=== PATIENT | female | born 1950 | race Caucasian/White ===

== ENCOUNTER 2021-03-01 11:49 | Emergency (ER) | payer MEDICARE, MEDICAID, SELFPAY ==
--- NOTE | ~2021-03-01 | XR_ITS ---
EXAMINATION: XR CHEST CLINICAL INFORMATION: CVA COMPARISON: April 17, 2019 TECHNIQUE: AP portable view of the chest was obtained. FINDINGS: The cardiopericardial silhouette is enlarged. Pacemaker/defibrillator in place. No evidence of pulmonary edema. No confluent parenchymal disease is seen. Status post median sternotomy. No pneumothorax or pleural effusion seen. XR/XR chest 1V IMPRESSION: No significant acute parenchymal disease identified. Cardiomegaly.
--- NOTE | ~2021-03-01 | CT_ITS ---
EXAMINATION: CT HEAD WITHOUT CONTRAST (STROKE PROTOCOL) CLINICAL INFORMATION: Stroke protocol. The stage. COMPARISON: Helical images are available for comparison. Comparison is made with previous head CT report 2005 TECHNIQUE: Contiguous axial imaging was performed from the skull base to vertex without intravenous administration of contrast. This CT examination was performed using dose optimization techniques as appropriate, variously including the following: *Automated exposure control *Adjustment of mA and/or kV according to patient size (this includes techniques or standardized protocols for targeted exams where dose is matched to indication/reason for exam; i.e. extremities or head) *Use of iterative reconstruction technique DLP: 589 mGy-cm FINDINGS: There is no evidence of an extra-axial collection. There is no evidence of intra-axial or extra-axial hemorrhage. The ventricles and extra-axial CSF spaces are appropriate. There is mild nonspecific periventricular white matter disease. There is a large old left MCA territory infarct.There is an old-appearing right posterior medial occipital lobe infarct. There may be old small cerebellar infarcts. No mass, mass effect or acute infarct is seen. Review at bone windows is unremarkable. No skull fracture or bone lesion is seen. The paranasal sinuses, mastoid air cells and middle ears are clear. CT/CT head for stroke IMPRESSION: No acute findings. Old large left MCA territory infarct. Old right occipital infarct and question old small cerebellar infarcts. This critical result was discussed with Juan F Grey at 1218 hours on 03/01/2021. It was ascertained that the content and urgency of the report was understood at the time of direct communication.
[2021-03-01 11:58] LABS: Glucose, Whole Blood 88 mg/dL (60-115)
--- NOTE | 2021-03-01 12:00 | ECG_ITS ---
Test Reason : STROKE Blood Pressure : / mmHG Vent. Rate : 057 BPM Atrial Rate : 000 BPM P-R Int : 000 ms QRS Dur : 100 ms QT Int : 418 ms P-R-T Axes : 000 056 221 degrees QTc Int : 406 ms Atrial fibrillation with slow ventricular response with occasional ventricular-paced complexes Left ventricular hypertrophy with repolarization abnormality ( [place] product ) T-wave inversion in Inferior leads Lateral leads Abnormal ECG When compared with ECG of 17-APR-2019 16:37, T wave inversion more evident in Inferior leads Referred By: Juan F Grey Electronically Signed By:HELGA CISNEROS MD
[2021-03-01 12:06] VITALS: BP 137/62; PULSE 58; O2SAT 98
--- NOTE | 2021-03-01 12:10 | ED_ITS ---
HPI - General Adult General Chief complaint: Stroke Stated complaint: ?stroke Time Seen by Provider: 03/01/21 12:00 Source: EMS Limitations: altered mental status (Expressive aphasia) History of Present Illness HPI narrative: This is a 70-year-old female with a history of prior CVA who was noted by family last night around 21:00 to have protrusion of her tongue that seemed abnormal. This morning EMS was called and the patient was noted to have some right facial droop which the family stated seemed like it was new compared to her usual appearance. The patient can give limited history as she has an expressive aphasia. She does seem to indicate she has new neurologic symptoms. Patient is on Coumadin. The patient's daughter later gives history that the patient was at [facility] last month for similar symptoms, had a UTI. Daughter is concerned the patient urine has been foul smelling recently and she seems to have some swelling of her right foot. She noted the tongue protrusion last night and this morning but otherwise denies that there is any acute change in her mother's appearance or behavior Related Data Home Medications Medication Instructions Recorded Confirmed aspirin 81 mg tablet,delayed 1 tab PO DAILY 03/01/21 03/01/21 release atorvastatin 80 mg tablet 1 tab PO BEDTIME 03/01/21 03/01/21 digoxin 125 mcg (0.125 mg) tablet 1 tab PO DAILY 03/01/21 03/01/21 estradiol 1 appl VAGINAL DAILY 03/01/21 03/01/21 fluoxetine 40 mg capsule 1 cap PO DAILY 03/01/21 03/01/21 furosemide 40 mg tablet 1 tab PO DAILY 03/01/21 03/01/21 isosorbide mononitrate 30 mg 1 tab PO DAILY 03/01/21 03/01/21 tablet,extended release 24 hr lamotrigine 25 mg tablet 2 tab PO BID 03/01/21 03/01/21 levothyroxine 175 mcg tablet 1 tab PO DAILY 03/01/21 03/01/21 losartan 25 mg tablet 1 tab PO DAILY 03/01/21 03/01/21 memantine 10 mg tablet 1 tab PO DAILY 03/01/21 03/01/21 metoprolol tartrate 100 mg tablet 1 tab PO BID 03/01/21 03/01/21 mirtazapine 15 mg tablet 1 tab PO BEDTIME 03/01/21 03/01/21 multivitamin 1 tab PO DAILY 03/01/21 03/01/21 nystatin 100,000 unit/gram topical 1 applic TOPICAL DAILY 03/01/21 03/01/21 powder (Nystop) potassium chloride 10 mEq 1 tab PO BID 03/01/21 03/01/21 tablet,extended release quetiapine 25 mg tablet 25 mg PO DAILY 03/01/21 03/01/21 quetiapine 25 mg tablet 50 mg PO DAILY 03/01/21 03/01/21 topiramate 200 mg tablet 1 tab PO BID 03/01/21 03/01/21 warfarin 3 mg tablet 2 tab PO DAILY 03/01/21 03/01/21 Previous Rx's Medication Instructions Recorded cefdinir 300 mg capsule 300 mg PO BID #12 cap 03/01/21 Allergies Allergy/AdvReac Type Severity Reaction Status Date / Time codeine [Codeine] Allergy Unknown GENERIC Unverified 01/05/20 15:03 Allergy: CODEINE SULFATE levofloxacin [LEVOFLOXACIN] Allergy Unknown ANGIOEDEMA Unverified 01/05/20 15:03 Shellfish Allergy Unknown UNKNOWN Unverified 01/05/20 15:03 Codeine Sulfate Allergy Unknown Uncoded 03/25/11 00:00 Erythromycin Allergy Unknown Uncoded 03/25/11 00:00 From Erythrocin Allergy Unknown UNKNOWN Uncoded 01/05/20 15:03 Review of Systems Review of Systems: Yes Unobtainable due to mental condition Constitutional: Constitutional: Denies headache(s) ENT: Denies headache(s) Neurologic: Denies headache(s) and Denies Sensory deficit (Neuro) PMFSH Social History Social History Patient Tobacco Use Status: Former Tobacco user Use of substances other than those prescribed or required for medical reasons: No Advance Directives: No Advance Directives Information Provided: No Physical Exam Vital Signs: Vital Signs: Last Vital Signs Pulse 75 03/01/21 14:11 Resp 21 H 03/01/21 14:11 BP 138/42 L 03/01/21 14:11 Pulse Ox 98 03/01/21 14:11 Body Mass Index 29.2 Const: Other: Patient does attempt to answer questions, has expressive aphasia. Patient does smile and laugh, when she smiles she has slight asymmetry with decrease of the right nasal labial fold no gross right facial droop. No eyelid involvement General: cooperative Orientation/consciousness: patient oriented x3 HENMT: Head: Yes normal to inspection Eyes: General: appearance normal, both eyes and all related structures Eyelids: Yes eyelids normal Conjunctivae: conjunctivae normal Pupils: Equal, round and reactive pupils present Neck: Neck: Yes normal visual inspection and Yes supple Chest: Chest palpation & inspection: normal inspection of the chest Resp: Effort & Inspection: normal respiratory effort Auscultation: clear to auscultation bilaterally Cardio: Rate: regular rate Rhythm: regular rhythm Heart sounds: S1 normal heart sound present, S2 normal heart sound present, no gallops, no murmurs and no rubs GI: Palpation (GI): Soft to palpation, nontender and Other GI palpation findings present (Non-distended) Auscultation: normal bowel sounds Skin: General skin exam: no rashes or lesions noted Neuro: General: patient oriented x3, no focal motor deficits and CN's II-XI intact bilaterally Cranial nerves: Yes Equal, round and reactive pupils present Cognition (Neuro): normal cognition Motor exam (neuro): 5/5 motor strength present throughout Sensory Exam: No Sensory deficit (Neuro) Extrem: General: Yes normal to inspection and Yes no pedal edema Psych: Appearance: grossly normal Affect: normal affect Procedures Procedure Narrative Procedure Narrative: Right femoral stick for blood draw. Due to the fact that both nursing and phlebotomy was unable to draw blood, a right femoral vein puncture was done. There was prepped with Betadine and blood was obtained on the 1st stick mite, venous, approximately 20 mL removed. Direct pressure was applied with gauze for a few minutes afterward. Medical Decision Making MDM Narrative Medical decision making narrative: Patient with a history of CVA, years ago, as well as atrial fibrillation, on Coumadin, was sent in for concern about a stroke. Patient had tongue protrusion that the family thought was unusual. The patient does have history of a large left MCA territory stroke and does have slight residual right facial paralysis but overall the patient is smiling, laughing, talking as best she can, seeming and concerned about any acute neurologic issue. The daughter also expressed concern about UTI and swelling in the patient's right foot. No concerning swelling was found on exam. Patient does have evidence of UTI. CT scan of the brain showed no acute pathology. There were the old left MCA territory infarctas well as the right occipital lobe infarct. CT of the head neck was initially ordered however the patient had no IV access and the consensus among the building services coordinator her family physician was that given the timing of the onset of symptoms and the lack of any definite neurologic deficit, CT would not be contributory. Patient labs were checked and were unremarkable. Urinalysis as noted above did show evidence of UTI. Lab Data Result diagrams: 03/01/21 15:40 03/01/21 15:40 Labs: Lab Results 03/01/21 03/01/21 03/01/21 Range/Units 11:55 12:18 14:07 WBC (4.8-10.8) X10*3/uL RBC (4.20-5.50) X10*6/uL Hgb (12.0-16.0) g/dl Hct (37.0-47.0) % MCV (80.0-98.0) fL MCH (27.0-33.0) pg MCHC (31.0-35.0) g/dl RDW (11.0-16.0) % Plt Count (160-400) X10*3/uL MPV (9.4-12.3) fL Immature Gran % (Auto) (0.0-0.4) % Neut % (Auto) (45-73) % Lymph % (Auto) (20-40) % [place] % (Auto) (2-11) % Eos % (Auto) (0-4) % Baso % (Auto) (0-2) % Lymph # (Auto) (1.2-4.9) X10*3/uL [place] # (Auto) (0.1-1.2) X10*3/uL Eos # (Auto) (0.0-0.4) X10*3/uL Baso # (Auto) (0.0-0.2) X10*3/uL Abs Immat Gran (auto) (0.00-0.03) X10*3/uL Absolute Neuts (auto) (2.0-8.3) x10*3/uL Absolute Nucleated RBC (0.0-0.012) X10*3/uL Nucleated RBC % (auto) (0.0-0.2) /100WBC PT (9.9-13.0) SEC Whole Blood PT 84.2 H (11.1-13.5) sec INR (0.9-1.1) Whole Blood INR 7.0 H* (0.9-1.1) APTT (24.1-38.0) SEC Sodium (135-145) mmol/L Potassium (3.3-5.1) mmol/L Chloride (96-108) mmol/L Carbon Dioxide (22-29) mmol/L Anion Gap (12-20) BUN (9-16) mg/dL Creatinine (0.5-1.4) mg/dL Estim Creat Clear Calc Estimated GFR POC Glucose 88 (60-115) mg/dL Random Glucose (60-115) mg/dL Calcium (8.4-10.2) mg/dL Magnesium (1.6-2.6) mg/dL Total Creatine Kinase (26-140) U/L Troponin I High Sens (<3.5-17.0) ng/L Urine Color Urine Appearance Urine pH (5.0-8.0) Ur Specific [place] (1.005-1.025) Urine Protein (NEG-TRACE) MG/DL Urine Glucose (UA) (NEG) MG/DL Urine Ketones (NEG) MG/DL Urine Blood (NEG) Urine Nitrite (NEG) Ur Leukocyte Esterase (NEG) Urine RBC (0) /HPF Urine WBC (0-4) /HPF Ur Squamous Epith Cells /LPF Urine Bacteria /LPF COVID-19 (GIGI) Negative (Negative) COVID-19 Clin Com See Note 03/01/21 03/01/21 03/01/21 Range/Units 14:10 15:40 15:40 WBC 5.4 (4.8-10.8) X10*3/uL RBC 3.40 L (4.20-5.50) X10*6/uL Hgb 8.9 L (12.0-16.0) g/dl Hct 30.3 L (37.0-47.0) % MCV 89.1 (80.0-98.0) fL MCH 26.2 L (27.0-33.0) pg MCHC 29.4 L (31.0-35.0) g/dl RDW 17.7 H (11.0-16.0) % Plt Count 113 L (160-400) X10*3/uL MPV 10.6 (9.4-12.3) fL Immature Gran % (Auto) 0.2 (0.0-0.4) % Neut % (Auto) 59.7 (45-73) % Lymph % (Auto) 27.2 (20-40) % [place] % (Auto) 9.4 (2-11) % Eos % (Auto) 3.1 (0-4) % Baso % (Auto) 0.4 (0-2) % Lymph # (Auto) 1.5 (1.2-4.9) X10*3/uL [place] # (Auto) 0.5 (0.1-1.2) X10*3/uL Eos # (Auto) 0.2 (0.0-0.4) X10*3/uL Baso # (Auto) 0.0 (0.0-0.2) X10*3/uL Abs Immat Gran (auto) 0.01 (0.00-0.03) X10*3/uL Absolute Neuts (auto) 3.2 (2.0-8.3) x10*3/uL Absolute Nucleated RBC 0.000 (0.0-0.012) X10*3/uL Nucleated RBC % (auto) 0.0 (0.0-0.2) /100WBC PT 43.7 H (9.9-13.0) SEC Whole Blood PT (11.1-13.5) sec INR 3.7 H (0.9-1.1) Whole Blood INR (0.9-1.1) APTT 46.2 H (24.1-38.0) SEC Sodium (135-145) mmol/L Potassium (3.3-5.1) mmol/L Chloride (96-108) mmol/L Carbon Dioxide (22-29) mmol/L Anion Gap (12-20) BUN (9-16) mg/dL Creatinine (0.5-1.4) mg/dL Estim Creat Clear Calc Estimated GFR POC Glucose (60-115) mg/dL Random Glucose (60-115) mg/dL Calcium (8.4-10.2) mg/dL Magnesium (1.6-2.6) mg/dL Total Creatine Kinase (26-140) U/L Troponin I High Sens (<3.5-17.0) ng/L Urine Color YELLOW Urine Appearance HAZY Urine pH 6.0 (5.0-8.0) Ur Specific [place] 1.015 (1.005-1.025) Urine Protein NEG (NEG-TRACE) MG/DL Urine Glucose (UA) NEG (NEG) MG/DL Urine Ketones NEG (NEG) MG/DL Urine Blood NEG (NEG) Urine Nitrite POS H (NEG) Ur Leukocyte Esterase 2+ H (NEG) Urine RBC 0 (0) /HPF Urine WBC 50-75 H (0-4) /HPF Ur Squamous Epith Cells 2+ /LPF Urine Bacteria 4+ /LPF COVID-19 (GIGI) (Negative) COVID-19 Clin Com 03/01/21 03/01/21 Range/Units 15:40 15:40 WBC (4.8-10.8) X10*3/uL RBC (4.20-5.50) X10*6/uL Hgb (12.0-16.0) g/dl Hct (37.0-47.0) % MCV (80.0-98.0) fL MCH (27.0-33.0) pg MCHC (31.0-35.0) g/dl RDW (11.0-16.0) % Plt Count (160-400) X10*3/uL MPV (9.4-12.3) fL Immature Gran % (Auto) (0.0-0.4) % Neut % (Auto) (45-73) % Lymph % (Auto) (20-40) % [place] % (Auto) (2-11) % Eos % (Auto) (0-4) % Baso % (Auto) (0-2) % Lymph # (Auto) (1.2-4.9) X10*3/uL [place] # (Auto) (0.1-1.2) X10*3/uL Eos # (Auto) (0.0-0.4) X10*3/uL Baso # (Auto) (0.0-0.2) X10*3/uL Abs Immat Gran (auto) (0.00-0.03) X10*3/uL Absolute Neuts (auto) (2.0-8.3) x10*3/uL Absolute Nucleated RBC (0.0-0.012) X10*3/uL Nucleated RBC % (auto) (0.0-0.2) /100WBC PT (9.9-13.0) SEC Whole Blood PT (11.1-13.5) sec INR (0.9-1.1) Whole Blood INR (0.9-1.1) APTT (24.1-38.0) SEC Sodium 142 (135-145) mmol/L Potassium 3.9 (3.3-5.1) mmol/L Chloride 113 H (96-108) mmol/L Carbon Dioxide 25 (22-29) mmol/L Anion Gap 8 L (12-20) BUN 19 H (9-16) mg/dL Creatinine 1.02 (0.5-1.4) mg/dL Estim Creat Clear Calc 44.1 Estimated GFR 54 POC Glucose (60-115) mg/dL Random Glucose 100 (60-115) mg/dL Calcium 8.8 (8.4-10.2) mg/dL Magnesium 2.1 (1.6-2.6) mg/dL Total Creatine Kinase 48 (26-140) U/L Troponin I High Sens 14.3 (<3.5-17.0) ng/L Urine Color Urine Appearance Urine pH (5.0-8.0) Ur Specific [place] (1.005-1.025) Urine Protein (NEG-TRACE) MG/DL Urine Glucose (UA) (NEG) MG/DL Urine Ketones (NEG) MG/DL Urine Blood (NEG) Urine Nitrite (NEG) Ur Leukocyte Esterase (NEG) Urine RBC (0) /HPF Urine WBC (0-4) /HPF Ur Squamous Epith Cells /LPF Urine Bacteria /LPF COVID-19 (GIGI) (Negative) COVID-19 Clin Com Imaging Data CT scan - head: Radiologist's impression: IMPRESSION: No acute findings. Old large left MCA territory infarct. Old right occipital infarct and question old small cerebellar infarcts. Chest x-ray: Radiologist's impression: IMPRESSION: No significant acute parenchymal disease identified. ? Cardiomegaly. ? ECG Data Attestation: I personally reviewed and interpreted this ECG as follows: Prior ECG tracings: not available for review Interpretation: Atrial fibrillation with ventricular response of 57. LVH with associated ST changes Discharge Plan Discharge Clinical Impression: Acute UTI Patient Disposition: Home, Self-Care Instructions: Urinary Tract Infection in Women (ED) Additional Instructions: Take the antibiotics as prescribed. Continue other medications. Return for any new or worsened symptoms such as increased weakness, fever, inability to take food or fluids Prescriptions: New cefdinir 300 mg capsule 300 mg PO BID Qty: 12 RF: 0 No Action multivitamin Tablet 1 tab PO DAILY RF: 0 quetiapine 25 mg tablet 25 mg PO DAILY RF: 0 quetiapine 25 mg tablet 50 mg PO DAILY RF: 0 fluoxetine 40 mg capsule 1 cap PO DAILY RF: 0 furosemide 40 mg tablet 1 tab PO DAILY RF: 0 levothyroxine 175 mcg tablet 1 tab PO DAILY RF: 0 atorvastatin 80 mg tablet 1 tab PO BEDTIME RF: 0 metoprolol tartrate 100 mg tablet 1 tab PO BID RF: 0 isosorbide mononitrate 30 mg tablet extended release 24 hr 1 tab PO DAILY RF: 0 potassium chloride 10 mEq tablet extended release 1 tab PO BID RF: 0 aspirin 81 mg tablet,delayed release (DR/EC) 1 tab PO DAILY RF: 0 lamotrigine 25 mg tablet 2 tab PO BID RF: 0 warfarin 3 mg tablet 2 tab PO DAILY RF: 0 losartan 25 mg tablet 1 tab PO DAILY RF: 0 topiramate 200 mg tablet 1 tab PO BID RF: 0 digoxin 125 mcg (0.125 mg) tablet 1 tab PO DAILY RF: 0 mirtazapine 15 mg tablet 1 tab PO BEDTIME RF: 0 estradiol 0.01 % (0.1 mg/gram) cream 1 appl vaginal DAILY RF: 0 memantine 10 mg tablet 1 tab PO DAILY RF: 0 nystatin [Nystop] 100,000 unit/gram powder 1 applic topical DAILY RF: 0
[2021-03-01 12:20] LABS: Prothrombin Time Whole Bld POC 84.2 sec (11.1-13.5)
[2021-03-01 12:25] VITALS: BMI 29.2
--- NOTE | 2021-03-01 12:34 | MHC.STROKE ---
Addendum entered by Luzma Meredith RN 03/01/21 13:16: THE DAUGHTER ROSALBA ARRIVED. THE PATIENT HAS BEEN LIVING WITH HER FOR THE PAST 12 YEARS. THE PATIENT HAS BEEN GOING TO [facility] SINCE 2019 FOR HER CARE. THE PATIENT WAS RECENTLY THERE FOR A UTI A MONTH AGO, THE SYMPTOMS OF FOUL URINE STILL PERSISTS. THE INR'S ARE CHECKED AT HOME LAST DONE ON 02/26/21 IT WAS 2.9 (GOAL 2.5-3.5). tHE PATIENTS BASELINE IS THAT SHE DOES GET UP WITH ASSISTANCE AND CAN USE A WALKER WITH HELP. SHE HAS APHASIA AND APRAXIA, SHE CHOPS ALL OF HER FOOD. LAST NIGHT THE DAUGHTER NOTICED THAT THE PATIENTS RIGHT SIDE SEEMS WEAKER AND HER TONGUE WAS DEVIATING TO THE RIGHT. I DID NOTIFY SPEECH THAT A CONSULT WAS BEING PUT IN. THE PATIENT HAS VERY DIFFICULT IV ACCESS AND THE LABS WERE DIFFICULT TO OBTAIN WELL. THE CTA MAY BE CANCELLED BECAUSE THE DAUGHTER SAID HER MOM IS BACK TO BASELINE EXCEPT FOR THE SWELLING OF THE RIGHT FOOT AND LESS MOVEMENT OF RIGHT FOOT. IF NEEDED THE RECORDS CAN BE OBTAINED FROM [facility]. 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 THE DAUGHTER ROSALBA HAS AN ENTIRE LIST OF HER MEDS AND MEDICAL SURGICAL HISTORY ON HER PHONE. THE DAUGHTER WOULD LIKE HER MOM ADMITTED OVERNIGHT IF THERE IS A MEDICAL INDICATION. THE DAUGHTER'S 16 YEAR OLD SON TESTED + FOR COVID BUT THE REST OF THE PEOPLE IN THE HOUSE HAVE NOT. Original Note: 1144 EMS PRE-NOTIFIED STROKE ALERT , ARRIVED AT [address] MITCHELL, STROKE PROTOCOL ACTIVATED. C/O RIGHT SIDED WEAKNESS THAT WAS NOTICED LAST NIGHT 02/28/[address] FAMILY[address] DIRECT TO CT, NO BLEED, CTA ALSO BEING DONE BUT PATIENT HAS DIFFICULT IV ACCESS. POC INR ALSO ATTEMPTED SEVERAL TIMES BUT UNABLE TO OBTAIN READING. LAB DRAW INR WILL ALSO BE DONE. SHE IS EXCLUDED FROM TPA BASED ON DELAY OF ARRIVAL. PATIENT HAS A SIGNIFICANT HISTORY WHICH INCLUDES MULTIPLE CVA'S FAR BACK 2001: RIGHT OCCIPITAL, DAT CEREBELLAR, 09/24/2004 VERY LARGE LEFT MCA STROKE/FOUND UNRESPONSIVE AT THAT TIME. AFIB ON WARFARIN, HF, CARDIAC ARREST 06/26/09, CAROTID OCCLUSION, MECHANICAL VALVE REPLACEMENT, ETC. HER CURRENT BASELINE WILL NEED TO BE DETERMINED, WE WILL CONTACT THE FAMILY. WE WILL ALSO DETERMINE IF SHE IS STILL ON WARFARIN. FAILED SWALLOW AT THIS TIME UNTIL BASELINE IS DETERMINED. I WILL CONTINUE TO FOLLOW.
[2021-03-01 12:52] VITALS: BP 123/43; PULSE 63; RESP 25; O2SAT 94
--- NOTE | 2021-03-01 13:53 | PHA.MEDREC ---
Pharmacy Consult ? Medication Reconciliation Pharmacy has completed the medication reconciliation. Patient's daughter confirmed all medications. Reports that warfarin dose changes often by INR. recently she has been giving Warfarin 6 mg daily. Melanie Saavedra, ToniD
[2021-03-01 14:11] VITALS: BP 138/42; PULSE 75; RESP 21; O2SAT 98
[2021-03-01 14:16] LABS: Appearance Urine HAZY; Color Urine YELLOW; Glucose Urine UA NEG (NEG); Leukocyte Esterase Urine 2+ (NEG); Nitrite Urine POS (NEG); Specific Gravity - Urine 1.015 (1.005-1.025); UACC Culture Trigger YES; Urine Blood NEG (NEG); Urine Ketones NEG (NEG); Urine Protein NEG (NEG-TRACE)
[2021-03-01 14:34] LABS: Bacteria Urine 4+ /LPF; RBC Urine 0 /HPF (0); Squamous Epithelial Cell Urine 2+ /LPF; WBC Urine 50-75 /HPF (0-4)
[2021-03-01 14:39] LABS: COVID-19 Test Negative (Negative)
--- NOTE | 2021-03-01 15:24 | MHC.SL.SWA ---
Speech Pathologist Impression: Risk of Aspiration Oral Phase Dysphagia Risk of Aspiration Due to: impulsivity Dysphasia Diet Status: Upgrade Liquid Consistency and Strategies for Safe Swallow: Liquid Intake Recommendation: Thin Liquid Intake Strategies: Small Sips No Straws Solid Food Consistency: Dietary Recommendations: Pureed (NDD1) Additional Modifications to Solid Foods: Oral Medication Intake: Crushed with Puree Compensatory Strategies and Precautions to be Taken for Safe Swallow: Supervision While Eating and Drinking for Safe Swallow: Total Supervision (1:1) Pt elicited a timely pharyngeal swallow trigger with tsp presentations of thin liquids presented by this CURVE CLEANER. Pt gestured that she wanted more water and wanted it from the cup rather than the spoon. She appeared very thirsty and took the cup from this CURVE CLEANER with her left hand. Pt required cues for use of small, single cup sips. Pt tolerated thin water without overt s/s aspiration. Pt demonstrated a timely swallow trigger and complete oral clearance with pureed solids. Pt was observed to have 2-3 very loose teeth. She was nearly edentulous on her lower jaw. Pt demonstrated significant difficulty with bolus formation of very small piece of a ground solid moistened in puree. A disorganized, anterior munching/mashing pattern of mastication was noted. Significant lingual residuals were noted post swallow. Updated with RN and pt's daughter via phone call re: evaluation results and recommendation for an NDD1 PUREED diet, THIN liquids via small, single cup sips (NO STRAWS), MEDS CRUSHED in puree, aspiration precautions, and 1:1 assist/supervision with all PO intake. Pt demonstrated impulsivity with PO intake, requiring cues for safety. CURVE CLEANER will continue to follow pt. Frequency/Duration: M-F during pt's hospitalization. Incinerator Attendant Clinican/Clinical Fellow: No Supervisory Statement: I have reviewed and agree with the student/clinical fellow's documentation: N/A Speech Language Pathologist: Keke Harmon M.A., CCC-CURVE CLEANER
[2021-03-01 15:45] LABS: MANUAL DIFF FLAG NO
[2021-03-01 15:47] LABS: Basophils Percent Auto 0.4 % (0-2); Eosinophils Absolute Auto 0.2 X10*3/uL (0.0-0.4); Eosinophils Percent Auto 3.1 % (0-4); Hematocrit 30.3 % (37.0-47.0); Hemoglobin 8.9 g/dl (12.0-16.0); Imm Gran Abs Auto 0.01 X10*3/uL (0.00-0.03); Imm Gran Pct Auto 0.2 % (0.0-0.4); Lymphocytes Absolute Auto 1.5 X10*3/uL (1.2-4.9); Lymphocytes Percent Auto 27.2 % (20-40); Mean Corpuscular HGB Conc 29.4 g/dl (31.0-35.0); Mean Corpuscular Hemoglobin 26.2 pg (27.0-33.0); Mean Corpuscular Volume 89.1 fL (80.0-98.0); Mean Platelet Volume 10.6 fL (9.4-12.3); Monocytes Absolute Auto 0.5 X10*3/uL (0.1-1.2); Monocytes Percent Auto 9.4 % (2-11); Neutrophils Absolute Auto 3.2 x10*3/uL (2.0-8.3); Neutrophils Percent Auto 59.7 % (45-73); Platelet Count 113 X10*3/uL (160-400); Red Cell Distribution Width 17.7 % (11.0-16.0); White Blood Count 5.4 X10*3/uL (4.8-10.8)
[2021-03-01 15:52] LABS: INTERNATIONAL NORM RATIO 3.7 (0.9-1.1); Prothrombin Time 43.7 SEC (9.9-13.0)
[2021-03-01] MEDS: cefTRIAXone sodium 1 GM, Lidocaine HCl 1 % MPF 2.1 ML IM (15:54)
[2021-03-01 15:55] LABS: Partial Thromboplastin Time 46.2 SEC (24.1-38.0)
[2021-03-01 15:57] LABS: Stroke Lab Use COMPLETE
[2021-03-01 16:06] LABS: Anion Gap 8 (12-20); Blood Urea Nitrogen 19 mg/dL (9-16); Calcium 8.8 mg/dL (8.4-10.2); Carbon Dioxide 25 mmol/L (22-29); Chloride 113 mmol/L (96-108); Creatinine Clr Calc Pharmacy 44.1; Estimated Glomerular Filt Rate 54; Glucose Random 100 mg/dL (60-115); Magnesium 2.1 mg/dL (1.6-2.6); Potassium 3.9 mmol/L (3.3-5.1); Sodium 142 mmol/L (135-145)
[2021-03-01 16:07] LABS: Troponin-I High Sensitivity 14.3 ng/L (<3.5-17.0)
== END 2021-03-01 17:07 | disposition home or self-care (01) ==
PROVIDERS: Emergency Provider Emergency Medicine; PCP Internal Medicine
DX: N39.0 Urinary tract infection, site not specified (principal); Z86.73 Personal history of transient ischemic attack (TIA), and cerebral infarction without residual deficits; Z79.01 Long term (current) use of anticoagulants; Z79.82 Long term (current) use of aspirin; Z79.899 Other long term (current) drug therapy; Z20.822 Contact with and (suspected) exposure to COVID-19
CPT/HCPCS: 36410; 36415; 70450; 71045; 80048; 81001; 82550; 82947; 83735; 84484; 85025; 85610; 85730; 87086; 87088; 87186; 87635; 93005; 96372; 99285; J0696

== ENCOUNTER 2021-03-27 13:32 | Inpatient (IN) | payer MEDICARE, MEDICAID, SELFPAY ==
--- NOTE | ~2021-03-27 | XR_ITS ---
EXAMINATION: XR CHEST CLINICAL INFORMATION: Shortness of breath COMPARISON: Multiple prior exams. Most recent Chest x-ray 03/27/2021., 2:59 PM TECHNIQUE: Frontal portable view of the chest was obtained. 2111 hours FINDINGS: Status post median sternotomy. Heart size is enlarged. No change position of pacemaker lead in right ventricle. Mild central pulmonary vascular prominence similar to multiple prior chest x-rays. No overt pulmonary edema. No pleural effusion. No pneumothorax. XR/XR chest 1V IMPRESSION: Cardiomegaly. Pacemaker. Chronic mild central pulmonary vascular prominence without overt pulmonary edema. No change since prior exam.
--- NOTE | ~2021-03-27 | XR_ITS ---
EXAMINATION: XR CHEST CLINICAL INFORMATION: Hypoxia. COMPARISON: 03/27/2021 chest radiograph. TECHNIQUE: Frontal view of the chest was obtained. FINDINGS: Support devices: Right-sided single-lead pacemaker with lead overlying the right ventricle without significant change or abnormality. Multilevel sternotomy wires are intact. Mild prominence of the pulmonary vasculature and cardiac silhouette is again seen without significant change. The mediastinal structures are unremarkable. XR/XR chest 1V IMPRESSION: Stable chest with mild prominence of the pulmonary vasculature and cardiac silhouette, likely baseline for the patient.
--- NOTE | ~2021-03-27 | CT_ITS ---
EXAMINATION: CT CHEST WITHOUT CONTRAST CLINICAL INFORMATION: Question aspiration pneumonia. COMPARISON: CT 04/17/2019. Radiograph 03/27/2021. TECHNIQUE: Multidetector volumetric CT imaging of the chest was done. Axial MIP volume rendering provided. Sagittal and coronal reformatted images were obtained. This CT examination was performed using dose optimization techniques as appropriate, variously including the following: *Automated exposure control *Adjustment of mA and/or kV according to patient size (this includes techniques or standardized protocols for targeted exams where dose is matched to indication/reason for exam; i.e. 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 Median sternotomy wires. LUNGS: The central airways are patent. There is a posterior opacity at the right lower lobe. This measures fat attenuation and likely represents an area of scarring/pleural thickening which is somewhat more prominent than on the study from 04/17/2019. No separate area of consolidation identified. No interstitial prominence. No pneumothorax. No pleural effusion. MEDIASTINUM: Enlarged heart. Coronary artery calcifications. No pericardial effusion. No mediastinal lymphadenopathy. Right chest wall pacer in place with right ventricular lead. AXILLA: No lymphadenopathy. UPPER ABDOMEN: Unremarkable. OSSEOUS STRUCTURES: No acute or suspicious osseous abnormality. CT/CT chest wo con IMPRESSION: No acute pulmonary finding. No evidence of aspiration. Area of increased pleural thickening/scarring at the right base. Cardiomegaly. Fleischner guidelines were followed.
--- NOTE | ~2021-03-27 | XR_ITS ---
EXAMINATION: XR CHEST CLINICAL INFORMATION: Lethargy. Cough. COMPARISON: 03/01/2021 TECHNIQUE: 2 views of the chest were obtained. FINDINGS: Right chest wall pacer is unchanged. Median sternotomy wires appear intact. The lungs are well expanded. No consolidation, edema, or effusion. No pneumothorax. The cardiomediastinal silhouette remains prominent, with a calcified aorta. XR/XR chest 2V IMPRESSION: No acute pulmonary finding.
[2021-03-27 13:44] VITALS: BP 151/76; BP 152/78; PULSE 53; PULSE 62; RESP 18; TEMP 36.8; O2SAT 100; O2SAT 98; BMI 31.9
--- NOTE | 2021-03-27 13:54 | ECG_ITS ---
Test Reason : SOB Blood Pressure : / mmHG Vent. Rate : 056 BPM Atrial Rate : 058 BPM P-R Int : 000 ms QRS Dur : 170 ms QT Int : 514 ms P-R-T Axes : 000 -87 099 degrees QTc Int : 496 ms Ventricular-paced rhythm with occasional , and consecutive Premature ventricular complexes Abnormal ECG When compared with ECG of 01-MAR-2021 12:33, Premature ventricular complexes are now Present Referred By: Latricia Rodriguez Electronically Signed By:Bryan Beal
[2021-03-27] MEDS: Albuterol Sulfate (0.083%) 2.5 MG/3 ML VIAL.NEB 10 MG INHALE (15:17)
--- NOTE | 2021-03-27 15:50 | ED_ITS ---
HPI - SOB/Dyspnea General Chief Complaint: General Medical Stated Complaint: INCREASED LETHARGY,SOB,CP,PROD COUGH Time Seen by Provider: 03/27/21 13:53 Source: patient, family and EMS Mode of arrival: EMS Limitations: other (History of stroke with right-sided residual weakness and expressive and receptive aphasia) History of Present Illness HPI Narrative: 70-year-old female with a past medical history of a CVA who is currently on warfarin taking daily with right-sided residual weakness and expressive and receptive aphasia per daughter who is at bedside, dementia, seizures, valvular heart disease, CHF on 40 mg of Lasix daily HTN, DVT, asthma and thyroid disease presenting to the ED via EMS with daughter at bedside who is the main historian with complaints of increased lethargy with cough, congested-sounding chest, wheezing, accessory muscle usage noted, shortness of breath, lower extremity edema and foul-smelling urine that all started today per the daughter. Daughter reports she is taking all her medications as prescribed as the daughter is the 1 who gives her medications and cares for her. Her rajani ghter denies any fevers, chills, dizziness, headaches, obvious neck pain/stiffness, chest pain, abdominal pain, nausea/vomiting/diarrhea constipation, rashes, recent travel or sick contacts, palpitations, calf tenderness or any other symptoms or complaints at this time. MD elicited complaint: shortness of breath and cough Pertinent past history: congestive heart failure Onset (ago): hour(s) (Few hours prior to arrival) Timing: constant and progressively worsening Severity: severe Exacerbating factors: lying flat, coughing, inspiration, talking and deep breaths Relieving factors: nothing Known history of: congestive heart failure Associated symptoms: pain with inspiration, cough, wheezing, orthopnea, chest congestion and other (Lower extremity edema) Treatment prior to arrival: none Related Data Home oxygen amount: none Home Medications Medication Instructions Recorded Confirmed aspirin 81 mg tablet,delayed 1 tab PO DAILY 03/01/21 03/01/21 release atorvastatin 80 mg tablet 1 tab PO BEDTIME 03/01/21 03/01/21 digoxin 125 mcg (0.125 mg) tablet 1 tab PO DAILY 03/01/21 03/01/21 estradiol 1 appl VAGINAL DAILY 03/01/21 03/01/21 fluoxetine 40 mg capsule 1 cap PO DAILY 03/01/21 03/01/21 furosemide 40 mg tablet 1 tab PO DAILY 03/01/21 03/01/21 isosorbide mononitrate 30 mg 1 tab PO DAILY 03/01/21 03/01/21 tablet,extended release 24 hr lamotrigine 25 mg tablet 2 tab PO BID 03/01/21 03/01/21 levothyroxine 175 mcg tablet 1 tab PO DAILY 03/01/21 03/01/21 losartan 25 mg tablet 1 tab PO DAILY 03/01/21 03/01/21 memantine 10 mg tablet 1 tab PO DAILY 03/01/21 03/01/21 metoprolol tartrate 100 mg tablet 1 tab PO BID 03/01/21 03/01/21 mirtazapine 15 mg tablet 1 tab PO BEDTIME 03/01/21 03/01/21 multivitamin 1 tab PO DAILY 03/01/21 03/01/21 nystatin 100,000 unit/gram topical 1 applic TOPICAL DAILY 03/01/21 03/01/21 powder (Nystop) potassium chloride 10 mEq 1 tab PO BID 03/01/21 03/01/21 tablet,extended release quetiapine 25 mg tablet 25 mg PO DAILY 03/01/21 03/01/21 quetiapine 25 mg tablet 50 mg PO DAILY 03/01/21 03/01/21 topiramate 200 mg tablet 1 tab PO BID 03/01/21 03/01/21 warfarin 3 mg tablet 2 tab PO DAILY 03/01/21 03/01/21 Previous Rx's Medication Instructions Recorded cefdinir 300 mg capsule 300 mg PO BID #12 cap 03/01/21 Allergies Allergy/AdvReac Type Severity Reaction Status Date / Time codeine [Codeine] Allergy Unknown GENERIC Unverified 01/05/20 15:03 Allergy: CODEINE SULFATE levofloxacin [LEVOFLOXACIN] Allergy Unknown ANGIOEDEMA Unverified 01/05/20 15:03 Shellfish Allergy Unknown UNKNOWN Unverified 01/05/20 15:03 Codeine Sulfate Allergy Unknown Uncoded 03/25/11 00:00 Erythromycin Allergy Unknown Uncoded 03/25/11 00:00 From Erythrocin Allergy Unknown UNKNOWN Uncoded 01/05/20 15:03 Review of Systems Review of Systems: Constitutional : No Weight loss, No Fever, No Chills, No Night Sweats, + Fatigue, + Malaise ENT/Mouth : No Hearing loss, No Ear Pain, No Nasal Congestion, No Sinus Pain, No Hoarseness, No sore throat, No Rhinorrhea, No Swallowing Difficulty Eyes: No Eye Pain, No Swelling, No Redness, No Foreign Body, No Discharge, No Vision Changes Cardiovascular : No Chest Pain, + SOB, + Dyspnea on Exertion, + Orthopnea, + LE Edema, No Palpitations Respiratory : + Cough, + Sputum, + Wheezing, No Smoke Exposure, + Dyspnea Gastrointestinal : No Nausea, No Vomiting, No Diarrhea, No Constipation, No abdominal Pain, No Hematochezia, No Melena Genitourinary : no irregular bleeding, No Dysuria, No Urinary Frequency, No Hematuria, No Urinary Incontinence, No Urgency, No Flank Pain, No Urinary Flow Changes, No Hesitancy Musculoskeletal : No joint pain, No Myalgias, No Joint Swelling Skin : No Skin Lesions, No rash Neuro : + general Weakness, No new focal weakness per daughter, No Numbness, No Paresthesias, No Loss of Consciousness, No Dizziness, No Headache Psych : No Anxiety/Panic, No Depression, No SI/HI/AH/VH, No Social Issues, Heme/Lymph: No Bruising, No Bleeding,No Lymphadenopathy Endocrine : No Polyuria, No Polydipsia, No Temperature Intolerance Yes all other systems are reviewed and are negative [facility] Past Medical History Attestation statement: The following information was validated with the patient. Surgical History Heart valve replaced Social History Social History Patient Tobacco Use Status: Former Tobacco user Advance Directives: No Advance Directives Information Provided: No Physical Exam Vital Signs: Vital Signs: Last Vital Signs Temp 98.3 F 03/27/21 13:44 Pulse 62 03/27/21 13:44 Resp 18 03/27/21 13:44 BP 152/78 H 03/27/21 13:44 Pulse Ox 98 03/27/21 13:44 BMI result Body Mass Index 31.9 vital signs have been reviewed as normal and appeared to be correct. Blood pressure 152/78. Heart rate normal. Respiration rate normal. Temperature normal. Oxygen saturation normal. Appearance: Alert. Demented at baseline. Mild respiratory distress. Head: Normal external exam. Normocephalic. Atraumatic. Eyes: PERRLA. EOMI. Conjunctiva and sclera normal. Eyelids normal. ENT: Pharynx normal. Uvula midline. Moist mucous membranes. No trismus noted. No drooling noted. No muffled voice noted. Neck: Normal inspection. Neck supple. FROM. No adenopathy. Thyroid Normal. No meningeal signs. No neck mass noted. CVS: Normal heart rate and rhythm. Heart sound normal. Pulses normal throughout. No murmurs/rales/gallops. Respiratory: In mild respiratory distress with decreased breath sounds and inspiratory and expiratory wheezing throughout. No rales/rhonchi noted. Chest is nontender. No accessory muscle use is noted. No abdominal retractions are noted. Not consistent with flail chest. No crepitus is noted. Abdomen: Soft and nontender. Bowel sounds normal in all 4 quadrants. No distention noted. No organomegaly noted. No visible injury noted. Back: No CVA tenderness. Full range of motion noted. No rashes/lesion/induration/fluctuance or signs of infection noted. Skin: Skin warm and dry. Normal skin color. Normal skin turgor. No rashes/lesions/lacerations noted. Extremities: Lower extremity edema is noted. No calf tenderness is noted. Extremities exhibit normal range of motion. Extremities nontender. Neuro: Demented at baseline per daughter with expressive and receptive dysphagia at baseline per daughter. She does have residual right-sided upper and lower extremity weakness. Otherwise no new weakness noted to the left upper or lower extremities. Reflexes are normal to the left side. Did not test the gait. No new focal deficits noted. Confirmed by daughter at bedside who is healthcare proxy/director of strategic programs. Vascular: + radial pulses/+ 2 distal pedal pulses/+2 dorsalis pedis b/l. Normal cap refill. No cyanosis noted to upper extremity nails and lower extremity toes nails. Course Reevaluation(s) Reevaluation #1: - the nurse has been unable to place an IV even with ultrasound-guided and multiple nurses have tried therefore Dr. Ochoa is attempting an IV at this time. - otherwise her chest x-ray is within normal limits no acute processes are noted. EKG is paced and similar compared to prior EKG no acute ischemic change are noted. - the labs we do have at this time patient has a mild baseline anemia similar compared to prior. Platelet count 134 increased when compared to prior. PT INR 26.8/2.3 patient is adequately coagulated. Her lactic acid is 1.8. Troponin 9.3. BNP 255. Otherwise all other labs are pending at this time will continue to monitor until all labs have returned and will reassess after she is given the magnesium/Solu-Medrol and IV antibiotic Time: 16:32 Reevaluation #2: - the rest of the patient's labs have returned at this time and patient's potassium is 5.4. Chloride 117. Carbon dioxide 18. BUN 20. Alkaline phosphate 123. BNP 255. Otherwise all other labs are within normal limits. - the nurse informed me that the patient blood was drawn by phlebotomy at the same time she was receiving the breathing treatment therefore most likely the hour long breathing treatment and a L of IV fluids have fix the potassium - therefore when I repeat the patient's troponin at 19:00 will also repeat a basic metabolic panel to evaluate the patient's potassium will not give Kayexalate or any other treatment at this time Time: 16:52 Reevaluation #3: Sign out to MEDINA Curry pending repeat troponin and basic metabolic panel and re-evaluation Time: 17:38 MDM - SOB/Dyspnea MDM Narrative Medical decision making narrative: 14pm - 70-year-old female with a past medical history of a CVA who is currently on warfarin taking daily with right-sided residual weakness and expressive and receptive aphasia per daughter who is at bedside, dementia, seizures, valvular heart disease, CHF on 40 mg of Lasix daily HTN, DVT, asthma and thyroid disease presenting to the ED via EMS with daughter at bedside who is the main historian with complaints of increased lethargy with cough, congested-sounding chest, wheezing, accessory muscle usage noted, shortness of breath, lower extremity edema and foul-smelling urine that all started today per the daughter. Daughter reports she is taking all her medications as prescribed as the daughter is the 1 who gives her medications and cares for her. On exam patient is at baseline for mentation no new focal deficits noted other than her residual right-sided upper and lower extremity weakness and expressive and receptive dysphagia confirmed by daughter that this is chronic and no new focal deficits. Although patient is in mild respiratory distress with inspiratory and expiratory wheezing throughout with decreased breath sounds. Although her oxygen saturation is 98% on room air in all other vitals are within normal limits. CV RRR. Abdomen is soft and nontender. No CVA tenderness is noted. No calf tenderness is noted. Although patient noted to have bilateral lower extremity edema. She has distal pedal pulses bilaterally. No cyanosis is noted Plan: Labs, CXR, EKG, blood cultures, lactic acid. Provide an hour long breathing treatment, 125 mg of Solu-Medrol, 2 g of magnesium, 40 mg of Lasix, 1 g of Rocephin then re-evaluate Differential Diagnosis Differential diagnosis: Likely congestive heart failure, pneumonia, pleural eff usion, sleep apnea and anemia Medical Records Attestation: I reviewed the patient's medical records. Lab Data Attestation: I reviewed the patient's lab results. Result diagrams: 03/27/21 15:55 03/27/21 15:55 Labs: Lab Results 03/27/21 03/27/21 03/27/21 Range/Units 15:55 15:55 15:55 WBC 7.3 (4.8-10.8) X10*3/uL RBC 3.66 L (4.20-5.50) X10*6/uL Hgb 9.3 L (12.0-16.0) g/dl Hct 34.4 L (37.0-47.0) % MCV 94.0 (80.0-98.0) fL MCH 25.4 L (27.0-33.0) pg MCHC 27.0 L (31.0-35.0) g/dl RDW 18.4 H (11.0-16.0) % Plt Count 134 L (160-400) X10*3/uL MPV 10.9 (9.4-12.3) fL Immature Gran % (Auto) 0.5 H (0.0-0.4) % Neut % (Auto) 70.5 (45-73) % Lymph % (Auto) 18.4 L (20-40) % [place] % (Auto) 8.3 (2-11) % Eos % (Auto) 1.9 (0-4) % Baso % (Auto) 0.4 (0-2) % Lymph # (Auto) 1.4 (1.2-4.9) X10*3/uL [place] # (Auto) 0.6 (0.1-1.2) X10*3/uL Eos # (Auto) 0.1 (0.0-0.4) X10*3/uL Baso # (Auto) 0.0 (0.0-0.2) X10*3/uL Abs Immat Gran (auto) 0.04 H (0.00-0.03) X10*3/uL Absolute Neuts (auto) 5.2 (2.0-8.3) x10*3/uL Absolute Nucleated RBC 0.000 (0.0-0.012) X10*3/uL Nucleated RBC % (auto) 0.0 (0.0-0.2) /100WBC PT 26.8 H (9.9-13.0) SEC INR 2.3 H (0.9-1.1) Sodium 145 (135-145) mmol/L Potassium 5.4 H D (3.3-5.1) mmol/L Chloride 117 H (96-108) mmol/L Carbon Dioxide 18 L (22-29) mmol/L Anion Gap 15 (12-20) BUN 20 H (9-16) mg/dL Creatinine 1.11 (0.5-1.4) mg/dL Estim Creat Clear Calc 45.9 Estimated GFR 49 Random Glucose 90 (60-115) mg/dL Lactic Acid (0.5-2.0) mmol/L Calcium 8.9 (8.4-10.2) mg/dL Magnesium 2.1 (1.6-2.6) mg/dL Total Bilirubin 0.3 (0.0-1.0) mg/dL AST 31 (5-31) U/L ALT 12 (0-31) U/L Alkaline Phosphatase 123 H (39-117) U/L Troponin I High Sens (<3.5-17.0) ng/L B-Natriuretic Peptide (<100) pg/mL Total Protein 7.1 (6.5-8.0) g/dL Albumin 3.7 (3.5-5.0) g/dL Lipase 16 (8-78) U/L 03/27/21 03/27/21 Range/Units 15:55 15:55 WBC (4.8-10.8) X10*3/uL RBC (4.20-5.50) X10*6/uL Hgb (12.0-16.0) g/dl Hct (37.0-47.0) % MCV (80.0-98.0) fL MCH (27.0-33.0) pg MCHC (31.0-35.0) g/dl RDW (11.0-16.0) % Plt Count (160-400) X10*3/uL MPV (9.4-12.3) fL Immature Gran % (Auto) (0.0-0.4) % Neut % (Auto) (45-73) % Lymph % (Auto) (20-40) % [place] % (Auto) (2-11) % Eos % (Auto) (0-4) % Baso % (Auto) (0-2) % Lymph # (Auto) (1.2-4.9) X10*3/uL [place] # (Auto) (0.1-1.2) X10*3/uL Eos # (Auto) (0.0-0.4) X10*3/uL Baso # (Auto) (0.0-0.2) X10*3/uL Abs Immat Gran (auto) (0.00-0.03) X10*3/uL Absolute Neuts (auto) (2.0-8.3) x10*3/uL Absolute Nucleated RBC (0.0-0.012) X10*3/uL Nucleated RBC % (auto) (0.0-0.2) /100WBC PT (9.9-13.0) SEC INR (0.9-1.1) Sodium (135-145) mmol/L Potassium (3.3-5.1) mmol/L Chloride (96-108) mmol/L Carbon Dioxide (22-29) mmol/L Anion Gap (12-20) BUN (9-16) mg/dL Creatinine (0.5-1.4) mg/dL Estim Creat Clear Calc Estimated GFR Random Glucose (60-115) mg/dL Lactic Acid 1.8 (0.5-2.0) mmol/L Calcium (8.4-10.2) mg/dL Magnesium (1.6-2.6) mg/dL Total Bilirubin (0.0-1.0) mg/dL AST (5-31) U/L ALT (0-31) U/L Alkaline Phosphatase (39-117) U/L Troponin I High Sens 9.3 (<3.5-17.0) ng/L B-Natriuretic Peptide 255 H (<100) pg/mL Total Protein (6.5-8.0) g/dL Albumin (3.5-5.0) g/dL Lipase (8-78) U/L Imaging Data Chest x-ray: Attestation: I personally reviewed and interpreted this imaging study as follows: Radiologist's impression: FINDINGS: Right chest wall pacer is unchanged. Median sternotomy wires appear intact. The lungs are well expanded. No consolidation, edema, or effusion. No pneumothorax. The cardiomediastinal silhouette remains prominent, with a calcified aorta. XR/XR chest 2V IMPRESSION: No acute pulmonary finding. ECG Data Attestation: I personally reviewed and interpreted this ECG as follows: ECG interpretation date: 03/27/21 ECG interpretation time: 02:27 Interpretation: Ventricular place rhythm with occasional consecutive premature ventricular complexes with a ventricular rate of 56 no acute ischemic change are noted. Similar compared to prior EKG 03/01/2021 Critical Care Time Critical Care Time Critical Care Time: Yes Total Critical Care Time: 60 Attestation: I personally attest to this time spent taking care of the patient Discharge Plan Discharge Clinical Impression: Acute bronchitis with bronchospasm, Acute hyperkalemia, Anemia Patient Disposition: Still a Patient Prescriptions: No Action multivitamin Tablet 1 tab PO DAILY RF: 0 quetiapine 25 mg tablet 25 mg PO DAILY RF: 0 quetiapine 25 mg tablet 50 mg PO DAILY RF: 0 fluoxetine 40 mg capsule 1 cap PO DAILY RF: 0 furosemide 40 mg tablet 1 tab PO DAILY RF: 0 levothyroxine 175 mcg tablet 1 tab PO DAILY RF: 0 atorvastatin 80 mg tablet 1 tab PO BEDTIME RF: 0 metoprolol tartrate 100 mg tablet 1 tab PO BID RF: 0 isosorbide mononitrate 30 mg tablet extended release 24 hr 1 tab PO DAILY RF: 0 potassium chloride 10 mEq tablet extended release 1 tab PO BID RF: 0 aspirin 81 mg tablet,delayed release (DR/EC) 1 tab PO DAILY RF: 0 lamotrigine 25 mg tablet 2 tab PO BID RF: 0 warfarin 3 mg tablet 2 tab PO DAILY RF: 0 losartan 25 mg tablet 1 tab PO DAILY RF: 0 topiramate 200 mg tablet 1 tab PO BID RF: 0 digoxin 125 mcg (0.125 mg) tablet 1 tab PO DAILY RF: 0 mirtazapine 15 mg tablet 1 tab PO BEDTIME RF: 0 estradiol 0.01 % (0.1 mg/gram) cream 1 appl vaginal DAILY RF: 0 memantine 10 mg tablet 1 tab PO DAILY RF: 0 nystatin [Nystop] 100,000 unit/gram powder 1 applic topical DAILY RF: 0 cefdinir 300 mg capsule 300 mg PO BID Qty: 12 RF: 0
[2021-03-27 16:03] LABS: MANUAL DIFF FLAG NO
[2021-03-27 16:09] LABS: Basophils Percent Auto 0.4 % (0-2); Eosinophils Absolute Auto 0.1 X10*3/uL (0.0-0.4); Eosinophils Percent Auto 1.9 % (0-4); Hematocrit 34.4 % (37.0-47.0); Hemoglobin 9.3 g/dl (12.0-16.0); Imm Gran Abs Auto 0.04 X10*3/uL (0.00-0.03); Imm Gran Pct Auto 0.5 % (0.0-0.4); Lymphocytes Absolute Auto 1.4 X10*3/uL (1.2-4.9); Lymphocytes Percent Auto 18.4 % (20-40); Mean Corpuscular Hemoglobin 25.4 pg (27.0-33.0); Mean Platelet Volume 10.9 fL (9.4-12.3); Monocytes Absolute Auto 0.6 X10*3/uL (0.1-1.2); Monocytes Percent Auto 8.3 % (2-11); Neutrophils Absolute Auto 5.2 x10*3/uL (2.0-8.3); Neutrophils Percent Auto 70.5 % (45-73); Platelet Count 134 X10*3/uL (160-400); Red Blood Count 3.66 X10*6/uL (4.20-5.50); Red Cell Distribution Width 18.4 % (11.0-16.0); White Blood Count 7.3 X10*3/uL (4.8-10.8)
[2021-03-27 16:15] LABS: INTERNATIONAL NORM RATIO 2.3 (0.9-1.1); Prothrombin Time 26.8 SEC (9.9-13.0)
[2021-03-27 16:20] LABS: Lactic Acid 1.8 mmol/L (0.5-2.0)
[2021-03-27 16:28] LABS: B Type Natriuretic Peptide 255 pg/mL (<100); Troponin-I High Sensitivity 9.3 ng/L (<3.5-17.0)
[2021-03-27 16:30] LABS: Alanine Aminotransferase 12 U/L (0-31); Albumin Level 3.7 g/dL (3.5-5.0); Alkaline Phosphatase 123 U/L (39-117); Anion Gap 15 (12-20); Aspartate Amino Transferase 31 U/L (5-31); Bilirubin Total 0.3 mg/dL (0.0-1.0); Blood Urea Nitrogen 20 mg/dL (9-16); Calcium 8.9 mg/dL (8.4-10.2); Carbon Dioxide 18 mmol/L (22-29); Chloride 117 mmol/L (96-108); Creatinine Clr Calc Pharmacy 45.9; Estimated Glomerular Filt Rate 49; Glucose Random 90 mg/dL (60-115); Lipase 16 U/L (8-78); Magnesium 2.1 mg/dL (1.6-2.6); Potassium 5.4 mmol/L (3.3-5.1); Sodium 145 mmol/L (135-145); Total Protein 7.1 g/dL (6.5-8.0)
[2021-03-27] MEDS: cefTRIAXone sodium 1 GM in 0.9 % Sodium Chloride 50 ML IV (17:02)
[2021-03-27] MEDS: methylPREDNISolone Sod Succ 125 MG/2 ML VIAL IVPUSH (17:02)
[2021-03-27] MEDS: 0.9 % Sodium Chloride 1,000 ML 999 ML IVCONT (17:04)
[2021-03-27] MEDS: Furosemide 40 MG/4 ML VIAL IVPUSH (17:05)
[2021-03-27 17:33] LABS: Influenza A PCR NEGATIVE (Negative); Influenza B PCR NEGATIVE (Negative); Resp Syncy Virus RNA Qual PCR NEGATIVE (Negative); SARS COV2 PCR INHOUSE NEGATIVE (Negative)
[2021-03-27 18:05] LABS: Appearance Urine CLOUDY; Color Urine YELLOW; Glucose Urine UA NEG (NEG); Leukocyte Esterase Urine 3+ (NEG); Nitrite Urine POS (NEG); Specific Gravity - Urine 1.015 (1.005-1.025); UACC Culture Trigger YES; Urine Blood TRACE (NEG); Urine Ketones NEG (NEG); Urine Protein NEG (NEG-TRACE)
[2021-03-27] MEDS: Magnesium Sulfate/H2O 2 GM/50 ML PIGGYBACK IV (18:10)
[2021-03-27 18:19] LABS: Bacteria Urine 1+ /LPF; Squamous Epithelial Cell Urine TRACE /LPF; WBC Clumps Urine NOTED
[2021-03-27 19:26] LABS: Troponin-I High Sensitivity 10.2 ng/L (<3.5-17.0)
[2021-03-27 19:27] LABS: Anion Gap 12 (12-20); Blood Urea Nitrogen 18 mg/dL (9-16); Calcium 8.9 mg/dL (8.4-10.2); Carbon Dioxide 22 mmol/L (22-29); Chloride 114 mmol/L (96-108); Creatinine Clr Calc Pharmacy 50.5; Estimated Glomerular Filt Rate 54; Glucose Random 110 mg/dL (60-115); Potassium 3.6 mmol/L (3.3-5.1); Sodium 144 mmol/L (135-145)
[2021-03-27 20:30] VITALS: BP 148/56; PULSE 76; RESP 31; TEMP 36.4; O2SAT 93
[2021-03-27 20:58] VITALS: BP 157/60; O2SAT 100
--- NOTE | 2021-03-27 21:08 | PM.IMHP ---
History of Present Illness Date of Service: 03/27/21 Chief Complaint: shortness of breath/ generalized weakness 70-year-old female with a past medical history of hypertension, hyperlipidemia, dementia, seizures, valvular heart disease status post surgery, CHF , history of pacemaker, DVT, hypothyroidism, dementia, history of seizures, depression, asthma, history of CVA with residual right-sided weakness, aphasia presented to the hospital today with a chief complaint of shortness of breath. most of the history obtained from the patient ordered bedside with the patient's caregiver. Reported that patient is doing fine until yesterday this morning she woke up and possibly had an episode of aspiration; felt congestion the chest, head wheezing; Associated with shortness of breath. Complains of cough, generalized weakness, fall smelling urine. Also reports dyspnea on exertion. patient mentioned that in general she has no difficulty swallowing. Also ambulates with the help of her walker. Denies having any pressure ulcers in the back. Denied any chest pain or palpitations. Denied any recent travel or sick contacts. review of all other systems is negative except mentioned above ER course: Per ER team patient on presentation noted to be short of breath, heard wheezing; given Solu-Medrol; urinalysis was abnormal - UTI; given ceftriaxone; chest x-ray showed no acute findings; patient has mild peripheral edema; no CVA tenderness; admitted to the hospital for further management. [facility] Pertinent family history: patient unable to provide information Surgical History Heart valve replaced Social History Patient Tobacco Use Status: Former Tobacco user Advance Directives: No Advance Directives Information Provided: No Meds Allergies Allergy/AdvReac Type Severity Reaction Status Date / Time codeine [Codeine] Allergy Unknown GENERIC Unverified 01/05/20 15:03 Allergy: CODEINE SULFATE levofloxacin [LEVOFLOXACIN] Allergy Unknown ANGIOEDEMA Unverified 01/05/20 15:03 Shellfish Allergy Unknown UNKNOWN Unverified 01/05/20 15:03 Codeine Sulfate Allergy Unknown Uncoded 03/25/11 00:00 Erythromycin Allergy Unknown Uncoded 03/25/11 00:00 From Erythrocin Allergy Unknown UNKNOWN Uncoded 01/05/20 15:03 Active Medications: Current Medications Acetaminophen (Acetaminophen 325 Mg Tablet) 650 mg PO Q6H PRN PRN Reason: Pain, Mild (Pain Scale 1-3) Ceftriaxone Sodium 1 gm/ (Sodium Chloride) 50 mls @ 100 mls/hr IV Q24H [facility] Melatonin (Melatonin 3 Mg Tablet) 6 mg PO BEDTIME PRN PRN Reason: Insomnia Pharmacy Consult (Consult Rx Perform Med Rec) 1 each MISCELLANE ONCE STA Stop: 03/27/21 21:04 Senna (Sennosides 8.6 Mg Tablet) 17.2 mg PO BEDTIME PRN PRN Reason: Constipation Sodium Chloride (0.9 % Sodium Chloride Flush 3 Ml Syringe) 3 ml IVFLUSH QSHIFT [facility] Home Medications Medication Instructions Recorded Confirmed Last Taken Type aspirin 81 mg tablet,delayed 1 tab PO DAILY 03/01/21 03/27/21 03/27/21 History release atorvastatin 80 mg tablet 1 tab PO BEDTIME 03/01/21 03/27/21 03/26/21 History digoxin 125 mcg (0.125 mg) tablet 1 tab PO DAILY 03/01/21 03/27/21 03/27/21 History fluoxetine 40 mg capsule 1 cap PO DAILY 03/01/21 03/27/21 03/27/21 History furosemide 40 mg tablet 1 tab PO DAILY 03/01/21 03/27/21 03/27/21 History isosorbide mononitrate 30 mg 1 tab PO DAILY 03/01/21 03/27/21 03/27/21 History tablet,extended release 24 hr lamotrigine 25 mg tablet 2 tab PO BID 03/01/21 03/27/21 03/27/21 History levothyroxine 175 mcg tablet 1 tab PO DAILY 03/01/21 03/27/21 03/27/21 History losartan 25 mg tablet 1 tab PO DAILY 03/01/21 03/27/21 03/27/21 History memantine 10 mg tablet 1 tab PO DAILY 03/01/21 03/27/21 03/27/21 History metoprolol tartrate 100 mg tablet 1 tab PO BID 03/01/21 03/27/21 03/27/21 History mirtazapine 15 mg tablet 1 tab PO BEDTIME 03/01/21 03/27/21 03/26/21 History multivitamin 1 tab PO DAILY 03/01/21 03/27/21 03/27/21 History potassium chloride 10 mEq 1 tab PO BID 03/01/21 03/27/21 03/27/21 History tablet,extended release quetiapine 25 mg tablet 25 mg PO DAILY 03/01/21 03/27/21 03/27/21 History quetiapine 25 mg tablet 50 mg PO BEDTIME 03/01/21 03/27/21 03/26/21 History topiramate 200 mg tablet 1 tab PO BID 03/01/21 03/27/21 03/27/21 History warfarin 3 mg tablet 2 tab PO DAILY 03/01/21 03/27/21 03/27/21 History Physical Exam Vital Signs and Narrative: Vital Signs: Last Vital Signs Temp 97.5 F 03/27/21 20:30 Pulse 76 03/27/21 20:30 Resp 31 H 03/27/21 20:30 BP 157/60 H 03/27/21 20:58 Pulse Ox 100 03/27/21 20:58 BMI result Body Mass Index 31.9 Gen: Appears be in no acute distress HEENT: NCAT, Moist mucosa. Pulmonary: Vesicular breath sounds, fair air entry CVS: Normal S1-S2 Abdomen: BS+, Soft, Nontender Extremities: Warm well perfused Neuro: Alert and awake. Results Labs CBC and Chem 7: 03/27/21 15:55 03/27/21 19:00 Labs: Laboratory Results - last 24 hr 03/27/21 03/27/21 03/27/21 15:55 15:55 15:55 MCV 94.0 MCH 25.4 L MCHC 27.0 L RDW 18.4 H Plt Count 134 L MPV 10.9 Immature Gran % (Auto) 0.5 H Neut % (Auto) 70.5 Lymph % (Auto) 18.4 L [place] % (Auto) 8.3 Eos % (Auto) 1.9 Baso % (Auto) 0.4 Lymph # (Auto) 1.4 [place] # (Auto) 0.6 Eos # (Auto) 0.1 Baso # (Auto) 0.0 Abs Immat Gran (auto) 0.04 H Absolute Neuts (auto) 5.2 Absolute Nucleated RBC 0.000 Nucleated RBC % (auto) 0.0 PT 26.8 H INR 2.3 H Anion Gap 15 Estim Creat Clear Calc 45.9 Estimated GFR 49 Random Glucose 90 Lactic Acid Calcium 8.9 Magnesium 2.1 Total Bilirubin 0.3 AST 31 ALT 12 Alkaline Phosphatase 123 H Troponin I High Sens B-Natriuretic Peptide Total Protein 7.1 Albumin 3.7 Lipase 16 Urine Color Urine Appearance Urine pH Ur Specific [place] Urine Protein Urine Glucose (UA) Urine Ketones Urine Blood Urine Nitrite Ur Leukocyte Esterase Urine RBC Urine WBC Urine WBC Clumps Ur Squamous Epith Cells Urine Bacteria Influenza Type A (PCR) Influenza Type B (PCR) RSV RNA Qual (PCR) SARS-CoV-2 RNA (RT-PCR) 03/27/21 03/27/21 03/27/21 15:55 15:55 16:47 MCV MCH MCHC RDW Plt Count MPV Immature Gran % (Auto) Neut % (Auto) Lymph % (Auto) [place] % (Auto) Eos % (Auto) Baso % (Auto) Lymph # (Auto) [place] # (Auto) Eos # (Auto) Baso # (Auto) Abs Immat Gran (auto) Absolute Neuts (auto) Absolute Nucleated RBC Nucleated RBC % (auto) PT INR Anion Gap Estim Creat Clear Calc Estimated GFR Random Glucose Lactic Acid 1.8 Calcium Magnesium Total Bilirubin AST ALT Alkaline Phosphatase Troponin I High Sens 9.3 B-Natriuretic Peptide 255 H Total Protein Albumin Lipase Urine Color Urine Appearance Urine pH Ur Specific [place] Urine Protein Urine Glucose (UA) Urine Ketones Urine Blood Urine Nitrite Ur Leukocyte Esterase Urine RBC Urine WBC Urine WBC Clumps Ur Squamous Epith Cells Urine Bacteria Influenza Type A (PCR) NEGATIVE Influenza Type B (PCR) NEGATIVE RSV RNA Qual (PCR) NEGATIVE SARS-CoV-2 RNA (RT-PCR) NEGATIVE 03/27/21 03/27/21 03/27/21 17:58 19:00 19:00 MCV MCH MCHC RDW Plt Count MPV Immature Gran % (Auto) Neut % (Auto) Lymph % (Auto) [place] % (Auto) Eos % (Auto) Baso % (Auto) Lymph # (Auto) [place] # (Auto) Eos # (Auto) Baso # (Auto) Abs Immat Gran (auto) Absolute Neuts (auto) Absolute Nucleated RBC Nucleated RBC % (auto) PT INR Anion Gap 12 Estim Creat Clear Calc 50.5 Estimated GFR 54 Random Glucose 110 Lactic Acid Calcium 8.9 Magnesium Total Bilirubin AST ALT Alkaline Phosphatase Troponin I High Sens 10.2 B-Natriuretic Peptide Total Protein Albumin Lipase Urine Color YELLOW Urine Appearance CLOUDY Urine pH 6.0 Ur Specific [place] 1.015 Urine Protein NEG Urine Glucose (UA) NEG Urine Ketones NEG Urine Blood TRACE Urine Nitrite POS H Ur Leukocyte Esterase 3+ H Urine RBC 5-9 H Urine WBC 76-150 H Urine WBC Clumps NOTED Ur Squamous Epith Cells TRACE Urine Bacteria 1+ Influenza Type A (PCR) Influenza Type B (PCR) RSV RNA Qual (PCR) SARS-CoV-2 RNA (RT-PCR) Imaging Radiologist's Impressions: Impressions Chest X-Ray 03/27/21 14:51 IMPRESSION: No acute pulmonary finding. Assessment and Plan (1) Acute UTI: Status: Acute 70-year-old female with a past medical history of hypertension, hyperlipidemia, dementia, seizures, valvular heart disease status post surgery, CHF , history of pacemaker, DVT, hypothyroidism, dementia, history of seizures, depression, asthma, history of CVA with residual right-sided weakness, aphasia presented to the hospital today with a chief complaint of shortness of breath. noted to have mild wheezing. Also had abnormal urinalysis. Admitted to the hospital for further management Shortness of breath: Likely in setting of asthma. Currently improving. DuoNebs. Patient desaturated to no 90s in the ER; repeat chest x-ray showed no acute findings. Placed on supplemental oxygen. ?Aspiration: will obtain obtain CT chest. Speech and swallow eval. UTI: Continue ceftriaxone. Follow up cultures. History of CHF: Patient has peripheral edema. Continue home Lasix, Imdur, digoxin, losartan, metoprolol. Will obtain digoxin levels. History of DVT: Continue home Coumadin. INR therapeutic. History of hypothyroidism: Continue home levothyroxine History of dementia: Continue home memantine History of seizures: Continue home Lamotrigine, Topamax. daughter reports that patient usually gets twitching in her right-sided when patient had a seizure. History of CVA: Chronic. Patient had residual right-sided weakness / Aphasia. DVT prophylaxis: Patient on Coumadin Code status: Full code Quality Stroke Does the patient have a stroke diagnosis?: No VTE Prior VTE?: No VTE Risk Level:: Medical - moderate - high VTE Device Contraindication: Treatment Not Indicated VTE Drug Contraindication: N/A - Med Ordered
[2021-03-27 21:30] VITALS: O2SAT 99
--- NOTE | 2021-03-27 22:11 | PHA.MEDREC ---
Pharmacy Consult ? Medication Reconciliation Pharmacy has completed the medication reconciliation. Spoke to daughter about medications. She is the one who monitors all medications. She gave her all morning medications
[2021-03-27 23:59] VITALS: BP 141/47; PULSE 74; RESP 22; O2SAT 98
[2021-03-28] VITALS (16 sets, daily range): BP systolic 105–168; BP diastolic 41–68; PULSE 56–89; RESP 17–30; TEMP 36.1–38.6; O2SAT 96–100
--- NOTE | 2021-03-28 00:10 | PC.NURSE ---
Pt returned from CT. wind energy technician informs this RN that pt's linens were wet. This rn to bedside, pt behaving at baseline per daughter who is pt's primary geological survey field assistant. Pt does not appear in pain, pt's daughter offers no concern for pain. Pt doe bag collecting urine. This RN provided inc care, linens changed, adelina care provided, doe balloon deflated and doe further inserted and reinflated. Pt bag to dependent drainage, draining appropriately at this time. Pt VSS on supplemental O2 at this time. Pt's daughter requesting nighttime meds be ordered for tonight, Dr Hoffmann made aware, ordered meds as requested. Stretcher in lowest locked position, rails raised x2, call george within reach.
[2021-03-28 00:27] LABS: Digoxin 0.4 ng/mL (0.8-2.0)
[2021-03-28] MEDS: Atorvastatin Calcium 80 MG TABLET PO ×2 (00:27→22:08)
[2021-03-28] MEDS: lamoTRIgine 25 MG TABLET 50 MG PO ×3 (00:27→22:08)
[2021-03-28] MEDS: Topiramate 100 MG TABLET 200 MG PO ×3 (00:27→22:09)
[2021-03-28] MEDS: Mirtazapine 15 MG TABLET PO ×2 (00:28→22:10)
[2021-03-28 06:50] LABS: MANUAL DIFF FLAG NO
[2021-03-28 06:54] LABS: Basophils Percent Auto 0.2 % (0-2); Hematocrit 32.5 % (37.0-47.0); Hemoglobin 9.2 g/dl (12.0-16.0); Imm Gran Abs Auto 0.04 X10*3/uL (0.00-0.03); Imm Gran Pct Auto 0.3 % (0.0-0.4); Lymphocytes Absolute Auto 0.7 X10*3/uL (1.2-4.9); Lymphocytes Percent Auto 5.8 % (20-40); Mean Corpuscular HGB Conc 28.3 g/dl (31.0-35.0); Mean Corpuscular Hemoglobin 25.7 pg (27.0-33.0); Mean Corpuscular Volume 90.8 fL (80.0-98.0); Mean Platelet Volume 11.7 fL (9.4-12.3); Monocytes Absolute Auto 0.8 X10*3/uL (0.1-1.2); Monocytes Percent Auto 6.5 % (2-11); Neutrophils Absolute Auto 10.8 x10*3/uL (2.0-8.3); Neutrophils Percent Auto 87.2 % (45-73); Platelet Count 128 X10*3/uL (160-400); Red Blood Count 3.58 X10*6/uL (4.20-5.50); Red Cell Distribution Width 18.3 % (11.0-16.0); White Blood Count 12.3 X10*3/uL (4.8-10.8)
[2021-03-28 07:30] LABS: Anion Gap 11 (12-20); Blood Urea Nitrogen 18 mg/dL (9-16); Calcium 9.3 mg/dL (8.4-10.2); Carbon Dioxide 22 mmol/L (22-29); Chloride 113 mmol/L (96-108); Estimated Glomerular Filt Rate 52; Glucose Random 110 mg/dL (60-115); Potassium 4.4 mmol/L (3.3-5.1); Sodium 142 mmol/L (135-145)
[2021-03-28 07:31] LABS: Magnesium 2.3 mg/dL (1.6-2.6)
[2021-03-28] MEDS: Levothyroxine Sodium 175 MCG TABLET PO (07:42)
[2021-03-28] MEDS: Acetaminophen 325 MG TABLET 650 MG PO (07:51)
--- NOTE | 2021-03-28 07:53 | PC.NURSE ---
Rounding assessment in morning: pt asleep but easily arousable able to swallow morning meds whole with thin liquid pt found to have rectal temp and prn meds given pt aox4 with expressive aphasia and R sided deficiencies noted lung congested with rales abd rounded with present bowel sounds doe catheter noted to be in place, draining with no leakage B/L LE 1-2+ edema, non-pitted
--- NOTE | 2021-03-28 08:03 | PC.NURSE ---
pt given breakfast tray- sitting and tolerating well call george left at bedside and pt awaare to press button if needed for any assistance
--- NOTE | 2021-03-28 08:26 | PC.NURSE ---
update to daughter, lida, on phone.
[2021-03-28] MEDS: Metoprolol Tartrate 100 MG TABLET PO ×2 (09:27→22:09)
[2021-03-28] MEDS: FLUoxetine HCl 20 MG CAPSULE 40 MG PO (09:27)
[2021-03-28] MEDS: Isosorbide Mononitrate 30 MG TAB.ER.24H PO (09:28)
[2021-03-28] MEDS: Aspirin Enteric Coated 81 MG TABLET.DR PO (09:28)
[2021-03-28] MEDS: QUEtiapine Fumarate 25 MG TABLET PO (09:29)
[2021-03-28] MEDS: Losartan Potassium 25 MG TABLET PO (09:30)
[2021-03-28] MEDS: Memantine HCl 10 MG TABLET PO (09:31)
[2021-03-28] MEDS: Furosemide 40 MG TABLET PO (09:32)
[2021-03-28] MEDS: Multivitamin TABLET 1 TAB PO (09:32)
[2021-03-28 09:54] LABS: INTERNATIONAL NORM RATIO 2.8 (0.9-1.1); Prothrombin Time 32.2 SEC (9.9-13.0)
[2021-03-28] MEDS: Digoxin 0.125 MG TABLET PO (10:34)
--- NOTE | 2021-03-28 14:03 | MHC.CM.PN ---
this interview was conducted through patient's daughter, Celia (ph: [phone]). she is also the patients' hcp and carbon brusher assembler . celia is the sole ambulatory nurse for patient. the patient lives in her daughter's home and the home is equipped to care for her mom. she has 50+ carbon brusher assembler hrs through [facility]. the patient uses a walker for ambulation c assistance from daughter. pt's daughter will provide transport at dc. daughter says she would like to see what PT's recommendations are prior to patient's dc. she may request vna svcs for home PT but at this time is denying the need for vna at dc. daughter does not want her mother to go to [facility]. dc plan is home c care of daughter, possibly c vna svcs to be determined just prior to DC. cm to cont. to follow.
--- NOTE | 2021-03-28 14:21 | MHC.SL.SWA ---
Speech Pathologist Impression: Pharyngeal Dysphagia Risk of Aspiration Due to: Dysphasia Diet Status: Liquid Consistency and Strategies for Safe Swallow: Liquid Intake Recommendation: Thin Liquid Intake Strategies: Small Sips No Straws Solid Food Consistency: Dietary Recommendations: Chopped/Advanced (NDD3) Additional Modifications to Solid Foods: Oral Medication Intake: Whole with Liquid Compensatory Strategies and Precautions to be Taken for Safe Swallow: Sitting Upright (90 deg) No Straw Liquids from Cup Alternate Liquids/Solids Supervision While Eating and Drinking for Safe Swallow: Total Supervision (1:1) Foods to Avoid: Hard or tough to chew foods. Swallowing Recommended Treatments: Compens. Strategy Educat. Recommendation for Speech: Inpatient Speech Therapy Pt with remote history of CVA (2004), Receptive/Expressive Aphasia, Dementia, decreased dentition. Pt has evidence of pharyngeal phase dysphagia, with a mild delay initiation swallow and decreased elevation/excursion of larynx on swallow of food solids. Pt swallow of liquid is WNL. No clinical s/s of aspiration on any consistency on this evaluation. Per Daughter, Pt has no prior history of aspiration and has not had any specific diet consistencies related to dysphagia. Daughter did report that Pt is given softer foods primarily due to issues with dentition. Recommend Pt's diet be DOWNGRADED from Regular to CHOPPED/ADVANCED (NDD3) with THIN liquids and medication delivered as Pills whole with liquid. MD, Nursing, Dieticians, Basketball Scout notified of this recommendation via secure text. Comment: FACILITY MAINTENANCE HELPER will continue to follow PT to assess toleration of diet, re-assess swallow and progress while inpatient M-F Frequency/Duration: Date Range for Service Req: Timeline to reassess: Music Teacher Clinican/Clinical Fellow: No Supervisory Statement: I have reviewed and agree with the student/clinical fellow's documentation: Speech Language Pathologist: Hanh Romero M.A., CCC-FACILITY MAINTENANCE HELPER
[2021-03-28] MEDS: cefTRIAXone sodium 1 GM in 0.9 % Sodium Chloride 50 ML IV (16:17)
--- NOTE | 2021-03-28 16:19 | HO.PM.IMPN ---
Subjective Subjective Date of Service: 03/28/21 Interval History: Patient being followed for urinary tract infection and asthma exacerbation, patient nonverbal unable to obtain detail information however patient able to communicate that she is doing better. Review of Systems Unable to obtain due to aphasia Physical Exam Vital Signs: Vital Signs: Last Vital Signs Temp 98.7 F 03/28/21 16:15 Pulse 56 03/28/21 16:15 Resp 24 H 03/28/21 16:15 BP 105/41 L 03/28/21 16:15 Pulse Ox 99 03/28/21 16:15 BMI result Body Mass Index 31.9 General awake alert, no acute distress. Neck no JVD. CVS regular rate rhythm, Respiratory lungs coarse breath sound, no respiratory distress, occasional rhonchi Gastrointestinal abdomen soft, nontender, bowel sounds audible, no guarding , no rigidity. Extremities no edema. Neuro aphasia Skin no rash Objective Data Active Medications Acetaminophen (Acetaminophen 325 Mg Tablet) 650 mg PO Q6H PRN PRN Reason: Pain, Mild (Pain Scale 1-3) Last Admin: 03/28/21 07:51 Dose: 650 mg Documented by: SHENG Albuterol/Ipratropium (Albuterol/Iprat 2.5/0.5mg 3 Ml Ampul.Neb) 3 ml INHALE Q4H PRN PRN Reason: Shortness of Breath/Wheezing Aspirin (Aspirin Enteric Coated 81 Mg Tablet.) 81 mg PO DAILY [facility] Last Admin: 03/28/21 09:28 Dose: 81 mg Documented by: DENNYS Atorvastatin Calcium (Atorvastatin Calcium 80 Mg Tablet) 80 mg PO BEDTIME [facility] Last Admin: 03/28/21 00:27 Dose: 80 mg Documented by: EFRA Digoxin (Digoxin 0.125 Mg Tablet) 0.125 mg PO DAILY@1000 [facility] Last Admin: 03/28/21 10:34 Dose: 0.125 mg Documented by: SHENG Fluoxetine HCl (Fluoxetine Hcl 20 Mg Capsule) 40 mg PO DAILY [facility] Last Admin: 03/28/21 09:27 Dose: 40 mg Documented by: DENNYS Furosemide (Furosemide 40 Mg Tablet) 40 mg PO DAILY@0800 [facility]; Protocol Last Admin: 03/28/21 09:32 Dose: 40 mg Documented by: DENNYS Ceftriaxone Sodium 1 gm/ (Sodium Chloride) 50 mls @ 100 mls/hr IV Q24H [facility] Last Admin: 03/28/21 16:17 Dose: 100 mls/hr Documented by: SHENG Isosorbide Mononitrate (Isosorbide Mononitrate 30 Mg Tab.Er.24h) 30 mg PO DAILY [facility]; Protocol Last Admin: 03/28/21 09:28 Dose: 30 mg Documented by: DENNYS Lamotrigine (Lamotrigine 25 Mg Tablet) 50 mg PO BID [facility] Last Admin: 03/28/21 09:30 Dose: 50 mg Documented by: DENNYS Levothyroxine Sodium (Levothyroxine Sodium 175 Mcg Tablet) 175 mcg PO DAILY@0630 [facility] Last Admin: 03/28/21 07:42 Dose: 175 mcg Documented by: SHENG Losartan Potassium (Losartan Potassium 25 Mg Tablet) 25 mg PO DAILY [facility]; Protocol Last Admin: 03/28/21 09:30 Dose: 25 mg Documented by: DENNYS Melatonin (Melatonin 3 Mg Tablet) 6 mg PO BEDTIME PRN PRN Reason: Insomnia Memantine (Memantine Hcl 10 Mg Tablet) 10 mg PO DAILY [facility] Last Admin: 03/28/21 09:31 Dose: 10 mg Documented by: DENNYS Metoprolol Tartrate (Metoprolol Tartrate 100 Mg Tablet) 100 mg PO BID [facility]; Protocol Last Admin: 03/28/21 09:27 Dose: 100 mg Documented by: DENNYS Mirtazapine (Mirtazapine 15 Mg Tablet) 15 mg PO BEDTIME [facility] Last Admin: 03/28/21 00:28 Dose: 15 mg Documented by: EFRA Multivitamins/Vitamin C (Multivitamin Tablet) 1 tab PO DAILY [facility] Last Admin: 03/28/21 09:32 Dose: 1 tab Documented by: DENNYS Pharmacy Consult (Consult Rx Perform Med Rec) 1 each MISCELLANE ONCE PRN PRN Reason: Consult order Potassium Chloride (Potassium Chloride Er 10 Meq Capsule.Er) 10 meq PO BID [facility] Last Admin: 03/28/21 09:28 Dose: 10 meq Documented by: DENNYS Quetiapine Fumarate (Quetiapine Fumarate 25 Mg Tablet) 25 mg PO DAILY [facility] Last Admin: 03/28/21 09:29 Dose: 25 mg Documented by: DENNYS Quetiapine Fumarate (Quetiapine Fumarate 50 Mg Tablet) 50 mg PO BEDTIME [facility] Senna (Sennosides 8.6 Mg Tablet) 17.2 mg PO BEDTIME PRN PRN Reason: Constipation Sodium Chloride (0.9 % Sodium Chloride Flush 3 Ml Syringe) 3 ml IVFLUSH QSHIFT [facility] Last Admin: 03/28/21 16:07 Dose: Not Given Documented by: SHENG Non-Admin Reason: Med Not Available Topiramate (Topiramate 100 Mg Tablet) 200 mg PO BID [facility] Last Admin: 03/28/21 09:31 Dose: 200 mg Documented by: DENNYS Warfarin Sodium (Warfarin Sodium 6 Mg Tablet) 6 mg PO DAILY@1800 [facility] Labs CBC & Chem 7: 03/28/21 06:29 03/28/21 06:29 Labs: Laboratory Results - last 24 hr 03/27/21 03/27/21 03/27/21 15:55 15:55 15:55 MCV MCH MCHC RDW Plt Count MPV Immature Gran % (Auto) Neut % (Auto) Lymph % (Auto) Arthur % (Auto) Eos % (Auto) Baso % (Auto) Lymph # (Auto) Arthur # (Auto) Eos # (Auto) Baso # (Auto) Abs Immat Gran (auto) Absolute Neuts (auto) Absolute Nucleated RBC Nucleated RBC % (auto) PT INR Anion Gap 15 Estim Creat Clear Calc 45.9 Estimated GFR 49 Random Glucose 90 Lactic Acid 1.8 Calcium 8.9 Magnesium 2.1 Total Bilirubin 0.3 AST 31 ALT 12 Alkaline Phosphatase 123 H Troponin I High Sens 9.3 B-Natriuretic Peptide 255 H Total Protein 7.1 Albumin 3.7 Lipase 16 Urine Color Urine Appearance Urine pH Ur Specific [place] Urine Protein Urine Glucose (UA) Urine Ketones Urine Blood Urine Nitrite Ur Leukocyte Esterase Urine RBC Urine WBC Urine WBC Clumps Ur Squamous Epith Cells Urine Bacteria Digoxin Influenza Type A (PCR) Influenza Type B (PCR) RSV RNA Qual (PCR) SARS-CoV-2 RNA (RT-PCR) 03/27/21 03/27/21 03/27/21 16:47 17:58 19:00 MCV MCH MCHC RDW Plt Count MPV Immature Gran % (Auto) Neut % (Auto) Lymph % (Auto) Arthur % (Auto) Eos % (Auto) Baso % (Auto) Lymph # (Auto) Arthur # (Auto) Eos # (Auto) Baso # (Auto) Abs Immat Gran (auto) Absolute Neuts (auto) Absolute Nucleated RBC Nucleated RBC % (auto) PT INR Anion Gap 12 Estim Creat Clear Calc 50.5 Estimated GFR 54 Random Glucose 110 Lactic Acid Calcium 8.9 Magnesium Total Bilirubin AST ALT Alkaline Phosphatase Troponin I High Sens B-Natriuretic Peptide Total Protein Albumin Lipase Urine Color YELLOW Urine Appearance CLOUDY Urine pH 6.0 Ur Specific [place] 1.015 Urine Protein NEG Urine Glucose (UA) NEG Urine Ketones NEG Urine Blood TRACE Urine Nitrite POS H Ur Leukocyte Esterase 3+ H Urine RBC 5-9 H Urine WBC 76-150 H Urine WBC Clumps NOTED Ur Squamous Epith Cells TRACE Urine Bacteria 1+ Digoxin Influenza Type A (PCR) NEGATIVE Influenza Type B (PCR) NEGATIVE RSV RNA Qual (PCR) NEGATIVE SARS-CoV-2 RNA (RT-PCR) NEGATIVE 03/27/21 03/27/21 03/28/21 19:00 23:55 06:29 MCV 90.8 MCH 25.7 L MCHC 28.3 L RDW 18.3 H Plt Count 128 L MPV 11.7 Immature Gran % (Auto) 0.3 Neut % (Auto) 87.2 H Lymph % (Auto) 5.8 L Arthur % (Auto) 6.5 Eos % (Auto) 0.0 Baso % (Auto) 0.2 Lymph # (Auto) 0.7 L Arthur # (Auto) 0.8 Eos # (Auto) 0.0 Baso # (Auto) 0.0 Abs Immat Gran (auto) 0.04 H Absolute Neuts (auto) 10.8 H Absolute Nucleated RBC 0.000 Nucleated RBC % (auto) 0.0 PT INR Anion Gap Estim Creat Clear Calc Estimated GFR Random Glucose Lactic Acid Calcium Magnesium Total Bilirubin AST ALT Alkaline Phosphatase Troponin I High Sens 10.2 B-Natriuretic Peptide Total Protein Albumin Lipase Urine Color Urine Appearance Urine pH Ur Specific [place] Urine Protein Urine Glucose (UA) Urine Ketones Urine Blood Urine Nitrite Ur Leukocyte Esterase Urine RBC Urine WBC Urine WBC Clumps Ur Squamous Epith Cells Urine Bacteria Digoxin 0.4 L Influenza Type A (PCR) Influenza Type B (PCR) RSV RNA Qual (PCR) SARS-CoV-2 RNA (RT-PCR) 03/28/21 03/28/21 03/28/21 06:29 06:29 09:27 MCV MCH MCHC RDW Plt Count MPV Immature Gran % (Auto) Neut % (Auto) Lymph % (Auto) Arthur % (Auto) Eos % (Auto) Baso % (Auto) Lymph # (Auto) Arthur # (Auto) Eos # (Auto) Baso # (Auto) Abs Immat Gran (auto) Absolute Neuts (auto) Absolute Nucleated RBC Nucleated RBC % (auto) PT 32.2 H INR 2.8 H Anion Gap 11 L Estim Creat Clear Calc 49.0 Estimated GFR 52 Random Glucose 110 Lactic Acid Calcium 9.3 Magnesium 2.3 Total Bilirubin AST ALT Alkaline Phosphatase Troponin I High Sens B-Natriuretic Peptide Total Protein Albumin Lipase Urine Color Urine Appearance Urine pH Ur Specific [place] Urine Protein Urine Glucose (UA) Urine Ketones Urine Blood Urine Nitrite Ur Leukocyte Esterase Urine RBC Urine WBC Urine WBC Clumps Ur Squamous Epith Cells Urine Bacteria Digoxin Influenza Type A (PCR) Influenza Type B (PCR) RSV RNA Qual (PCR) SARS-CoV-2 RNA (RT-PCR) Microbiology Microbiology Results: Microbiology 03/27/21 17:58 Urine Culture - Preliminary Urine Catheterized - Rhoades Catheter Gram negative ana Assessment and Plan (1) Acute bronchitis with bronchospasm: Status: Acute (2) Acute UTI: Status: Acute (3) Aphasia, post-stroke: Status: Acute (4) Asthma: Status: Acute Assessment and Plan: 70-year-old female with a past medical history of hypertension, hyperlipidemia, dementia, seizures, valvular heart disease status post surgery, CHF , history of pacemaker, DVT, hypothyroidism, dementia, history of seizures, depression, asthma, history of CVA with residual right-sided weakness, aphasia presented to the hospital today with a chief complaint of shortness of breath.? noted to have mild wheezing.? Also had abnormal urinalysis.? Admitted to the hospital for further management. Mild asthma exacerbation/bronchitis Shortness of breath improved, CT chest showed no acute pulmonary finding no evidence of aspiration pleural thickening and scarring at right base noted Continue updraft treatment, on ceftriaxone, add cough medication UTI:? Continue iv ceftriaxone, follow urine and blood culture, urine culture growing Gram-negative ana , follow CBC History of CHF:? No acute exacerbation, Continue home Lasix,? Imdur, digoxin, losartan, and metoprolol.? History of ? DVT: Continue home Coumadin.? INR therapeutic. Follow INR while on antibiotic History of hypothyroidism:? Continue home levothyroxine History of dementia: Continue home memantine History of seizures: Continue home Lamotrigine, Topamax,usually gets twitching in her right-sided when patient had a seizure. History of CVA:?Aphasia. Continue aspirin and statin DVT prophylaxis:? on Coumadin Code status:? Full code Quality Stroke Does the patient have a stroke diagnosis?: No VTE Prior VTE?: No VTE Risk Level:: Medical - moderate - high VTE Device Contraindication: Treatment Not Indicated VTE Drug Contraindication: N/A - Med Ordered
--- NOTE | 2021-03-28 16:43 | PC.NURSE ---
Pt's IJ dressing changed due to leakage
[2021-03-28] MEDS: Warfarin Sodium 6 MG TABLET PO (17:36)
--- NOTE | 2021-03-28 18:58 | PC.NURSE ---
Pt moved onto hospital bed at this time
[2021-03-28] MEDS: Albuterol/Iprat 2.5/0.5MG 3 ML AMPUL.NEB INHALE (19:27)
--- NOTE | 2021-03-28 21:18 | PC.NURSE ---
Patient's daughter called to provide some information. Per daughter, patient is nonverbal, patient lives with daughter who takes full care of pt. Per daughter, patient takes meds whole with water, able to ambulate with walker and assist to bathroom. Patient does have right sided weakness from old stroke.
[2021-03-28] MEDS: 0.9 % Sodium Chloride Flush 3 ML SYRINGE IVFLUSH (22:00)
[2021-03-28] MEDS: QUEtiapine Fumarate 50 MG TABLET PO (22:09)
[2021-03-28] MEDS: guaiFENesin DM 200/20/10 ML 10 ML SYRUP PO (22:10)
[2021-03-29] VITALS (14 sets, daily range): BP systolic 98–156; BP diastolic 46–67; PULSE 54–79; RESP 14–20; TEMP 35.8–36.8; O2SAT 93–98
[2021-03-29 05:49] LABS: Prothrombin Time 34.9 SEC (9.9-13.0)
[2021-03-29] MEDS: Levothyroxine Sodium 175 MCG TABLET PO (06:01)
[2021-03-29] MEDS: Albuterol/Iprat 2.5/0.5MG 3 ML AMPUL.NEB INHALE ×2 (07:49→19:35)
--- NOTE | 2021-03-29 08:17 | P.CDIC_ITS ---
CDI Concurrent Query Documentation Clarification: PHYSICIAN'S DOCUMENTATION REQUEST Date of Query: 03/29/21816 Patient Name: Lucie Hunter Admit Date: 03/27/21 Dear Doctor, A review of the medical record indicates additional documentation may be needed. Please review below and update the documentation accordingly. Clinical Indicators: Risk Factors/Clinical Indicators/Treatments PMH: Congestive heart failure. BNP 255 H No exacerbation, continue home Lasix, Losartan, Imdur, Digoxin, Metoprolol. Home meds: Furosemide 40 mg 1 Tab PO daily. Please provide further specificity regarding the most likely type and acuity of CHF you are evaluating, treating, or monitoring. Examples include: Type: * Systolic * Diastolic * Combined Systolic/Diastolic * Other ? please specify * Unable to determine Acuity: * Acute * Chronic * Acute on chronic * Unable to determine Use of terms such as suspected, likely, concern for, or probable (associated with a specific diagnosis that is being evaluated, monitored, or treated as if it exists) are acceptable and can be coded in the inpatient setting, when documented at the time of discharge. Thank you, Kay Julien [facility], CDIS Extension: [phone] Please use your independent medical judgment in providing your response. THIS QUERY IS PART OF THE PERMANENT MEDICAL RECORD Provider Response: Other Other Diagnosis: se my note
[2021-03-29] MEDS: 0.9 % Sodium Chloride Flush 3 ML SYRINGE IVFLUSH ×2 (08:49→16:54)
[2021-03-29] MEDS: guaiFENesin DM 200/20/10 ML 10 ML SYRUP PO ×2 (08:49→16:53)
[2021-03-29] MEDS: Digoxin 0.125 MG TABLET PO (08:49)
[2021-03-29] MEDS: QUEtiapine Fumarate 25 MG TABLET PO (08:50)
[2021-03-29] MEDS: Memantine HCl 10 MG TABLET PO (08:50)
[2021-03-29] MEDS: Isosorbide Mononitrate 30 MG TAB.ER.24H PO (08:50)
[2021-03-29] MEDS: Losartan Potassium 25 MG TABLET PO (08:50)
[2021-03-29] MEDS: Topiramate 100 MG TABLET 200 MG PO ×2 (08:50→21:32)
[2021-03-29] MEDS: lamoTRIgine 25 MG TABLET 50 MG PO ×2 (08:50→21:31)
[2021-03-29] MEDS: Multivitamin TABLET 1 TAB PO (08:50)
[2021-03-29] MEDS: FLUoxetine HCl 20 MG CAPSULE 40 MG PO (08:50)
[2021-03-29] MEDS: Metoprolol Tartrate 100 MG TABLET PO (08:51)
[2021-03-29] MEDS: Aspirin Enteric Coated 81 MG TABLET.DR PO (08:51)
[2021-03-29] MEDS: Acetaminophen 325 MG TABLET 650 MG PO ×2 (08:51→16:53)
[2021-03-29] MEDS: Furosemide 40 MG TABLET PO (08:51)
--- NOTE | 2021-03-29 10:11 | PC.NURSE ---
Rhoades catheter removed at 10AM today, pt is due to void at 1800 tonight. Patient tolerated removal well. Will continue to monitor urine output.
--- NOTE | 2021-03-29 11:28 | MHC.CLN ---
NUTRITION CONSULT FOR PROBABLY POOR INTAKE AND POTENTIAL FOR SKIN PROBLEM. PATIENT ATE 100% AT BREAKFAST. SEEN BY SCHEDULE MAKER WITH RECOMMENDATION FOR DIET CONSISTENCY=NDD3. DIET=CARDIAC, NDD3. KO=14 WITH STAGE I TO BILATERAL BUTTOCK. NO ADDITIONAL NUTRITION INTERVENTIONS AT THIS TIME DUE TO INTAKE APPEARS GOOD.
--- NOTE | 2021-03-29 12:06 | MHC.SL.SWA ---
Speech Pathologist Impression: Oropharyngeal Dysphagia Dysphasia Diet Status: Downgrade Liquid Consistency and Strategies for Safe Swallow: Liquid Intake Recommendation: Thin Liquid Intake Strategies: Small Sips No Straws Solid Food Consistency: Dietary Recommendations: Grnd/Mech Altered (NDD2) Oral Medication Intake: Whole with Puree Compensatory Strategies and Precautions to be Taken for Safe Swallow: Sitting Upright (90 deg) No Straw Small Bites and Sips Alternate Liquids/Solids Rate of Ingestion Change Oral Check Avoid Specific Foods Pt with remote history of CVA (2004), Receptive/Expressive Aphasia, Dementia, decreased dentition. Pt has evidence of pharyngeal phase dysphagia, with a mild delay initiation swallow and decreased elevation/excursion of larynx. No clinical s/s of aspiration with solids and liquids. D/t reduced cognition and oral phase dysphagia secondary to limited dentition, recommend GROUND/MECH ALTERED (NDD2) solids with THIN liquids and medication delivered as Pills whole with liquid or puree. MD, Nursing, Dietitians, Casting Machine Service Operator notified of this recommendation via secure text. MALT LOADER to follow while Pt is inpatient for toleration of diet/advancement if needed. Supervision While Eating and Drinking for Safe Swallow: Total Assistance Foods to Avoid: Hard or tough to chew foods. Swallowing Recommended Treatments: Compens. Strategy Educat. Recommendation for Speech: Inpatient Speech Therapy Comment: MALT LOADER will continue to follow PT to assess toleration of diet, re-assess swallow and progress while inpatient [facility]-F Health Program Specialist Clinican/Clinical Fellow: Yes: Carissa Carter Supervisory Statement: I have reviewed and agree with the student/clinical fellow's documentation: N/A Speech Language Pathologist: Adia Alfaro M.A., [facility]
--- NOTE | 2021-03-29 12:34 | P.PNIM_ITS ---
Subjective Subjective Date of Service: 03/29/21 Interval History: Being followed for UTI and asthma exacerbation, patient communicate through hand gestures and facial expression ,is aphasic , feels better, less shortness of breath and cough. Review of Systems Un able to obtain due to aphasia Physical Exam Vital Signs: Vital Signs: Last Vital Signs Temp 97.5 F 03/29/21 11:47 Pulse 78 03/29/21 11:47 Resp 20 03/29/21 11:47 BP 131/61 03/29/21 11:47 Pulse Ox 93 03/29/21 11:47 BMI result Body Mass Index 31.9 General awake alert, no acute distress.? Neck? no JVD. CVS? regular rate rhythm, Respiratory lungs coarse breath sound, no respiratory distress, occasional wheeze/rhonchi Gastrointestinal abdomen soft, nontender, bowel sounds audible, no guarding , no rigidity. Extremities no edema. Neuro aphasia Skin no rash Objective Data Active Medications Acetaminophen (Acetaminophen 325 Mg Tablet) 650 mg PO Q6H PRN PRN Reason: Pain, Mild (Pain Scale 1-3) Last Admin: 03/29/21 08:51 Dose: 650 mg Documented by: RADHA Albuterol/Ipratropium (Albuterol/Iprat 2.5/0.5mg 3 Ml Ampul.Neb) 3 ml INHALE Q4H PRN PRN Reason: Shortness of Breath/Wheezing Albuterol/Ipratropium (Albuterol/Iprat 2.5/0.5mg 3 Ml Ampul.Neb) 3 ml INHALE RQ6H WHILE AWAKE [facility] Last Admin: 03/29/21 07:49 Dose: 3 ml Documented by: CELESTE Aspirin (Aspirin Enteric Coated 81 Mg Tablet.) 81 mg PO DAILY [facility] Last Admin: 03/29/21 08:51 Dose: 81 mg Documented by: RADHA Atorvastatin Calcium (Atorvastatin Calcium 80 Mg Tablet) 80 mg PO BEDTIME [facility] Last Admin: 03/28/21 22:08 Dose: 80 mg Documented by: CASTILM Digoxin (Digoxin 0.125 Mg Tablet) 0.125 mg PO DAILY@1000 [facility] Last Admin: 03/29/21 08:49 Dose: 0.125 mg Documented by: RADHA Fluoxetine HCl (Fluoxetine Hcl 20 Mg Capsule) 40 mg PO DAILY [facility] Last Admin: 03/29/21 08:50 Dose: 40 mg Documented by: COTEMA Furosemide (Furosemide 40 Mg Tablet) 40 mg PO DAILY@0800 [facility]; Protocol Last Admin: 03/29/21 08:51 Dose: 40 mg Documented by: COTEMA Guaifenesin/Dextromethorphan (Guaifenesin Dm 200/20/10 Ml 10 Ml Syrup) 10 ml PO Q6H PRN PRN Reason: cough Last Admin: 03/29/21 08:49 Dose: 10 ml Documented by: COTEMA Ceftriaxone Sodium 1 gm/ (Sodium Chloride) 50 mls @ 100 mls/hr IV Q24H [facility] Last Infusion: 03/28/21 16:44 Dose: 0 mls/hr Documented by: N-MALIR Isosorbide Mononitrate (Isosorbide Mononitrate 30 Mg Tab.Er.24h) 30 mg PO DAILY [facility]; Protocol Last Admin: 03/29/21 08:50 Dose: 30 mg Documented by: RUSSELEMA Lamotrigine (Lamotrigine 25 Mg Tablet) 50 mg PO BID [facility] Last Admin: 03/29/21 08:50 Dose: 50 mg Documented by: RUSSELEMA Levothyroxine Sodium (Levothyroxine Sodium 175 Mcg Tablet) 175 mcg PO DAILY@0630 [facility] Last Admin: 03/29/21 06:01 Dose: 175 mcg Documented by: KATILLeslie Losartan Potassium (Losartan Potassium 25 Mg Tablet) 25 mg PO DAILY [facility]; Protocol Last Admin: 03/29/21 08:50 Dose: 25 mg Documented by: RADHA Melatonin (Melatonin 3 Mg Tablet) 6 mg PO BEDTIME PRN PRN Reason: Insomnia Memantine (Memantine Hcl 10 Mg Tablet) 10 mg PO DAILY [facility] Last Admin: 03/29/21 08:50 Dose: 10 mg Documented by: COTEMA Metoprolol Tartrate (Metoprolol Tartrate 100 Mg Tablet) 100 mg PO BID [facility]; Protocol Last Admin: 03/29/21 08:51 Dose: 100 mg Documented by: COTEMA Mirtazapine (Mirtazapine 15 Mg Tablet) 15 mg PO BEDTIME [facility] Last Admin: 03/28/21 22:10 Dose: 15 mg Documented by: KATILLeslie Multivitamins/Vitamin C (Multivitamin Tablet) 1 tab PO DAILY [facility] Last Admin: 03/29/21 08:50 Dose: 1 tab Documented by: RADHA Pharmacy Consult (Consult Rx Perform Med Rec) 1 each MISCELLANE ONCE PRN PRN Reason: Consult order Potassium Chloride (Potassium Chloride Er 10 Meq Capsule.Er) 10 meq PO BID [facility] Last Admin: 03/29/21 08:49 Dose: 10 meq Documented by: COTEMA Quetiapine Fumarate (Quetiapine Fumarate 25 Mg Tablet) 25 mg PO DAILY [facility] Last Admin: 03/29/21 08:50 Dose: 25 mg Documented by: COTEMA Quetiapine Fumarate (Quetiapine Fumarate 50 Mg Tablet) 50 mg PO BEDTIME [facility] Last Admin: 03/28/21 22:09 Dose: 50 mg Documented by: CASTILM Senna (Sennosides 8.6 Mg Tablet) 17.2 mg PO BEDTIME PRN PRN Reason: Constipation Sodium Chloride (0.9 % Sodium Chloride Flush 3 Ml Syringe) 3 ml IVFLUSH QSHIFT [facility] Last Admin: 03/29/21 08:49 Dose: 3 ml Documented by: COTMARGARITA Topiramate (Topiramate 100 Mg Tablet) 200 mg PO BID [facility] Last Admin: 03/29/21 08:50 Dose: 200 mg Documented by: COTMARGARITA Warfarin Sodium (Warfarin Sodium 6 Mg Tablet) 6 mg PO DAILY@1800 [facility] Last Admin: 03/28/21 17:36 Dose: 6 mg Documented by: LAKISHA-MALIR Labs CBC & Chem 7: 03/28/21 06:29 03/28/21 06:29 Labs: Laboratory Results - last 24 hr 03/29/21 05:28 PT 34.9 H INR 3.0 H Microbiology Microbiology Results: Microbiology 03/27/21 17:58 Urine Culture - Final Urine Catheterized - Rhoades Catheter Escherichia coli 03/27/21 16:47 Blood Culture - Preliminary Blood - Venous No growth after 24 hours. 03/27/21 16:47 Blood Culture - Preliminary Blood - Venous No growth after 24 hours. Assessment and Plan (1) Acute bronchitis with bronchospasm: Status: Acute (2) Acute hyperkalemia: Status: Acute (3) Acute UTI: Status: Acute (4) Aphasia, post-stroke: Status: Acute Assessment and Plan: 70-year-old female with a past medical history of hypertension, hyperlipidemia, dementia, seizures, valvular heart disease status post surgery, CHF , history of pacemaker, DVT, hypothyroidism, dementia, history of seizures, depression, asthma, history of CVA with residual right-sided weakness, aphasia presented to the hospital today with a chief complaint of shortness of breath.? noted to have mild wheezing.? Also had abnormal urinalysis.? Admitted to the hospital for further management. Hyperreactive airways/bronchitis spoke with daughter ,patient has no hx of asthma Shortness of breath improving, CT chest showed no acute pulmonary finding no evidence of aspiration pleural thickening and scarring at right base noted Continue updraft treatment, on ceftriaxone, cough medication,give additional lasix iv and follow clinical course wean o2 not on home oxygen. UTI:? Continue iv ceftriaxone day 2 , urine culture grew E coli , blood cultures negative,follow CBC Chronic CHF with reduced EF, No acute exacerbation, Continue home Lasix, Imdur, digoxin, losartan, and metoprolol.? Chronically elevated BNP. History of mechanical mitral valve Continue Coumadin.? INR goal 2.5-3.5, INR therapeutic. Follow INR closely while on antibiotic History of hypothyroidism:? Continue home levothyroxine History of dementia unspecified Continue home memantine History of seizures: Continue home Lamotrigine, Topamax,usually gets twitching in her right-sided when patient had a seizure. Seizure precautions History of CVA:?Aphasia.? Continue aspirin and statin DVT prophylaxis:? on Coumadin INR 3 Code status:? Full code Quality Stroke Does the patient have a stroke diagnosis?: No VTE Prior VTE?: No VTE Risk Level:: Medical - moderate - high VTE Device Contraindication: Treatment Not Indicated VTE Drug Contraindication: N/A - Med Ordered
[2021-03-29] MEDS: Furosemide 20 MG/2 ML VIAL IVPUSH (13:57)
[2021-03-29] MEDS: cefTRIAXone sodium 1 GM in 0.9 % Sodium Chloride 50 ML IV (16:54)
[2021-03-29] MEDS: Warfarin Sodium 6 MG TABLET PO (16:54)
[2021-03-29] MEDS: Atorvastatin Calcium 80 MG TABLET PO (21:31)
[2021-03-29] MEDS: Mirtazapine 15 MG TABLET PO (21:31)
[2021-03-29] MEDS: QUEtiapine Fumarate 50 MG TABLET PO (21:32)
[2021-03-30] VITALS (10 sets, daily range): BP systolic 100–143; BP diastolic 52–82; PULSE 55–87; RESP 16–22; TEMP 36.1–36.7; O2SAT 92–98
[2021-03-30] MEDS: 0.9 % Sodium Chloride Flush 3 ML SYRINGE IVFLUSH ×3 (00:51→16:54)
[2021-03-30] MEDS: Levothyroxine Sodium 175 MCG TABLET PO (05:35)
[2021-03-30 05:46] LABS: MANUAL DIFF FLAG NO
[2021-03-30 05:52] LABS: Basophils Percent Auto 0.3 % (0-2); Eosinophils Absolute Auto 0.2 X10*3/uL (0.0-0.4); Eosinophils Percent Auto 2.3 % (0-4); Hematocrit 29.8 % (37.0-47.0); Hemoglobin 8.3 g/dl (12.0-16.0); Imm Gran Abs Auto 0.01 X10*3/uL (0.00-0.03); Imm Gran Pct Auto 0.1 % (0.0-0.4); Lymphocytes Absolute Auto 1.1 X10*3/uL (1.2-4.9); Lymphocytes Percent Auto 15.5 % (20-40); Mean Corpuscular HGB Conc 27.9 g/dl (31.0-35.0); Mean Corpuscular Hemoglobin 25.3 pg (27.0-33.0); Mean Corpuscular Volume 90.9 fL (80.0-98.0); Monocytes Absolute Auto 0.7 X10*3/uL (0.1-1.2); Monocytes Percent Auto 10.4 % (2-11); Neutrophils Percent Auto 71.4 % (45-73); Platelet Count 111 X10*3/uL (160-400); Red Blood Count 3.28 X10*6/uL (4.20-5.50); Red Cell Distribution Width 18.5 % (11.0-16.0)
[2021-03-30 06:13] LABS: Anion Gap 9 (12-20); Blood Urea Nitrogen 20 mg/dL (9-16); Calcium 8.6 mg/dL (8.4-10.2); Carbon Dioxide 26 mmol/L (22-29); Chloride 111 mmol/L (96-108); Creatinine Clr Calc Pharmacy 47.2; Estimated Glomerular Filt Rate 50; Glucose Random 92 mg/dL (60-115); Potassium 3.7 mmol/L (3.3-5.1); Sodium 142 mmol/L (135-145)
[2021-03-30 06:31] LABS: INTERNATIONAL NORM RATIO 2.9 (0.9-1.1); Prothrombin Time 34.3 SEC (9.9-13.0)
[2021-03-30] MEDS: Albuterol/Iprat 2.5/0.5MG 3 ML AMPUL.NEB INHALE ×3 (08:25→20:29)
[2021-03-30] MEDS: Topiramate 100 MG TABLET 200 MG PO ×2 (09:05→20:39)
[2021-03-30] MEDS: Digoxin 0.125 MG TABLET PO (09:06)
[2021-03-30] MEDS: Memantine HCl 10 MG TABLET PO (09:06)
[2021-03-30] MEDS: FLUoxetine HCl 20 MG CAPSULE 40 MG PO (09:06)
[2021-03-30] MEDS: lamoTRIgine 25 MG TABLET 50 MG PO ×2 (09:06→20:39)
[2021-03-30] MEDS: QUEtiapine Fumarate 25 MG TABLET PO (09:06)
[2021-03-30] MEDS: Aspirin Enteric Coated 81 MG TABLET.DR PO (09:06)
[2021-03-30] MEDS: Furosemide 40 MG TABLET PO (09:06)
[2021-03-30] MEDS: Metoprolol Tartrate 100 MG TABLET PO ×2 (09:07→20:39)
[2021-03-30] MEDS: Losartan Potassium 25 MG TABLET PO (09:07)
[2021-03-30] MEDS: Isosorbide Mononitrate 30 MG TAB.ER.24H PO (09:07)
[2021-03-30] MEDS: Multivitamin TABLET 1 TAB PO (09:07)
[2021-03-30] MEDS: guaiFENesin DM 200/20/10 ML 10 ML SYRUP PO ×3 (11:52→20:43)
--- NOTE | 2021-03-30 14:42 | P.PNIM_ITS ---
Subjective Subjective Date of Service: 03/30/21 Interval History: Unable to obtain history due to aphasia, noted to be coughing congested, hypoxic, finger oximetry dropped to high 70s after ambulation and patient noted to be in respiratory distress. Review of Systems Unable to obtain due to aphasia Physical Exam Vital Signs: Vital Signs: Last Vital Signs Temp 97.2 F 03/30/21 11:53 Pulse 87 03/30/21 11:53 Resp 18 03/30/21 11:53 BP 100/52 L 03/30/21 11:53 Pulse Ox 92 03/30/21 11:53 BMI result Body Mass Index 31.9 General awake alert, mild respiratory distress.? Neck? no JVD. CVS? regular rate rhythm, Respiratory lungs coarse breath sound, bilateral expiratory rhonchi, no use of accessory muscles Gastrointestinal abdomen soft, nontender, bowel sounds audible, no guarding , no rigidity. Extremities no pitting edema Neuro aphasia Skin no rash Objective Data Active Medications Acetaminophen (Acetaminophen 325 Mg Tablet) 650 mg PO Q6H PRN PRN Reason: Pain, Mild (Pain Scale 1-3) Last Admin: 03/29/21 16:53 Dose: 650 mg Documented by: RADHA Albuterol/Ipratropium (Albuterol/Iprat 2.5/0.5mg 3 Ml Ampul.Neb) 3 ml INHALE Q4H PRN PRN Reason: Shortness of Breath/Wheezing Albuterol/Ipratropium (Albuterol/Iprat 2.5/0.5mg 3 Ml Ampul.Neb) 3 ml INHALE RQ6H WHILE AWAKE [facility] Last Admin: 03/30/21 14:32 Dose: 3 ml Documented by: CELESTE Aspirin (Aspirin Enteric Coated 81 Mg Tablet.) 81 mg PO DAILY [facility] Last Admin: 03/30/21 09:06 Dose: 81 mg Documented by: PJ Atorvastatin Calcium (Atorvastatin Calcium 80 Mg Tablet) 80 mg PO BEDTIME [facility] Last Admin: 03/29/21 21:31 Dose: 80 mg Documented by: MARIBEL Cefuroxime Axetil (Cefuroxime Axetil 250 Mg Tablet) 250 mg PO Q12H [facility] Last Admin: 03/30/21 11:52 Dose: 250 mg Documented by: PJ Digoxin (Digoxin 0.125 Mg Tablet) 0.125 mg PO DAILY@1000 [facility] Last Admin: 03/30/21 09:06 Dose: 0.125 mg Documented by: PJ Fluoxetine HCl (Fluoxetine Hcl 20 Mg Capsule) 40 mg PO DAILY [facility] Last Admin: 03/30/21 09:06 Dose: 40 mg Documented by: PJ Furosemide (Furosemide 40 Mg Tablet) 40 mg PO DAILY@0800 [facility]; Protocol Last Admin: 03/30/21 09:06 Dose: 40 mg Documented by: PJ Guaifenesin/Dextromethorphan (Guaifenesin Dm 200/20/10 Ml 10 Ml Syrup) 10 ml PO Q6H PRN PRN Reason: cough Last Admin: 03/29/21 16:53 Dose: 10 ml Documented by: RADHA Guaifenesin/Dextromethorphan (Guaifenesin Dm 200/20/10 Ml 10 Ml Syrup) 10 ml PO Q6H [facility] Last Admin: 03/30/21 11:52 Dose: 10 ml Documented by: PJ Isosorbide Mononitrate (Isosorbide Mononitrate 30 Mg Tab.Er.24h) 30 mg PO DAILY [facility]; Protocol Last Admin: 03/30/21 09:07 Dose: 30 mg Documented by: PJ Lamotrigine (Lamotrigine 25 Mg Tablet) 50 mg PO BID [facility] Last Admin: 03/30/21 09:06 Dose: 50 mg Documented by: PJ Levothyroxine Sodium (Levothyroxine Sodium 175 Mcg Tablet) 175 mcg PO DAILY@0630 [facility] Last Admin: 03/30/21 05:35 Dose: 175 mcg Documented by: MARIBEL Losartan Potassium (Losartan Potassium 25 Mg Tablet) 25 mg PO DAILY [facility]; Zora col Last Admin: 03/30/21 09:07 Dose: 25 mg Documented by: PJ Melatonin (Melatonin 3 Mg Tablet) 6 mg PO BEDTIME PRN PRN Reason: Insomnia Memantine (Memantine Hcl 10 Mg Tablet) 10 mg PO DAILY [facility] Last Admin: 03/30/21 09:06 Dose: 10 mg Documented by: PJ Metoprolol Tartrate (Metoprolol Tartrate 100 Mg Tablet) 100 mg PO BID [facility]; Protocol Last Admin: 03/30/21 09:07 Dose: 100 mg Documented by: PJ Mirtazapine (Mirtazapine 15 Mg Tablet) 15 mg PO BEDTIME [facility] Last Admin: 03/29/21 21:31 Dose: 15 mg Documented by: MARIBEL Multivitamins/Vitamin C (Multivitamin Tablet) 1 tab PO DAILY [facility] Last Admin: 03/30/21 09:07 Dose: 1 tab Documented by: PJ Pharmacy Consult (Consult Rx Perform Med Rec) 1 each MISCELLANE ONCE PRN PRN Reason: Consult order Potassium Chloride (Potassium Chloride Er 10 Meq Capsule.Er) 10 meq PO BID [facility] Last Admin: 03/30/21 09:06 Dose: 10 meq Documented by: PJ Quetiapine Fumarate (Quetiapine Fumarate 25 Mg Tablet) 25 mg PO DAILY [facility] Last Admin: 03/30/21 09:06 Dose: 25 mg Documented by: PJ Quetiapine Fumarate (Quetiapine Fumarate 50 Mg Tablet) 50 mg PO BEDTIME [facility] Last Admin: 03/29/21 21:32 Dose: 50 mg Documented by: MARIBEL Senna (Sennosides 8.6 Mg Tablet) 17.2 mg PO BEDTIME PRN PRN Reason: Constipation Sodium Chloride (0.9 % Sodium Chloride Flush 3 Ml Syringe) 3 ml IVFLUSH QSHIFT [facility] Last Admin: 03/30/21 09:06 Dose: 3 ml Documented by: PJ Topiramate (Topiramate 100 Mg Tablet) 200 mg PO BID [facility] Last Admin: 03/30/21 09:05 Dose: 200 mg Documented by: PJ Warfarin Sodium (Warfarin Sodium 6 Mg Tablet) 6 mg PO DAILY@1800 [facility] Last Admin: 03/29/21 16:54 Dose: 6 mg Documented by: RADHA Labs CBC & Chem 7: 03/30/21 05:32 03/30/21 05:31 Labs: Laboratory Results - last 24 hr 03/30/21 03/30/21 03/30/21 05:31 05:31 05:32 MCV 90.9 MCH 25.3 L MCHC 27.9 L RDW 18.5 H Plt Count 111 L MPV 11.0 Immature Gran % (Auto) 0.1 Neut % (Auto) 71.4 Lymph % (Auto) 15.5 L [place] % (Auto) 10.4 Eos % (Auto) 2.3 Baso % (Auto) 0.3 Lymph # (Auto) 1.1 L [place] # (Auto) 0.7 Eos # (Auto) 0.2 Baso # (Auto) 0.0 Abs Immat Gran (auto) 0.01 Absolute Neuts (auto) 5.0 Absolute Nucleated RBC 0.000 Nucleated RBC % (auto) 0.0 PT 34.3 H INR 2.9 H Anion Gap 9 L Estim Creat Clear Calc 47.2 Estimated GFR 50 Random Glucose 92 Calcium 8.6 D Microbiology Microbiology Results: Microbiology 03/27/21 16:47 Blood Culture - Preliminary Blood - Venous No growth after 48 hours. 03/27/21 16:47 Blood Culture - Preliminary Blood - Venous No growth after 48 hours. Assessment and Plan (1) Acute UTI: Status: Acute (2) Acute bronchitis with bronchospasm: Status: Acute Assessment and Plan: 70-year-old female with a past medical history of hypertension, hyperlipidemia, dementia, seizures, valvular heart disease status post surgery, CHF , history of pacemaker, DVT, hypothyroidism, dementia, history of seizures, depression, asthma, history of CVA with residual right-sided weakness, aphasia presented to the hospital today with a chief complaint of shortness of breath.? noted to have mild wheezing.? Also had abnormal urinalysis.? Admitted to the hospital for further management. Acute hypoxic respiratory failure Noted to have significant hypoxia with ambulation, not on home O2 No history of COPD/asthma CT chest showed no acute pulmonary finding no evidence of aspiration, pleural thickening and scarring at right base noted Continue updraft treatment, on ceftriaxone, cough medication,lasix home dose Will repeat chest x-ray, continue above treatment and O2 support Seen by Physical therapy they recommend to resume baseline level of activity. UTI:? on iv ceftriaxone day 3 , urine culture grew E coli , blood cultures negative, WBC normalized will transition to by mouth Ceftin 250 b.i.d. Chronic CHF with reduced EF, Continue home Lasix, Imdur, digoxin, losartan, and metoprolol.? Chronically elevated BNP. Will repeat chest x-ray due to hypoxia History of mechanical mitral valve Continue Coumadin.? INR goal 2.5-3.5, INR therapeutic. Follow INR closely while on antibiotic History of hypothyroidism:? Continue home levothyroxine History of dementia unspecified Continue home memantine History of seizures: Continue home Lamotrigine, Topamax,usually gets twitching in her right-sided when patient had a seizure.? Seizure precautions History of CVA:?Aphasia.? Continue aspirin and statin DVT prophylaxis:? on Coumadin INR 2.9 Code status:? Full code Quality Stroke Does the patient have a stroke diagnosis?: No VTE Prior VTE?: No VTE Risk Level:: Medical - moderate - high VTE Device Contraindication: Treatment Not Indicated VTE Drug Contraindication: N/A - Med Ordered
[2021-03-30] MEDS: Warfarin Sodium 6 MG TABLET PO (16:53)
[2021-03-30] MEDS: QUEtiapine Fumarate 50 MG TABLET PO (20:39)
[2021-03-30] MEDS: Atorvastatin Calcium 80 MG TABLET PO (20:39)
[2021-03-30] MEDS: Mirtazapine 15 MG TABLET PO (20:39)
[2021-03-31] VITALS (9 sets, daily range): BP systolic 123–143; BP diastolic 57–63; PULSE 53–110; RESP 16–20; TEMP 35.7–36.5; O2SAT 92–97
[2021-03-31] MEDS: guaiFENesin DM 200/20/10 ML 10 ML SYRUP PO ×4 (03:13→21:55)
[2021-03-31 05:21] LABS: INTERNATIONAL NORM RATIO 4.1 (0.9-1.1); Prothrombin Time 48.2 SEC (9.9-13.0)
[2021-03-31] MEDS: Levothyroxine Sodium 175 MCG TABLET PO (05:44)
[2021-03-31] MEDS: FLUoxetine HCl 20 MG CAPSULE 40 MG PO (09:21)
[2021-03-31] MEDS: Isosorbide Mononitrate 30 MG TAB.ER.24H PO (09:21)
[2021-03-31] MEDS: Metoprolol Tartrate 100 MG TABLET PO ×2 (09:21→20:49)
[2021-03-31] MEDS: lamoTRIgine 25 MG TABLET 50 MG PO ×2 (09:22→20:38)
[2021-03-31] MEDS: Aspirin Enteric Coated 81 MG TABLET.DR PO (09:22)
[2021-03-31] MEDS: Digoxin 0.125 MG TABLET PO (09:22)
[2021-03-31] MEDS: Furosemide 40 MG TABLET PO (09:23)
[2021-03-31] MEDS: Memantine HCl 10 MG TABLET PO (09:23)
[2021-03-31] MEDS: Topiramate 100 MG TABLET 200 MG PO ×2 (09:23→20:38)
[2021-03-31] MEDS: Losartan Potassium 25 MG TABLET PO (09:23)
[2021-03-31] MEDS: QUEtiapine Fumarate 25 MG TABLET PO (09:23)
[2021-03-31] MEDS: Multivitamin TABLET 1 TAB PO (09:23)
[2021-03-31] MEDS: 0.9 % Sodium Chloride Flush 3 ML SYRINGE IVFLUSH (09:24)
[2021-03-31] MEDS: Albuterol/Iprat 2.5/0.5MG 3 ML AMPUL.NEB INHALE ×2 (09:33→19:37)
--- NOTE | 2021-03-31 11:04 | HO.PM.IMPN ---
Subjective Subjective Date of Service: 03/31/21 Interval History: Baseline aphasia, unable to obtain history, less coughing, address oxygenation stable 90-93%, patient ambulated in hallway oxygenation dropped to 76 transiently returns right back up to 91 patient noted to have no respiratory distress heart rate remains stable. Review of Systems Unobtainable due to aphasia Physical Exam Vital Signs: Vital Signs: Last Vital Signs Temp 97.6 F 03/31/21 08:00 Pulse 110 H 03/31/21 09:35 Resp 20 03/31/21 09:35 BP 143/63 H 03/31/21 09:23 Pulse Ox 97 03/31/21 08:00 BMI result Body Mass Index 31.9 General awake alert,no respiratory distress.? Neck? no JVD. CVS? regular rate rhythm, Respiratory lungs coarse breath sound, few rhonchi at bases, no use of accessory muscles Gastrointestinal abdomen soft, nontender, bowel sounds audible, no guarding , no rigidity. Extremities no pitting edema Neuro aphasia Skin no rash Objective Data Active Medications Acetaminophen (Acetaminophen 325 Mg Tablet) 650 mg PO Q6H PRN PRN Reason: Pain, Mild (Pain Scale 1-3) Last Admin: 03/29/21 16:53 Dose: 650 mg Documented by: RADHA Albuterol/Ipratropium (Albuterol/Iprat 2.5/0.5mg 3 Ml Ampul.Neb) 3 ml INHALE Q4H PRN PRN Reason: Shortness of Breath/Wheezing Albuterol/Ipratropium (Albuterol/Iprat 2.5/0.5mg 3 Ml Ampul.Neb) 3 ml INHALE RQ6H WHILE AWAKE [facility] Last Admin: 03/31/21 09:33 Dose: 3 ml Documented by: ALE Aspirin (Aspirin Enteric Coated 81 Mg Tablet.) 81 mg PO DAILY [facility] Last Admin: 03/31/21 09:22 Dose: 81 mg Documented by: MARTIN Atorvastatin Calcium (Atorvastatin Calcium 80 Mg Tablet) 80 mg PO BEDTIME [facility] Last Admin: 03/30/21 20:39 Dose: 80 mg Documented by: MARIBEL Cefuroxime Axetil (Cefuroxime Axetil 250 Mg Tablet) 250 mg PO Q12H [facility] Last Admin: 03/31/21 09:22 Dose: 250 mg Documented by: MARTIN Digoxin (Digoxin 0.125 Mg Tablet) 0.125 mg PO DAILY@1000 [facility] Last Admin: 03/31/21 09:22 Dose: 0.125 mg Documented by: MARTIN Fluoxetine HCl (Fluoxetine Hcl 20 Mg Capsule) 40 mg PO DAILY [facility] Last Admin: 03/31/21 09:21 Dose: 40 mg Documented by: MARTIN Furosemide (Furosemide 40 Mg Tablet) 40 mg PO DAILY@0800 [facility]; Protocol Last Admin: 03/31/21 09:23 Dose: 40 mg Documented by: MARTIN Guaifenesin/Dextromethorphan (Guaifenesin Dm 200/20/10 Ml 10 Ml Syrup) 10 ml PO Q6H PRN PRN Reason: cough Last Admin: 03/29/21 16:53 Dose: 10 ml Documented by: RADHA Guaifenesin/Dextromethorphan (Guaifenesin Dm 200/20/10 Ml 10 Ml Syrup) 10 ml PO Q6H [facility] Last Admin: 03/31/21 09:21 Dose: 10 ml Documented by: MARTIN Isosorbide Mononitrate (Isosorbide Mononitrate 30 Mg Tab.Er.24h) 30 mg PO DAILY [facility]; Protocol Last Admin: 03/31/21 09:21 Dose: 30 mg Documented by: MARTIN Lamotrigine (Lamotrigine 25 Mg Tablet) 50 mg PO BID [facility] Last Admin: 03/31/21 09:22 Dose: 50 mg Documented by: MARTIN Levothyroxine Sodium (Levothyroxine Sodium 175 Mcg Tablet) 175 mcg PO DAILY@0630 [facility] Last Admin: 03/31/21 05:44 Dose: 175 mcg Documented by: MARIBEL Losartan Potassium (Losartan Potassium 25 Mg Tablet) 25 mg PO DAILY [facility]; Protocol Last Admin: 03/31/21 09:23 Dose: 25 mg Documented by: MARTIN Melatonin (Melatonin 3 Mg Tablet) 6 mg PO BEDTIME PRN PRN Reason: Insomnia Memantine (Memantine Hcl 10 Mg Tablet) 10 mg PO DAILY [facility] Last Admin: 03/31/21 09:23 Dose: 10 mg Documented by: MARTIN Metoprolol Tartrate (Metoprolol Tartrate 100 Mg Tablet) 100 mg PO BID [facility]; Protocol Last Admin: 03/31/21 09:21 Dose: 100 mg Documented by: MARTIN Mirtazapine (Mirtazapine 15 Mg Tablet) 15 mg PO BEDTIME [facility] Last Admin: 03/30/21 20:39 Dose: 15 mg Documented by: MARIBEL Multivitamins/Vitamin C (Multivitamin Tablet) 1 tab PO DAILY [facility] Last Admin: 03/31/21 09:23 Dose: 1 tab Documented by: MARTIN Pharmacy Consult (Consult Rx Perform Med Rec) 1 each MISCELLANE ONCE PRN PRN Reason: Consult order Potassium Chloride (Potassium Chloride Er 10 Meq Capsule.Er) 10 meq PO BID [facility] Last Admin: 03/31/21 09:22 Dose: 10 meq Documented by: MARTIN Quetiapine Fumarate (Quetiapine Fumarate 25 Mg Tablet) 25 mg PO DAILY [facility] Last Admin: 03/31/21 09:23 Dose: 25 mg Documented by: MARTIN Quetiapine Fumarate (Quetiapine Fumarate 50 Mg Tablet) 50 mg PO BEDTIME [facility] Last Admin: 03/30/21 20:39 Dose: 50 mg Documented by: MARIBEL Senna (Sennosides 8.6 Mg Tablet) 17.2 mg PO BEDTIME PRN PRN Reason: Constipation Sodium Chloride (0.9 % Sodium Chloride Flush 3 Ml Syringe) 3 ml IVFLUSH QSHIFT [facility] Last Admin: 03/31/21 09:24 Dose: 3 ml Documented by: MARTIN Topiramate (Topiramate 100 Mg Tablet) 200 mg PO BID [facility] Last Admin: 03/31/21 09:23 Dose: 200 mg Documented by: MARTIN Warfarin Sodium (Warfarin Sodium 6 Mg Tablet) 6 mg PO DAILY@1800 [facility] Last Admin: 03/30/21 16:53 Dose: 6 mg Documented by: PJ Labs CBC & Chem 7: 03/30/21 05:32 03/30/21 05:31 Labs: Laboratory Results - last 24 hr 03/31/21 04:15 PT 48.2 H INR 4.1 H Assessment and Plan (1) Acute bronchitis with bronchospasm: Status: Acute (2) Acute UTI: Status: Acute (3) Dementia: Status: Acute (4) Aphasia, post-stroke: Status: Acute Assessment and Plan: 70-year-old female with a past medical history of hypertension, hyperlipidemia, dementia, seizures, valvular heart disease status post surgery, CHF , history of pacemaker, DVT, hypothyroidism, dementia, history of seizures, depression, asthma, history of CVA with residual right-sided weakness, aphasia presented to the hospital today with a chief complaint of shortness of breath.? noted to have mild wheezing.? Also had abnormal urinalysis.? Admitted to the hospital for further management. Acute hypoxic respiratory failure Likely multifactorial with chronic congestive heart failure, anemia, deconditioning, bronchitis and UTI Noted to have significant hypoxia with ambulation finger oximetry down to mid 70, but oxygenation improves rapidly, no tachycardia noted, not on home O2, patient walks with walker at home short distances Clinically improved significantly since yesterday No history of COPD/asthma CT chest showed no acute pulmonary finding no evidence of aspiration, pleural thickening and scarring at right base noted, repeat chest x-ray showed no infiltrate Continue updraft treatment, cough medication,lasix home dose,on ceftin for uti continue above treatment for 1 more day and reassess respiratory status for need for home O2, spoke with daughter and informed her regarding patient's clinical condition and treatment plan. Home O2 eval at a.m. Seen by Physical therapy they recommend to resume baseline level of activity. UTI:? s/p iv ceftriaxone x 3days now on po ceftin day 2, urine culture grew E coli , blood cultures negative, WBC normalized Normocytic anemia, noted to have drop in hematocrit, will check iron profile is ferritin stool guaiac and repeat CBC at a.m. Chronic CHF with reduced EF, Continue home Lasix, Imdur, digoxin, losartan, and metoprolol.? Chronically elevated BNP.? History of mechanical mitral valve Continue Coumadin.? INR goal 2.5-3.5, INR 4.1 today will hold Coumadin, Follow INR daily while on antibiotic History of hypothyroidism:? Continue home levothyroxine History of dementia unspecified Continue home memantine History of seizures: Continue home Lamotrigine, Topamax,usually gets twitching in her right-sided when patient had a seizure.? Seizure precautions History of CVA:?Aphasia.? Continue aspirin and statin DVT prophylaxis:? on Coumadin INR 4.1 Code status:? Full code Quality Stroke Does the patient have a stroke diagnosis?: No VTE Prior VTE?: No VTE Risk Level:: Medical - moderate - high VTE Device Contraindication: Treatment Not Indicated VTE Drug Contraindication: N/A - Med Ordered
[2021-03-31] MEDS: Atorvastatin Calcium 80 MG TABLET PO (20:37)
[2021-03-31] MEDS: Mirtazapine 15 MG TABLET PO (20:39)
[2021-03-31] MEDS: QUEtiapine Fumarate 50 MG TABLET PO (21:55)
[2021-04-01] VITALS (10 sets, daily range): BP systolic 136–158; BP diastolic 61–70; PULSE 53–120; RESP 17–24; TEMP 36–36.3; O2SAT 92–97
[2021-04-01 04:52] LABS: PLT CLUMP 1; Red Blood Count 3.53 X10*6/uL (4.20-5.50); Red Cell Distribution Width 18.5 % (11.0-16.0)
[2021-04-01 04:54] LABS: Hematocrit 31.6 % (37.0-47.0); Hemoglobin 8.8 g/dl (12.0-16.0); Mean Corpuscular HGB Conc 27.8 g/dl (31.0-35.0); Mean Corpuscular Hemoglobin 24.9 pg (27.0-33.0); Mean Corpuscular Volume 89.5 fL (80.0-98.0); Mean Platelet Volume 11.4 fL (9.4-12.3)
[2021-04-01 05:00] LABS: Platelet Count 133 X10*3/uL (160-400); White Blood Count 7.4 X10*3/uL (4.8-10.8)
[2021-04-01 05:01] LABS: Prothrombin Time 46.9 SEC (9.9-13.0)
[2021-04-01 05:26] LABS: Iron 28 mcg/dL (30-160); Percent Iron Saturation 9 % (15-50); Total Iron Binding Capacity 322 mcg/dL (228-428); Unsaturated Iron Binding 294 ug/dL
[2021-04-01] MEDS: guaiFENesin DM 200/20/10 ML 10 ML SYRUP PO ×3 (05:27→16:38)
[2021-04-01] MEDS: Levothyroxine Sodium 175 MCG TABLET PO (05:27)
[2021-04-01 05:49] LABS: Ferritin 42 ng/mL (10-250)
[2021-04-01] MEDS: Albuterol/Iprat 2.5/0.5MG 3 ML AMPUL.NEB INHALE ×3 (07:36→19:35)
[2021-04-01] MEDS: FLUoxetine HCl 20 MG CAPSULE 40 MG PO (07:56)
[2021-04-01] MEDS: Furosemide 40 MG TABLET PO (07:57)
[2021-04-01] MEDS: Aspirin Enteric Coated 81 MG TABLET.DR PO (07:57)
[2021-04-01] MEDS: Multivitamin TABLET 1 TAB PO (07:57)
[2021-04-01] MEDS: Metoprolol Tartrate 100 MG TABLET PO ×2 (07:57→19:49)
[2021-04-01] MEDS: lamoTRIgine 25 MG TABLET 50 MG PO ×2 (07:57→19:49)
[2021-04-01] MEDS: Memantine HCl 10 MG TABLET PO (07:57)
[2021-04-01] MEDS: Losartan Potassium 25 MG TABLET PO (07:57)
[2021-04-01] MEDS: Topiramate 100 MG TABLET 200 MG PO ×2 (07:58→19:50)
[2021-04-01] MEDS: QUEtiapine Fumarate 25 MG TABLET PO (07:59)
[2021-04-01] MEDS: 0.9 % Sodium Chloride Flush 3 ML SYRINGE IVFLUSH ×2 (07:59→16:38)
[2021-04-01] MEDS: Isosorbide Mononitrate 30 MG TAB.ER.24H PO (07:59)
--- NOTE | 2021-04-01 11:02 | P.PNIM_ITS ---
Subjective Subjective Date of Service: 04/01/21 Interval History: Chronic aphasia. Unable to obtain ROS. But appears in no distress. Review of Systems Review of Systems: Yes Unobtainable due to mental status Physical Exam Vital Signs: Vital Signs: Last Vital Signs Temp 97.1 F 04/01/21 08:00 Pulse 53 04/01/21 08:00 Resp 18 04/01/21 08:00 BP 140/63 H 04/01/21 08:00 Pulse Ox 94 04/01/21 08:00 BMI result Body Mass Index 31.9 Gen: in no acute distress HEENT: sclera anicteric, moist mucus membranes Neck: supple Lungs: diffuse inspiratory rhonchi and expiratory wheezing Heart: regular rate and rhythm, no murmurs Abd: soft, non-tender, non-distended Ext: no edema Skin: warm/well-perfused Neuro: alert, expressive aphasia Objective Data Active Medications Acetaminophen (Acetaminophen 325 Mg Tablet) 650 mg PO Q6H PRN PRN Reason: Pain, Mild (Pain Scale 1-3) Last Admin: 03/29/21 16:53 Dose: 650 mg Documented by: RADHA Albuterol Sulfate (Albuterol Sulfate (0.083%) 2.5 Mg/3 Ml Vial.Neb) 2.5 mg INHALE Q2H PRN PRN Reason: Shortness of Breath/Wheezing Albuterol/Ipratropium (Albuterol/Iprat 2.5/0.5mg 3 Ml Ampul.Neb) 3 ml INHALE RQ6H WHILE AWAKE [facility] Last Admin: 04/01/21 07:36 Dose: 3 ml Documented by: NIKKI Albuterol/Ipratropium (Albuterol/Iprat 2.5/0.5mg 3 Ml Ampul.Neb) 3 ml INHALE Q4H [facility] Aspirin (Aspirin Enteric Coated 81 Mg Tablet.) 81 mg PO DAILY [facility] Last Admin: 04/01/21 07:57 Dose: 81 mg Documented by: PJ Atorvastatin Calcium (Atorvastatin Calcium 80 Mg Tablet) 80 mg PO BEDTIME [facility] Last Admin: 03/31/21 20:37 Dose: 80 mg Documented by: PATRICK Cefuroxime Axetil (Cefuroxime Axetil 250 Mg Tablet) 250 mg PO Q12H [facility] Last Admin: 03/31/21 21:55 Dose: 250 mg Documented by: PATRICK Digoxin (Digoxin 0.125 Mg Tablet) 0.125 mg PO DAILY@1000 [facility] Last Admin: 03/31/21 09:22 Dose: 0.125 mg Documented by: MARTIN Fluoxetine HCl (Fluoxetine Hcl 20 Mg Capsule) 40 mg PO DAILY [facility] Last Admin: 04/01/21 07:56 Dose: 40 mg Documented by: PJ Furosemide (Furosemide 40 Mg Tablet) 40 mg PO DAILY@0800 [facility]; Protocol Last Admin: 04/01/21 07:57 Dose: 40 mg Documented by: PJ Guaifenesin/Dextromethorphan (Guaifenesin Dm 200/20/10 Ml 10 Ml Syrup) 10 ml PO Q6H PRN PRN Reason: cough Last Admin: 03/29/21 16:53 Dose: 10 ml Documented by: RADHA Guaifenesin/Dextromethorphan (Guaifenesin Dm 200/20/10 Ml 10 Ml Syrup) 10 ml PO Q6H [facility] Last Admin: 04/01/21 05:27 Dose: 10 ml Documented by: PATRICK Comments: pt was sleeping Isosorbide Mononitrate (Isosorbide Mononitrate 30 Mg Tab.Er.24h) 30 mg PO DAILY [facility]; Protocol Last Admin: 04/01/21 07:59 Dose: 30 mg Documented by: PJ Lamotrigine (Lamotrigine 25 Mg Tablet) 50 mg PO BID [facility] Last Admin: 04/01/21 07:57 Dose: 50 mg Documented by: PJ Levothyroxine Sodium (Levothyroxine Sodium 175 Mcg Tablet) 175 mcg PO DAILY@0630 [facility] Last Admin: 04/01/21 05:27 Dose: 175 mcg Documented by: PATRICK Losartan Potassium (Losartan Potassium 25 Mg Tablet) 25 mg PO DAILY [facility]; Protocol Last Admin: 04/01/21 07:57 Dose: 25 mg Documented by: PJ Melatonin (Melatonin 3 Mg Tablet) 6 mg PO BEDTIME PRN PRN Reason: Insomnia Memantine (Memantine Hcl 10 Mg Tablet) 10 mg PO DAILY [facility] Last Admin: 04/01/21 07:57 Dose: 10 mg Documented by: PJ Metoprolol Tartrate (Metoprolol Tartrate 100 Mg Tablet) 100 mg PO BID [facility]; Protocol Last Admin: 04/01/21 07:57 Dose: 100 mg Documented by: PJ Mirtazapine (Mirtazapine 15 Mg Tablet) 15 mg PO BEDTIME [facility] Last Admin: 03/31/21 20:39 Dose: 15 mg Documented by: PATRICK Multivitamins/Vitamin C (Multivitamin Tablet) 1 tab PO DAILY [facility] Last Admin: 04/01/21 07:57 Dose: 1 tab Documented by: PJ Pharmacy Consult (Consult Rx Perform Med Rec) 1 each MISCELLANE ONCE PRN PRN Reason: Consult order Potassium Chloride (Potassium Chloride Er 10 Meq Capsule.Er) 10 meq PO BID [facility] Last Admin: 04/01/21 07:58 Dose: 10 meq Documented by: PJ Quetiapine Fumarate (Quetiapine Fumarate 25 Mg Tablet) 25 mg PO DAILY [facility] Last Admin: 04/01/21 07:59 Dose: 25 mg Documented by: PJ Quetiapine Fumarate (Quetiapine Fumarate 50 Mg Tablet) 50 mg PO BEDTIME [facility] Last Admin: 03/31/21 21:55 Dose: 50 mg Documented by: PATRICK Senna (Sennosides 8.6 Mg Tablet) 17.2 mg PO BEDTIME PRN PRN Reason: Constipation Sodium Chloride (0.9 % Sodium Chloride Flush 3 Ml Syringe) 3 ml IVFLUSH QSHIFT [facility] Last Admin: 04/01/21 07:59 Dose: 3 ml Documented by: PJ Topiramate (Topiramate 100 Mg Tablet) 200 mg PO BID [facility] Last Admin: 04/01/21 07:58 Dose: 200 mg Documented by: PJ Warfarin Sodium (Warfarin Sodium 6 Mg Tablet) 6 mg PO DAILY@1800 [facility] Last Admin: 03/30/21 16:53 Dose: 6 mg Documented by: PJ Labs CBC & Chem 7: 04/01/21 04:21 03/30/21 05:31 Labs: Laboratory Results - last 24 hr 04/01/21 04/01/21 04/01/21 04:21 04:21 04:21 MCV 89.5 MCH 24.9 L MCHC 27.8 L RDW 18.5 H Plt Count 133 L MPV 11.4 Absolute Nucleated RBC 0.000 Nucleated RBC % (auto) 0.0 PT 46.9 H INR 4.0 H Iron 28 L TIBC 322 % Saturation 9 L Unsat Iron Binding 294 Ferritin 42 Assessment and Plan (1) Acute bronchitis with bronchospasm: Status: Acute (2) Acute UTI: Status: Acute (3) Dementia: Status: Acute (4) Aphasia, post-stroke: Status: Acute Assessment and Plan: hospital d#6 70yo F with HTN, HLD, dementia, seizures, mechanical mitral valve on warfarin, HFrEF, PPM, hx DVT, hypothyroidism, depression, hx CVA with residual aphasia + R-sided weakness p/w dyspnea, found to be wheezing admitted for hypoxia + UTI # acute hypoxic respiratory failure - no PNA or aspiration. does not appear to be fluid overloaded - likely due to bronchitis. continue nebs. per family no hx of COPD/asthma. home O2 eval tomorrow # UTI - s/p 3d ceftriaxone, now cefuroxime d#3/ for aleman-sensitive E. coli. WBCs normalized # iron deficiency anemia - check FOBT, give PO Fe # chronic HFrEF - continue Imdur, digoxin, losartan, metoprolol, furosemide # mechanical mitral valve - INR supratherapeutic at 4, hold warfarin for now # hypothyroidism - continue LT4 # dementia - continue memantine # mood disorder - continue fluoxetine, mirtazapine, quetiapine # partial seizure disorder - continue lamotrigine, topiramate # hx CVA - continue ASA, statin # VTE ppx - warfarin Quality Stroke Does the patient have a stroke diagnosis?: No VTE Prior VTE?: No VTE Risk Level:: Medical - moderate - high VTE Device Contraindication: Treatment Not Indicated VTE Drug Contraindication: N/A - Med Ordered
[2021-04-01] MEDS: Ferrous Sulfate 324 MG TABLET.DR PO (11:41)
[2021-04-01] MEDS: Digoxin 0.125 MG TABLET PO (11:41)
--- NOTE | 2021-04-01 11:58 | MHC.CM.PN ---
CM RECEIVED A CALL FROM PTS DAUGHTER/PREASSEMBLER AND INSPECTOR, ROSALBA. SHE WAS INFORMED PT IS LIKELY TO DC TOMORROW AND MAY HAVE NEW HOME OXYGEN. SHE REPORTS THE PT HAD OXYGEN AT HOME ABOUT 9 YEARS AGO BUT WAS ABLE TO RECOVER AND NO LONGER NEEDED IT. SHE REPORTS SHE IS INTERESTED IN A VNA IF PT REQUIRES O2. SHE DENIES HAVING AN AGENCY PREFERENCE. PT WILL DC HOME POSSIBLY TOMORROW WITH NEW VNA IF HOME O2 IS REQUIRED DAUGHTER WILL TRANSPORT
--- NOTE | 2021-04-01 12:22 | MHC.SL.SWA ---
Speech Pathologist Impression: Oropharyngeal Dysphagia Dysphasia Diet Status: No Change Liquid Consistency and Strategies for Safe Swallow: Liquid Intake Recommendation: Thin Liquid Intake Strategies: Small Sips No Straws Solid Food Consistency: Dietary Recommendations: Grnd/Mech Altered (NDD2) Oral Medication Intake: Whole with Puree Compensatory Strategies and Precautions to be Taken for Safe Swallow: Sitting Upright (90 deg) No Straw Small Bites and Sips Alternate Liquids/Solids Rate of Ingestion Change Oral Check Avoid Specific Foods Supervision While Eating and Drinking for Safe Swallow: Total Assistance Foods to Avoid: Hard or tough to chew foods. Swallowing Recommended Treatments: Compens. Strategy Educat. Recommendation for Speech: Inpatient Speech Therapy Comment: NURSING ASSISTANTS TEACHER will continue to follow PT to assess toleration of diet, re-assess swallow and progress while inpatient M-F Bufferer Clinican/Clinical Fellow: Yes: Carissa Carter Supervisory Statement: I have reviewed and agree with the student/clinical fellow's documentation: Yes Speech Language Pathologist: Adia Alfaro M.A., CCC-NURSING ASSISTANTS TEACHER
[2021-04-01] MEDS: QUEtiapine Fumarate 50 MG TABLET PO (19:49)
[2021-04-01] MEDS: Mirtazapine 15 MG TABLET PO (19:49)
[2021-04-01] MEDS: Melatonin 3 MG TABLET 6 MG PO (19:49)
[2021-04-01] MEDS: Atorvastatin Calcium 80 MG TABLET PO (19:49)
[2021-04-02] VITALS (7 sets, daily range): BP systolic 112–121; BP diastolic 45–58; PULSE 50–76; RESP 16–22; TEMP 36–36.3; O2SAT 94–100
[2021-04-02] MEDS: guaiFENesin DM 200/20/10 ML 10 ML SYRUP PO ×2 (05:34→09:24)
[2021-04-02] MEDS: Levothyroxine Sodium 175 MCG TABLET PO (05:34)
[2021-04-02] MEDS: Albuterol/Iprat 2.5/0.5MG 3 ML AMPUL.NEB INHALE (07:46)
[2021-04-02 08:59] LABS: Hematocrit 32.9 % (37.0-47.0); Hemoglobin 9.2 g/dl (12.0-16.0); Mean Corpuscular Hemoglobin 25.2 pg (27.0-33.0); Mean Corpuscular Volume 90.1 fL (80.0-98.0); Mean Platelet Volume 10.7 fL (9.4-12.3); Platelet Count 130 X10*3/uL (160-400); Red Blood Count 3.65 X10*6/uL (4.20-5.50); Red Cell Distribution Width 18.6 % (11.0-16.0); White Blood Count 7.6 X10*3/uL (4.8-10.8)
[2021-04-02 09:04] LABS: INTERNATIONAL NORM RATIO 2.9 (0.9-1.1); Prothrombin Time 33.2 SEC (9.9-13.0)
[2021-04-02 09:05] LABS: Anion Gap 9 (12-20); Blood Urea Nitrogen 14 mg/dL (9-16); Calcium 9.1 mg/dL (8.4-10.2); Carbon Dioxide 26 mmol/L (22-29); Chloride 111 mmol/L (96-108); Creatinine Clr Calc Pharmacy 51.5; Estimated Glomerular Filt Rate 55; Glucose Random 103 mg/dL (60-115); Sodium 142 mmol/L (135-145)
[2021-04-02 09:09] LABS: B Type Natriuretic Peptide 183 pg/mL (<100)
[2021-04-02] MEDS: 0.9 % Sodium Chloride Flush 3 ML SYRINGE IVFLUSH (09:23)
[2021-04-02] MEDS: Isosorbide Mononitrate 30 MG TAB.ER.24H PO (09:24)
[2021-04-02] MEDS: Topiramate 100 MG TABLET 200 MG PO (09:24)
[2021-04-02] MEDS: FLUoxetine HCl 20 MG CAPSULE 40 MG PO (09:25)
[2021-04-02] MEDS: Aspirin Enteric Coated 81 MG TABLET.DR PO (09:25)
[2021-04-02] MEDS: QUEtiapine Fumarate 25 MG TABLET PO (09:25)
[2021-04-02] MEDS: lamoTRIgine 25 MG TABLET 50 MG PO (09:25)
[2021-04-02] MEDS: Ferrous Sulfate 324 MG TABLET.DR PO (09:25)
[2021-04-02] MEDS: Memantine HCl 10 MG TABLET PO (09:25)
[2021-04-02] MEDS: Losartan Potassium 25 MG TABLET PO (09:26)
[2021-04-02] MEDS: Furosemide 40 MG TABLET PO (09:26)
[2021-04-02] MEDS: Metoprolol Tartrate 100 MG TABLET PO (09:26)
[2021-04-02] MEDS: Digoxin 0.125 MG TABLET PO (09:26)
[2021-04-02] MEDS: Multivitamin TABLET 1 TAB PO (09:29)
[2021-04-02 10:12] LABS: Procalcitonin 0.19 ng/mL
--- NOTE | 2021-04-02 14:03 | PM.DS ---
DS: Providers Provider Date of Service: 04/02/21 Date of admission: 03/27/21 21:05 Primary care physician: Collin Castro MD DS: Diagnosis Discharge Diagnosis (1) Acute bronchitis with bronchospasm: Status: Acute (2) Acute UTI: Status: Acute (3) Dementia: Status: Acute (4) Aphasia, post-stroke: Status: Acute (5) Acute respiratory failure with hypoxia: Status: Acute (6) Acute hyperkalemia: Status: Acute (7) Anemia: Status: Acute (8) H/O mitral valve replacement with mechanical valve: Status: Acute DS: Summary Hospital Course Hospital Course: from admission H+P by hospitalist Paul Hoffmann, 03/27/21: 70-year-old female with a past medical history of hypertension, hyperlipidemia, dementia, seizures, valvular heart disease status post surgery, CHF , history of pacemaker, DVT, hypothyroidism, dementia, history of seizures, depression, asthma, history of CVA with residual right-sided weakness, aphasia presented to the hospital today with a chief complaint of shortness of breath. ?most of the history obtained from the patient ordered bedside with the patient's caregiver.? Reported that patient is doing fine until yesterday this morning she woke up and possibly had an episode of aspiration; felt congestion the chest, head wheezing;? ? Associated with shortness of breath. ?Complains of cough, generalized weakness, fall smelling urine.? Also reports dyspnea on exertion. ?patient mentioned that in general she has no difficulty swallowing.? Also ambulates with the help of her walker.? Denies having any pressure ulcers in the back. Denied any chest pain or palpitations.? Denied any recent travel or sick contacts.? ?review of all other systems is negative except mentioned above ER course: Per ER team patient on presentation noted to be short of breath, heard wheezing; given Solu-Medrol; urinalysis was abnormal - UTI; given ceftriaxone; chest x-ray showed no acute findings; patient has mild peripheral edema; no CVA tenderness; admitted to the hospital for further management. This 70 year-old woman with HTN, HLD, dementia, seizures, mechanical mitral valve on warfarin, HFrEF, PPM, hx DVT, hypothyroidism, depression, and hx CVA with residual aphasia + R-sided weakness prested with dyspnea and wheezing and was admitted for hypoxia and urinary tract infection. She was treated with 7 days of ceftriaxone, then cefuroxime for aleman-sensitive E. coli UTI. As for hypoxia, she did not have evidence of pneumonia or aspiration. She was not fluid-overloaded. Likely wheezing and hypoxia was due to bronchitis, which improved with supportive treatment with nebulizations. She was weaned off of oxygen. She was found to have iron deficiency anemia, which is chronic; iron supplementation was started. She was discharged home with albuterol and iron prescriptions. INR was 2.9 on discharge, after holding warfarin for 2 days for INR up to 4.1. She should resume warfarin today at prior dosing and recheck INR in 2 days. Repeat hemoglobin + hematocrit in 2 days was ordered. Time Spent with Patient Time attestation: Total time spent providing and/or coordinating discharge services: Discharge coordination time: Greater than 30 minutes Quality: Stroke Does the patient have a stroke diagnosis?: No Physical Exam Vital Signs: Vital Signs: Last Vital Signs Temp 96.8 F 04/02/21 12:00 Pulse 54 04/02/21 12:00 Resp 18 04/02/21 12:00 BP 112/45 L 04/02/21 12:00 Pulse Ox 94 04/02/21 12:00 BMI result Body Mass Index 31.9 Gen: in no acute distress HEENT: sclera anicteric, moist mucus membranes Neck: supple Lungs: scattered expiratory wheezing but good air entry throughout Heart: regular, mechanical S1, no murmurs Abd: soft, non-tender, non-distended Ext: no edema Skin: warm/well-perfused Neuro: alert, expressive aphasia DS: Data Data Completed and Pending Completed studies during hospitalization [Text1]: Laboratory Results WBC 7.6 X10*3/uL (4.8-10.8) 04/02/21 08:37 RBC 3.65 X10*6/uL (4.20-5.50) L 04/02/21 08:37 Hgb 9.2 g/dl (12.0-16.0) L 04/02/21 08:37 Hct 32.9 % (37.0-47.0) L 04/02/21 08:37 MCV 90.1 fL (80.0-98.0) 04/02/21 08:37 MCH 25.2 pg (27.0-33.0) L 04/02/21 08:37 MCHC 28.0 g/dl (31.0-35.0) L 04/02/21 08:37 RDW 18.6 % (11.0-16.0) H 04/02/21 08:37 Plt Count 130 X10*3/uL (160-400) L 04/02/21 08:37 MPV 10.7 fL (9.4-12.3) 04/02/21 08:37 Immature Gran % (Auto) 0.1 % (0.0-0.4) 03/30/21 05:32 Neut % (Auto) 71.4 % (45-73) 03/30/21 05:32 Lymph % (Auto) 15.5 % (20-40) L 03/30/21 05:32 [place] % (Auto) 10.4 % (2-11) 03/30/21 05:32 Eos % (Auto) 2.3 % (0-4) 03/30/21 05:32 Baso % (Auto) 0.3 % (0-2) 03/30/21 05:32 Lymph # (Auto) 1.1 X10*3/uL (1.2-4.9) L 03/30/21 05:32 [place] # (Auto) 0.7 X10*3/uL (0.1-1.2) 03/30/21 05:32 Eos # (Auto) 0.2 X10*3/uL (0.0-0.4) 03/30/21 05:32 Baso # (Auto) 0.0 X10*3/uL (0.0-0.2) 03/30/21 05:32 Abs Immat Gran (auto) 0.01 X10*3/uL (0.00-0.03) 03/30/21 05:32 Absolute Neuts (auto) 5.0 x10*3/uL (2.0-8.3) 03/30/21 05:32 Absolute Nucleated RBC 0.000 X10*3/uL (0.0-0.012) 04/02/21 08:37 Nucleated RBC % (auto) 0.0 /100WBC (0.0-0.2) 04/02/21 08:37 PT 33.2 SEC (9.9-13.0) H 04/02/21 08:37 INR 2.9 (0.9-1.1) H 04/02/21 08:37 Sodium 142 mmol/L (135-145) 04/02/21 08:37 Potassium 4.0 mmol/L (3.3-5.1) 04/02/21 08:37 Chloride 111 mmol/L (96-108) H 04/02/21 08:37 Carbon Dioxide 26 mmol/L (22-29) 04/02/21 08:37 Anion Gap 9 (12-20) L 04/02/21 08:37 BUN 14 mg/dL (9-16) 04/02/21 08:37 Creatinine 0.99 mg/dL (0.5-1.4) 04/02/21 08:37 Estim Creat Clear Calc 51.5 04/02/21 08:37 Estimated GFR 55 04/02/21 08:37 Random Glucose 103 mg/dL (60-115) 04/02/21 08:37 Lactic Acid 1.8 mmol/L (0.5-2.0) 03/27/21 15:55 Calcium 9.1 mg/dL (8.4-10.2) 04/02/21 08:37 Magnesium 2.3 mg/dL (1.6-2.6) 03/28/21 06:29 Iron 28 mcg/dL (30-160) L 04/01/21 04:21 TIBC 322 mcg/dL (228-428) 04/01/21 04:21 % Saturation 9 % (15-50) L 04/01/21 04:21 Unsat Iron Binding 294 ug/dL 04/01/21 04:21 Ferritin 42 ng/mL (10-250) 04/01/21 04:21 Total Bilirubin 0.3 mg/dL (0.0-1.0) 03/27/21 15:55 AST 31 U/L (5-31) 03/27/21 15:55 ALT 12 U/L (0-31) 03/27/21 15:55 Alkaline Phosphatase 123 U/L (39-117) H 03/27/21 15:55 Troponin I High Sens 10.2 ng/L (<3.5-17.0) 03/27/21 19:00 B-Natriuretic Peptide 183 pg/mL (<100) H 04/02/21 08:37 Total Protein 7.1 g/dL (6.5-8.0) 03/27/21 15:55 Albumin 3.7 g/dL (3.5-5.0) 03/27/21 15:55 Lipase 16 U/L (8-78) 03/27/21 15:55 Procalcitonin 0.19 ng/mL 04/02/21 08:37 Urine Color YELLOW 03/27/21 17:58 Urine Appearance CLOUDY 03/27/21 17:58 Urine pH 6.0 (5.0-8.0) 03/27/21 17:58 Ur Specific [place] 1.015 (1.005-1.025) 03/27/21 17:58 Urine Protein NEG MG/DL (NEG-TRACE) 03/27/21 17:58 Urine Glucose (UA) NEG MG/DL (NEG) 03/27/21 17:58 Urine Ketones NEG MG/DL (NEG) 03/27/21 17:58 Urine Blood TRACE (NEG) 03/27/21 17:58 Urine Nitrite POS (NEG) H 03/27/21 17:58 Ur Leukocyte Esterase 3+ (NEG) H 03/27/21 17:58 Urine RBC 5-9 /HPF (0) H 03/27/21 17:58 Urine WBC 76-150 /HPF (0-4) H 03/27/21 17:58 Urine WBC Clumps NOTED 03/27/21 17:58 Ur Squamous Epith Cells TRACE /LPF 03/27/21 17:58 Urine Bacteria 1+ /LPF 03/27/21 17:58 Digoxin 0.4 ng/mL (0.8-2.0) L 03/27/21 23:55 Influenza Type A (PCR) NEGATIVE (Negative) 03/27/21 16:47 Influenza Type B (PCR) NEGATIVE (Negative) 03/27/21 16:47 RSV RNA Qual (PCR) NEGATIVE (Negative) 03/27/21 16:47 SARS-CoV-2 RNA (RT-PCR) NEGATIVE (Negative) 03/27/21 16:[address] 03/27/21 23:40 IMPRESSION: No acute pulmonary finding. No evidence of aspiration. Area of increased pleural thickening/scarring at the right base. Cardiomegaly. Fleischner guidelines were followed. Chest X-Ray 03/30/21 15:09 IMPRESSION: Stable chest with mild prominence of the pulmonary vasculature and cardiac silhouette, likely baseline for the patient. Discharge Plan Discharge Patient Disposition: Home Health Service Discharge Diagnosis: hypoxia, bronchitis, UTI, anemia Referrals: Collin Castro MD [Primary Care Provider] - 1 Week Discharge Medications: New albuterol sulfate 2.5 mg /3 mL (0.083 %) Solution For Nebulization 2.5 mg inhalation Q4H PRN (Reason: Shortness Of Breath Or Wheezing) Qty: 50 RF: 0 ferrous sulfate 324 mg (65 mg iron) Tablet,Delayed Release (Dr/Ec) 324 mg PO DAILY Qty: 30 RF: 0 (DME) nebulizer accessories Kit See Rx Instructions .Route Qty: 1 RF: 0 Continued multivitamin Tablet 1 tab PO DAILY RF: 0 quetiapine 25 mg tablet 25 mg PO DAILY RF: 0 quetiapine 25 mg tablet 50 mg PO BEDTIME RF: 0 fluoxetine 40 mg capsule 1 cap PO DAILY RF: 0 furosemide 40 mg tablet 1 tab PO DAILY RF: 0 levothyroxine 175 mcg tablet 1 tab PO DAILY RF: 0 atorvastatin 80 mg tablet 1 tab PO BEDTIME RF: 0 metoprolol tartrate 100 mg tablet 1 tab PO BID RF: 0 isosorbide mononitrate 30 mg tablet extended release 24 hr 1 tab PO DAILY RF: 0 potassium chloride 10 mEq tablet extended release 1 tab PO BID RF: 0 aspirin 81 mg tablet,delayed release (DR/EC) 1 tab PO DAILY RF: 0 lamotrigine 25 mg tablet 2 tab PO BID RF: 0 warfarin 3 mg tablet 2 tab PO DAILY RF: 0 losartan 25 mg tablet 1 tab PO DAILY RF: 0 topiramate 200 mg tablet 1 tab PO BID RF: 0 digoxin 125 mcg (0.125 mg) tablet 1 tab PO DAILY RF: 0 mirtazapine 15 mg tablet 1 tab PO BEDTIME RF: 0 memantine 10 mg tablet 1 tab PO DAILY RF: 0 Discharge Orders: Discharge Order (Routine); Ordered 04/02/21 Ordered By: Robert Murphy Diet: advance to usual diet Activity on Discharge: As tolerated Stand Alone Forms: Patient Portal Discharge page Other Ambulatory Orders: Hemoglobin and Hematocrit (Routine) Timeframe: 1 Week Facility: [facility] - Location: Laboratory Ordered By: Robert Murphy Prothrombin Time INR (Routine) Timeframe: 2 Days Facility: [facility] - Location: Laboratory Ordered By: Robert Murphy Care Plan Goals: resolution of hypoxia Health Concerns: hypoxia, bronchitis, UTI, anemia Plan of Treatment: hypoxia: resolved bronchitis: albuterol nebulizations as needed UTI: treated, resolved anemia: take iron and/or eat iron-rich foods recheck INR in 2 days recheck H+H in 1 week Assessment: see Discharge Summary
--- NOTE | 2021-04-02 14:16 | MHC.CM.PN ---
Patient has been medically cleared for dc to home today, self care. 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 CM attempted to address IMM with Patient who initially appeared to understand. CM addressed IMM with Daughter/HCP/Emily at [phone] and the original will be mailed certified letter to her and a copy has been placed on the chart. Emily is aware of and in agreement with the dc plan.CM directed RN to speak with RT/Feliz regarding Patient's respiratory needs/supplies.
--- NOTE | 2021-04-02 14:20 | W.MHC.F2F ---
Service Date Service Date: 04/02/21 Encounter Date of encounter: 04/02/21 Reasons for Services Reason for [facility]: monitoring of PT/INR, medication management, medication treatment and teach disease management Reason for physical therapy: therapeutic exercises Overseeing Care: Collin Castro Homebound: Leaving the home is medically contraindicated at this time without the asist of a device and/or another person due th the listed conditions above and below. Reason homebound: shortness of breath with minimal effort and cognitively impaired / unsafe Certification: Based on the above findings, I certify that this patient is confined to the home and needs intermittent [facility] care, physical therapy and/or speech therapy, or continues to need occupational therapy. The patient is under my care, and I have initiated the establishment of the plan of care. The patient will be followed by a physician who will periodically review the plan of care.
--- NOTE | 2021-04-02 14:28 | MHC.CM.PN ---
CORRECTION! Patient will dc home with a new referral to [facility], who has been notified of today's dc.
== END 2021-04-02 15:40 | disposition home health service (06) | DRG 689 ==
LOC: HO.ED 21:02 → HO.EDOVER 21:15 → HO.S3 03-28 19:06
PROVIDERS: Hospitalist; Physician Assistant Medical; Admitting Provider Hospitalist; Emergency Provider Emergency Medicine; PCP Orthopaedic Surgery; Visit Provider Family Medicine
DX: N39.0 Urinary tract infection, site not specified (principal); J96.01 Acute respiratory failure with hypoxia; I69.351 Hemiplegia and hemiparesis following cerebral infarction affecting right dominant side; I50.22 Chronic systolic (congestive) heart failure; J45.901 Unspecified asthma with (acute) exacerbation; J20.9 Acute bronchitis, unspecified; E03.9 Hypothyroidism, unspecified; F03.90 Unspecified dementia, unspecified severity, without behavioral disturbance, psychotic disturbance, mood disturbance, and anxiety; Z95.2 Presence of prosthetic heart valve; Z87.891 Personal history of nicotine dependence; Z20.822 Contact with and (suspected) exposure to COVID-19; Z95.0 Presence of cardiac pacemaker; B96.20 Unspecified Escherichia coli [E. coli] as the cause of diseases classified elsewhere; G40.909 Epilepsy, unspecified, not intractable, without status epilepticus; I69.320 Aphasia following cerebral infarction; I11.0 Hypertensive heart disease with heart failure; E78.5 Hyperlipidemia, unspecified; D50.9 Iron deficiency anemia, unspecified; E87.5 Hyperkalemia; Z88.5 Allergy status to narcotic agent; Z79.82 Long term (current) use of aspirin; Z79.01 Long term (current) use of anticoagulants; Z79.890 Hormone replacement therapy; Z79.899 Other long term (current) drug therapy
CPT/HCPCS: 0241U; 36415; 71045; 71046; 71250; 80048; 80053; 80162; 81001; 82728; 83540; 83605; 83690; 83735; 83880; 84145; 84484; 85025; 85027; 85610; 87040; 87086; 87088; 87186; 92610; 93005; 94640; 96361; 96365; 96366; 96375; 97162; 99285; 99291; J0696; J1940; J2930; J3475

== ENCOUNTER 2021-05-04 09:50 | Emergency (ER) | payer MEDICARE, MEDICAID, SELFPAY ==
--- NOTE | ~2021-05-04 | XR_ITS ---
EXAMINATION: XR CHEST CLINICAL INFORMATION: Fever COMPARISON: Chest x-ray on 03/30/2021 TECHNIQUE: Frontal view of the chest was obtained. FINDINGS: The cardiomediastinal silhouette is enlarged but stable. There is a left chest single lead ICD. Mild increased bronchial wall thickening . No areas of consolidation. No pleural effusions. XR/XR chest 1V IMPRESSION: Bronchial wall thickening may be infectious and/or inflammatory in etiology.
[2021-05-04 10:07] VITALS: BP 118/82; BP 129/55; PULSE 82; PULSE 84; RESP 18; TEMP 37.1; O2SAT 95; BMI 28.3
--- NOTE | 2021-05-04 10:12 | PC.NURSE ---
Pt received from EMS. Pt Alert but unable to assess baseline due to speech aphasia r/t hx of stroke. No further neuro deficits noted besides speech. Heart sounds normal and lungs diminished. Pt occasional clearing throat due to accumulation of phlegm and saliva, but no cough. Pt comes form home, and pt's sister Rebecca is main point of contact: [phone]
--- NOTE | 2021-05-04 10:55 | ECG_ITS ---
Test Reason : weakness Blood Pressure : / mmHG Vent. Rate : 080 BPM Atrial Rate : 000 BPM P-R Int : 000 ms QRS Dur : 096 ms QT Int : 390 ms P-R-T Axes : 000 019 209 degrees QTc Int : 449 ms Atrial fibrillation with occasional ventricular-paced complexes and with premature ventricular or aberrantly conducted complexes ST & T wave abnormality, consider inferolateral ischemia Abnormal ECG When compared with ECG of 27-MAR-2021 14:27, Vent. rate has increased BY 24 BPM Referred By: Loretta Raymundo Electronically Signed By:DILCIA CACERES
--- NOTE | 2021-05-04 11:01 | ED_ITS ---
HPI - General Adult General Chief complaint: Weakness Stated complaint: RECENT UTI,PRODUCTIVE COUGH, OFF PER DTR Time Seen by Provider: 05/04/21 10:28 Source: family and EMS Mode of arrival: EMS Limitations: altered mental status History of Present Illness HPI narrative: Patient comes to emergency room via EMS from home. Patient's family called, patient has history of a CVA, aphasia, dementia. Patient is unable to give any history. The patient's family states that she was recently diagnosed with a UTI and patient is on Macrobid. However, the patient has been having foul smelling urine for the last 4 days. Overall patient seems weaker than usual. Related Data Home Medications Medication Instructions Recorded Confirmed aspirin 81 mg tablet,delayed 1 tab PO DAILY 03/01/21 03/27/21 release atorvastatin 80 mg tablet 1 tab PO BEDTIME 03/01/21 03/27/21 digoxin 125 mcg (0.125 mg) tablet 1 tab PO DAILY 03/01/21 03/27/21 fluoxetine 40 mg capsule 1 cap PO DAILY 03/01/21 03/27/21 furosemide 40 mg tablet 1 tab PO DAILY 03/01/21 03/27/21 isosorbide mononitrate 30 mg 1 tab PO DAILY 03/01/21 03/27/21 tablet,extended release 24 hr lamotrigine 25 mg tablet 2 tab PO BID 03/01/21 03/27/21 levothyroxine 175 mcg tablet 1 tab PO DAILY 03/01/21 03/27/21 losartan 25 mg tablet 1 tab PO DAILY 03/01/21 03/27/21 memantine 10 mg tablet 1 tab PO DAILY 03/01/21 03/27/21 metoprolol tartrate 100 mg tablet 1 tab PO BID 03/01/21 03/27/21 mirtazapine 15 mg tablet 1 tab PO BEDTIME 03/01/21 03/27/21 multivitamin 1 tab PO DAILY 03/01/21 03/27/21 potassium chloride 10 mEq 1 tab PO BID 03/01/21 03/27/21 tablet,extended release quetiapine 25 mg tablet 25 mg PO DAILY 03/01/21 03/27/21 quetiapine 25 mg tablet 50 mg PO BEDTIME 03/01/21 03/27/21 topiramate 200 mg tablet 1 tab PO BID 03/01/21 03/27/21 warfarin 3 mg tablet 2 tab PO DAILY 03/01/21 03/27/21 Previous Rx's Medication Instructions Recorded albuterol sulfate 2.5 mg (3 mL) INHALATION Q4H PRN 04/02/21 #50 ea ferrous sulfate 324 mg (65 mg 324 mg PO DAILY #30 tab 04/02/21 iron) tablet,delayed release nebulizer accessories #1 ea 04/02/21 hydrocortisone 2.5 % topical cream 1 appl IN BEDTIME PRN #30 g 05/04/21 with perineal applicator (Procto-Med ) nystatin 100,000 unit/gram topical 1 appl TOPICAL TID #60 g 05/04/21 powder ([facility]) Allergies Allergy/AdvReac Type Severity Reaction Status Date / Time codeine [Codeine] Allergy Unknown GENERIC Verified 03/28/21 00:26 Allergy: CODEINE SULFATE levofloxacin [LEVOFLOXACIN] Allergy Unknown ANGIOEDEMA Verified 03/28/21 00:26 Shellfish Allergy Unknown UNKNOWN Verified 03/28/21 00:26 Codeine Sulfate Allergy Unknown Unknown Uncoded 03/28/21 00:26 Erythromycin Allergy Unknown Unknown Uncoded 03/28/21 00:26 From Erythrocin Allergy Unknown UNKNOWN Uncoded 03/28/21 00:26 Review of Systems Review of Systems: Yes Unobtainable due to mental condition and Unobtainable due to mental status PMFSH Past Medical History Medical History Aphasia, post-stroke Dementia Surgical History Heart valve replaced Social History Social History Household Members: Children Housing: House Do you presently have visiting nurse or other home services: No (daughter takes care of patient fully) Patient Tobacco Use Status: Former Tobacco user Advance Directives: No Advance Directives Information Provided: Yes service: No Current occupational status: retired and disabled Physical Exam Vital Signs: Vital Signs: Last Vital Signs Temp 98.7 F 05/04/21 10:07 Pulse 73 05/04/21 13:42 Resp 16 05/04/21 13:42 BP 104/53 L 05/04/21 13:42 Pulse Ox 94 05/04/21 13:42 BMI result Body Mass Index 28.3 Const: Other: Appearance: Alert. No acute distress. Eyes: Pupils equal, round and reactive to light. ENT: Pharynx normal. Neck: Normal inspection. Neck supple. No lymph nodes noted. No crepitus CVS: Normal heart rate and rhythm. Pulses normal. Normal S1 and S2 Respiratory: No respiratory distress. Bilateral lungs rales, no wheezing Abdomen: Soft and nontender. No rigidity. No distention. Rectal exam patient has hemorrhoids, nontender, non bleeding, SALLY negative Skin: Skin warm and dry. Under the abdominal pannus patient has candidiasis Extremities: No lower extremity edema. Neuro: Chronic aphasia, unable to follow commands Course Course Course Narrative: Patient tested positive for COVID. Negative for UTI. Patient's family instructed to continue giving her the antibiotics until the course is completed. Patient is on Coumadin for atrial fibrillation, rate is controlled at heart rate of 80, INR is 2.9 Medical Decision Making Lab Data Result diagrams: 05/04/21 11:39 05/04/21 11:39 Labs: Lab Results 05/04/21 05/04/21 05/04/21 Range/Units 11:24 11:39 11:39 WBC 5.5 (4.8-10.8) X10*3/uL RBC 3.43 L (4.20-5.50) X10*6/uL Hgb 8.5 L (12.0-16.0) g/dl Hct 30.6 L (37.0-47.0) % MCV 89.2 (80.0-98.0) fL MCH 24.8 L (27.0-33.0) pg MCHC 27.8 L (31.0-35.0) g/dl RDW 18.3 H (11.0-16.0) % Plt Count 90 L D (160-400) X10*3/uL MPV 11.8 (9.4-12.3) fL Immature Gran % (Auto) 0.2 (0.0-0.4) % Neut % (Auto) 67.1 (45-73) % Lymph % (Auto) 20.0 (20-40) % Kendall % (Auto) 12.1 H (2-11) % Eos % (Auto) 0.4 (0-4) % Baso % (Auto) 0.2 (0-2) % Lymph # (Auto) 1.1 L (1.2-4.9) X10*3/uL Kendall # (Auto) 0.7 (0.1-1.2) X10*3/uL Eos # (Auto) 0.0 (0.0-0.4) X10*3/uL Baso # (Auto) 0.0 (0.0-0.2) X10*3/uL Abs Immat Gran (auto) 0.01 (0.00-0.03) X10*3/uL Absolute Neuts (auto) 3.7 (2.0-8.3) x10*3/uL Absolute Nucleated RBC 0.000 (0.0-0.012) X10*3/uL Nucleated RBC % (auto) 0.0 (0.0-0.2) /100WBC PT (9.9-13.0) SEC INR (0.9-1.1) Sodium 142 (135-145) mmol/L Potassium 4.0 (3.3-5.1) mmol/L Chloride 114 H (96-108) mmol/L Carbon Dioxide 21 L (22-29) mmol/L Anion Gap 11 L (12-20) BUN 18 H (9-16) mg/dL Creatinine 1.05 (0.5-1.4) mg/dL Estim Creat Clear Calc 51.2 Estimated GFR 52 Random Glucose 99 (60-115) mg/dL Lactic Acid (0.5-2.0) mmol/L Calcium 8.7 (8.4-10.2) mg/dL Total Bilirubin 0.3 (0.0-1.0) mg/dL Direct Bilirubin < 0.2 (0.0-0.5) mg/dL AST 23 (5-31) U/L ALT 11 (0-31) U/L Alkaline Phosphatase 104 (39-117) U/L Total Protein 6.5 (6.5-8.0) g/dL Albumin 3.3 L (3.5-5.0) g/dL Urine Color Urine Appearance Urine pH (5.0-8.0) Ur Specific [place] (1.005-1.025) Urine Protein (NEG-TRACE) MG/DL Urine Glucose (UA) (NEG) MG/DL Urine Ketones (NEG) MG/DL Urine Blood (NEG) Urine Nitrite (NEG) Ur Leukocyte Esterase (NEG) Stool Occult Blood (NEGATIVE) COVID-19 (GIGI) Positive A (Negative) COVID-19 Clin Com See Note 05/04/21 05/04/21 05/04/21 Range/Units 11:39 11:39 11:58 WBC (4.8-10.8) X10*3/uL RBC (4.20-5.50) X10*6/uL Hgb (12.0-16.0) g/dl Hct (37.0-47.0) % MCV (80.0-98.0) fL MCH (27.0-33.0) pg MCHC (31.0-35.0) g/dl RDW (11.0-16.0) % Plt Count (160-400) X10*3/uL MPV (9.4-12.3) fL Immature Gran % (Auto) (0.0-0.4) % Neut % (Auto) (45-73) % Lymph % (Auto) (20-40) % Kend[place] % (Auto) (2-11) % Eos % (Auto) (0-4) % Baso % (Auto) (0-2) % Lymph # (Auto) (1.2-4.9) X10*3/uL [place] # (Auto) (0.1-1.2) X10*3/uL Eos # (Auto) (0.0-0.4) X10*3/uL Baso # (Auto) (0.0-0.2) X10*3/uL Abs Immat Gran (auto) (0.00-0.03) X10*3/uL Absolute Neuts (auto) (2.0-8.3) x10*3/uL Absolute Nucleated RBC (0.0-0.012) X10*3/uL Nucleated RBC % (auto) (0.0-0.2) /100WBC PT 33.3 H (9.9-13.0) SEC INR 2.9 H (0.9-1.1) Sodium (135-145) mmol/L Potassium (3.3-5.1) mmol/L Chloride (96-108) mmol/L Carbon Dioxide (22-29) mmol/L Anion Gap (12-20) BUN (9-16) mg/dL Creatinine (0.5-1.4) mg/dL Estim Creat Clear Calc Estimated GFR Random Glucose (60-115) mg/dL Lactic Acid 1.0 (0.5-2.0) mmol/L Calcium (8.4-10.2) mg/dL Total Bilirubin (0.0-1.0) mg/dL Direct Bilirubin (0.0-0.5) mg/dL AST (5-31) U/L ALT (0-31) U/L Alkaline Phosphatase (39-117) U/L Total Protein (6.5-8.0) g/dL Albumin (3.5-5.0) g/dL Urine Color YELLOW Urine Appearance CLEAR Urine pH 5.5 (5.0-8.0) Ur Specific [place] 1.020 (1.005-1.025) Urine Protein TRACE (NEG-TRACE) MG/DL Urine Glucose (UA) NEG (NEG) MG/DL Urine Ketones NEG (NEG) MG/DL Urine Blood NEG (NEG) Urine Nitrite NEG (NEG) Ur Leukocyte Esterase NEG (NEG) Stool Occult Blood (NEGATIVE) COVID-19 (GIGI) (Negative) COVID-19 Clin Com 05/04/21 Range/Units 13:42 WBC (4.8-10.8) X10*3/uL RBC (4.20-5.50) X10*6/uL Hgb (12.0-16.0) g/dl Hct (37.0-47.0) % MCV (80.0-98.0) fL MCH (27.0-33.0) pg MCHC (31.0-35.0) g/dl RDW (11.0-16.0) % Plt Count (160-400) X10*3/uL MPV (9.4-12.3) fL Immature Gran % (Auto) (0.0-0.4) % Neut % (Auto) (45-73) % Lymph % (Auto) (20-40) % Kendall % (Auto) (2-11) % Eos % (Auto) (0-4) % Baso % (Auto) (0-2) % Lymph # (Auto) (1.2-4.9) X10*3/uL Kend[place] # (Auto) (0.1-1.2) X10*3/uL Eos # (Auto) (0.0-0.4) X10*3/uL Baso # (Auto) (0.0-0.2) X10*3/uL Abs Immat Gran (auto) (0.00-0.03) X10*3/uL Absolute Neuts (auto) (2.0-8.3) x10*3/uL Absolute Nucleated RBC (0.0-0.012) X10*3/uL Nucleated RBC % (auto) (0.0-0.2) /100WBC PT (9.9-13.0) SEC INR (0.9-1.1) Sodium (135-145) mmol/L Potassium (3.3-5.1) mmol/L Chloride (96-108) mmol/L Carbon Dioxide (22-29) mmol/L Anion Gap (12-20) BUN (9-16) mg/dL Creatinine (0.5-1.4) mg/dL Estim Creat Clear Calc Estimated GFR Random Glucose (60-115) mg/dL Lactic Acid (0.5-2.0) mmol/L Calcium (8.4-10.2) mg/dL Total Bilirubin (0.0-1.0) mg/dL Direct Bilirubin (0.0-0.5) mg/dL AST (5-31) U/L ALT (0-31) U/L Alkaline Phosphatase (39-117) U/L Total Protein (6.5-8.0) g/dL Albumin (3.5-5.0) g/dL Urine Color Urine Appearance Urine pH (5.0-8.0) Ur Specific [place] (1.005-1.025) Urine Protein (NEG-TRACE) MG/DL Urine Glucose (UA) (NEG) MG/DL Urine Ketones (NEG) MG/DL Urine Blood (NEG) Urine Nitrite (NEG) Ur Leukocyte Esterase (NEG) Stool Occult Blood NEGATIVE (NEGATIVE) COVID-19 (GIGI) (Negative) COVID-19 Clin Com Discharge Plan Discharge Clinical Impression: COVID-19, Candidiasis Patient Disposition: Home, Self-Care Instructions: COVID-19 (Coronavirus Disease 2019) (ED) Additional Instructions: Your immediate family needs to be tested for COVID-19. Please follow-up with your primary care physician tomorrow. If you have any worsening or new symptoms, please return to the emergency room or call 911 Prescriptions: New nystatin [Nyamyc] 100,000 unit/gram powder 1 appl topical TID Qty: 60 RF: 0 hydrocortisone [Procto-Med HC] 2.5 % cream with perineal applicator 1 appl IN BEDTIME PRN (Reason: hemorrhoids) Qty: 30 RF: 0 No Action multivitamin Tablet 1 tab PO DAILY RF: 0 quetiapine 25 mg tablet 25 mg PO DAILY RF: 0 quetiapine 25 mg tablet 50 mg PO BEDTIME RF: 0 fluoxetine 40 mg capsule 1 cap PO DAILY RF: 0 furosemide 40 mg tablet 1 tab PO DAILY RF: 0 levothyroxine 175 mcg tablet 1 tab PO DAILY RF: 0 atorvastatin 80 mg tablet 1 tab PO BEDTIME RF: 0 metoprolol tartrate 100 mg tablet 1 tab PO BID RF: 0 isosorbide mononitrate 30 mg tablet extended release 24 hr 1 tab PO DAILY RF: 0 potassium chloride 10 mEq tablet extended release 1 tab PO BID RF: 0 aspirin 81 mg tablet,delayed release (DR/EC) 1 tab PO DAILY RF: 0 lamotrigine 25 mg tablet 2 tab PO BID RF: 0 warfarin 3 mg tablet 2 tab PO DAILY RF: 0 losartan 25 mg tablet 1 tab PO DAILY RF: 0 topiramate 200 mg tablet 1 tab PO BID RF: 0 digoxin 125 mcg (0.125 mg) tablet 1 tab PO DAILY RF: 0 mirtazapine 15 mg tablet 1 tab PO BEDTIME RF: 0 memantine 10 mg tablet 1 tab PO DAILY RF: 0 albuterol sulfate 2.5 mg /3 mL (0.083 %) Solution For Nebulization 2.5 mg inhalation Q4H PRN (Reason: Shortness Of Breath Or Wheezing) Qty: 50 RF: 0 ferrous sulfate 324 mg (65 mg iron) Tablet,Delayed Release (Dr/Ec) 324 mg PO DAILY Qty: 30 RF: 0 (DME) nebulizer accessories Kit See Rx Instructions .Route Qty: 1 RF: 0
[2021-05-04 11:45] LABS: MANUAL DIFF FLAG NO
[2021-05-04 11:54] LABS: INTERNATIONAL NORM RATIO 2.9 (0.9-1.1); Prothrombin Time 33.3 SEC (9.9-13.0)
[2021-05-04 11:55] LABS: Basophils Percent Auto 0.2 % (0-2); Eosinophils Percent Auto 0.4 % (0-4); Hematocrit 30.6 % (37.0-47.0); Hemoglobin 8.5 g/dl (12.0-16.0); Imm Gran Abs Auto 0.01 X10*3/uL (0.00-0.03); Imm Gran Pct Auto 0.2 % (0.0-0.4); Lymphocytes Absolute Auto 1.1 X10*3/uL (1.2-4.9); Mean Corpuscular HGB Conc 27.8 g/dl (31.0-35.0); Mean Corpuscular Hemoglobin 24.8 pg (27.0-33.0); Mean Corpuscular Volume 89.2 fL (80.0-98.0); Mean Platelet Volume 11.8 fL (9.4-12.3); Monocytes Absolute Auto 0.7 X10*3/uL (0.1-1.2); Monocytes Percent Auto 12.1 % (2-11); Neutrophils Absolute Auto 3.7 x10*3/uL (2.0-8.3); Neutrophils Percent Auto 67.1 % (45-73); Red Blood Count 3.43 X10*6/uL (4.20-5.50); Red Cell Distribution Width 18.3 % (11.0-16.0); White Blood Count 5.5 X10*3/uL (4.8-10.8)
[2021-05-04 11:56] LABS: Platelet Count 90 X10*3/uL (160-400)
[2021-05-04 11:59] LABS: COVID-19 Test Positive (Negative)
[2021-05-04] MEDS: 0.9 % Sodium Chloride 1,000 ML 999 ML IVCONT (12:00)
[2021-05-04 12:07] LABS: Appearance Urine CLEAR; Color Urine YELLOW; Glucose Urine UA NEG (NEG); Leukocyte Esterase Urine NEG (NEG); Nitrite Urine NEG (NEG); PH 5.5 (5.0-8.0); Urine Blood NEG (NEG); Urine Ketones NEG (NEG); Urine Protein TRACE MG/DL (NEG-TRACE)
[2021-05-04 12:08] LABS: Alanine Aminotransferase 11 U/L (0-31); Albumin Level 3.3 g/dL (3.5-5.0); Alkaline Phosphatase 104 U/L (39-117); Anion Gap 11 (12-20); Aspartate Amino Transferase 23 U/L (5-31); Bilirubin Direct < 0.2 mg/dL (0.0-0.5); Bilirubin Total 0.3 mg/dL (0.0-1.0); Blood Urea Nitrogen 18 mg/dL (9-16); Calcium 8.7 mg/dL (8.4-10.2); Carbon Dioxide 21 mmol/L (22-29); Chloride 114 mmol/L (96-108); Creatinine Clr Calc Pharmacy 51.2; Estimated Glomerular Filt Rate 52; Glucose Random 99 mg/dL (60-115); Sodium 142 mmol/L (135-145); Total Protein 6.5 g/dL (6.5-8.0)
[2021-05-04 13:42] VITALS: BP 104/53; PULSE 73; RESP 16; O2SAT 94
[2021-05-04 13:55] LABS: OBS Int Ctl Valid YES; OBS1 NEGATIVE (NEGATIVE)
[2021-05-04 15:51] VITALS: BP 105/53; PULSE 89; RESP 16; TEMP 36.2; O2SAT 96
--- NOTE | 2021-05-04 15:51 | PC.NURSE ---
Pt's sister Rebecca made aware of pt D/C and dx. Pending pick out hand by family back home. Charge Nurse Tory aware of family push back for ride home due to COVID-19 dx and inability to find someone to care for pt. RN will continue to monitor.
[2021-05-04 20:05] VITALS: BP 105/53; PULSE 62; RESP 16; TEMP 36.3; O2SAT 97
--- NOTE | 2021-05-04 20:06 | PC.NURSE ---
PATIENT WAS INC OF URINE ,PATIENT WAS GIVEN CARE ,PATIENT WAS REPOSITION HAD SIPS OF JUICE ,PATIENT IS RESTING IN BED .
--- NOTE | 2021-05-04 21:02 | PC.NURSE ---
patient awaiting ride home
[2021-05-04 22:00] VITALS: BP 131/52; PULSE 78; RESP 16; TEMP 36.2; O2SAT 99
== END 2021-05-04 23:09 | disposition home or self-care (01) ==
PROVIDERS: Emergency Provider Emergency Medicine
DX: U07.1 COVID-19 (principal); B37.9 Candidiasis, unspecified; N39.0 Urinary tract infection, site not specified; I10 Essential (primary) hypertension; I48.91 Unspecified atrial fibrillation; F03.90 Unspecified dementia, unspecified severity, without behavioral disturbance, psychotic disturbance, mood disturbance, and anxiety; Z79.82 Long term (current) use of aspirin; Z79.02 Long term (current) use of antithrombotics/antiplatelets; Z79.899 Other long term (current) drug therapy; Z79.01 Long term (current) use of anticoagulants; Z95.2 Presence of prosthetic heart valve; Z86.718 Personal history of other venous thrombosis and embolism; Z86.73 Personal history of transient ischemic attack (TIA), and cerebral infarction without residual deficits
CPT/HCPCS: 36415; 71045; 80048; 80076; 80162; 81003; 82272; 83605; 85025; 85610; 87040; 87635; 93005; 96360; 99284

== ENCOUNTER 2021-12-24 10:45 | Inpatient (IN) | payer MEDICARE, MEDICAID, SELFPAY ==
[2021-12-24] VITALS (8 sets, daily range): BP systolic 114–139; BP diastolic 32–74; PULSE 53–70; RESP 16–20; TEMP 36.6–37.1; O2SAT 92–94; BMI 33.7
--- NOTE | ~2021-12-24 | XR_ITS ---
EXAMINATION: XR CHEST CLINICAL INFORMATION: Chest pain. COMPARISON: 05/04/2021 TECHNIQUE: AP and lateral views of the chest were obtained. FINDINGS: Right pectoral AICD lead terminates in the right atrium. Sternal wires are present. Cardiac silhouette remains enlarged. There is mild pulmonary venous congestion. No pulmonary edema. Trace bilateral pleural effusions. No pneumothoraces. No focal airspace disease. No acute osseous findings. XR/XR chest 2V IMPRESSION: Cardiomegaly with pulmonary venous congestion and trace pleural effusions.
--- NOTE | 2021-12-24 11:19 | ECG_ITS ---
Test Reason : sob Blood Pressure : / mmHG Vent. Rate : 072 BPM Atrial Rate : 073 BPM P-R Int : 000 ms QRS Dur : 100 ms QT Int : 412 ms P-R-T Axes : 000 054 224 degrees QTc Int : [address] & T wave abnormality, consider inferolateral ischemia Abnormal ECG When compared with ECG of 04-MAY-2021 11:38, ventricular-paced complexes are no longer Present Premature ventricular complexes are no longer Present Referred By: Sebastien Rodgers Electronically Signed By:SHANEL ZARAGOZA
--- NOTE | 2021-12-24 11:21 | ED.GENADULT ---
HPI - General Adult General Chief complaint: General Medical Stated complaint: U&L EXT SWELLING,SOB ON EXER,99% @ 2LPM PER EMS Time Seen by Provider: 12/24/21 10:56 Mode of arrival: EMS History of Present Illness HPI narrative: This is a 71 years old female patient with history of CVA with aphasia right hemiplegia brought in by ambulance because dyspnea, the daughter is caring for the patient she states that this morning she was short of breath. Patient is unable to give me any history because of the aphasia Onset (ago): hour(s) (4) Radiation: non-radiation Severity: moderate Relieving factors: none Exacerbating factors: none Related Data Home Medications Medication Instructions Recorded Confirmed aspirin 81 mg tablet,delayed 1 tab PO DAILY 03/01/21 12/24/21 release atorvastatin 80 mg tablet 1 tab PO BEDTIME 03/01/21 12/24/21 digoxin 125 mcg (0.125 mg) tablet 1 tab PO DAILY 03/01/21 12/24/21 fluoxetine 40 mg capsule 1 cap PO DAILY 03/01/21 12/24/21 furosemide 40 mg tablet 1 tab PO DAILY 03/01/21 12/24/21 isosorbide mononitrate 30 mg 1 tab PO DAILY 03/01/21 12/24/21 tablet,extended release 24 hr lamotrigine 25 mg tablet 2 tab PO BID 03/01/21 12/24/21 levothyroxine 175 mcg tablet 1 tab PO DAILY 03/01/21 12/24/21 losartan 25 mg tablet 1 tab PO DAILY 03/01/21 12/24/21 memantine 10 mg tablet 1 tab PO DAILY 03/01/21 12/24/21 metoprolol tartrate 100 mg tablet 1 tab PO BID 03/01/21 12/24/21 mirtazapine 15 mg tablet 1 tab PO BEDTIME 03/01/21 12/24/21 multivitamin 1 tab PO DAILY 03/01/21 12/24/21 potassium chloride 10 mEq 1 tab PO BID 03/01/21 12/24/21 tablet,extended release quetiapine 25 mg tablet 25 mg PO DAILY 03/01/21 12/24/21 quetiapine 25 mg tablet 50 mg PO BEDTIME 03/01/21 12/24/21 topiramate 200 mg tablet 1 tab PO BID 03/01/21 12/24/21 warfarin 3 mg tablet 2 tab PO DAILY 03/01/21 03/27/21 nitrofurantoin 1 cap PO BEDTIME 12/24/21 12/24/21 monohydrate/macrocrystals 100 mg capsule nystatin 100,000 unit/gram topical 1 appl topical TID PRN Rash 12/24/21 12/24/21 powder ([facility]) Previous Rx's Medication Instructions Recorded nebulizer accessories #1 ea 04/02/21 Allergies Allergy/AdvReac Type Severity Reaction Status Date / Time codeine [Codeine] Allergy Unknown GENERIC Verified 03/28/21 00:26 Allergy: CODEINE SULFATE levofloxacin [LEVOFLOXACIN] Allergy Unknown ANGIOEDEMA Verified 03/28/21 00:26 Shellfish Allergy Unknown UNKNOWN Verified 03/28/21 00:26 Codeine Sulfate Allergy Unknown Unknown Uncoded 03/28/21 00:26 Erythromycin Allergy Unknown Unknown Uncoded 03/28/21 00:26 From Erythrocin Allergy Unknown UNKNOWN Uncoded 03/28/21 00:26 Review of Systems Review of Systems: Yes Unobtainable due to mental condition PMFSH Past Medical History Medical History (Updated 12/24/21 @ 14:34 by LAYTON Cisneros) Acute bronchitis with bronchospasm Acute respiratory failure with hypoxia Anemia Aphasia, post-stroke Congestive heart failure COVID-19 Dementia DVT (deep venous thrombosis) Hypertension On Coumadin for atrial fibrillation Right sided weakness Seizures Surgical History Heart valve replaced Family History Family History (Updated 12/24/21 @ 14:34 by LAYTON Cisneros) Daughter No problems noted. Social History Social History Household Members: Children Housing: House Do you presently have visiting nurse or other home services: No (daughter takes care of patient fully) Patient Tobacco Use Status: Former Tobacco user Advance Directives: No Advance Directives Information Provided: Yes service: No Current occupational status: retired and disabled Physical Exam ED Vital Signs: Vital Signs - 24 hr 12/24/21 10:56 Temperature 98.4 F Pulse Rate 68 Respiratory Rate 16 Blood Pressure 114/51 L Pulse Oximetry 94 Oxygen Delivery Method Room Air BMI result Body Mass Index 33.7 Const General: cooperative, no acute distress, well developed, alert and awake Nutritional Appearance: well nourished [facility] Head: Yes normal to inspection Face and sinus: Yes normal facial exam Mouth: Normal oral and palatal mucosa present Neck Neck: Yes normal visual inspection and Yes full ROM Chest Chest palpation & inspection: normal inspection of the chest Resp Effort & Inspection: normal respiratory effort Auscultation: clear to auscultation bilaterally Cardio Palpation: normal PMI Rate: regular rate Rhythm: regular rhythm GI Inspection: Yes normal to inspection Palpation (GI): Soft to palpation, not firm, nontender and no guarding Skin General skin exam: no rashes or lesions noted, elasticity normal and turgor normal Course Reevaluation(s) Reevaluation #1: i SPOKE WITH HOSPITALIST DR KIMBALL HE ACCEPT THE PT,SPOKE WITH PT AND DAUGHTER WILL XFUSE AND AdMIT THE PT Medical Decision Making Lab Data Result diagrams: 12/24/21 11:58 12/24/21 11:58 Labs: Lab Results 12/24/21 12/24/21 12/24/21 Range/Units 11:43 11:58 11:58 WBC 7.8 (4.8-10.8) X10*3/uL RBC 3.13 L (4.20-5.50) X10*6/uL Hgb 6.9 L* (12.0-16.0) g/dl Hct 26.9 L (37.0-47.0) % MCV 85.9 (80.0-98.0) fL MCH 22.0 L (27.0-33.0) pg MCHC 25.7 L (31.0-35.0) g/dl RDW 20.4 H (11.0-16.0) % Plt Count 128 L D (160-400) X10*3/uL MPV Not Reportable Immature Gran % (Auto) 0.3 (0.0-0.4) % Neut % (Auto) 78.0 H (45-73) % Lymph % (Auto) 12.0 L (20-40) % [place] % (Auto) 7.5 (2-11) % Eos % (Auto) 1.7 (0-4) % Baso % (Auto) 0.5 (0-2) % Lymph # (Auto) 0.9 L (1.2-4.9) X10*3/uL [place] # (Auto) 0.6 (0.1-1.2) X10*3/uL Eos # (Auto) 0.1 (0.0-0.4) X10*3/uL Baso # (Auto) 0.0 (0.0-0.2) X10*3/uL Abs Immat Gran (auto) 0.02 (0.00-0.03) X10*3/uL Absolute Neuts (auto) 6.1 (2.0-8.3) x10*3/uL Absolute Nucleated RBC 0.020 H (0.0-0.012) X10*3/uL Nucleated RBC % (auto) 0.3 H (0.0-0.2) /100WBC Smear Tech's Comments VERIFIED PT (10.0-13.1) SEC INR (0.9-1.1) Sodium (135-145) mmol/L Potassium (3.3-5.1) mmol/L Chloride (96-108) mmol/L Carbon Dioxide (22-29) mmol/L Anion Gap (12-20) BUN (9-16) mg/dL Creatinine (0.5-1.4) mg/dL Estim Creat Clear Calc Estimated GFR Random Glucose (60-115) mg/dL Calcium (8.4-10.2) mg/dL Total Bilirubin (0.0-1.0) mg/dL AST (5-31) U/L ALT (0-31) U/L Alkaline Phosphatase (39-117) U/L Troponin I High Sens (<3.5-17.0) ng/L B-Natriuretic Peptide 301 H (<100) pg/mL Total Protein (6.5-8.0) g/dL Albumin (3.5-5.0) g/dL Urine Color Yellow Urine Appearance Turbid Urine pH 5.5 (5.0-9.0) Ur Specific [place] 1.020 (1.005-1.025) Urine Protein 30 (1+) H (Neg-Trace) mg/dL Urine Glucose (UA) Negative (Negative) mg/dL Urine Ketones Negative (Negative) mg/dL Urine Blood Small (1+) H (Negative) Urine Nitrite Negative (Negative) Ur Leukocyte Esterase Large (3+) H (Negative) Urine RBC 3-5 H (0-2) /HPF Urine WBC >50 H (0-5) /HPF Ur Squamous Epith Cells 3-5 (0-2) /HPF Urine Bacteria 4+ (None Seen) Hyaline Casts 3-5 (0-2) /LPF Digoxin (0.8-2.0) ng/mL COVID-19 (GIGI) (Negative) COVID-19 Clin Com 12/24/21 12/24/21 12/24/21 Range/Units 11:58 11:58 11:58 WBC (4.8-10.8) X10*3/uL RBC (4.20-5.50) X10*6/uL Hgb (12.0-16.0) g/dl Hct (37.0-47.0) % MCV (80.0-98.0) fL MCH (27.0-33.0) pg MCHC (31.0-35.0) g/dl RDW (11.0-16.0) % Plt Count (160-400) X10*3/uL MPV Immature Gran % (Auto) (0.0-0.4) % Neut % (Auto) (45-73) % Lymph % (Auto) (20-40) % [place] % (Auto) (2-11) % Eos % (Auto) (0-4) % Baso % (Auto) (0-2) % Lymph # (Auto) (1.2-4.9) X10*3/uL [place] # (Auto) (0.1-1.2) X10*3/uL Eos # (Auto) (0.0-0.4) X10*3/uL Baso # (Auto) (0.0-0.2) X10*3/uL Abs Immat Gran (auto) (0.00-0.03) X10*3/uL Absolute Neuts (auto) (2.0-8.3) x10*3/uL Absolute Nucleated RBC (0.0-0.012) X10*3/uL Nucleated RBC % (auto) (0.0-0.2) /100WBC Smear Tech's Comments PT 44.7 H (10.0-13.1) SEC INR 3.7 H (0.9-1.1) Sodium 141 (135-145) mmol/L Potassium 4.1 (3.3-5.1) mmol/L Chloride 108 (96-108) mmol/L Carbon Dioxide 26 (22-29) mmol/L Anion Gap 11 L (12-20) BUN 22 H (9-16) mg/dL Creatinine 1.26 (0.5-1.4) mg/dL Estim Creat Clear Calc 45.8 Estimated GFR 42 Random Glucose 104 (60-115) mg/dL Calcium 8.2 L (8.4-10.2) mg/dL Total Bilirubin 0.4 (0.0-1.0) mg/dL AST 15 (5-31) U/L ALT 12 (0-31) U/L Alkaline Phosphatase 113 (39-117) U/L Troponin I High Sens 17.8 H D (<3.5-17.0) ng/L B-Natriuretic Peptide (<100) pg/mL Total Protein 6.5 (6.5-8.0) g/dL Albumin 3.6 (3.5-5.0) g/dL Urine Color Urine Appearance Urine pH (5.0-9.0) Ur Specific [place] (1.005-1.025) Urine Protein (Neg-Trace) mg/dL Urine Glucose (UA) (Negative) mg/dL Urine Ketones (Negative) mg/dL Urine Blood (Negative) Urine Nitrite (Negative) Ur Leukocyte Esterase (Negative) Urine RBC (0-2) /HPF Urine WBC (0-5) /HPF Ur Squamous Epith Cells (0-2) /HPF Urine Bacteria (None Seen) Hyaline Casts (0-2) /LPF Digoxin (0.8-2.0) ng/mL COVID-19 (GIGI) (Negative) COVID-19 Clin Com 12/24/21 12/24/21 Range/Units 11:58 11:58 WBC (4.8-10.8) X10*3/uL RBC (4.20-5.50) X10*6/uL Hgb (12.0-16.0) g/dl Hct (37.0-47.0) % MCV (80.0-98.0) fL MCH (27.0-33.0) pg MCHC (31.0-35.0) g/dl RDW (11.0-16.0) % Plt Count (160-400) X10*3/uL MPV Immature Gran % (Auto) (0.0-0.4) % Neut % (Auto) (45-73) % Lymph % (Auto) (20-40) % [place] % (Auto) (2-11) % Eos % (Auto) (0-4) % Baso % (Auto) (0-2) % Lymph # (Auto) (1.2-4.9) X10*3/uL [place] # (Auto) (0.1-1.2) X10*3/uL Eos # (Auto) (0.0-0.4) X10*3/uL Baso # (Auto) (0.0-0.2) X10*3/uL Abs Immat Gran (auto) (0.00-0.03) X10*3/uL Absolute Neuts (auto) (2.0-8.3) x10*3/uL Absolute Nucleated RBC (0.0-0.012) X10*3/uL Nucleated RBC % (auto) (0.0-0.2) /100WBC Smear Tech's Comments PT (10.0-13.1) SEC INR (0.9-1.1) Sodium (135-145) mmol/L Potassium (3.3-5.1) mmol/L Chloride (96-108) mmol/L Carbon Dioxide (22-29) mmol/L Anion Gap (12-20) BUN (9-16) mg/dL Creatinine (0.5-1.4) mg/dL Estim Creat Clear Calc Estimated GFR Random Glucose (60-115) mg/dL Calcium (8.4-10.2) mg/dL Total Bilirubin (0.0-1.0) mg/dL AST (5-31) U/L ALT (0-31) U/L Alkaline Phosphatase (39-117) U/L Troponin I High Sens (<3.5-17.0) ng/L B-Natriuretic Peptide (<100) pg/mL Total Protein (6.5-8.0) g/dL Albumin (3.5-5.0) g/dL Urine Color Urine Appearance Urine pH (5.0-9.0) Ur Specific [place] (1.005-1.025) Urine Protein (Neg-Trace) mg/dL Urine Glucose (UA) (Negative) mg/dL Urine Ketones (Negative) mg/dL Urine Blood (Negative) Urine Nitrite (Negative) Ur Leukocyte Esterase (Negative) Urine RBC (0-2) /HPF Urine WBC (0-5) /HPF Ur Squamous Epith Cells (0-2) /HPF Urine Bacteria (None Seen) Hyaline Casts (0-2) /LPF Digoxin 0.9 (0.8-2.0) ng/mL COVID-19 ([facility]) Negative (Negative) COVID-19 Clin Com See Note Discharge Plan Discharge Clinical Impression: Shortness of breath, Anemia Patient Disposition: Admitted As Inpatient
[2021-12-24 11:53] LABS: Appearance Urine Turbid; Color Urine Yellow; Glucose Urine UA Negative (Negative); Leukocyte Esterase Urine Large (3+) (Negative); Nitrite Urine Negative (Negative); PH 5.5 (5.0-9.0); Urine Blood Small (1+) (Negative); Urine Ketones Negative (Negative); Urine Protein 30 (1+) mg/dL (Neg-Trace)
[2021-12-24 12:08] LABS: Basophils Percent Auto 0.5 % (0-2); Eosinophils Absolute Auto 0.1 X10*3/uL (0.0-0.4); Eosinophils Percent Auto 1.7 % (0-4); Hematocrit 26.9 % (37.0-47.0); Imm Gran Abs Auto 0.02 X10*3/uL (0.00-0.03); Imm Gran Pct Auto 0.3 % (0.0-0.4); Lymphocytes Absolute Auto 0.9 X10*3/uL (1.2-4.9); MANUAL DIFF FLAG SCAN; Mean Corpuscular HGB Conc 25.7 g/dl (31.0-35.0); Mean Corpuscular Volume 85.9 fL (80.0-98.0); Monocytes Absolute Auto 0.6 X10*3/uL (0.1-1.2); Monocytes Percent Auto 7.5 % (2-11); NRBC Pct Auto 0.3 /100WBC (0.0-0.2); Neutrophils Absolute Auto 6.1 x10*3/uL (2.0-8.3); PLT CLUMP 1; Red Blood Count 3.13 X10*6/uL (4.20-5.50); Red Cell Distribution Width 20.4 % (11.0-16.0); SCAN SMEAR FLAG 1; White Blood Count 7.8 X10*3/uL (4.8-10.8)
[2021-12-24 12:11] LABS: Hemoglobin 6.9 g/dl (12.0-16.0)
[2021-12-24 12:13] LABS: INTERNATIONAL NORM RATIO 3.7 (0.9-1.1); Prothrombin Time 44.7 SEC (10.0-13.1)
[2021-12-24 12:14] LABS: Bacteria Urine 4+ (None Seen); UACC Culture Trigger YES; WBC Urine >50 /HPF (0-5)
[2021-12-24 12:23] LABS: Platelet Count 128 X10*3/uL (160-400); SLIDE REVIEW VERIFIED
[2021-12-24 12:24] LABS: Alanine Aminotransferase 12 U/L (0-31); Albumin Level 3.6 g/dL (3.5-5.0); Alkaline Phosphatase 113 U/L (39-117); Anion Gap 11 (12-20); Aspartate Amino Transferase 15 U/L (5-31); Bilirubin Total 0.4 mg/dL (0.0-1.0); Blood Urea Nitrogen 22 mg/dL (9-16); Calcium 8.2 mg/dL (8.4-10.2); Carbon Dioxide 26 mmol/L (22-29); Chloride 108 mmol/L (96-108); Creatinine Clr Calc Pharmacy 45.8; Estimated Glomerular Filt Rate 42; Glucose Random 104 mg/dL (60-115); Potassium 4.1 mmol/L (3.3-5.1); Sodium 141 mmol/L (135-145); Total Protein 6.5 g/dL (6.5-8.0)
[2021-12-24 12:26] LABS: COVID-19 Test Negative (Negative)
[2021-12-24 12:30] LABS: B Type Natriuretic Peptide 301 pg/mL (<100); Troponin-I High Sensitivity 17.8 ng/L (<3.5-17.0)
[2021-12-24 12:58] LABS: Digoxin 0.9 ng/mL (0.8-2.0)
--- NOTE | 2021-12-24 13:16 | PM.IMHP ---
History of Present Illness Date of Service: 12/24/21 Attending physician on admission: Anjelica Brar Chief Complaint: sob, anemia 70-year-old female with a past medical history of hypertension, hyperlipidemia, dementia, seizures, mitral valve replacement (st harinder) on coumadin, CHF , history of AICD, DVT, hypothyroidism, dementia, history of seizures, depression, asthma, history of CVA with residual right-sided weakness, aphasia presented to the hospital today with a chief complaint of shortness of breath. She is here with her daughter who is her office sweeper and HCP whom she lives with. Her daughter reports she has had stafford and increased edema ble R>L x 1 day. Has also had foul smelling urine with increased urinary incontinence x several days. Has hx recurrent UTI with incontinence at baseline. Has noted increased rash in groin folds, using goldbond and nystatin power. H/H in ED was 6.9/26.9% last measured 8.5/30.6% in 05/11. Stool occult blood positive. Reports fatigue and weakness and sob. No cp or palpitations. Denies any known melena, hematochezia, hemetemasis. No abd pain. Has never undergone screening colonoscopy. Does have large hemorrhoid. INR supratherapeutic at 3.7. Renal function stable. CXr with cardiomegaly with pulmonary venous congestion and trace pleural effusions. EKG with st-t wave inversions in inferior leads, troponin 17.8, repeat pending. BNP 301. Review of Systems Review of Systems: General: No fevers, malaise, unintentional weight loss Cardiovascular: No chest pain, palpitations, or leg edema Respiratory: + shortness of breath. No wheezing, cough GI: +external hemorrhoid. No abdominal pain, nausea, vomiting, diarrhea, constipation, melena, hematochezia : +urinary incontinence, +malodorous urine. No dysuria,hematuria Neuro: +weakenss/ No headaches, paresthesias Skin: No rashes or lesions [facility] Medical History (Updated 12/24/21 @ 14:34 by LAYTON Cisneros) Acute bronchitis with bronchospasm Acute respiratory failure with hypoxia Anemia Aphasia, post-stroke Congestive heart failure COVID-19 Dementia DVT (deep venous thrombosis) Hypertension On Coumadin for atrial fibrillation Right sided weakness Seizures Family History (Updated 12/24/21 @ 14:34 by LAYTON Cisneros) Daughter No problems noted. Surgical History Heart valve replaced Social History Household Members: Children Housing: House Do you presently have visiting nurse or other home services: No (daughter takes care of patient fully) Patient Tobacco Use Status: Former Tobacco user Advance Directives: No Advance Directives Information Provided: Yes service: No Current occupational status: retired and disabled Meds Allergies Allergy/AdvReac Type Severity Reaction Status Date / Time codeine [Codeine] Allergy Unknown GENERIC Verified 03/28/21 00:26 Allergy: CODEINE SULFATE levofloxacin [LEVOFLOXACIN] Allergy Unknown ANGIOEDEMA Verified 03/28/21 00:26 Shellfish Allergy Unknown UNKNOWN Verified 03/28/21 00:26 Codeine Sulfate Allergy Unknown Unknown Uncoded 03/28/21 00:26 Erythromycin Allergy Unknown Unknown Uncoded 03/28/21 00:26 From Erythrocin Allergy Unknown UNKNOWN Uncoded 03/28/21 00:26 Active Medications: Current Medications Pharmacy Consult (Consult Rx Perform Med Rec) 1 each MISCELLANE ONCE PRN PRN Reason: Consult order Home Medications Medication Instructions Recorded Confirmed Last Taken Type aspirin 81 mg tablet,delayed 1 tab PO DAILY 03/01/21 12/24/21 03/27/21 History release atorvastatin 80 mg tablet 1 tab PO BEDTIME 03/01/21 12/24/21 03/26/21 History digoxin 125 mcg (0.125 mg) tablet 1 tab PO DAILY 03/01/21 12/24/21 03/27/21 History fluoxetine 40 mg capsule 1 cap PO DAILY 03/01/21 12/24/21 03/27/21 History furosemide 40 mg tablet 1 tab PO DAILY 03/01/21 12/24/21 03/27/21 History isosorbide mononitrate 30 mg 1 tab PO DAILY 03/01/21 12/24/21 03/27/21 History tablet,extended release 24 hr lamotrigine 25 mg tablet 2 tab PO BID 03/01/21 12/24/21 03/27/21 History levothyroxine 175 mcg tablet 1 tab PO DAILY 03/01/21 12/24/21 03/27/21 History losartan 25 mg tablet 1 tab PO DAILY 03/01/21 12/24/21 03/27/21 History memantine 10 mg tablet 1 tab PO DAILY 03/01/21 12/24/21 03/27/21 History metoprolol tartrate 100 mg tablet 1 tab PO BID 03/01/21 12/24/21 03/27/21 History mirtazapine 15 mg tablet 1 tab PO BEDTIME 03/01/21 12/24/21 03/26/21 History multivitamin 1 tab PO DAILY 03/01/21 12/24/21 03/27/21 History potassium chloride 10 mEq 1 tab PO BID 03/01/21 12/24/21 03/27/21 History tablet,extended release quetiapine 25 mg tablet 25 mg PO DAILY 03/01/21 12/24/21 03/27/21 History quetiapine 25 mg tablet 50 mg PO BEDTIME 03/01/21 12/24/21 03/26/21 History topiramate 200 mg tablet 1 tab PO BID 03/01/21 12/24/21 03/27/21 History warfarin 3 mg tablet 2 tab PO DAILY 03/01/21 12/24/21 03/27/21 History nitrofurantoin 1 cap PO BEDTIME 12/24/21 12/24/21 Unknown History monohydrate/macrocrystals 100 mg capsule nystatin 100,000 unit/gram topical 1 appl topical TID PRN Rash 12/24/21 12/24/21 Unknown History powder ([facility]) Physical Exam Vital Signs and Narrative: Vital Signs: Last Vital Signs Temp 98.4 F 12/24/21 10:56 Pulse 68 12/24/21 10:56 Resp 16 12/24/21 10:56 BP 114/51 L 12/24/21 10:56 Pulse Ox 94 12/24/21 10:56 O2 Del Method 12/24/21 10:56 BMI result Body Mass Index 33.7 Constitutional - Awake and Alert, No apparent distress Eyes - PERRLA, EOMI Cardiovascular - S1S2, RRR, 2+ pitting edema BLE Respiratory - Normal lung expansion, Normal respiratory effort, No respiratory distress, CTA bilaterally Gastrointestinal - Rectal prolapse. NT / ND; +BS; No rebound or guarding Extremities - no calf tenderness bilaterally, no swelling Skin - Warm/Dry. Erythematous papuplar lesions with coalescence in the groin/abdominal pannus bilaterally. Neurological - Alert & oriented x3, 3/5 strength RLE, 4/5 strength LLE. Neg pronator drift Psychological - Appropriate affect Results Labs CBC and Chem 7: 12/24/21 11:58 12/24/21 11:58 Labs: Laboratory Results - last 24 hr 12/24/21 12/24/21 12/24/21 11:43 11:58 11:58 MCV 85.9 MCH 22.0 L MCHC 25.7 L RDW 20.4 H Plt Count 128 L D MPV Not Reportable Immature Gran % (Auto) 0.3 Neut % (Auto) 78.0 H Lymph % (Auto) 12.0 L [place] % (Auto) 7.5 Eos % (Auto) 1.7 Baso % (Auto) 0.5 Lymph # (Auto) 0.9 L [place] # (Auto) 0.6 Eos # (Auto) 0.1 Baso # (Auto) 0.0 Abs Immat Gran (auto) 0.02 Absolute Neuts (auto) 6.1 Absolute Nucleated RBC 0.020 H Nucleated RBC % (auto) 0.3 H Smear Tech's Comments VERIFIED PT INR Anion Gap Estim Creat Clear Calc Estimated GFR Random Glucose Calcium Total Bilirubin AST ALT Alkaline Phosphatase B-Natriuretic Peptide 301 H Total Protein Albumin Urine Color Yellow Urine Appearance Turbid Urine pH 5.5 Ur Specific [place] 1.020 Urine Protein 30 (1+) H Urine Glucose (UA) Negative Urine Ketones Negative Urine Blood Small (1+) H Urine Nitrite Negative Ur Leukocyte Esterase Large (3+) H Urine RBC 3-5 H Urine WBC >50 H Ur Squamous Epith Cells 3-5 Urine Bacteria 4+ Hyaline Casts 3-5 Digoxin COVID-19 (GIGI) COVID-19 Clin Com 12/24/21 12/24/21 12/24/21 11:58 11:58 11:58 MCV MCH MCHC RDW Plt Count MPV Immature Gran % (Auto) Neut % (Auto) Lymph % (Auto) [place] % (Auto) Eos % (Auto) Baso % (Auto) Lymph # (Auto) [place] # (Auto) Eos # (Auto) Baso # (Auto) Abs Immat Gran (auto) Absolute Neuts (auto) Absolute Nucleated RBC Nucleated RBC % (auto) Smear Tech's Comments PT 44.7 H INR 3.7 H Anion Gap 11 L Estim Creat Clear Calc 45.8 Estimated GFR 42 Random Glucose 104 Calcium 8.2 L Total Bilirubin 0.4 AST 15 ALT 12 Alkaline Phosphatase 113 B-Natriuretic Peptide Total Protein 6.5 Albumin 3.6 Urine Color Urine Appearance Urine pH Ur Specific [place] Urine Protein Urine Glucose (UA) Urine Ketones Urine Blood Urine Nitrite Ur Leukocyte Esterase Urine RBC Urine WBC Ur Squamous Epith Cells Urine Bacteria Hyaline Casts Digoxin COVID-19 (GIGI) Negative COVID-19 Clin Com See Note 12/24/21 11:58 MCV MCH MCHC RDW Plt Count MPV Immature Gran % (Auto) Neut % (Auto) Lymph % (Auto) [place] % (Auto) Eos % (Auto) Baso % (Auto) Lymph # (Auto) [place] # (Auto) Eos # (Auto) Baso # (Auto) Abs Immat Gran (auto) Absolute Neuts (auto) Absolute Nucleated RBC Nucleated RBC % (auto) Smear Tech's Comments PT INR Anion Gap Estim Creat Clear Calc Estimated GFR Random Glucose Calcium Total Bilirubin AST ALT Alkaline Phosphatase B-Natriuretic Peptide Total Protein Albumin Urine Color Urine Appearance Urine pH Ur Specific [place] Urine Protein Urine Glucose (UA) Urine Ketones Urine Blood Urine Nitrite Ur Leukocyte Esterase Urine RBC Urine WBC Ur Squamous Epith Cells Urine Bacteria Hyaline Casts Digoxin 0.9 COVID-19 (GIGI) COVID-19 Clin Com Assessment and Plan (1) Anemia: Status: Acute (2) Congestive heart failure: Status: Acute Plan 70-year-old female with a past medical history of hypertension, hyperlipidemia, dementia, seizures, mitral valve replacement (st harinder) on coumadin, CHF , history of AICD, DVT, hypothyroidism, dementia, history of seizures, depression, asthma, history of CVA with residual right-sided weakness, aphasia admitted for presumed blood loss and acute on chronic CHF. 1. Iron deficiency anemia- H/H 6.9/26.9 (last H/H 8.5/30.6% 05/11)- ?acute blood loss use vs possible chronic slow bleed r/t external hemorrhoid vs other GI bleed. Pt has never undergone endoscopy or colonoscopy -Pt. denies active bleeding. INR supratherapeutic at 3.7. Stool occult blood positive. Gi consulted -Hold asa and warfarin -Transfuse 1 unit -EKG with ST-T wave changes inferior leads, elevated trop 17.8 (repeat ordered)- cardiology consulted -Contineu ferrous sulfate 2. UTI -UA in ED with 3+ leuks, 1+ blood, 4+ bacteria, neg nitrites -Urine culture pending -IV ceftriaxone -Purewick placed 3. acute on chronic HFrEF- pt reporting sob, though likely from anemia, and increased BLE edema -CXR with trace pleural effusions. BNP elevated from baseline at 301 -IV lasix BID -Pt requires 1 unit PRBC d/t anemia as above. Otherwise fluid restrictions 1L -Purewick placed. Strict I&O -Cardiac diet -BP soft. Hold losartan and metoprolol 4. Paroxysmal AFib- rate controlled -Hold warfarin for now as above -Hold metoprolol and losartan as above -Continue digoxin -AICD in place 5. mechanical mitral valve- [facility]. Follows with [facility] card outpt - INR supratherapeutic at 3.7, hold warfarin for now -Check INR am. -Cardiology consulted 6. hypothyroidism - continue LT4 7. dementia - continue memantine 8. mood disorder - continue fluoxetine, mirtazapine, quetiapine 9. partial seizure disorder - continue lamotrigine, topiramate 10. hx CVA - Hold ASA -Continue statin # VTE ppx- mechanical. INR supratherapeutic. Full code- has AICD in place Patient requries inpatient stay of at least 2 midnights due as she requires blood transfusion for presumed blood loss anemia with EKG changes and elevated troponin at risk for fluid overload d/t chf hx requiring IV lasix. Quality Stroke Does the patient have a stroke diagnosis?: No VTE Prior VTE?: Yes VTE Risk Level:: Medical - moderate - high VTE Device Contraindication: N/A - Device Ordered VTE Drug Contraindication: Treatment Not Indicated
[2021-12-24 14:28] LABS: OBS Int Ctl Valid YES; OBS1 POSITIVE (NEGATIVE)
[2021-12-24] MEDS: 0.9 % Sodium Chloride Flush 3 ML SYRINGE IVFLUSH (15:06)
[2021-12-24] MEDS: cefTRIAXone sodium 1 GM in 0.9 % Sodium Chloride 50 ML IV (15:06)
[2021-12-24] MEDS: Furosemide 20 MG/2 ML VIAL IVPUSH (15:06)
--- NOTE | 2021-12-24 17:17 | PM.EVENT ---
Event Note Date of Service: 12/24/21 Event Note: This patient is seen and examined with APC: 70-year-old female with a past medical history of hypertension, hyperlipidemia, dementia, seizures, mitral valve replacement (st ethan) on coumadin, CHF , history of AICD, DVT, hypothyroidism, dementia, history of seizures, depression, asthma, history of CVA with residual right-sided weakness, aphasia presented to the hospital today with a chief complaint of shortness of breath. patient says shortness of breath is improving, denies any chest pain or abdominal pain or any history of melena or joesph blood per rectum or hematemes. her says daughter says that she has some oozing from her external hemorrhoids on/off Lab imaging, EKG reviewed. /6.9/. Platlets -129 cxr:IMPRESSION: Cardiomegaly with pulmonary venous congestion and trace pleural effusions. bnp 301 (elevated from basleine) ekg -inferiorlateral t wave inversion(which Seems similar to 05/11 ekg) Physical exam and assessment and plan coordinated in APCs note, Agree with the plan in addition: acute blood loss anemia on chronic normocytic anemia. Added iron study and B12 and folate, FOBT initially was negative and then repeated 1 positive ? question related to hemorrhoid hematocrit is out of proportion to hemoglobin value. 1 PRBC ordered gi eval monitor H&H closely possible chf -possible systolic dysfunction:Patient started on IV Lasix elevated trops sec to anemia/chf, repeat trop bnp in am cardiology eval paf/mech mitral valve : continue digoxin(leevels 0.9) inr supratherapeutic -hold warfrain
--- NOTE | 2021-12-24 17:24 | MHC.CM.PN ---
IMM 12/24. CM met with pt daughter and HCP#2 Celia Hunter, with whom she lives. Pt had CVA in 2004: has aphasia and right sided weakness. Daughter is present at the bedside. Daughter has been caring for her since CVA. Celia provides 49 hours [employer] through [employer]. PCP: Dr. Jaramillo. HCP #1/sister Rebecca Oconnor ([phone]). Pt uses a walker. Has BR adaptations. Daughter provides total care. D/C plan: Home with continued [employer] services. Pt may need chair van transport home. CM to follow for d/c needs.
[2021-12-24] MEDS: Pantoprazole Sodium 40 MG/10 ML VIAL IVPUSH (19:08)
[2021-12-24] MEDS: Mirtazapine 15 MG TABLET PO (21:41)
[2021-12-24] MEDS: Atorvastatin Calcium 80 MG TABLET PO (21:41)
[2021-12-24] MEDS: QUEtiapine Fumarate 50 MG TABLET PO (21:42)
[2021-12-24] MEDS: Topiramate 100 MG TABLET 200 MG PO (21:42)
[2021-12-24 21:47] LABS: Hemoglobin 7.7 g/dl (12.0-16.0)
[2021-12-24] MEDS: lamoTRIgine 25 MG TABLET 50 MG PO (22:00)
[2021-12-24 22:09] LABS: Troponin-I High Sensitivity 18.6 ng/L (<3.5-17.0)
[2021-12-25] VITALS (9 sets, daily range): BP systolic 122–138; BP diastolic 43–72; PULSE 55–79; RESP 16–21; TEMP 35.7–37.2; O2SAT 95–100
[2021-12-25] MEDS: 0.9 % Sodium Chloride Flush 3 ML SYRINGE IVFLUSH ×4 (00:04→21:24)
[2021-12-25] MEDS: Furosemide 20 MG/2 ML VIAL IVPUSH ×2 (03:16→15:35)
[2021-12-25] MEDS: Pantoprazole Sodium 40 MG/10 ML VIAL IVPUSH ×2 (06:28→15:42)
[2021-12-25] MEDS: Levothyroxine Sodium 175 MCG TABLET PO (06:44)
--- NOTE | 2021-12-25 08:00 | P.CONCA_ITS ---
History of Present Illness History of Present Illness Date of Service: 12/25/21 Requesting physician: Jimi Brar Chief complaint: sob, anemia Narrative: 71-year-old female with h/o CHF, mitral valve replacement with mechanical valve, anemia and CVA. She is presenting for anemia and CHF. She has supratherapeutic INR. She has been admitted before at [facility] with supratherapeutic INRs. She has aphasia and history is limited. She is saying she is still SOB. Hb wsa 6.9 and she was transfused. Given mechanical mitral valve it is challenging to hold anticoagulation. [facility] Past Medical History Medical History (Updated 12/24/21 @ 14:34 by LAYTNO Cisneros) Acute bronchitis with bronchospasm Acute respiratory failure with hypoxia Anemia Aphasia, post-stroke Congestive heart failure COVID-19 Dementia DVT (deep venous thrombosis) Hypertension On Coumadin for atrial fibrillation Right sided weakness Seizures Family History Family History (Updated 12/24/21 @ 14:34 by LAYTON Cisneros) Daughter No problems noted. Surgical History Surgical History Heart valve replaced Social History Social History Household Members: Children Housing: House Do you presently have visiting nurse or other home services: No (daughter takes care of patient fully) Patient Tobacco Use Status: Former Tobacco user Advance Directives: No Advance Directives Information Provided: Yes service: No Current occupational status: retired and disabled Meds Allergies Allergy/AdvReac Type Severity Reaction Status Date / Time codeine [Codeine] Allergy Unknown GENERIC Verified 03/28/21 00:26 Allergy: CODEINE SULFATE levofloxacin [LEVOFLOXACIN] Allergy Unknown ANGIOEDEMA Verified 03/28/21 00:26 Shellfish Allergy Unknown UNKNOWN Verified 03/28/21 00:26 Codeine Sulfate Allergy Unknown Unknown Uncoded 03/28/21 00:26 Erythromycin Allergy Unknown Unknown Uncoded 03/28/21 00:26 From Erythrocin Allergy Unknown UNKNOWN Uncoded 03/28/21 00:26 Active Medications: Current Medications Atorvastatin Calcium (Atorvastatin Calcium 80 Mg Tablet) 80 mg PO BEDTIME [facility] Last Admin: 12/24/21 21:41 Dose: 80 mg Digoxin (Digoxin 0.125 Mg Tablet) 0.125 mg PO DAILY [facility] Fluoxetine HCl (Fluoxetine Hcl 20 Mg Capsule) 40 mg PO DAILY [facility] Furosemide (Furosemide 20 Mg/2 Ml Vial) 20 mg IVPUSH Q12H [facility]; Protocol Last Admin: 12/25/21 03:16 Dose: 20 mg Ceftriaxone Sodium 1 gm/ (Sodium Chloride) 50 mls @ 100 mls/hr IV Q24H [facility] Last Infusion: 12/24/21 15:36 Dose: Infused Isosorbide Mononitrate (Isosorbide Mononitrate 30 Mg Tab.Er.24h) 30 mg PO DAILY [facility]; Protocol Lamotrigine (Lamotrigine 25 Mg Tablet) 50 mg PO BID [facility] Last Admin: 12/24/21 22:00 Dose: 50 mg Levothyroxine Sodium (Levothyroxine Sodium 175 Mcg Tablet) 175 mcg PO DAILY@ 0630 [facility] Last Admin: 12/25/21 06:44 Dose: 175 mcg Memantine (Memantine Hcl 10 Mg Tablet) 10 mg PO DAILY [facility] Mirtazapine (Mirtazapine 15 Mg Tablet) 15 mg PO BEDTIME [facility] Last Admin: 12/24/21 21:41 Dose: 15 mg Multivitamins/Vitamin C (Multivitamin Tablet) 1 tab PO DAILY [facility] Nystatin (Nystatin Powder 15 Gm Bottle) 1 appl TOPICAL TID [facility]; Protocol Last Admin: 12/24/21 22:27 Dose: Not Given Pantoprazole Sodium (Pantoprazole Sodium 40 Mg/10 Ml Vial) 40 mg IVPUSH BID@0630,1630 [facility] Last Admin: 12/25/21 06:28 Dose: 40 mg Pharmacy Consult (Consult Rx Perform Med Rec) 1 each MISCELLANE ONCE PRN PRN Reason: Consult order Potassium Chloride (Potassium Chloride Er 10 Meq Capsule.Er) 10 meq PO BID [facility] Last Admin: 12/24/21 21:42 Dose: 10 meq Quetiapine Fumarate (Quetiapine Fumarate 25 Mg Tablet) 25 mg PO DAILY [facility] Quetiapine Fumarate (Quetiapine Fumarate 50 Mg Tablet) 50 mg PO BEDTIME [facility] Last Admin: 12/24/21 21:42 Dose: 50 mg Sodium Chloride (0.9 % Sodium Chloride Flush 3 Ml Syringe) 3 ml IVFLUSH QSHIFT [facility] Last Admin: 12/25/21 00:04 Dose: 3 ml Topiramate (Topiramate 100 Mg Tablet) 200 mg PO BID [facility] Last Admin: 12/24/21 21:42 Dose: 200 mg Home Medications Medication Instructions Recorded Confirmed Last Taken Type aspirin 81 mg tablet,delayed 1 tab PO DAILY 03/01/21 12/24/21 03/27/21 History release atorvastatin 80 mg tablet 1 tab PO BEDTIME 03/01/21 12/24/21 03/26/21 History digoxin 125 mcg (0.125 mg) tablet 1 tab PO DAILY 03/01/21 12/24/21 03/27/21 History fluoxetine 40 mg capsule 1 cap PO DAILY 03/01/21 12/24/21 03/27/21 History furosemide 40 mg tablet 1 tab PO DAILY 03/01/21 12/24/21 03/27/21 History isosorbide mononitrate 30 mg 1 tab PO DAILY 03/01/21 12/24/21 03/27/21 History tablet,extended release 24 hr lamotrigine 25 mg tablet 2 tab PO BID 03/01/21 12/24/21 03/27/21 History levothyroxine 175 mcg tablet 1 tab PO DAILY 03/01/21 12/24/21 03/27/21 History losartan 25 mg tablet 1 tab PO DAILY 03/01/21 12/24/21 03/27/21 History memantine 10 mg tablet 1 tab PO DAILY 03/01/21 12/24/21 03/27/21 History metoprolol tartrate 100 mg tablet 1 tab PO BID 03/01/21 12/24/21 03/27/21 History mirtazapine 15 mg tablet 1 tab PO BEDTIME 03/01/21 12/24/21 03/26/21 History multivitamin 1 tab PO DAILY 03/01/21 12/24/21 03/27/21 History potassium chloride 10 mEq 1 tab PO BID 03/01/21 12/24/21 03/27/21 History tablet,extended release quetiapine 25 mg tablet 25 mg PO DAILY 03/01/21 12/24/21 03/27/21 History quetiapine 25 mg tablet 50 mg PO BEDTIME 03/01/21 12/24/21 03/26/21 History topiramate 200 mg tablet 1 tab PO BID 03/01/21 12/24/21 03/27/21 History warfarin 3 mg tablet 2 tab PO DAILY 03/01/21 12/24/21 03/27/21 History nitrofurantoin 1 cap PO BEDTIME 12/24/21 12/24/21 Unknown History monohydrate/macrocrystals 100 mg capsule nystatin 100,000 unit/gram topical 1 appl topical TID PRN Rash 12/24/21 12/24/21 Unknown History powder ([facility]) Physical Exam Vital Signs: Vital Signs: Last Vital Signs Temp 98.5 F 12/24/21 20:49 Pulse 59 12/25/21 05:56 Resp 18 12/25/21 05:56 BP 138/45 L 12/25/21 05:56 Pulse Ox 100 12/25/21 05:56 O2 Del Method 12/25/21 05:56 O2 Flow Rate 2 12/25/21 05:56 BMI result Body Mass Index 33.7 GENERAL APPEARANCE: in no acute distress, pleasant. NECK: no carotid bruit, + jugular venous distention. SKIN: no suspicious lesions, warm and dry. HEART: no murmurs, regular rate and rhythm. Mechanical 1st heart sound. LUNGS: clear to auscultation bilaterally. ABDOMEN: soft, nontender. EXTREMITIES: no edema. PERIPHERAL PULSES: equal. NEUROLOGIC: Expressive aphasia. Objective Labs and Meds Result diagrams: 12/25/21 08:53 12/25/21 08:53 Lab results: Laboratory Results - last 24 hr 12/24/21 12/24/21 12/24/21 11:43 11:58 11:58 WBC 7.8 RBC 3.13 L Hgb 6.9 L* Hct 26.9 L MCV 85.9 MCH 22.0 L MCHC 25.7 L RDW 20.4 H Plt Count 128 L D MPV Not Reportable Immature Gran % (Auto) 0.3 Neut % (Auto) 78.0 H Lymph % (Auto) 12.0 L [place] % (Auto) 7.5 Eos % (Auto) 1.7 Baso % (Auto) 0.5 Lymph # (Auto) 0.9 L [place] # (Auto) 0.6 Eos # (Auto) 0.1 Baso # (Auto) 0.0 Abs Immat Gran (auto) 0.02 Absolute Neuts (auto) 6.1 Absolute Nucleated RBC 0.020 H Nucleated RBC % (auto) 0.3 H Smear Tech's Comments VERIFIED PT INR Sodium Potassium Chloride Carbon Dioxide Anion Gap BUN Creatinine Estim Creat Clear Calc Estimated GFR Random Glucose Calcium Total Bilirubin AST ALT Alkaline Phosphatase Troponin I High Sens B-Natriuretic Peptide 301 H Total Protein Albumin Urine Color Yellow Urine Appearance Turbid Urine pH 5.5 Ur Specific [place] 1.020 Urine Protein 30 (1+) H Urine Glucose (UA) Negative Urine Ketones Negative Urine Blood Small (1+) H Urine Nitrite Negative Ur Leukocyte Esterase Large (3+) H Urine RBC 3-5 H Urine WBC >50 H Ur Squamous Epith Cells 3-5 Urine Bacteria 4+ Hyaline Casts 3-5 Stool Occult Blood Digoxin COVID-19 (GIGI) COVID-19 [facility] Com Blood Type Antibody Screen Crossmatch 12/24/21 12/24/21 12/24/21 11:58 11:58 11:58 WBC RBC Hgb Hct MCV MCH MCHC RDW Plt Count MPV Immature Gran % (Auto) Neut % (Auto) Lymph % (Auto) [place] % (Auto) Eos % (Auto) Baso % (Auto) Lymph # (Auto) [place] # (Auto) Eos # (Auto) Baso # (Auto) Abs Immat Gran (auto) Absolute Neuts (auto) Absolute Nucleated RBC Nucleated RBC % (auto) Smear Tech's Comments PT 44.7 H INR 3.7 H Sodium 141 Potassium 4.1 Chloride 108 Carbon Dioxide 26 Anion Gap 11 L BUN 22 H Creatinine 1.26 Estim Creat Clear Calc 45.8 Estimated GFR 42 Random Glucose 104 Calcium 8.2 L Total Bilirubin 0.4 AST 15 ALT 12 Alkaline Phosphatase 113 Troponin I High Sens 17.8 H D B-Natriuretic Peptide Total Protein 6.5 Albumin 3.6 Urine Color Urine Appearance Urine pH Ur Specific [place] Urine Protein Urine Glucose (UA) Urine Ketones Urine Blood Urine Nitrite Ur Leukocyte Esterase Urine RBC Urine WBC Ur Squamous Epith Cells Urine Bacteria Hyaline Casts Stool Occult Blood Digoxin COVID-19 (GIGI) COVID-19 [facility] Com Blood Type Antibody Screen Crossmatch 12/24/21 12/24/21 12/24/21 11:58 11:58 14:22 WBC RBC Hgb Hct MCV MCH MCHC RDW Plt Count MPV Immature Gran % (Auto) Neut % (Auto) Lymph % (Auto) [place] % (Auto) Eos % (Auto) Baso % (Auto) Lymph # (Auto) [place] # (Auto) Eos # (Auto) Baso # (Auto) Abs Immat Gran (auto) Absolute Neuts (auto) Absolute Nucleated RBC Nucleated RBC % (auto) Smear Tech's Comments PT INR Sodium Potassium Chloride Carbon Dioxide Anion Gap BUN Creatinine Estim Creat Clear Calc Estimated GFR Random Glucose Calcium Total Bilirubin AST ALT Alkaline Phosphatase Troponin I High Sens B-Natriuretic Peptide Total Protein Albumin Urine Color Urine Appearance Urine pH Ur Specific [place] Urine Protein Urine Glucose (UA) Urine Ketones Urine Blood Urine Nitrite Ur Leukocyte Esterase Urine RBC Urine WBC Ur Squamous Epith Cells Urine Bacteria Hyaline Casts Stool Occult Blood POSITIVE Digoxin 0.9 COVID-19 (GIGI) Negative COVID-19 Clin Com See Note Blood Type Antibody Screen Crossmatch 12/24/21 12/24/21 12/24/21 15:24 21:19 21:20 WBC RBC Hgb 7.7 L Hct 29.0 L MCV MCH MCHC RDW Plt Count MPV Immature Gran % (Auto) Neut % (Auto) Lymph % (Auto) [place] % (Auto) Eos % (Auto) Baso % (Auto) Lymph # (Auto) [place] # (Auto) Eos # (Auto) Baso # (Auto) Abs Immat Gran (auto) Absolute Neuts (auto) Absolute Nucleated RBC Nucleated RBC % (auto) Smear Tech's Comments PT INR Sodium Potassium Chloride Carbon Dioxide Anion Gap BUN Creatinine Estim Creat Clear Calc Estimated GFR Random Glucose Calcium Total Bilirubin AST ALT Alkaline Phosphatase Troponin I High Sens 18.6 H B-Natriuretic Peptide Total Protein Albumin Urine Color Urine Appearance Urine pH Ur Specific [place] Urine Protein Urine Glucose (UA) Urine Ketones Urine Blood Urine Nitrite Ur Leukocyte Esterase Urine RBC Urine WBC Ur Squamous Epith Cells Urine Bacteria Hyaline Casts Stool Occult Blood Digoxin COVID-19 (GIGI) COVID-19 Clin Com Blood Type A Positive Antibody Screen NEGATIVE Crossmatch See Detail Imaging Radiologist's impression: Impressions Chest X-Ray 12/24/21 12:11 IMPRESSION: Cardiomegaly with pulmonary venous congestion and trace pleural effusions. Assessment and Plan (1) Congestive heart failure: Status: Acute (2) Anemia: Status: Acute Plan 71-year-old female with complex cardiovascular issues including previous stroke, coronary artery disease, hypertension, mitral valve replacement in mechanical mitral valve and thyroid disease was presenting with congestive heart failure. She is noted to be anemic. Clinically she is still volume overloaded. Continue IV diuretics. Given anemia and chronic anticoagulation use, she will need further workup including GI input. Currently she is volume overloaded and not radiate for any procedures. Once more stable we can discuss about her periprocedural risk. Mechanical mitral valve has high risk for thrombosis as it is a low flow valve. I think hold Coumadin and let the INR comes down as INR is 2 or lower then heparin should be started. Monitor hemoglobin closely. Thank you for allowing me to participate in the care of your patient. Please feel free to contact me if you have any questions. Procedures Date of Service Date of Service: 12/25/21
[2021-12-25 08:58] LABS: MANUAL DIFF FLAG NO
[2021-12-25 09:07] LABS: Basophils Percent Auto 0.7 % (0-2); Eosinophils Absolute Auto 0.1 X10*3/uL (0.0-0.4); Eosinophils Percent Auto 2.3 % (0-4); Hematocrit 32.2 % (37.0-47.0); Hemoglobin 8.4 g/dl (12.0-16.0); Imm Gran Abs Auto 0.01 X10*3/uL (0.00-0.03); Imm Gran Pct Auto 0.2 % (0.0-0.4); Lymphocytes Percent Auto 17.4 % (20-40); Mean Corpuscular HGB Conc 26.1 g/dl (31.0-35.0); Mean Corpuscular Hemoglobin 22.8 pg (27.0-33.0); Mean Corpuscular Volume 87.3 fL (80.0-98.0); Mean Platelet Volume 12.1 fL (9.4-12.3); Monocytes Absolute Auto 0.5 X10*3/uL (0.1-1.2); NRBC Pct Auto 0.4 /100WBC (0.0-0.2); Neutrophils Percent Auto 71.4 % (45-73); Platelet Count 105 X10*3/uL (160-400); Red Blood Count 3.69 X10*6/uL (4.20-5.50); Red Cell Distribution Width 19.2 % (11.0-16.0); White Blood Count 5.6 X10*3/uL (4.8-10.8)
[2021-12-25 09:11] LABS: INTERNATIONAL NORM RATIO 3.9 (0.9-1.1); Prothrombin Time 46.9 SEC (10.0-13.1)
[2021-12-25 09:17] LABS: Anion Gap 15 (12-20); Blood Urea Nitrogen 19 mg/dL (9-16); Calcium 8.3 mg/dL (8.4-10.2); Carbon Dioxide 21 mmol/L (22-29); Chloride 109 mmol/L (96-108); Creatinine Clr Calc Pharmacy 51.1; Estimated Glomerular Filt Rate 47; Glucose Random 83 mg/dL (60-115); Potassium 4.4 mmol/L (3.3-5.1); Sodium 141 mmol/L (135-145)
[2021-12-25 09:26] LABS: B Type Natriuretic Peptide 339 pg/mL (<100)
[2021-12-25] MEDS: Multivitamin TABLET 1 TAB PO (12:07)
[2021-12-25] MEDS: QUEtiapine Fumarate 25 MG TABLET PO (12:07)
[2021-12-25] MEDS: lamoTRIgine 25 MG TABLET 50 MG PO ×2 (12:07→21:14)
[2021-12-25] MEDS: Isosorbide Mononitrate 30 MG TAB.ER.24H PO (12:07)
[2021-12-25] MEDS: Memantine HCl 10 MG TABLET PO (12:08)
[2021-12-25] MEDS: Topiramate 100 MG TABLET 200 MG PO ×2 (12:08→21:14)
[2021-12-25] MEDS: Digoxin 0.125 MG TABLET PO (12:08)
[2021-12-25] MEDS: FLUoxetine HCl 20 MG CAPSULE 40 MG PO (12:08)
[2021-12-25] MEDS: Nystatin Powder 15 GM BOTTLE 1 APPL TOPICAL ×3 (12:12→21:24)
--- NOTE | 2021-12-25 13:50 | PM.GICN ---
History of Present Illness Data of Consult Service Date: 12/25/21 Requesting physician: Emily MANCILLA Reason for consult: Anemia 70-year-old female with a past medical history of hypertension, hyperlipidemia, dementia, seizures, rheumatic heart disease s/p mitral valve replacement 1991 ([facility]) on coumadin, CHF , history of AICD, DVT, hypothyroidism, dementia, history of seizures, depression, asthma, history of CVA with residual right-sided weakness, aphasia who is currently admitted to the hospital for worsening shortness of breath and was found to have anemia for which GI has been consulted. History was obtained from the daughter present at bedside who states that patient was in her usual state of health on the day of admission, when she rapidly developed shortness of breath as she was stepping out of the bathroom after taking a shower. Patient was not even able to move 2 ft across the room. Appeared significantly sick and winded. This prompted her to take her mom to the emergency room. The daughter does not report any abdominal discomfort, vomiting, changes in appetite. She report occasional blood on wiping, but denies any melena or maroon stools. Patient has never had any previous history of blood transfusion. She has also never had any endoscopic procedures done, to include a screening colonoscopy. Current line undergoing management for possible CHF exacerbation. She was also noted to have supratherapeutic INR of 3.9, warfarin currently on hold. Review of Systems Review of Systems: Yes Unobtainable due to mental condition PMFSH Past Medical History Medical History Acute bronchitis with bronchospasm Acute respiratory failure with hypoxia Anemia Aphasia, post-stroke Congestive heart failure COVID-19 Dementia DVT (deep venous thrombosis) Hypertension On Coumadin for atrial fibrillation Right sided weakness Seizures Family History Family History Daughter No problems noted. Surgical History Surgical History Heart valve replaced Social History Social History Household Members: Children Housing: House Do you presently have visiting nurse or other home services: No (daughter takes care of patient fully) Patient Tobacco Use Status: Former Tobacco user Advance Directives: No Advance Directives Information Provided: Yes service: No Current occupational status: retired and disabled Meds Allergies Allergy/AdvReac Type Severity Reaction Status Date / Time codeine [Codeine] Allergy Unknown GENERIC Verified 03/28/21 00:26 Allergy: CODEINE SULFATE levofloxacin [LEVOFLOXACIN] Allergy Unknown ANGIOEDEMA Verified 03/28/21 00:26 Shellfish Allergy Unknown UNKNOWN Verified 03/28/21 00:26 Codeine Sulfate Allergy Unknown Unknown Uncoded 03/28/21 00:26 Erythromycin Allergy Unknown Unknown Uncoded 03/28/21 00:26 From Erythrocin Allergy Unknown UNKNOWN Uncoded 03/28/21 00:26 Active Medications: Current Medications Atorvastatin Calcium (Atorvastatin Calcium 80 Mg Tablet) 80 mg PO BEDTIME [facility] Last Admin: 12/24/21 21:41 Dose: 80 mg Digoxin (Digoxin 0.125 Mg Tablet) 0.125 mg PO DAILY [facility] Last Admin: 12/25/21 12:08 Dose: 0.125 mg Fluoxetine HCl (Fluoxetine Hcl 20 Mg Capsule) 40 mg PO DAILY [facility] Last Admin: 12/25/21 12:08 Dose: 40 mg Furosemide (Furosemide 20 Mg/2 Ml Vial) 20 mg IVPUSH Q12H [facility]; Protocol Last Admin: 12/25/21 03:16 Dose: 20 mg Ceftriaxone Sodium 1 gm/ (Sodium Chloride) 50 mls @ 100 mls/hr IV Q24H [facility] Last Infusion: 12/24/21 15:36 Dose: Infused Isosorbide Mononitrate (Isosorbide Mononitrate 30 Mg Tab.Er.24h) 30 mg PO DAILY [facility]; Protocol Last Admin: 12/25/21 12:07 Dose: 30 mg Lamotrigine (Lamotrigine 25 Mg Tablet) 50 mg PO BID [facility] Last Admin: 12/25/21 12:07 Dose: 50 mg Levothyroxine Sodium (Levothyroxine Sodium 175 Mcg Tablet) 175 mcg PO DAILY@0630 [facility] Last Admin: 12/25/21 06:44 Dose: 175 mcg Memantine (Memantine Hcl 10 Mg Tablet) 10 mg PO DAILY [facility] Last Admin: 12/25/21 12:08 Dose: 10 mg Mirtazapine (Mirtazapine 15 Mg Tablet) 15 mg PO BEDTIME [facility] Last Admin: 12/24/21 21:41 Dose: 15 mg Multivitamins/Vitamin C (Multivitamin Tablet) 1 tab PO DAILY [facility] Last Admin: 12/25/21 12:07 Dose: 1 tab Nystatin (Nystatin Powder 15 Gm Bottle) 1 appl TOPICAL TID [facility]; Protocol Last Admin: 12/25/21 12:12 Dose: 1 appl Pantoprazole Sodium (Pantoprazole Sodium 40 Mg/10 Ml Vial) 40 mg IVPUSH BID@0630,1630 [facility] Last Admin: 12/25/21 06:28 Dose: 40 mg Pharmacy Consult (Consult Rx Perform Med Rec) 1 each MISCELLANE ONCE PRN PRN Reason: Consult order Potassium Chloride (Potassium Chloride Er 10 Meq Capsule.Er) 10 meq PO BID [facility] Last Admin: 12/25/21 12:08 Dose: 10 meq Quetiapine Fumarate (Quetiapine Fumarate 25 Mg Tablet) 25 mg PO DAILY [facility] Last Admin: 12/25/21 12:07 Dose: 25 mg Quetiapine Fumarate (Quetiapine Fumarate 50 Mg Tablet) 50 mg PO BEDTIME [facility] Last Admin: 12/24/21 21:42 Dose: 50 mg Sodium Chloride (0.9 % Sodium Chloride Flush 3 Ml Syringe) 3 ml IVFLUSH QSHIFT [facility] Last Admin: 12/25/21 12:12 Dose: 3 ml Topiramate (Topiramate 100 Mg Tablet) 200 mg PO BID [facility] Last Admin: 12/25/21 12:08 Dose: 200 mg Home Medications Medication Instructions Recorded Confirmed Last Taken Type aspirin 81 mg tablet,delayed 1 tab PO DAILY 03/01/21 12/24/21 03/27/21 History release atorvastatin 80 mg tablet 1 tab PO BEDTIME 03/01/21 12/24/21 03/26/21 History digoxin 125 mcg (0.125 mg) tablet 1 tab PO DAILY 03/01/21 12/24/21 03/27/21 History fluoxetine 40 mg capsule 1 cap PO DAILY 03/01/21 12/24/21 03/27/21 History furosemide 40 mg tablet 1 tab PO DAILY 03/01/21 12/24/21 03/27/21 History isosorbide mononitrate 30 mg 1 tab PO DAILY 03/01/21 12/24/21 03/27/21 History tablet,extended release 24 hr lamotrigine 25 mg tablet 2 tab PO BID 03/01/21 12/24/21 03/27/21 History levothyroxine 175 mcg tablet 1 tab PO DAILY 03/01/21 12/24/21 03/27/21 History losartan 25 mg tablet 1 tab PO DAILY 03/01/21 12/24/21 03/27/21 History memantine 10 mg tablet 1 tab PO DAILY 03/01/21 12/24/21 03/27/21 History metoprolol tartrate 100 mg tablet 1 tab PO BID 03/01/21 12/24/21 03/27/21 History mirtazapine 15 mg tablet 1 tab PO BEDTIME 03/01/21 12/24/21 03/26/21 History multivitamin 1 tab PO DAILY 03/01/21 12/24/21 03/27/21 History potassium chloride 10 mEq 1 tab PO BID 03/01/21 12/24/21 03/27/21 History tablet,extended release quetiapine 25 mg tablet 25 mg PO DAILY 03/01/21 12/24/21 03/27/21 History quetiapine 25 mg tablet 50 mg PO BEDTIME 03/01/21 12/24/21 03/26/21 History topiramate 200 mg tablet 1 tab PO BID 03/01/21 12/24/21 03/27/21 History warfarin 3 mg tablet 2 tab PO DAILY 03/01/21 12/24/21 03/27/21 History nitrofurantoin 1 cap PO BEDTIME 12/24/21 12/24/21 Unknown History monohydrate/macrocrystals 100 mg capsule nystatin 100,000 unit/gram topical 1 appl topical TID PRN Rash 12/24/21 12/24/21 Unknown History powder ([facility]) Physical Exam Vital Signs: Vital Signs: Last Vital Signs Temp 97.0 F 12/25/21 11:59 Pulse 68 12/25/21 12:13 Resp 18 12/25/21 11:59 BP 132/49 L 12/25/21 11:59 Pulse Ox 95 12/25/21 11:59 O2 Del Method 12/25/21 11:59 O2 Flow Rate 2 12/25/21 11:59 BMI result Body Mass Index 33.7 Gen appear: No acute distress HEENT: no icterus, no cervical lymphadenopathy, edentulous Chest: No overt resp distress CVS: mechanical click, JVD Abd: soft, nontender, nondistended Rectal: large ext and internal hemorroids, yellow stool, no blood on gloved finger Neuro: Awake, aphasic, R sided weakness Ext: peripheral edema Results Labs CBC & Chem 7: 12/25/21 08:53 12/25/21 08:53 Labs: Short CBC 12/24/21 12/25/21 Range/Units 21:20 08:53 WBC 5.6 (4.8-10.8) X10*3/uL Hgb 7.7 L 8.4 L (12.0-16.0) g/dl Hct 29.0 L 32.2 L (37.0-47.0) % Plt Count 105 L (160-400) X10*3/uL BMP 12/25/21 08:53 Sodium 141 Potassium 4.4 Chloride 109 H Carbon Dioxide 21 L BUN 19 H Creatinine 1.13 Calcium 8.3 L Microbiology Microbiology Results: Microbiology 12/24/21 Unknown Urine Catheterized - Straight Catheter Urine Culture - Final Strep agalactiae (Grp B) Imaging Chest x-ray: My impression: consistent with mild pulm edema. Assessment and Plan (1) Anemia: Status: Acute (2) Congestive heart failure: Status: Acute (3) H/O mitral valve replacement with mechanical valve: Status: Acute (4) Anticoagulant long-term use: Status: Acute Plan DDx include occult GIB, hemolysis, myelodysplasia. Given patient's fairly rapidly worsening anemia requiring blood transfusion, occult GI bleeding will need to be ruled out. Recommend bidirectional endoscopy however this will be performed once INR is between 2-2.5 at least. Patient will likely need bridging with IV heparin given her low flow valve which can then be held 2h before procedure. Anticipate she will be ready for endoscopy early next week, pending cardiology eval. Recommendations: - Trend H/H and transfuse for Hb < 7 - Ensure adequate IV access at all times - Retic count, hemolysis labs, iron panel - Continue to hold coumadin and monitor INR daily. Will likely need IV heparin once INR < 2.5, or as per Cardiology. - EGD/colonoscopy tentatively planned for early next week contingent on overall clinical course - Cont low residue/low fibre diet in the meantime - Please start miralax BID Procedures Date of Service Date of Service: 12/25/21
[2021-12-25] MEDS: cefTRIAXone sodium 1 GM in 0.9 % Sodium Chloride 50 ML IV (15:35)
--- NOTE | 2021-12-25 15:46 | P.PNIM_ITS ---
Subjective Subjective Date of Service: 12/25/21 Interval History: anemia ,mech mitral valve. chf Review of Systems shortness of breath seems to be improving, denies any cough. Denies any episode of bleeding or melena overnight INR is supratherapeutic denies any fever or chills or any abdominal pain. Physical Exam Vital Signs: Vital Signs: Last Vital Signs Temp 97.0 F 12/25/21 11:59 Pulse 68 12/25/21 12:13 Resp 18 12/25/21 11:59 BP 132/49 L 12/25/21 11:59 Pulse Ox 95 12/25/21 11:59 O2 Del Method 12/25/21 11:59 O2 Flow Rate 2 12/25/21 11:59 BMI result Body Mass Index 33.7 Appearance: Alert.? Oriented X3.? not in distress.? cvs: rrr, [id number] , no murmur res: clear to auscultation ,no rhonchii or wheezing abd: no rebound or guarding ,nt, bs present. ext pulses present , no cyanosis ,Gait well balanced well coordinated. neuro: axo3 , nonfocal. Objective Data Active Medications Atorvastatin Calcium (Atorvastatin Calcium 80 Mg Tablet) 80 mg PO BEDTIME [facility] Last Admin: 12/24/21 21:41 Dose: 80 mg Documented By: SERENITY Digoxin (Digoxin 0.125 Mg Tablet) 0.125 mg PO DAILY [facility] Last Admin: 12/25/21 12:08 Dose: 0.125 mg Documented By: LESLIE Fluoxetine HCl (Fluoxetine Hcl 20 Mg Capsule) 40 mg PO DAILY [facility] Last Admin: 12/25/21 12:08 Dose: 40 mg Documented By: LESLIE Furosemide (Furosemide 20 Mg/2 Ml Vial) 20 mg IVPUSH Q12H [facility]; Protocol Last Admin: 12/25/21 15:35 Dose: 20 mg Documented By: LESLIE Ceftriaxone Sodium 1 gm/ (Sodium Chloride) 50 mls @ 100 mls/hr IV Q24H [facility] Last Admin: 12/25/21 15:35 Dose: 100 mls/hr Documented By: LESLIE Isosorbide Mononitrate (Isosorbide Mononitrate 30 Mg Tab.Er.24h) 30 mg PO DAILY [facility]; Protocol Last Admin: 12/25/21 12:07 Dose: 30 mg Documented By: LESLIE Lamotrigine (Lamotrigine 25 Mg Tablet) 50 mg PO BID [facility] Last Admin: 12/25/21 12:07 Dose: 50 mg Documented By: LESLIE Levothyroxine Sodium (Levothyroxine Sodium 175 Mcg Tablet) 175 mcg PO DAILY@0630 [facility] Last Admin: 12/25/21 06:44 Dose: 175 mcg Documented By: SERENITY Memantine (Memantine Hcl 10 Mg Tablet) 10 mg PO DAILY [facility] Last Admin: 12/25/21 12:08 Dose: 10 mg Documented By: LESLIE Mirtazapine (Mirtazapine 15 Mg Tablet) 15 mg PO BEDTIME [facility] Last Admin: 12/24/21 21:41 Dose: 15 mg Documented By: SERENITY Multivitamins/Vitamin C (Multivitamin Tablet) 1 tab PO DAILY [facility] Last Admin: 12/25/21 12:07 Dose: 1 tab Documented By: LESLIE Nystatin (Nystatin Powder 15 Gm Bottle) 1 appl TOPICAL TID [facility]; Protocol Last Admin: 12/25/21 15:36 Dose: 1 appl Documented By: LESLIE Pantoprazole Sodium (Pantoprazole Sodium 40 Mg/10 Ml Vial) 40 mg IVPUSH BID@0630,1630 [facility] Last Admin: 12/25/21 15:42 Dose: 40 mg Documented By: LESLIE Pharmacy Consult (Consult Rx Perform Med Rec) 1 each MISCELLANE ONCE PRN PRN Reason: Consult order Potassium Chloride (Potassium Chloride Er 10 Meq Capsule.Er) 10 meq PO BID [facility] Last Admin: 12/25/21 12:08 Dose: 10 meq Documented By: LESLIE Quetiapine Fumarate (Quetiapine Fumarate 25 Mg Tablet) 25 mg PO DAILY [facility] Last Admin: 12/25/21 12:07 Dose: 25 mg Documented By: LESLIE Quetiapine Fumarate (Quetiapine Fumarate 50 Mg Tablet) 50 mg PO BEDTIME [facility] Last Admin: 12/24/21 21:42 Dose: 50 mg Documented By: SERENITY Sodium Chloride (0.9 % Sodium Chloride Flush 3 Ml Syringe) 3 ml IVFLUSH QSHIFT [facility] Last Admin: 12/25/21 15:36 Dose: 3 ml Documented By: LESLIE Topiramate (Topiramate 100 Mg Tablet) 200 mg PO BID [facility] Last Admin: 12/25/21 12:08 Dose: 200 mg Documented By: LESLIE Labs CBC & Chem 7: 12/25/21 08:53 12/25/21 08:53 Labs: Laboratory Results - last 24 hr 12/24/21 12/24/21 12/25/21 11:58 15:24 08:53 MCV 87.3 MCH 22.8 L MCHC 26.1 L RDW 19.2 H Plt Count 105 L MPV 12.1 Immature Gran % (Auto) 0.2 Neut % (Auto) 71.4 Lymph % (Auto) 17.4 L [place] % (Auto) 8.0 Eos % (Auto) 2.3 Baso % (Auto) 0.7 Lymph # (Auto) 1.0 L [place] # (Auto) 0.5 Eos # (Auto) 0.1 Baso # (Auto) 0.0 Abs Immat Gran (auto) 0.01 Absolute Neuts (auto) 4.0 Absolute Nucleated RBC 0.020 H Nucleated RBC % (auto) 0.4 H Smear Path Review SEE NOTE PT INR Anion Gap Estim Creat Clear Calc Estimated GFR Random Glucose Calcium B-Natriuretic Peptide Blood Type A Positive Antibody Screen NEGATIVE Crossmatch See Detail 12/25/21 12/25/21 12/25/21 08:53 08:53 08:53 MCV MCH MCHC RDW Plt Count MPV Immature Gran % (Auto) Neut % (Auto) Lymph % (Auto) [place] % (Auto) Eos % (Auto) Baso % (Auto) Lymph # (Auto) [place] # (Auto) Eos # (Auto) Baso # (Auto) Abs Immat Gran (auto) Absolute Neuts (auto) Absolute Nucleated RBC Nucleated RBC % (auto) Smear Path Review PT 46.9 H INR 3.9 H Anion Gap 15 Estim Creat Clear Calc 51.1 Estimated GFR 47 Random Glucose 83 Calcium 8.3 L B-Natriuretic Peptide 339 H Blood Type Antibody Screen Crossmatch Microbiology Microbiology Results: Microbiology 12/24/21 Unknown Urine Culture - Final Urine Catheterized - Straight Catheter Strep agalactiae (Grp B) Assessment and Plan (1) Congestive heart failure: Status: Acute (2) Anemia: Status: Acute Plan 70-year-old female with a past medical history of hypertension, hyperlipidemia, dementia, seizures, mitral valve replacement (st [facility]) on coumadin, CHF , history of AICD, DVT, hypothyroidism, dementia, history of seizures, depression, asthma, history of CVA with residual right-sided weakness, aphasia admitted for presumed blood loss and acute on chronic CHF. 1. acute blood loss on ch Iron deficiency anemia- H/H 6.9/26.9 (last H/H 8.5/30.6% 05/11)- ?acute blood loss use vs possible chronic slow bleed r/t external hemorrhoid vs other GI bleed. Pt has never undergone endoscopy or colonoscopy -Pt. denies active bleeding. INR supratherapeutic at 3.9. Stool occult blood positive. -Hold asa and warfarin s/p 1 unit prbc -EKG with ST-T wave changes inferior leads, elevated trop 17.8 -18.6(flat) -Continue ferrous sulfate Gi consulted 2. UTI -UA in ED with 3+ leuks, 1+ blood, 4+ bacteria, neg nitrites -Urine culture pending -IV ceftriaxone,urine culture-strep agalacticae,repeat urine cultures aded. -Purewick placed 3. acute on chronic HFrEF- pt reporting sob, though likely from anemia, and increased BLE edema -CXR with trace pleural effusions. BNP elevated from baseline at 301 -IV lasix BID -Pt requires 1 unit PRBC d/t anemia as above. Otherwise fluid restrictions 1L -Purewick placed. Strict I&O -Cardiac diet -BP soft. Hold losartan and metoprolol 4. Paroxysmal AFib- rate controlled -Hold warfarin for now as above -Hold metoprolol and losartan as above -Continue digoxin -AICD in place 5. mechanical mitral valve- [facility]. Follows with [facility] card outpt - INR supratherapeutic at 3.9, hold warfarin for now -Check INR am. -Cardiology consulted-eval noted 6. hypothyroidism - continue LT4 7. dementia - continue memantine 8. mood disorder - continue fluoxetine, mirtazapine, quetiapine 9. partial seizure disorder - continue lamotrigine, topiramate 10. hx CVA - Hold ASA -Continue statin # VTE ppx- mechanical. INR supratherapeutic. need for inpatient: anemia workup-gi eval, chf execerbation-requires iv diuretics Quality Stroke Does the patient have a stroke diagnosis?: No VTE Prior VTE?: Yes VTE Risk Level:: Medical - moderate - high VTE Device Contraindication: N/A - Device Ordered VTE Drug Contraindication: Treatment Not Indicated
--- NOTE | 2021-12-25 15:47 | PC.NURSE ---
Pt was incontinent of urine, cleaned up, changed and repositioned @[id number]
--- NOTE | 2021-12-25 17:08 | PC.NURSE ---
Report given to Antonette SPRINGER for transport to [facility].
[2021-12-25] MEDS: Atorvastatin Calcium 80 MG TABLET PO (21:14)
[2021-12-25] MEDS: QUEtiapine Fumarate 50 MG TABLET PO (21:14)
[2021-12-25] MEDS: Mirtazapine 15 MG TABLET PO (21:14)
[2021-12-26] VITALS (7 sets, daily range): BP systolic 100–136; BP diastolic 58–66; PULSE 58–88; RESP 16–20; TEMP 36.2–37.2; O2SAT 97–100
[2021-12-26] MEDS: Furosemide 20 MG/2 ML VIAL IVPUSH (03:45)
[2021-12-26] MEDS: Levothyroxine Sodium 175 MCG TABLET PO (05:45)
[2021-12-26] MEDS: Pantoprazole Sodium 40 MG/10 ML VIAL IVPUSH ×2 (05:45→16:17)
[2021-12-26 06:25] LABS: Immature Retic Fraction 22.6 % (3.0-15.9); Retic HGB Equivalent 18.1 pg (30.0-35.0); Reticulocyte Percent 1.3 % (0.5-1.8); Reticulocytes Absolute 0.041 X10*6/uL (0.026-0.095)
[2021-12-26 06:28] LABS: Hematocrit 28.2 % (37.0-47.0); Hemoglobin 7.5 g/dl (12.0-16.0); Mean Corpuscular HGB Conc 26.6 g/dl (31.0-35.0); Mean Corpuscular Hemoglobin 22.9 pg (27.0-33.0); Mean Platelet Volume 11.2 fL (9.4-12.3); NRBC Pct Auto 0.3 /100WBC (0.0-0.2); Platelet Count 124 X10*3/uL (160-400); Red Blood Count 3.28 X10*6/uL (4.20-5.50); Red Cell Distribution Width 19.2 % (11.0-16.0); White Blood Count 6.6 X10*3/uL (4.8-10.8)
[2021-12-26 06:40] LABS: B Type Natriuretic Peptide 185 pg/mL (<100)
[2021-12-26 06:54] LABS: INTERNATIONAL NORM RATIO 3.4 (0.9-1.1); Prothrombin Time 41.6 SEC (10.0-13.1)
[2021-12-26 06:57] LABS: Iron 28 mcg/dL (30-160); Percent Iron Saturation 7 % (15-50); Total Iron Binding Capacity 428 mcg/dL (228-428); Unsaturated Iron Binding 400 ug/dL
[2021-12-26 07:02] LABS: Anion Gap 13 (12-20); Blood Urea Nitrogen 17 mg/dL (9-16); Calcium 8.5 mg/dL (8.4-10.2); Carbon Dioxide 29 mmol/L (22-29); Chloride 105 mmol/L (96-108); Creatinine Clr Calc Pharmacy 46.6; Estimated Glomerular Filt Rate 43; Glucose Random 107 mg/dL (60-115); Potassium 3.9 mmol/L (3.3-5.1); Sodium 143 mmol/L (135-145)
[2021-12-26 07:05] LABS: Bilirubin Direct 0.2 mg/dL (0.0-0.5)
[2021-12-26 07:16] LABS: Bilirubin Total 0.3 mg/dL (0.0-1.0)
[2021-12-26 07:21] LABS: Ferritin 12 ng/mL (10-250)
[2021-12-26 09:45] LABS: Folate 8.9 ng/mL (> or = 4.0); Vitamin B12 390 pg/mL (200-900)
[2021-12-26 09:50] LABS: Lactate Dehydrogenase 283 U/L (122-220)
[2021-12-26] MEDS: Multivitamin TABLET 1 TAB PO (10:45)
[2021-12-26] MEDS: polyethylene glycoL 3350 17 GM POWD.PACK PO ×2 (10:45→20:31)
[2021-12-26] MEDS: QUEtiapine Fumarate 25 MG TABLET PO (10:45)
[2021-12-26] MEDS: Ferrous Sulfate 324 MG TABLET.DR PO ×2 (10:46→16:17)
[2021-12-26] MEDS: Isosorbide Mononitrate 30 MG TAB.ER.24H PO (10:46)
[2021-12-26] MEDS: Nystatin Powder 15 GM BOTTLE 1 APPL TOPICAL ×3 (10:46→20:32)
[2021-12-26] MEDS: lamoTRIgine 25 MG TABLET 50 MG PO ×2 (10:46→20:31)
[2021-12-26] MEDS: Memantine HCl 10 MG TABLET PO (10:46)
[2021-12-26] MEDS: 0.9 % Sodium Chloride Flush 3 ML SYRINGE IVFLUSH ×3 (10:47→20:32)
[2021-12-26] MEDS: FLUoxetine HCl 20 MG CAPSULE 40 MG PO (10:47)
[2021-12-26] MEDS: Digoxin 0.125 MG TABLET PO (10:47)
[2021-12-26] MEDS: Topiramate 100 MG TABLET 200 MG PO ×2 (10:47→20:31)
--- NOTE | 2021-12-26 13:47 | PM.PNCARD ---
Subjective Subjective Date of Service: 12/26/21 Interval history: Seen examined at bedside. In 9 symptoms. Hemoglobin 7.5. Physical Exam Vital Signs: Last Vital Signs Temp 98.8 F 12/26/21 11:28 Pulse 88 12/26/21 11:28 Resp 20 12/26/21 11:28 BP 115/66 12/26/21 11:28 Pulse Ox 100 12/26/21 11:28 O2 Del Method 12/26/21 11:28 O2 Flow Rate 2 12/26/21 11:28 BMI result Body Mass Index 33.7 GENERAL APPEARANCE: in no acute distress, pleasant. NECK: no carotid bruit, + jugular venous distention. SKIN: no suspicious lesions, warm and dry. HEART: no murmurs, regular rate and rhythm. Mechanical 1st heart sound. LUNGS: clear to auscultation bilaterally. ABDOMEN: soft, nontender. EXTREMITIES: no edema. PERIPHERAL PULSES: equal. NEUROLOGIC: Expressive aphasia. Objective Labs and Meds Result diagrams: 12/26/21 05:57 12/26/21 05:57 Lab results: Laboratory Results - last 24 hr 12/26/21 12/26/21 12/26/21 05:57 05:57 05:57 WBC 6.6 RBC 3.28 L Hgb 7.5 L Hct 28.2 L MCV 86.0 MCH 22.9 L MCHC 26.6 L RDW 19.2 H Plt Count 124 L MPV 11.2 Absolute Nucleated RBC 0.020 H Nucleated RBC % (auto) 0.3 H Absolute Retic Percent Retic Immature Retic Fraction Retic Hgb Equivalent PT 41.6 H INR 3.4 H Sodium 143 Potassium 3.9 Chloride 105 Carbon Dioxide 29 Anion Gap 13 BUN 17 H Creatinine 1.24 Estim Creat Clear Calc 46.6 Estimated GFR 43 Random Glucose 107 Calcium 8.5 Iron TIBC % Saturation Unsat Iron Binding Ferritin Total Bilirubin Direct Bilirubin Lactate Dehydrogenase B-Natriuretic Peptide Vitamin B12 Folate 12/26/21 12/26/21 12/26/21 05:57 05:57 05:57 WBC RBC Hgb Hct MCV MCH MCHC RDW Plt Count MPV Absolute Nucleated RBC Nucleated RBC % (auto) Absolute Retic Percent Retic Immature Retic Fraction Retic Hgb Equivalent PT INR Sodium Potassium Chloride Carbon Dioxide Anion Gap BUN Creatinine Estim Creat Clear Calc Estimated GFR Random Glucose Calcium Iron 28 L TIBC 428 % Saturation 7 L Unsat Iron Binding 400 Ferritin 12 Total Bilirubin 0.3 Direct Bilirubin Lactate Dehydrogenase 283 H B-Natriuretic Peptide 185 H Vitamin B12 Folate 12/26/21 12/26/21 12/26/21 05:57 05:57 05:57 WBC RBC Hgb Hct MCV MCH MCHC RDW Plt Count MPV Absolute Nucleated RBC Nucleated RBC % (auto) Absolute Retic 0.041 Percent Retic 1.3 Immature Retic Fraction 22.6 H Retic Hgb Equivalent 18.1 L PT INR Sodium Potassium Chloride Carbon Dioxide Anion Gap BUN Creatinine Estim Creat Clear Calc Estimated GFR Random Glucose Calcium Iron TIBC % Saturation Unsat Iron Binding Ferritin Total Bilirubin Direct Bilirubin 0.2 Lactate Dehydrogenase B-Natriuretic Peptide Vitamin B12 390 Folate 8.9 Progress Note: A&P Assessment and plan (1) Anticoagulant long-term use: Status: Acute (2) Congestive heart failure: Status: Acute (3) H/O mitral valve replacement with mechanical valve: Status: Acute (4) Anemia: Status: Acute Plan 71-year-old female with mechanical mitral valve on Coumadin who is presenting with anemia and heart failure. She was transfused. Hemoglobin is still 7.5. GI is seeing her and she may need EGD. Her INR is still therapeutic. She cannot have vitamin K or FFP he has because of high risk of mitral valve thrombosis. Monitor INR daily and once INR is below 2 please start on Lovenox. Clinically overloaded. Increasing Lasix to 40 mg IV b.i.d.. Monitor electrolytes closely. Changing the digoxin to every other day. Thank you for allowing me to participate in the care of your patient. Please feel free to contact me if you have any questions. Time Spent With Patient Time: Total time spent is greater than 50% in coordination of care (as documented) at patient's floor/unit and/or counseling patient: Progress Note: Quality Stroke Does the patient have a stroke diagnosis?: No Procedures Date of Service Date of Service: 12/26/21
[2021-12-26] MEDS: cefTRIAXone sodium 1 GM in 0.9 % Sodium Chloride 50 ML IV (14:02)
--- NOTE | 2021-12-26 14:29 | P.CDIC_ITS ---
CDI Concurrent Query Documentation Clarification: PHYSICIAN'S DOCUMENTATION REQUEST Date of Query: 12/26/21 1430 Patient Name: Lucie Hunter Admit Date: 12/24/21 Dear Doctor, A review of the medical record indicates additional documentation may be needed. Please review below and update the documentation accordingly. Clinical Indicators: Is there a diagnosis that correlates with the findings below: Risk Factors/Clinical Indicators/Treatments Per provider H&P: -PMH of dementia (unspecified) Per RN shift assessment: - Patient aphasic. Unable to assess diso rientation. Based on the above, could you clarify in the Progress Notes which, if any of the following, is the most likely etiology of the confusion/altered mental status? * Dementia with/without behavioral disturbance- indicate type of dementia, such as Alzheimer's, senile, vascular, behavioral, Lewy body, etc. * Other etiology (please specify) * Unable to determine Use of terms such as suspected, likely, concern for, or probable (associated with a specific diagnosis that is being evaluated, monitored, or treated as if it exists) are acceptable and can be coded in the inpatient setting, when docu mented at the time of discharge. Thank you, Katy Yang MS, RN, CCRN Extension: [phone] Please use your independent medical judgment in providing your response. THIS QUERY IS PART OF THE PERMANENT MEDICAL RECORD Provider Response: Other Other Diagnosis: aphasia due to old cva
--- NOTE | 2021-12-26 14:47 | HO.PM.IMPN ---
Subjective Subjective Date of Service: 12/26/21 Interval History: anemia ,mech mitral valve,chf Review of Systems sob seems improving inr therapeutic no overnight event- denies any melena or blood in stool Physical Exam Vital Signs: Vital Signs: Last Vital Signs Temp 98.8 F 12/26/21 11:28 Pulse 88 12/26/21 11:28 Resp 20 12/26/21 11:28 BP 115/66 12/26/21 11:28 Pulse Ox 100 12/26/21 11:28 O2 Del Method 12/26/21 11:28 O2 Flow Rate 2 12/26/21 11:28 BMI result Body Mass Index 33.7 Appearance: awake at her baseline,? not in distress.? cvs: rrr, [id number] , no murmur res: clear to auscultation ,no rhonchii or wheezing abd: no rebound or guarding ,nt, bs present. ext pulses present , no cyanosis. neuro: axo3 , nonfocal. Objective Data Active Medications Atorvastatin Calcium (Atorvastatin Calcium 80 Mg Tablet) 80 mg PO BEDTIME [facility] Last Admin: 12/25/21 21:14 Dose: 80 mg Documented By: ALEX Digoxin (Digoxin 0.125 Mg Tablet) 0.125 mg PO Q2D [facility] Ferrous Sulfate (Ferrous Sulfate 324 Mg Tablet.) 324 mg PO BIDWM [facility] Last Admin: 12/26/21 10:46 Dose: 324 mg Documented By: THA Fluoxetine HCl (Fluoxetine Hcl 20 Mg Capsule) 40 mg PO DAILY [facility] Last Admin: 12/26/21 10:47 Dose: 40 mg Documented By: THA Furosemide (Furosemide 20 Mg/2 Ml Vial) 40 mg IVPUSH BID@0900,1800 [facility]; Protocol Ceftriaxone Sodium 1 gm/ (Sodium Chloride) 50 mls @ 100 mls/hr IV Q24H [facility] Last Admin: 12/26/21 14:02 Dose: 100 mls/hr Documented By: DIAMOND Isosorbide Mononitrate (Isosorbide Mononitrate 30 Mg Tab.Er.24h) 30 mg PO DAILY [facility]; Protocol Last Admin: 12/26/21 10:46 Dose: 30 mg Documented By: THA Lamotrigine (Lamotrigine 25 Mg Tablet) 50 mg PO BID [facility] Last Admin: 12/26/21 10:46 Dose: 50 mg Documented By: THA Levothyroxine Sodium (Levothyroxine Sodium 175 Mcg Tablet) 175 mcg PO DAILY@0630 [facility] Last Admin: 12/26/21 05:45 Dose: 175 mcg Documented By: MIKE Memantine (Memantine Hcl 10 Mg Tablet) 10 mg PO DAILY [facility] Last Admin: 12/26/21 10:46 Dose: 10 mg Documented By: THA Mirtazapine (Mirtazapine 15 Mg Tablet) 15 mg PO BEDTIME [facility] Last Admin: 12/25/21 21:14 Dose: 15 mg Documented By: ALEX Multivitamins/Vitamin C (Multivitamin Tablet) 1 tab PO DAILY [facility] Last Admin: 12/26/21 10:45 Dose: 1 tab Documented By: THA Nystatin (Nystatin Powder 15 Gm Bottle) 1 appl TOPICAL TID [facility]; Protocol Last Admin: 12/26/21 10:46 Dose: 1 appl Documented By: THA Pantoprazole Sodium (Pantoprazole Sodium 40 Mg/10 Ml Vial) 40 mg IVPUSH BID@0630,1630 [facility] Last Admin: 12/26/21 05:45 Dose: 40 mg Documented By: MIKE Pharmacy Consult (Consult Rx Perform Med Rec) 1 each MISCELLANE ONCE PRN PRN Reason: Consult order Polyethylene Glycol (Polyethylene Glycol 3350 17 Gm Powd.Pack) 17 gm PO BID [facility] Last Admin: 12/26/21 10:45 Dose: 17 gm Documented By: THA Potassium Chloride (Potassium Chloride Er 10 Meq Capsule.Er) 10 meq PO BID [facility] Last Admin: 12/26/21 10:46 Dose: 10 meq Documented By: THA Quetiapine Fumarate (Quetiapine Fumarate 25 Mg Tablet) 25 mg PO DAILY [facility] Last Admin: 12/26/21 10:45 Dose: 25 mg Documented By: THA Quetiapine Fumarate (Quetiapine Fumarate 50 Mg Tablet) 50 mg PO BEDTIME [facility] Last Admin: 12/25/21 21:14 Dose: 50 mg Documented By: ALEX Sodium Chloride (0.9 % Sodium Chloride Flush 3 Ml Syringe) 3 ml IVFLUSH QSHIFT [facility] Last Admin: 12/26/21 10:47 Dose: 3 ml Documented By: THA Topiramate (Topiramate 100 Mg Tablet) 200 mg PO BID [facility] Last Admin: 12/26/21 10:47 Dose: 200 mg Documented By: THA Labs CBC & Chem 7: 12/26/21 05:57 12/26/21 05:57 Labs: Laboratory Results - last 24 hr 12/26/21 12/26/21 12/26/21 05:57 05:57 05:57 MCV 86.0 MCH 22.9 L MCHC 26.6 L RDW 19.2 H Plt Count 124 L MPV 11.2 Absolute Nucleated RBC 0.020 H Nucleated RBC % (auto) 0.3 H Absolute Retic Percent Retic Immature Retic Fraction Retic Hgb Equivalent PT 41.6 H INR 3.4 H Anion Gap 13 Estim Creat Clear Calc 46.6 Estimated GFR 43 Random Glucose 107 Calcium 8.5 Iron TIBC % Saturation Unsat Iron Binding Ferritin Total Bilirubin Direct Bilirubin Lactate Dehydrogenase B-Natriuretic Peptide Vitamin B12 Folate 12/26/21 12/26/21 12/26/21 05:57 05:57 05:57 MCV MCH MCHC RDW Plt Count MPV Absolute Nucleated RBC Nucleated RBC % (auto) Absolute Retic Percent Retic Immature Retic Fraction Retic Hgb Equivalent PT INR Anion Gap Estim Creat Clear Calc Estimated GFR Random Glucose Calcium Iron 28 L TIBC 428 % Saturation 7 L Unsat Iron Binding 400 Ferritin 12 Total Bilirubin 0.3 Direct Bilirubin Lactate Dehydrogenase 283 H B-Natriuretic Peptide 185 H Vitamin B12 Folate 12/26/21 12/26/21 12/26/21 05:57 05:57 05:57 MCV MCH MCHC RDW Plt Count MPV Absolute Nucleated RBC Nucleated RBC % (auto) Absolute Retic 0.041 Percent Retic 1.3 Immature Retic Fraction 22.6 H Retic Hgb Equivalent 18.1 L PT INR Anion Gap Estim Creat Clear Calc Estimated GFR Random Glucose Calcium Iron TIBC % Saturation Unsat Iron Binding Ferritin Total Bilirubin Direct Bilirubin 0.2 Lactate Dehydrogenase B-Natriuretic Peptide Vitamin B12 390 Folate 8.9 Microbiology Microbiology Results: Microbiology 12/24/21 Unknown Urine Culture - Final Urine Catheterized - Straight Catheter Strep agalactiae (Grp B) Assessment and Plan (1) Anticoagulant long-term use: Status: Acute (2) Congestive heart failure: Status: Acute (3) Anemia: Status: Acute (4) H/O mitral valve replacement with mechanical valve: Status: Acute Plan 70-year-old female with a past medical history of hypertension, hyperlipidemia, dementia, seizures, mitral valve replacement (st ethan) on coumadin, CHF , history of AICD, DVT, hypothyroidism, dementia, history of seizures, depression, asthma, history of CVA with residual right-sided weakness, aphasia admitted for presumed blood loss and acute on chronic CHF. 1. acute blood loss on Iron deficiency anemia- H/H 6.9/26.9 (last H/H 8.5/30.6% 05/11)- ?acute blood loss use vs possible chronic slow bleed r/t external hemorrhoid vs other GI bleed. Pt has never undergone endoscopy or colonoscopy -Pt. denies active bleeding. INR supratherapeutic at 3.4. Stool occult blood positive. -Hold asa and warfarin s/p? 1 unit prbc -EKG with ST-T wave changes inferior leads, elevated trop 17.8 -18.6(flat) -Continue ferrous sulfate Gi consulted- anemia workup-seeems iron def retic count seems normal slightly elevated 2. UTI -UA in ED with 3+ leuks, 1+ blood, 4+ bacteria, neg nitrites -Urine culture pending -IV ceftriaxone,urine culture-strep agalacticae,repeat urine? cultures aded. -Purewick placed 3. acute on chronic HFrEF- pt reporting sob, though likely from anemia, and increased BLE edema -CXR with trace pleural effusions. BNP elevated from baseline at 301 -IV lasix BID -Pt requires 1 unit PRBC d/t anemia as above. Otherwise fluid restrictions 1L -Purewick placed. Strict I&O- so far 1.5 liter. -Cardiac diet -BP soft. Hold losartan and metoprolol 4. Paroxysmal AFib- rate controlled -Hold warfarin for now as above -Hold metoprolol and losartan as above -Continue digoxin -AICD in place 5. mechanical mitral valve- [facility]. Follows with [facility] card outpt - INR supratherapeutic at 3.4, hold warfarin for now -Check INR am. -Cardiology and Gi eval noted -moniter inr off warfrain when inr 2 - then start iv heparin , moniter h/h tranfuse if h/h <7. possible Gi -EGD/colonoscopy tentatively planned for early next week contingent on overall clinical course. 6. hypothyroidism - continue LT4 7. dementia - continue memantine 8. mood disorder - continue fluoxetine, mirtazapine, quetiapine 9. partial seizure disorder - continue lamotrigine, topiramate 10. hx CVA - Hold ASA -Continue statin # VTE ppx- mechanical. INR supratherapeutic. need for inpatient: anemia workup-gi workup, chf execerbation-requires iv diuretics, inr monitering has mech mitral valve. Quality Stroke Does the patient have a stroke diagnosis?: No VTE Prior VTE?: Yes VTE Risk Level:: Medical - moderate - high VTE Device Contraindication: N/A - Device Ordered VTE Drug Contraindication: Treatment Not Indicated
[2021-12-26] MEDS: Furosemide 20 MG/2 ML VIAL 40 MG IVPUSH (17:58)
[2021-12-26] MEDS: QUEtiapine Fumarate 50 MG TABLET PO (20:31)
[2021-12-26] MEDS: Atorvastatin Calcium 80 MG TABLET PO (20:31)
[2021-12-26] MEDS: Mirtazapine 15 MG TABLET PO (20:31)
[2021-12-27] VITALS (19 sets, daily range): BP systolic 96–141; BP diastolic 43–88; PULSE 69–118; RESP 15–24; TEMP 36.1–37.3; O2SAT 89–100; BMI 30.4
[2021-12-27] MEDS: Pantoprazole Sodium 40 MG/10 ML VIAL IVPUSH ×2 (04:44→17:57)
[2021-12-27] MEDS: Levothyroxine Sodium 175 MCG TABLET PO (04:44)
[2021-12-27 06:39] LABS: Hematocrit 25.4 % (37.0-47.0); Mean Corpuscular HGB Conc 26.8 g/dl (31.0-35.0); Mean Corpuscular Hemoglobin 23.1 pg (27.0-33.0); Mean Corpuscular Volume 86.4 fL (80.0-98.0); Red Blood Count 2.94 X10*6/uL (4.20-5.50); Red Cell Distribution Width 19.3 % (11.0-16.0); White Blood Count 6.7 X10*3/uL (4.8-10.8)
[2021-12-27 06:55] LABS: INTERNATIONAL NORM RATIO 1.8 (0.9-1.1)
[2021-12-27 07:02] LABS: Anion Gap 13 (12-20); Blood Urea Nitrogen 14 mg/dL (9-16); Calcium 8.2 mg/dL (8.4-10.2); Carbon Dioxide 27 mmol/L (22-29); Chloride 105 mmol/L (96-108); Creatinine Clr Calc Pharmacy 56.6; Estimated Glomerular Filt Rate 53; Glucose Random 103 mg/dL (60-115); Sodium 141 mmol/L (135-145)
[2021-12-27 08:15] LABS: Hemoglobin 6.8 g/dl (12.0-16.0); Platelet Count 97 X10*3/uL (160-400)
[2021-12-27] MEDS: Heparin Sodium,Porcine 5,000 UNIT/ML VIAL 6600 UNIT IVPUSH ×2 (09:15→21:14)
[2021-12-27] MEDS: Topiramate 100 MG TABLET 200 MG PO ×2 (09:16→21:26)
[2021-12-27] MEDS: polyethylene glycoL 3350 17 GM POWD.PACK PO ×2 (09:17→21:27)
[2021-12-27] MEDS: Acetaminophen 325 MG TABLET 650 MG PO (09:17)
[2021-12-27] MEDS: FLUoxetine HCl 20 MG CAPSULE 40 MG PO (09:17)
[2021-12-27] MEDS: lamoTRIgine 25 MG TABLET 50 MG PO ×2 (09:17→21:26)
[2021-12-27] MEDS: QUEtiapine Fumarate 25 MG TABLET PO (09:18)
[2021-12-27] MEDS: Multivitamin TABLET 1 TAB PO (09:18)
[2021-12-27] MEDS: Isosorbide Mononitrate 30 MG TAB.ER.24H PO (09:18)
[2021-12-27] MEDS: Ferrous Sulfate 324 MG TABLET.DR PO ×2 (09:18→17:59)
[2021-12-27] MEDS: Memantine HCl 10 MG TABLET PO (09:18)
[2021-12-27] MEDS: Furosemide 20 MG/2 ML VIAL 40 MG IVPUSH ×2 (09:19→17:57)
[2021-12-27] MEDS: 0.9 % Sodium Chloride Flush 3 ML SYRINGE IVFLUSH ×2 (09:20→21:23)
[2021-12-27] MEDS: Nystatin Powder 15 GM BOTTLE 1 APPL TOPICAL ×2 (09:21→21:31)
[2021-12-27 09:24] LABS: Hematocrit 26.8 % (37.0-47.0); Hemoglobin 7.2 g/dl (12.0-16.0); Mean Corpuscular HGB Conc 26.9 g/dl (31.0-35.0); Mean Corpuscular Volume 85.6 fL (80.0-98.0); Mean Platelet Volume 10.7 fL (9.4-12.3); Platelet Count 107 X10*3/uL (160-400); Red Blood Count 3.13 X10*6/uL (4.20-5.50); Red Cell Distribution Width 19.4 % (11.0-16.0); White Blood Count 8.8 X10*3/uL (4.8-10.8)
[2021-12-27] MEDS: Metoprolol Tartrate 5 MG/5 ML VIAL IVPUSH ×2 (09:26→21:21)
[2021-12-27 09:31] LABS: INTERNATIONAL NORM RATIO 1.6 (0.9-1.1)
[2021-12-27 09:34] LABS: PTT Heparin Drip 29.4 SEC (53-77.9)
[2021-12-27] MEDS: Heparin Sodium,Porcine/1/2NS 25,000 UNIT/250 ML IV.SOLN 11.62 UNIT IVCONT (10:21)
--- NOTE | 2021-12-27 11:19 | PM.GIPN ---
Subjective Subjective Date of Service: 12/27/21 Interval History: primary team and cardiology worried, stopped anticoag, HGB going down--high risk for MV thrmbosis no overt bleeding per nursing team no melena or rectal bleeding no hematuria no nose bleeds Critical Care Time (minutes): 0 Physical Exam Vital Signs: Vital Signs: Last Vital Signs Temp 98.4 F 12/27/21 09:51 Pulse 107 H 12/27/21 09:51 Resp 19 12/27/21 09:51 BP 124/76 12/27/21 09:51 Pulse Ox 98 12/27/21 07:35 O2 Del Method 12/27/21 07:35 O2 Flow Rate 2 12/27/21 07:35 BMI result Body Mass Index 30.4 EXAM: GENERAL: The patient is stable VITAL SIGNS:see workflow HEENT: Nonicteric sclerae, PERRLA, EOMI. Oropharynx clear. Moist mucous membranes. Conjunctivae appear well perfused. No thyroid mass. CHEST: Chest wall is nontender. HEART: Regular rate and rhythm without murmurs. LUNGS: Clear to auscultation bilaterally. ABDOMEN: Soft, positive bowel sounds,tender epigastrium, no organomegaly.no flank tenderness RECTAL: pasty yellow, green stool, no melena, no masses, no recxtal bleeding SKIN: No rash, bruising on hands and arms NEUROLOGIC: dysphasia Objective Data Labs CBC & Chem 7: 12/27/21 09:16 12/27/21 05:53 Labs: Laboratory Results - last 24 hr 12/24/21 12/27/21 12/27/21 15:24 05:53 05:53 WBC 6.7 RBC 2.94 L Hgb 6.8 L* Hct 25.4 L MCV 86.4 MCH 23.1 L MCHC 26.8 L RDW 19.3 H Plt Count 97 L MPV 12.0 Absolute Nucleated RBC 0.000 Nucleated RBC % (auto) 0.0 PT 21.0 H INR 1.8 H aPTT Heparin Protocol Sodium Potassium Chloride Carbon Dioxide Anion Gap BUN Creatinine Estim Creat Clear Calc Estimated GFR Random Glucose Calcium Blood Type A Positive Antibody Screen NEGATIVE Crossmatch See Detail 12/27/21 12/27/21 12/27/21 05:53 09:16 09:16 WBC 8.8 RBC 3.13 L Hgb 7.2 L Hct 26.8 L MCV 85.6 MCH 23.0 L MCHC 26.9 L RDW 19.4 H Plt Count 107 L MPV 10.7 Absolute Nucleated RBC 0.000 Nucleated RBC % (auto) 0.0 PT 19.0 H INR 1.6 H aPTT Heparin Protocol 29.4 L Sodium 141 Potassium 4.0 Chloride 105 Carbon Dioxide 27 Anion Gap 13 BUN 14 Creatinine 1.02 Estim Creat Clear Calc 56.6 Estimated GFR 53 Random Glucose 103 Calcium 8.2 L Blood Type Antibody Screen Crossmatch Microbiology Microbiology Results: Microbiology 12/24/21 Unknown Urine Catheterized - Straight Catheter Urine Culture - Final Strep agalactiae (Grp B) Procedures Date of Service Date of Service: 12/27/21 Progress Note: A&P Assessment and plan (1) Anemia: Status: Acute (2) H/O mitral valve replacement with mechanical valve: Status: Acute Plan 1/ Anemia, with low iron, tender epigastrium concern would be slow bleed, ?PUD, dieulafoy, AVM, given discussions with hospitalist and cardiology this is an emergent concern given her need for heparin due to her mitral valve and v high risk of thrombosis PLAN: 1/ emergent EGD and sigmoidoscopy today so she can get heparin safely and avoid mitral valve thrombosis, getting blood right now 2/ check javi test as well Time Spent With Patient Time: Total time spent is greater than 50% in coordination of care (as documented) at patient's floor/unit and/or counseling patient: Quality Stroke Does the patient have a stroke diagnosis?: No VTE Prior VTE?: Yes VTE Risk Level:: Medical - moderate - high VTE Device Contraindication: N/A - Device Ordered VTE Drug Contraindication: Treatment Not Indicated
[2021-12-27] MEDS: Sodium Phosphate,Mono-Dibasic 133 ML ENEMA PR ×2 (11:52→12:18)
[2021-12-27] MEDS: Furosemide 20 MG/2 ML VIAL IVPUSH (12:45)
--- NOTE | 2021-12-27 13:06 | PM.HEMONCCN ---
Subjective - Subjective Chief complaint: Consult for: Significant anemia. Patient: new to practice Consult date: 12/27/21 Requesting Physician: Maykel. Primary Care Provider: Collin Castro MD Medical Summary: DIAGNOSIS: SIGNIFICANT ANEMIA. HPI - Consult Narrative Reason for consult: Consult for: Significant anemia. Narrative: Lucie Hunter is a 71 year old lady who was admitted on 12/24. She presented to the hospital, on 12/24 with a chief complaint of shortness of breath. She was with her daughter who is her development planner and HCP whom she lives with. Daughter reported she has had stafford and increased edema ble R>L x 1 day. Also had foul smelling urine with increased urinary incontinence x several days. Has hx recurrent UTI with incontinence at baseline. She noted increased rash in groin folds, using goldbond and nystatin power. Reports fatigue and weakness and sob. No cp or palpitations. Denies any known melena, hematochezia, hemetemasis. No abd pain. Has never undergone screening colonoscopy. Does have large hemorrhoid DATABASE: H/H in ED was 6.9/26.9% Previously: 8.5/30.6% in 05/11. Stool occult blood positive. . INR supratherapeutic at 3.7. Renal function stable. CXr with cardiomegaly with pulmonary venous congestion and trace pleural effusions. EKG with st-t wave inversions in inferior leads, troponin 17.8, repeat pending. BNP 301. Review of Systems Review of Systems: General: No fevers, malaise, unintentional weight loss Cardiovascular: No chest pain, palpitations, or leg edema Respiratory: + shortness of breath. No wheezing, cough GI: +external hemorrhoid. No abdominal pain, nausea, vomiting, diarrhea, constipation, melena, hematochezia : +urinary incontinence, +malodorous urine. No dysuria,hematuria Neuro: +weakenss/ No headaches, paresthesias Skin: No rashes or lesions PMFSH Medical History Past medical history of hypertension, hyperlipidemia, dementia, seizures, mitral valve replacement (st ethan) on coumadin, CHF , history of AICD, DVT, hypothyroidism, dementia, history of seizures, depression, asthma, history of CVA with residual right-sided weakness, aphasia Acute bronchitis with bronchospasm Acute respiratory failure with hypoxia Anemia Aphasia, post-stroke Congestive heart failure COVID-19 Dementia DVT (deep venous thrombosis) Hypertension On Coumadin for atrial fibrillation Right sided weakness Seizures Family History (Updated 12/24/21 @ 14:34 by LAYTON Cisneros) Daughter No problems noted. Surgical History Heart valve replaced Review of Systems - Constitutional Reports system reviewed and no additional complaints, except as documented, Reports fatigue, Reports lack of energy, Reports malaise, Reports weakness, Reports weight loss, Denies fever(s), Denies headache(s), Denies increased appetite - Eyes Reports system reviewed and no additional complaints, except as documented - ENT Reports system reviewed and no additional complaints, except as documented - Cardiovascular Reports system reviewed and no additional complaints, except as documented - Respiratory Reports no additional respiratory complaints - Gastrointestinal Reports system reviewed and no additional complaints, except as documented - Genitourinary Reports no additional female genitourinary complaints - Musculoskeletal Reports system reviewed and no additional complaints, except as documented - Integumentary/Breasts Skin/Breast: Reports no additional skin complaints - Neurologic Reports system reviewed and no additional complaints, except as documented - Psychiatric Reports system reviewed and no additional complaints, except as documented - Endocrine Reports no additional endocrine complaints - Hematologic/Lymphatic Reports system reviewed and no additional complaints, except as documented - Allergic/Immunologic Reports system reviewed and no additional complaints, except as documented Oncology Screenings - ECOG Performance Status ECOG Performance Status: 2 [facility] Medical History: Medical History (Last Reviewed 01/02/22 @ 09:29 by Therese Cruz, PT) Acute bronchitis with bronchospasm Acute respiratory failure with hypoxia Anemia Aphasia, post-stroke Congestive heart failure COVID-19 Dementia DVT (deep venous thrombosis) Hypertension On Coumadin for atrial fibrillation Prolapsed hemorrhoids Right sided weakness Seizures Functional capacity: wheelchair bound Patient : No Family History: Family History (Last Reviewed 12/25/21 @ 17:35 by Jojo Robles MD) Daughter No problems noted. Surgical History: Surgical History (Last Reviewed 01/02/22 @ 09:29 by Therese Cruz, PT) Heart valve replaced Social History: Social History (Last Reviewed 12/25/21 @ 17:35 by Jojo Robles MD) Living Situation History: Household Members: Family Household Members: Caregiver Housing: House Do you presently have visiting nurse or other home services: No Tobacco History: Patient Tobacco Use Status: Former Tobacco user Occupation Assessmet: service: No Current occupational status: retired Current occupational status: disabled Home Medications and Allergies Current Medications: Current Medications Atorvastatin Calcium (Atorvastatin Calcium 80 Mg Tablet) 80 mg PO BEDTIME [facility] Last Admin: 12/26/21 20:31 Dose: 80 mg Digoxin (Digoxin 0.125 Mg Tablet) 0.125 mg PO Q2D [facility] Ferrous Sulfate (Ferrous Sulfate 324 Mg Tablet.Dr) 324 mg PO BIDWM [facility] Last Admin: 12/27/21 09:18 Dose: 324 mg Fluoxetine HCl (Fluoxetine Hcl 20 Mg Capsule) 40 mg PO DAILY [facility] Last Admin: 12/27/21 09:17 Dose: 40 mg Furosemide (Furosemide 20 Mg/2 Ml Vial) 40 mg IVPUSH BID@0900,1800 [facility]; Protocol Last Admin: 12/27/21 09:19 Dose: 40 mg Heparin Sodium (Porcine) (Heparin Sodium,Porcine 5,000 Unit/Ml Vial) 3,300 unit 40 unit/kg (3300 unit) IVPUSH PROTOCOL BOLUS PRN; Protocol PRN Reason: 40 unit/kg - Heparin Protocol Heparin Sodium (Porcine) (Heparin Sodium,Porcine 5,000 Unit/Ml Vial) 6,600 unit 80 unit/kg (6600 unit) IVPUSH PROTOCOL BOLUS PRN; Protocol PRN Reason: 80 unit/kg - Heparin Protocol Ceftriaxone Sodium 1 gm/ (Sodium Chloride) 50 mls @ 100 mls/hr IV Q24H [facility] Last Infusion: 12/26/21 15:07 Dose: Infused Heparin Sodium/Sodium Chloride (Heparin Sodium,Porcine/1/2ns) 25,000 unit in 250 mls @ 0 mls/hr IVCONT .Q0M [facility]; Protocol Last Titration: 12/27/21 10:31 Dose: 14 units/kg/hr, 11.62 mls/hr Isosorbide Mononitrate (Isosorbide Mononitrate 30 Mg Tab.Er.24h) 30 mg PO DAILY [facility]; Protocol Last Admin: 12/27/21 09:18 Dose: 30 mg Lamotrigine (Lamotrigine 25 Mg Tablet) 50 mg PO BID [facility] Last Admin: 12/27/21 09:17 Dose: 50 mg Levothyroxine Sodium (Levothyroxine Sodium 175 Mcg Tablet) 175 mcg PO DAILY@0630 [facility] Last Admin: 12/27/21 04:44 Dose: 175 mcg Memantine (Memantine Hcl 10 Mg Tablet) 10 mg PO DAILY [facility] Last Admin: 12/27/21 09:18 Dose: 10 mg Mirtazapine (Mirtazapine 15 Mg Tablet) 15 mg PO BEDTIME [facility] Last Admin: 12/26/21 20:31 Dose: 15 mg Multivitamins/Vitamin C (Multivitamin Tablet) 1 tab PO DAILY [facility] Last Admin: 12/27/21 09:18 Dose: 1 tab Nystatin (Nystatin Powder 15 Gm Bottle) 1 appl TOPICAL TID [facility]; Protocol Last Admin: 12/27/21 09:21 Dose: 1 appl Pantoprazole Sodium (Pantoprazole Sodium 40 Mg/10 Ml Vial) 40 mg IVPUSH BID@0630,1630 [facility] Last Admin: 12/27/21 04:44 Dose: 40 mg Pharmacy Consult (Consult Rx Perform Med Rec) 1 each MISCELLANE ONCE PRN PRN Reason: Consult order Polyethylene Glycol (Polyethylene Glycol 3350 17 Gm Powd.Pack) 17 gm PO BID [facility] Last Admin: 12/27/21 09:17 Dose: 17 gm Potassium Chloride (Potassium Chloride Er 10 Meq Capsule.Er) 10 meq PO BID [facility] Last Admin: 12/27/21 09:17 Dose: 10 meq Quetiapine Fumarate (Quetiapine Fumarate 25 Mg Tablet) 25 mg PO DAILY [facility] Last Admin: 12/27/21 09:18 Dose: 25 mg Quetiapine Fumarate (Quetiapine Fumarate 50 Mg Tablet) 50 mg PO BEDTIME [facility] Last Admin: 12/26/21 20:31 Dose: 50 mg Sodium Chloride (0.9 % Sodium Chloride Flush 3 Ml Syringe) 3 ml IVFLUSH QSHIFT [facility] Last Admin: 12/27/21 09:20 Dose: 3 ml Topiramate (Topiramate 100 Mg Tablet) 200 mg PO BID [facility] Last Admin: 12/27/21 09:16 Dose: 200 mg Home Medications Medication Instructions Recorded Confirmed Type aspirin 81 mg tablet,delayed 1 tab PO DAILY 03/01/21 12/24/21 History release atorvastatin 80 mg tablet 1 tab PO BEDTIME 03/01/21 12/24/21 History digoxin 125 mcg (0.125 mg) tablet 1 tab PO DAILY 03/01/21 12/24/21 History fluoxetine 40 mg capsule 1 cap PO DAILY 03/01/21 12/24/21 History furosemide 40 mg tablet 1 tab PO DAILY 03/01/21 12/24/21 History isosorbide mononitrate 30 mg 1 tab PO DAILY 03/01/21 12/24/21 History tablet,extended release 24 hr lamotrigine 25 mg tablet 2 tab PO BID 03/01/21 12/24/21 History levothyroxine 175 mcg tablet 1 tab PO DAILY 03/01/21 12/24/21 History losartan 25 mg tablet 1 tab PO DAILY 03/01/21 12/24/21 History memantine 10 mg tablet 1 tab PO DAILY 03/01/21 12/24/21 History metoprolol tartrate 100 mg tablet 1 tab PO BID 03/01/21 12/24/21 History mirtazapine 15 mg tablet 1 tab PO BEDTIME 03/01/21 12/24/21 History multivitamin 1 tab PO DAILY 03/01/21 12/24/21 History potassium chloride 10 mEq 1 tab PO BID 03/01/21 12/24/21 History tablet,extended release quetiapine 25 mg tablet 25 mg PO DAILY 03/01/21 12/24/21 History quetiapine 25 mg tablet 50 mg PO BEDTIME 03/01/21 12/24/21 History topiramate 200 mg tablet 1 tab PO BID 03/01/21 12/24/21 History warfarin 3 mg tablet 2 tab PO DAILY 03/01/21 12/24/21 History nitrofurantoin 1 cap PO BEDTIME 12/24/21 12/24/21 History monohydrate/macrocrystals 100 mg capsule nystatin 100,000 unit/gram topical 1 appl topical TID PRN Rash 12/24/21 12/24/21 History powder ([facility]) Allergies Allergy/AdvReac Type Severity Reaction Status Date / Time codeine [Codeine] Allergy Unknown GENERIC Verified 03/28/21 00:26 Allergy: CODEINE SULFATE levofloxacin [LEVOFLOXACIN] Allergy Unknown ANGIOEDEMA Verified 03/28/21 00:26 Shellfish Allergy Unknown UNKNOWN Verified 03/28/21 00:26 erythromycin base Allergy Unknown Verified 01/03/22 10:34 Physical Exam Vital signs: Vital Signs Temp 97.9 F 12/27/21 12:43 Pulse 79 12/27/21 12:43 Resp 19 12/27/21 12:43 BP 141/84 H 12/27/21 12:43 Pulse Ox 92 12/27/21 11:30 O2 Del Method 12/27/21 11:30 O2 Flow Rate 2 12/27/21 11:30 Intake & Output 12/26/21 12/27/21 12/27/21 18:59 06:59 18:59 Intake Total 530 / 770 240 / 770 351.937 / 351.937 Output Total 850 / 2250 1400 / 2250 Balance -320 / -1480 -1160 / -1480 351.937 / 351.937 Urine Output (Average ml/kg/hr) 0.77 1.27 1.41 Intake: Intake, Oral Amount 480 / 720 240 / 720 Intake (Blood Product) Amount 0 / 0 Red Blood Cells (E0382) Unit 0 / 0 [id number] Intake, Other Amount 350 / 350 Red Blood Cells (E0382) Unit 350 / 350 [id number] Intake, IV Amount 50 / 50 1.937 / 1.937 cefTRIAXone sodium 1 gm In 0.9 50 / 50 % Sodium Chloride 50 ml @ 100 mls/hr IV Q24H [facility] Rx#: [id number] Heparin Sodium,Porcine/1/2NS 25 1.937 / 1.937 ,000 unit In 250 ml @ Per Protocol IVCONT .Q0M [facility] Rx#: [id number] Output: Output, Urine Amount 850 / 2250 1400 / 2250 Other: Meal Refused Yes Breakfast % Eaten 100% Lunch % Eaten 0% Number of Incontinent Voids 1 Urine purewick pure wic Urine Color Yellow Yellow Weight 83 kg [place] Weight in Grams 81716 Weight 83 kg - Constitutional Present: moderate distress - Routine HEENT Exam Head: Present: normal inspection ENT: Present: mucous membranes moist - Routine Neck Exam Present: supple - Routine Respiratory Exam Present: CTAB - Routine Abdominal Exam Present: normal bowel sounds, tenderness. Absent: organomegaly, nontender - Routine Extremities Exam Present: nontender - Routine Skin Exam Present: intact - Routine Neurological Exam Present: alert, oriented X3, normal speech - Detailed Neurological Exam: Coma Scale Eye Opening: Spontaneous (4) Verbal Response: Oriented (5) - Routine Psychiatric Exam Present: depressed. Absent: normal affect Hem/Onc Consult Result - Labs CBC & Chem 7: 01/05/22 13:33 01/01/22 09:11 Labs: Short CBC 12/27/21 12/27/21 Range/Units 05:53 09:16 WBC 6.7 8.8 (4.8-10.8) X10*3/uL Hgb 6.8 L* 7.2 L (12.0-16.0) g/dl Hct 25.4 L 26.8 L (37.0-47.0) % Plt Count 97 L 107 L (160-400) X10*3/uL BMP 12/27/21 05:53 Sodium 141 Potassium 4.0 Chloride 105 Carbon Dioxide 27 BUN 14 Creatinine 1.02 Calcium 8.2 L Assessment and Plan Patient Active problem list reviewed?: Yes (1) Anemia Status: Acute Assessment and plan: 71-year-old lady presented with fatigue and shortness of breath. She has abdominal pain and tenderness. She was noted to be significantly anemic with hemoglobin of 6.9 on presentation. Currently 7.2 after transfusion. Patient has artificial heart valve. She has been on anticoagulation. DIFFERENTIAL DIAGNOSIS: 1. OCCULT GI BLEEDING: She is on anti-coagulation. Noted to have large hemorrhoids. 2.HEMOLYTIC ANEMIA: Valve related hemolysis, vs Auto-immune hemolytic anemia. 3. ACD: Related to chronic kidney disease. Power Technician clearance 48.5. PLAN: Will proceed with further evaluation. Check Iron profile:/10/29. Check hemolytic screen:retic 1.3, LDH 283. Coomb's test: Negative. Follow up on H & H. Transfuse if Hgb <8 gms. Anti-coagulations is on hold, for now. Thanks, CC: - Time Spent With Patient Time Spent with Patient (in minutes): 25
--- NOTE | 2021-12-27 13:32 | HO.ANESPROP2 ---
[facility] Active Problems Active Problems: All Active Problems (Updated 12/27/21 @ 13:15 by Shereen Johnson MD) Anticoagulant long-term use (Acute) Hypertension (Acute) Congestive heart failure (Acute) Right sided weakness (Acute) Seizures (Acute) Shortness of breath (Acute) Anemia (Acute) H/O mitral valve replacement with mechanical valve (Acute) Acute UTI (Acute) Thyroid disease (Acute) Valvular heart disease (Acute) Dysarthria (Acute) CVA (cerebral vascular accident) (Acute) Past Medical History Medical History Acute bronchitis with bronchospasm Acute respiratory failure with hypoxia Anemia Aphasia, post-stroke Congestive heart failure COVID-19 Dementia DVT (deep venous thrombosis) Hypertension On Coumadin for atrial fibrillation Right sided weakness Seizures Functional capacity: wheelchair bound Family History Family History Daughter No problems noted. Family history of problems with anesthesia: No Surgical History Surgical History Heart valve replaced History of Problems with Anesthesia: No Social History Social History Household Members: Family and Caregiver Housing: House Do you presently have visiting nurse or other home services: No Patient Tobacco Use Status: Former Tobacco user service: No Current occupational status: retired and disabled Meds Allergies Allergy/AdvReac Type Severity Reaction Status Date / Time codeine [Codeine] Allergy Unknown GENERIC Verified 03/28/21 00:26 Allergy: CODEINE SULFATE levofloxacin [LEVOFLOXACIN] Allergy Unknown ANGIOEDEMA Verified 03/28/21 00:26 Shellfish Allergy Unknown UNKNOWN Verified 03/28/21 00:26 Erythromycin Allergy Unknown Unknown Uncoded 03/28/21 00:26 Active Medications: Current Medications Atorvastatin Calcium (Atorvastatin Calcium 80 Mg Tablet) 80 mg PO BEDTIME [facility] Last Admin: 12/26/21 20:31 Dose: 80 mg Digoxin (Digoxin 0.125 Mg Tablet) 0.125 mg PO Q2D [facility] Ferrous Sulfate (Ferrous Sulfate 324 Mg Tablet.) 324 mg PO BIDWM [facility] Last Admin: 12/27/21 09:18 Dose: 324 mg Fluoxetine HCl (Fluoxetine Hcl 20 Mg Capsule) 40 mg PO DAILY [facility] Last Admin: 12/27/21 09:17 Dose: 40 mg Furosemide (Furosemide 20 Mg/2 Ml Vial) 40 mg IVPUSH BID@0900,1800 [facility]; Protocol Last Admin: 12/27/21 09:19 Dose: 40 mg Heparin Sodium (Porcine) (Heparin Sodium,Porcine 5,000 Unit/Ml Vial) 3,300 unit 40 unit/kg (3300 unit) IVPUSH PROTOCOL BOLUS PRN; Protocol PRN Reason: 40 unit/kg - Heparin Protocol Heparin Sodium (Porcine) (Heparin Sodium,Porcine 5,000 Unit/Ml Vial) 6,600 unit 80 unit/kg (6600 unit) IVPUSH PROTOCOL BOLUS PRN; Protocol PRN Reason: 80 unit/kg - Heparin Protocol Ceftriaxone Sodium 1 gm/ (Sodium Chloride) 50 mls @ 100 mls/hr IV Q24H [facility]ALINDA Last Infusion: 12/26/21 15:07 Dose: Infused Heparin Sodium/Sodium Chloride (Heparin Sodium,Porcine/1/2ns) 25,000 unit in 250 mls @ 0 mls/hr IVCONT .Q0M [facility]; Protocol Last Titration: 12/27/21 10:31 Dose: 14 units/kg/hr, 11.62 mls/hr Isosorbide Mononitrate (Isosorbide Mononitrate 30 Mg Tab.Er.24h) 30 mg PO DAILY [facility]; Protocol Last Admin: 12/27/21 09:18 Dose: 30 mg Lamotrigine (Lamotrigine 25 Mg Tablet) 50 mg PO BID ROSALINDA Last Admin: 12/27/21 09:17 Dose: 50 mg Levothyroxine Sodium (Levothyroxine Sodium 175 Mcg Tablet) 175 mcg PO DAILY@0630 [facility] Last Admin: 12/27/21 04:44 Dose: 175 mcg Memantine (Memantine Hcl 10 Mg Tablet) 10 mg PO DAILY [facility] Last Admin: 12/27/21 09:18 Dose: 10 mg Mirtazapine (Mirtazapine 15 Mg Tablet) 15 mg PO BEDTIME [facility] Last Admin: 12/26/21 20:31 Dose: 15 mg Multivitamins/Vitamin C (Multivitamin Tablet) 1 tab PO DAILY [facility] Last Admin: 12/27/21 09:18 Dose: 1 tab Nystatin (Nystatin Powder 15 Gm Bottle) 1 appl TOPICAL TID ROSALINDA; Protocol Last Admin: 12/27/21 09:21 Dose: 1 appl Pantoprazole Sodium (Pantoprazole Sodium 40 Mg/10 Ml Vial) 40 mg IVPUSH BID@9085,7470 [facility] Last Admin: 12/27/21 04:44 Dose: 40 mg Pharmacy Consult (Consult Rx Perform Med Rec) 1 each MISCELLANE ONCE PRN PRN Reason: Consult order Polyethylene Glycol (Polyethylene Glycol 3350 17 Gm Powd.Pack) 17 gm PO BID [facility] Last Admin: 12/27/21 09:17 Dose: 17 gm Potassium Chloride (Potassium Chloride Er 10 Meq Capsule.Er) 10 meq PO BID [facility] Last Admin: 12/27/21 09:17 Dose: 10 meq Quetiapine Fumarate (Quetiapine Fumarate 25 Mg Tablet) 25 mg PO DAILY [facility] Last Admin: 12/27/21 09:18 Dose: 25 mg Quetiapine Fumarate (Quetiapine Fumarate 50 Mg Tablet) 50 mg PO BEDTIME [facility] Last Admin: 12/26/21 20:31 Dose: 50 mg Sodium Chloride (0.9 % Sodium Chloride Flush 3 Ml Syringe) 3 ml IVFLUSH QSHIFT [facility] Last Admin: 12/27/21 09:20 Dose: 3 ml Topiramate (Topiramate 100 Mg Tablet) 200 mg PO BID [facility] Last Admin: 12/27/21 09:16 Dose: 200 mg Home Medications Medication Instructions Recorded Confirmed Last Taken Type aspirin 81 mg tablet,delayed 1 tab PO DAILY 03/01/21 12/24/21 03/27/21 History release atorvastatin 80 mg tablet 1 tab PO BEDTIME 03/01/21 12/24/21 03/26/21 History digoxin 125 mcg (0.125 mg) tablet 1 tab PO DAILY 03/01/21 12/24/21 03/27/21 History fluoxetine 40 mg capsule 1 cap PO DAILY 03/01/21 12/24/21 03/27/21 History furosemide 40 mg tablet 1 tab PO DAILY 03/01/21 12/24/21 03/27/21 History isosorbide mononitrate 30 mg 1 tab PO DAILY 03/01/21 12/24/21 03/27/21 History tablet,extended release 24 hr lamotrigine 25 mg tablet 2 tab PO BID 03/01/21 12/24/21 03/27/21 History levothyroxine 175 mcg tablet 1 tab PO DAILY 03/01/21 12/24/21 03/27/21 History losartan 25 mg tablet 1 tab PO DAILY 03/01/21 12/24/21 03/27/21 History memantine 10 mg tablet 1 tab PO DAILY 03/01/21 12/24/21 03/27/21 History metoprolol tartrate 100 mg tablet 1 tab PO BID 03/01/21 12/24/21 03/27/21 History mirtazapine 15 mg tablet 1 tab PO BEDTIME 03/01/21 12/24/21 03/26/21 History multivitamin 1 tab PO DAILY 03/01/21 12/24/21 03/27/21 History potassium chloride 10 mEq 1 tab PO BID 03/01/21 12/24/21 03/27/21 History tablet,extended release quetiapine 25 mg tablet 25 mg PO DAILY 03/01/21 12/24/21 03/27/21 History quetiapine 25 mg tablet 50 mg PO BEDTIME 03/01/21 12/24/21 03/26/21 History topiramate 200 mg tablet 1 tab PO BID 03/01/21 12/24/21 03/27/21 History warfarin 3 mg tablet 2 tab PO DAILY 03/01/21 12/24/21 03/27/21 History nitrofurantoin 1 cap PO BEDTIME 12/24/21 12/24/21 Unknown History monohydrate/macrocrystals 100 mg capsule nystatin 100,000 unit/gram topical 1 appl topical TID PRN Rash 12/24/21 12/24/21 Unknown History powder ([facility]) Exam Exam Date and Time: December 27, 2021 1332 Height,Weight and Vital Signs: Height 5 ft 5 in Weight 83 kg Last Vital Signs Temp 98.0 F 12/27/21 13:13 Pulse 103 H 12/27/21 13:13 Resp 20 12/27/21 13:13 BP 96/43 L 12/27/21 13:29 Pulse Ox 96 12/27/21 13:18 O2 Del Method 12/27/21 13:18 O2 Flow Rate 3 12/27/21 13:18 Pertinent Lab Results Pertinent Lab Results: Laboratory Tests 12/24/21 12/24/21 12/24/21 11:43 11:58 11:58 WBC 7.8 RBC 3.13 L Hgb 6.9 L* Hct 26.9 L MCV 85.9 MCH 22.0 L MCHC 25.7 L RDW 20.4 H Plt Count 128 L D MPV Not Reportable Immature Gran % (Auto) 0.3 Neut % (Auto) 78.0 H Lymph % (Auto) 12.0 L [place] % (Auto) 7.5 Eos % (Auto) 1.7 Baso % (Auto) 0.5 Lymph # (Auto) 0.9 L [place] # (Auto) 0.6 Eos # (Auto) 0.1 Baso # (Auto) 0.0 Abs Immat Gran (auto) 0.02 Absolute Neuts (auto) 6.1 Absolute Nucleated RBC 0.020 H Nucleated RBC % (auto) 0.3 H Smear Tech's Comments VERIFIED Smear Path Review SEE NOTE Absolute Retic Percent Retic Immature Retic Fraction Retic Hgb Equivalent PT INR aPTT Heparin Protocol Sodium Potassium Chloride Carbon Dioxide Anion Gap BUN Creatinine Estim Creat Clear Calc Estimated GFR Random Glucose Calcium Iron TIBC % Saturation Unsat Iron Binding Ferritin Total Bilirubin Direct Bilirubin AST ALT Alkaline Phosphatase Lactate Dehydrogenase Troponin I High Sens B-Natriuretic Peptide 301 H Total Protein Albumin Vitamin B12 Folate Urine Color Yellow Urine Appearance Turbid Urine pH 5.5 Ur Specific [place] 1.020 Urine Protein 30 (1+) H Urine Glucose (UA) Negative Urine Ketones Negative Urine Blood Small (1+) H Urine Nitrite Negative Ur Leukocyte Esterase Large (3+) H Urine RBC 3-5 H Urine WBC >50 H Ur Squamous Epith Cells 3-5 Urine Bacteria 4+ Hyaline Casts 3-5 Stool Occult Blood Digoxin COVID-19 (GIGI) COVID-19 Clin Com Blood Type Antibody Screen BARRERA, Polyspecific Positive BARRERA Work-up Crossmatch 12/24/21 12/24/21 12/24/21 11:58 11:58 11:58 WBC RBC Hgb Hct MCV MCH MCHC RDW Plt Count MPV Immature Gran % (Auto) Neut % (Auto) Lymph % (Auto) [place] % (Auto) Eos % (Auto) Baso % (Auto) Lymph # (Auto) [place] # (Auto) Eos # (Auto) Baso # (Auto) Abs Immat Gran (auto) Absolute Neuts (auto) Absolute Nucleated RBC Nucleated RBC % (auto) Smear Tech's Comments Smear Path Review Absolute Retic Percent Retic Immature Retic Fraction Retic Hgb Equivalent PT 44.7 H INR 3.7 H aPTT Heparin Protocol Sodium 141 Potassium 4.1 Chloride 108 Carbon Dioxide 26 Anion Gap 11 L BUN 22 H Creatinine 1.26 Estim Creat Clear Calc 45.8 Estimated GFR 42 Random Glucose 104 Calcium 8.2 L Iron TIBC % Saturation Unsat Iron Binding Ferritin Total Bilirubin 0.4 Direct Bilirubin AST 15 ALT 12 Alkaline Phosphatase 113 Lactate Dehydrogenase Troponin I High Sens 17.8 H D B-Natriuretic Peptide Total Protein 6.5 Albumin 3.6 Vitamin B12 Folate Urine Color Urine Appearance Urine pH Ur Specific [place] Urine Protein Urine Glucose (UA) Urine Ketones Urine Blood Urine Nitrite Ur Leukocyte Esterase Urine RBC Urine WBC Ur Squamous Epith Cells Urine Bacteria Hyaline Casts Stool Occult Blood Digoxin COVID-19 (GIGI) COVID-19 Clin Com Blood Type Antibody Screen BARRERA, Polyspecific Positive BARRERA Work-up Crossmatch 12/24/21 12/24/21 12/24/21 11:58 11:58 14:22 WBC RBC Hgb Hct MCV MCH MCHC RDW Plt Count MPV Immature Gran % (Auto) Neut % (Auto) Lymph % (Auto) [place] % (Auto) Eos % (Auto) Baso % (Auto) Lymph # (Auto) [place] # (Auto) Eos # (Auto) Baso # (Auto) Abs Immat Gran (auto) Absolute Neuts (auto) Absolute Nucleated RBC Nucleated RBC % (auto) Smear Tech's Comments Smear Path Review Absolute Retic Percent Retic Immature Retic Fraction Retic Hgb Equivalent PT INR aPTT Heparin Protocol Sodium Potassium Chloride Carbon Dioxide Anion Gap BUN Creatinine Estim Creat Clear Calc Estimated GFR Random Glucose Calcium Iron TIBC % Saturation Unsat Iron Binding Ferritin Total Bilirubin Direct Bilirubin AST ALT Alkaline Phosphatase Lactate Dehydrogenase Troponin I High Sens B-Natriuretic Peptide Total Protein Albumin Vitamin B12 Folate Urine Color Urine Appearance Urine pH Ur Specific [place] Urine Protein Urine Glucose (UA) Urine Ketones Urine Blood Urine Nitrite Ur Leukocyte Esterase Urine RBC Urine WBC Ur Squamous Epith Cells Urine Bacteria Hyaline Casts Stool Occult Blood POSITIVE Digoxin 0.9 COVID-19 (GIGI) Negative COVID-19 Clin Com See Note Blood Type Antibody Screen BARRERA, Polyspecific Positive BARRERA Work-up Crossmatch 12/24/21 12/24/21 12/24/21 15:24 21:19 21:20 WBC RBC Hgb 7.7 L Hct 29.0 L MCV MCH MCHC RDW Plt Count MPV Immature Gran % (Auto) Neut % (Auto) Lymph % (Auto) [place] % (Auto) Eos % (Auto) Baso % (Auto) Lymph # (Auto) [place] # (Auto) Eos # (Auto) Baso # (Auto) Abs Immat Gran (auto) Absolute Neuts (auto) Absolute Nucleated RBC Nucleated RBC % (auto) Smear Tech's Comments Smear Path Review Absolute Retic Percent Retic Immature Retic Fraction Retic Hgb Equivalent PT INR aPTT Heparin Protocol Sodium Potassium Chloride Carbon Dioxide Anion Gap BUN Creatinine Estim Creat Clear Calc Estimated GFR Random Glucose Calcium Iron TIBC % Saturation Unsat Iron Binding Ferritin Total Bilirubin Direct Bilirubin AST ALT Alkaline Phosphatase Lactate Dehydrogenase Troponin I High Sens 18.6 H B-Natriuretic Peptide Total Protein Albumin Vitamin B12 Folate Urine Color Urine Appearance Urine pH Ur Specific [place] Urine Protein Urine Glucose (UA) Urine Ketones Urine Blood Urine Nitrite Ur Leukocyte Esterase Urine RBC Urine WBC Ur Squamous Epith Cells Urine Bacteria Hyaline Casts Stool Occult Blood Digoxin COVID-19 (GIGI) COVID-19 Clin Com Blood Type A Positive Antibody Screen NEGATIVE BARRERA, Polyspecific Positive BARRERA Work-up Crossmatch See Detail 12/25/21 12/25/21 12/25/21 08:53 08:53 08:53 WBC 5.6 RBC 3.69 L Hgb 8.4 L Hct 32.2 L MCV 87.3 MCH 22.8 L MCHC 26.1 L RDW 19.2 H Plt Count 105 L MPV 12.1 Immature Gran % (Auto) 0.2 Neut % (Auto) 71.4 Lymph % (Auto) 17.4 L [place] % (Auto) 8.0 Eos % (Auto) 2.3 Baso % (Auto) 0.7 Lymph # (Auto) 1.0 L [place] # (Auto) 0.5 Eos # (Auto) 0.1 Baso # (Auto) 0.0 Abs Immat Gran (auto) 0.01 Absolute Neuts (auto) 4.0 Absolute Nucleated RBC 0.020 H Nucleated RBC % (auto) 0.4 H Smear Tech's Comments Smear Path Review Absolute Retic Percent Retic Immature Retic Fraction Retic Hgb Equivalent PT 46.9 H INR 3.9 H aPTT Heparin Protocol Sodium 141 Potassium 4.4 Chloride 109 H Carbon Dioxide 21 L Anion Gap 15 BUN 19 H Creatinine 1.13 Estim Creat Clear Calc 51.1 Estimated GFR 47 Random Glucose 83 Calcium 8.3 L Iron TIBC % Saturation Unsat Iron Binding Ferritin Total Bilirubin Direct Bilirubin AST ALT Alkaline Phosphatase Lactate Dehydrogenase Troponin I High Sens B-Natriuretic Peptide Total Protein Albumin Vitamin B12 Folate Urine Color Urine Appearance Urine pH Ur Specific [place] Urine Protein Urine Glucose (UA) Urine Ketones Urine Blood Urine Nitrite Ur Leukocyte Esterase Urine RBC Urine WBC Ur Squamous Epith Cells Urine Bacteria Hyaline Casts Stool Occult Blood Digoxin COVID-19 (GIGI) COVID-19 [facility] Com Blood Type Antibody Screen BARRERA, Polyspecific Positive BARRERA Work-up Crossmatch 12/25/21 12/26/21 12/26/21 08:53 05:57 05:57 WBC 6.6 RBC 3.28 L Hgb 7.5 L Hct 28.2 L MCV 86.0 MCH 22.9 L MCHC 26.6 L RDW 19.2 H Plt Count 124 L MPV 11.2 Immature Gran % (Auto) Neut % (Auto) Lymph % (Auto) [place] % (Auto) Eos % (Auto) Baso % (Auto) Lymph # (Auto) [place] # (Auto) Eos # (Auto) Baso # (Auto) Abs Immat Gran (auto) Absolute Neuts (auto) Absolute Nucleated RBC 0.020 H Nucleated RBC % (auto) 0.3 H Smear Tech's Comments Smear Path Review Absolute Retic Percent Retic Immature Retic Fraction Retic Hgb Equivalent PT 41.6 H INR 3.4 H aPTT Heparin Protocol Sodium Potassium Chloride Carbon Dioxide Anion Gap BUN Creatinine Estim Creat Clear Calc Estimated GFR Random Glucose Calcium Iron TIBC % Saturation Unsat Iron Binding Ferritin Total Bilirubin Direct Bilirubin AST ALT Alkaline Phosphatase Lactate Dehydrogenase Troponin I High Sens B-Natriuretic Peptide 339 H Total Protein Albumin Vitamin B12 Folate Urine Color Urine Appearance Urine pH Ur Specific [place] Urine Protein Urine Glucose (UA) Urine Ketones Urine Blood Urine Nitrite Ur Leukocyte Esterase Urine RBC Urine WBC Ur Squamous Epith Cells Urine Bacteria Hyaline Casts Stool Occult Blood Digoxin COVID-19 (GIGI) COVID-19 [facility] Com Blood Type Antibody Screen BARRERA, Polyspecific Positive BARRERA Work-up Crossmatch 12/26/21 12/26/21 12/26/21 05:57 05:57 05:57 WBC RBC Hgb Hct MCV MCH MCHC RDW Plt Count MPV Immature Gran % (Auto) Neut % (Auto) Lymph % (Auto) [place] % (Auto) Eos % (Auto) Baso % (Auto) Lymph # (Auto) [place] # (Auto) Eos # (Auto) Baso # (Auto) Abs Immat Gran (auto) Absolute Neuts (auto) Absolute Nucleated RBC Nucleated RBC % (auto) Smear Tech's Comments Smear Path Review Absolute Retic Percent Retic Immature Retic Fraction Retic Hgb Equivalent PT INR aPTT Heparin Protocol Sodium 143 Potassium 3.9 Chloride 105 Carbon Dioxide 29 Anion Gap 13 BUN 17 H Creatinine 1.24 Estim Creat Clear Calc 46.6 Estimated GFR 43 Random Glucose 107 Calcium 8.5 Iron TIBC % Saturation Unsat Iron Binding Ferritin 12 Total Bilirubin 0.3 Direct Bilirubin AST ALT Alkaline Phosphatase Lactate Dehydrogenase 283 H Troponin I High Sens B-Natriuretic Peptide 185 H Total Protein Albumin Vitamin B12 Folate Urine Color Urine Appearance Urine pH Ur Specific [place] Urine Protein Urine Glucose (UA) Urine Ketones Urine Blood Urine Nitrite Ur Leukocyte Esterase Urine RBC Urine WBC Ur Squamous Epith Cells Urine Bacteria Hyaline Casts Stool Occult Blood Digoxin COVID-19 (GIGI) COVID-19 [facility] Com Blood Type Antibody Screen BARRERA, Polyspecific Positive BARRERA Work-up Crossmatch 12/26/21 12/26/21 12/26/21 05:57 05:57 05:57 WBC RBC Hgb Hct MCV MCH MCHC RDW Plt Count MPV Immature Gran % (Auto) Neut % (Auto) Lymph % (Auto) [place] % (Auto) Eos % (Auto) Baso % (Auto) Lymph # (Auto) [place] # (Auto) Eos # (Auto) Baso # (Auto) Abs Immat Gran (auto) Absolute Neuts (auto) Absolute Nucleated RBC Nucleated RBC % (auto) Smear Tech's Comments Smear Path Review Absolute Retic 0.041 Percent Retic 1.3 Immature Retic Fraction 22.6 H Retic Hgb Equivalent 18.1 L PT INR aPTT Heparin Protocol Sodium Potassium Chloride Carbon Dioxide Anion Gap BUN Creatinine Estim Creat Clear Calc Estimated GFR Random Glucose Calcium Iron 28 L TIBC 428 % Saturation 7 L Unsat Iron Binding 400 Ferritin Total Bilirubin Direct Bilirubin 0.2 AST ALT Alkaline Phosphatase Lactate Dehydrogenase Troponin I High Sens B-Natriuretic Peptide Total Protein Albumin Vitamin B12 Folate Urine Color Urine Appearance Urine pH Ur Specific [place] Urine Protein Urine Glucose (UA) Urine Ketones Urine Blood Urine Nitrite Ur Leukocyte Esterase Urine RBC Urine WBC Ur Squamous Epith Cells Urine Bacteria Hyaline Casts Stool Occult Blood Digoxin COVID-19 (GIGI) COVID-19 Clin Com Blood Type Antibody Screen BARRERA, Polyspecific Positive BARRERA Work-up Crossmatch 12/26/21 12/27/21 12/27/21 05:57 05:53 05:53 WBC 6.7 RBC 2.94 L Hgb 6.8 L* Hct 25.4 L MCV 86.4 MCH 23.1 L MCHC 26.8 L RDW 19.3 H Plt Count 97 L MPV 12.0 Immature Gran % (Auto) Neut % (Auto) Lymph % (Auto) [place] % (Auto) Eos % (Auto) Baso % (Auto) Lymph # (Auto) [place] # (Auto) Eos # (Auto) Baso # (Auto) Abs Immat Gran (auto) Absolute Neuts (auto) Absolute Nucleated RBC 0.000 Nucleated RBC % (auto) 0.0 Smear Tech's Comments Smear Path Review Absolute Retic Percent Retic Immature Retic Fraction Retic Hgb Equivalent PT 21.0 H INR 1.8 H aPTT Heparin Protocol Sodium Potassium Chloride Carbon Dioxide Anion Gap BUN Creatinine Estim Creat Clear Calc Estimated GFR Random Glucose Calcium Iron TIBC % Saturation Unsat Iron Binding Ferritin Total Bilirubin Direct Bilirubin AST ALT Alkaline Phosphatase Lactate Dehydrogenase Troponin I High Sens B-Natriuretic Peptide Total Protein Albumin Vitamin B12 390 Folate 8.9 Urine Color Urine Appearance Urine pH Ur Specific [place] Urine Protein Urine Glucose (UA) Urine Ketones Urine Blood Urine Nitrite Ur Leukocyte Esterase Urine RBC Urine WBC Ur Squamous Epith Cells Urine Bacteria Hyaline Casts Stool Occult Blood Digoxin COVID-19 (GIGI) COVID-19 Clin Com Blood Type Antibody Screen BARRERA, Polyspecific Positive BARRERA Work-up Crossmatch 12/27/21 12/27/21 12/27/21 05:53 09:16 09:16 WBC 8.8 RBC 3.13 L Hgb 7.2 L Hct 26.8 L MCV 85.6 MCH 23.0 L MCHC 26.9 L RDW 19.4 H Plt Count 107 L MPV 10.7 Immature Gran % (Auto) Neut % (Auto) Lymph % (Auto) [place] % (Auto) Eos % (Auto) Baso % (Auto) Lymph # (Auto) [place] # (Auto) Eos # (Auto) Baso # (Auto) Abs Immat Gran (auto) Absolute Neuts (auto) Absolute Nucleated RBC 0.000 Nucleated RBC % (auto) 0.0 Smear Tech's Comments Smear Path Review Absolute Retic Percent Retic Immature Retic Fraction Retic Hgb Equivalent PT 19.0 H INR 1.6 H aPTT Heparin Protocol 29.4 L Sodium 141 Potassium 4.0 Chloride 105 Carbon Dioxide 27 Anion Gap 13 BUN 14 Creatinine 1.02 Estim Creat Clear Calc 56.6 Estimated GFR 53 Random Glucose 103 Calcium 8.2 L Iron TIBC % Saturation Unsat Iron Binding Ferritin Total Bilirubin Direct Bilirubin AST ALT Alkaline Phosphatase Lactate Dehydrogenase Troponin I High Sens B-Natriuretic Peptide Total Protein Albumin Vitamin B12 Folate Urine Color Urine Appearance Urine pH Ur Specific [place] Urine Protein Urine Glucose (UA) Urine Ketones Urine Blood Urine Nitrite Ur Leukocyte Esterase Urine RBC Urine WBC Ur Squamous Epith Cells Urine Bacteria Hyaline Casts Stool Occult Blood Digoxin COVID-19 (GIGI) COVID-19 Clin Com Blood Type Antibody Screen BARRERA, Polyspecific Positive BARRERA Work-up Crossmatch 12/27/21 11:45 WBC RBC Hgb Hct MCV MCH MCHC RDW Plt Count MPV Immature Gran % (Auto) Neut % (Auto) Lymph % (Auto) [place] % (Auto) Eos % (Auto) Baso % (Auto) Lymph # (Auto) [place] # (Auto) Eos # (Auto) Baso # (Auto) Abs Immat Gran (auto) Absolute Neuts (auto) Absolute Nucleated RBC Nucleated RBC % (auto) Smear Tech's Comments Smear Path Review Absolute Retic Percent Retic Immature Retic Fraction Retic Hgb Equivalent PT INR aPTT Heparin Protocol Sodium Potassium Chloride Carbon Dioxide Anion Gap BUN Creatinine Estim Creat Clear Calc Estimated GFR Random Glucose Calcium Iron TIBC % Saturation Unsat Iron Binding Ferritin Total Bilirubin Direct Bilirubin AST ALT Alkaline Phosphatase Lactate Dehydrogenase Troponin I High Sens B-Natriuretic Peptide Total Protein Albumin Vitamin B12 Folate Urine Color Urine Appearance Urine pH Ur Specific [place] Urine Protein Urine Glucose (UA) Urine Ketones Urine Blood Urine Nitrite Ur Leukocyte Esterase Urine RBC Urine WBC Ur Squamous Epith Cells Urine Bacteria Hyaline Casts Stool Occult Blood Digoxin COVID-19 (GIGI) COVID-19 Clin Com Blood Type Antibody Screen BARRERA, Polyspecific NEGATIVE Positive BARRERA Work-up TNP Crossmatch Airway Mallampati Class: II (Poor dentition, multiple loose) TM Dist: >3cm Neck ROM: Full Heart: irreg Lungs: cta, diminshed at base Assessment and Plan Assessment Anesthesia Assessment: Anesthesia Plan Discussed and Chart Reviewed Final Anesthetic Review Family History of Problems with Anesthesia: No History of Problems with Anesthesia: No NPO: Yes ASA Class: III, IV and Emergency Final Preanesthetic Review: No Changes in Pt Med Stat, Meds/Allgs Chart Reviewed and Consent Obtained/Reviewed Patient Risk: Intermediate Procedure Risk: Intermediate Anesthetic Plan Anesthetic Plan: GA Disposition: Standard PACU
--- NOTE | 2021-12-27 13:44 | MHC.SHP ---
Pre-Procedural Eval Section A Date of Service: 12/27/21 The patient is an INPATIENT: Yes The History & Physical has been completed within 30 days and I have reviewed it.: Yes Section B Chief Complaint: sob, anemia Allergies: Allergies Allergy/AdvReac Type Severity Reaction Status Date / Time codeine [Codeine] Allergy Unknown GENERIC Verified 03/28/21 00:26 Allergy: CODEINE SULFATE levofloxacin [LEVOFLOXACIN] Allergy Unknown ANGIOEDEMA Verified 03/28/21 00:26 Shellfish Allergy Unknown UNKNOWN Verified 03/28/21 00:26 Erythromycin Allergy Unknown Unknown Uncoded 03/28/21 00:26 Plan I have reviewed the history and physical and performed a pertinent physical examination on my patient. No changes have occurred unless specified.
--- NOTE | 2021-12-27 13:44 | W.PM.OPN ---
Operative Note Operative Note Date of Service: 12/27/21 Narrative: Operative Information Procedure Description: EGD, Colonoscopy Indication: anemia Anesthesia: GA FLEXIBLE TRANSORAL UPPER GASTROINTESTINAL ENDOSCOPY AND COLONOSCOPY PROCEDURE NOTE UPPER ENDOSCOPY Consent: Indications for the procedure and potential complications of bleeding, perforation, reaction to medications and missed diagnosis were discussed with the patient and informed consent was obtained. Instrument: Olympus GIF H 190 J mid size upper endoscope Monitoring: Vital signs and clinical assessment, continuous EKG monitoring, Pulse oximetry, Carbon Dioxide monitoring and blood pressure monitoring were done throughout the procedure. Procedure: The patient was placed in the left lateral decubitis position and pre-procedure medications were administered and a bite block was placed. The endoscope was inserted into the mouth and advanced under direct vision to the third part of duodenum. A careful inspection was made as the upper endoscope was withdrawn including a retroflexed examination of the proximal stomach; Findings and interventions are described below. Findings: Larynx:normal Esophagus: GE junction at 40 cm, diaphragm hiatus at 40 cm, normal mucosa Stomach: Granular mucosa. Biopsies were obtained to r/o h pylori. Grade 2 flap valve on retroflexed examination of the cardia. Duodenum: Normal bulb and descending duodenum, bx taken to r/o celiac sprue Intervention: Biopsies as noted above sigmoidoscopy Instrument: Olympus variable stiffness pediatric scope 190L Procedure: The patient was placed in the left lateral decubitis position and pre-procedure medications were administered. After a digital rectal examination of the ano-rectum, the video colonoscope was inserted into the rectum and advanced through the colon to the ascending colon The colonoscope was slowly withdrawn in a retrograde panoramic fashion and the colon mucosa was carefully examined including a retroflexed view of the rectum. Findings and interventions are described below. Procedure Difficulty: easy Findings: Prolapsing hemorrhoid noted on exam Ascending Colon: normal, poor visibility, but no blood seen Transverse Colon -normal, normal stool, no blood seen Descending Colon:moderate severe diverticulosis, no blood seen Sigmoid Colon: moderate severe diverticulosis, no blood seen Rectum: Retroflexion with large prolapsing internal hemorrhoids, grade III with maceration and red mayorga with some ozzing Anorectum - prolapsed hemorrhoid Impression and Post Procedure Diagnosis: Endoscopy Findings: gastritis Colonoscopy Findings: internal hemorrhoids, large, probable source of anemia diverticular disease Plan: Await Pathology results High fiber diet leaflet avoid straining at stool, epsom salts and sitz bath, anusol supps or cream surgical consult can restart heparin, check javi test for completeness Above findings were reviewed with the patient and relevant handouts were provided if indicated.
--- NOTE | 2021-12-27 13:52 | PC.NURSE ---
repositioned two assist. incontinent of urine. stage one coccyx area with blanching. adelina care provided. jonathan connected patients primary nurse.
--- NOTE | 2021-12-27 13:54 | W.PM.CCCN ---
History of Present Illness Data of Consult Service Date: 12/27/21 Requesting physician: Anjelica Brar Primary Care Provider: Collin Castro MD HPI Reason for consult: Level of care 71-year-old lady with underlying history of obesity, dementia, mechanical mitral valve replacement on anticoagulation, congestive heart failure, seizure disorder, DVT, CVA admitted on 12/24/2021 with worsening dyspnea. Noted to have a episodes of AFib with RVR, anemia, and exacerbation of underlying congestive heart failure. Patient with treated with rate control, diuretics, switched to heparin drip, and required several blood transfusion secondary to worsening anemia. She has been evaluated by Gastroenterology service and is planned for an endoscopy. Her dyspnea has improved with diuresis. Patient also is being treated for streptococcal UTI. Review of Systems Constitutional: Constitutional: Denies daytime sleepiness, Denies excessive sweating, Reports fatigue, Denies fever(s), Denies lethargy, Reports malaise, Denies night sweats, Denies snoring and Denies weight loss Eyes: Eyes: Denies blurry vision and Denies itchy eyes ENT: Denies nasal congestion, Denies post nasal drip, Denies sinus pain, Denies sinus pressure and Denies other ( Thrush) Cardiovascular: Cardiovascular: Denies chest pain, Reports pedal edema, Denies dyspnea, Reports dyspnea on exertion, Denies orthopnea and Denies paroxysmal nocturnal dyspnea Respiratory: Respiratory: Denies cough, Denies hemoptysis, Denies excessive phlegm production, Denies dyspnea, Reports dyspnea on exertion, Denies snoring and Denies wheezing Gastrointestinal: Gastrointestinal: Denies abdominal pain and Denies heartburn Musculoskeletal: Musculoskeletal: Denies myalgias, Denies arthralgias and Denies joint swelling Integumentary/Breasts: Skin/Breast: Denies rash Neurologic: Denies seizure-like activity Psychiatric: Psychiatric: Denies abnormal sleep pattern and Denies anxiety Endocrine: Endocrine: Denies excessive sweating, Reports fatigue and Denies heat intolerance Hematologic/Lymphatic: Hematologic/Lymphatic: Denies easy bruising Allergic/Immunologic: Allergic/Immunologic: Denies itchy eyes, Denies seasonal rhinorrhea and Denies wheezing PMFSH Past Medical History Medical History (Updated 12/27/21 @ 14:00 by Albino Rm MD) Acute bronchitis with bronchospasm Acute respiratory failure with hypoxia Anemia Aphasia, post-stroke Congestive heart failure COVID-19 Dementia DVT (deep venous thrombosis) Hypertension On Coumadin for atrial fibrillation Right sided weakness Seizures Functional capacity: wheelchair bound Family History Family History Daughter No problems noted. Surgical History Surgical History (Updated 12/27/21 @ 13:15 by Shereen Johnson MD) Heart valve replaced Social History Social History Household Members: Family and Caregiver Housing: House Do you presently have visiting nurse or other home services: No Patient Tobacco Use Status: Former Tobacco user service: No Current occupational status: retired and disabled Meds Allergies Allergy/AdvReac Type Severity Reaction Status Date / Time codeine [Codeine] Allergy Unknown GENERIC Verified 03/28/21 00:26 Allergy: CODEINE SULFATE levofloxacin [LEVOFLOXACIN] Allergy Unknown ANGIOEDEMA Verified 03/28/21 00:26 Shellfish Allergy Unknown UNKNOWN Verified 03/28/21 00:26 Erythromycin Allergy Unknown Unknown Uncoded 03/28/21 00:26 Active Medications: Current Medications Atorvastatin Calcium (Atorvastatin Calcium 80 Mg Tablet) 80 mg PO BEDTIME [facility] Last Admin: 12/26/21 20:31 Dose: 80 mg Digoxin (Digoxin 0.125 Mg Tablet) 0.125 mg PO Q2D [facility] Ferrous Sulfate (Ferrous Sulfate 324 Mg Tablet.Dr) 324 mg PO BIDWM [facility] Last Admin: 12/27/21 09:18 Dose: 324 mg Fluoxetine HCl (Fluoxetine Hcl 20 Mg Capsule) 40 mg PO DAILY [facility] Last Admin: 12/27/21 09:17 Dose: 40 mg Furosemide (Furosemide 20 Mg/2 Ml Vial) 40 mg IVPUSH BID@0900,1800 [facility]; Protocol Last Admin: 12/27/21 09:19 Dose: 40 mg Heparin Sodium (Porcine) (Heparin Sodium,Porcine 5,000 Unit/Ml Vial) 3,300 unit 40 unit/kg (3300 unit) IVPUSH PROTOCOL BOLUS PRN; Protocol PRN Reason: 40 unit/kg - Heparin Protocol Heparin Sodium (Porcine) (Heparin Sodium,Porcine 5,000 Unit/Ml Vial) 6,600 unit 80 unit/kg (6600 unit) IVPUSH PROTOCOL BOLUS PRN; Protocol PRN Reason: 80 unit/kg - Heparin Protocol Ceftriaxone Sodium 1 gm/ (Sodium Chloride) 50 mls @ 100 mls/hr IV Q24H [facility] Last Infusion: 12/26/21 15:07 Dose: Infused Heparin Sodium/Sodium Chloride (Heparin Sodium,Porcine/1/2ns) 25,000 unit in 250 mls @ 0 mls/hr IVCONT .Q0M [facility]; Protocol Last Titration: 12/27/21 10:31 Dose: 14 units/kg/hr, 11.62 mls/hr Isosorbide Mononitrate (Isosorbide Mononitrate 30 Mg Tab.Er.24h) 30 mg PO DAILY [facility]; Protocol Last Admin: 12/27/21 09:18 Dose: 30 mg Lamotrigine (Lamotrigine 25 Mg Tablet) 50 mg PO BID [facility] Last Admin: 12/27/21 09:17 Dose: 50 mg Levothyroxine Sodium (Levothyroxine Sodium 175 Mcg Tablet) 175 mcg PO DAILY@0630 [facility] Last Admin: 12/27/21 04:44 Dose: 175 mcg Memantine (Memantine Hcl 10 Mg Tablet) 10 mg PO DAILY [facility] Last Admin: 12/27/21 09:18 Dose: 10 mg Mirtazapine (Mirtazapine 15 Mg Tablet) 15 mg PO BEDTIME [facility] Last Admin: 12/26/21 20:31 Dose: 15 mg Multivitamins/Vitamin C (Multivitamin Tablet) 1 tab PO DAILY [facility] Last Admin: 12/27/21 09:18 Dose: 1 tab Nystatin (Nystatin Powder 15 Gm Bottle) 1 appl TOPICAL TID [facility]; Protocol Last Admin: 12/27/21 09:21 Dose: 1 appl Pantoprazole Sodium (Pantoprazole Sodium 40 Mg/10 Ml Vial) 40 mg IVPUSH BID@0630,1630 [facility] Last Admin: 12/27/21 04:44 Dose: 40 mg Pharmacy Consult (Consult Rx Perform Med Rec) 1 each MISCELLANE ONCE PRN PRN Reason: Consult order Polyethylene Glycol (Polyethylene Glycol 3350 17 Gm Powd.Pack) 17 gm PO BID [facility] Last Admin: 12/27/21 09:17 Dose: 17 gm Potassium Chloride (Potassium Chloride Er 10 Meq Capsule.Er) 10 meq PO BID [facility] Last Admin: 12/27/21 09:17 Dose: 10 meq Quetiapine Fumarate (Quetiapine Fumarate 25 Mg Tablet) 25 mg PO DAILY [facility] Last Admin: 09/09/22 09:18 Dose: 25 mg Quetiapine Fumarate (Quetiapine Fumarate 50 Mg Tablet) 50 mg PO BEDTIME [facility] Last Admin: 12/26/21 20:31 Dose: 50 mg Sodium Chloride (0.9 % Sodium Chloride Flush 3 Ml Syringe) 3 ml IVFLUSH QSHIFT [facility] Last Admin: 12/27/21 09:20 Dose: 3 ml Topiramate (Topiramate 100 Mg Tablet) 200 mg PO BID [facility] Last Admin: 12/27/21 09:16 Dose: 200 mg Home Medications Medication Instructions Recorded Confirmed Last Taken Type aspirin 81 mg tablet,delayed 1 tab PO DAILY 03/01/21 12/24/21 03/27/21 History release atorvastatin 80 mg tablet 1 tab PO BEDTIME 03/01/21 12/24/21 03/26/21 History digoxin 125 mcg (0.125 mg) tablet 1 tab PO DAILY 03/01/21 12/24/21 03/27/21 History fluoxetine 40 mg capsule 1 cap PO DAILY 03/01/21 12/24/21 03/27/21 History furosemide 40 mg tablet 1 tab PO DAILY 03/01/21 12/24/21 03/27/21 History isosorbide mononitrate 30 mg 1 tab PO DAILY 03/01/21 12/24/21 03/27/21 History tablet,extended release 24 hr lamotrigine 25 mg tablet 2 tab PO BID 03/01/21 12/24/21 03/27/21 History levothyroxine 175 mcg tablet 1 tab PO DAILY 03/01/21 12/24/21 03/27/21 History losartan 25 mg tablet 1 tab PO DAILY 03/01/21 12/24/21 03/27/21 History memantine 10 mg tablet 1 tab PO DAILY 03/01/21 12/24/21 03/27/21 History metoprolol tartrate 100 mg tablet 1 tab PO BID 03/01/21 12/24/21 03/27/21 History mirtazapine 15 mg tablet 1 tab PO BEDTIME 03/01/21 12/24/21 03/26/21 History multivitamin 1 tab PO DAILY 03/01/21 12/24/21 03/27/21 History potassium chloride 10 mEq 1 tab PO BID 03/01/21 12/24/21 03/27/21 History tablet,extended release quetiapine 25 mg tablet 25 mg PO DAILY 03/01/21 12/24/21 03/27/21 History quetiapine 25 mg tablet 50 mg PO BEDTIME 03/01/21 12/24/21 03/26/21 History topiramate 200 mg tablet 1 tab PO BID 03/01/21 12/24/21 03/27/21 History warfarin 3 mg tablet 2 tab PO DAILY 03/01/21 12/24/21 03/27/21 History nitrofurantoin 1 cap PO BEDTIME 12/24/21 12/24/21 Unknown History monohydrate/macrocrystals 100 mg capsule nystatin 100,000 unit/gram topical 1 appl topical TID PRN Rash 12/24/21 12/24/21 Unknown History powder ([facility]) Physical Exam Vital Signs: Vital Signs: Last Vital Signs Temp 98.0 F 12/27/21 13:13 Pulse 103 H 12/27/21 13:13 Resp 20 12/27/21 13:13 BP 96/43 L 12/27/21 13:29 Pulse Ox 96 12/27/21 13:18 O2 Del Method 12/27/21 13:18 O2 Flow Rate 3 12/27/21 13:18 BMI result Body Mass Index 30.4 Const: General: no acute distress and alert Nutritional Appearance: obese Orientation/consciousness: Other orientation findings ( oriented) HEENT: Head: Yes atraumatic Mouth: no other ( thrush) Throat: No postnasal drainage Eyes: General: appearance normal, both eyes and all related structures Sclerae: sclerae normal EOM: EOMs intact bilaterally Neck: Neck: Yes supple Lymphatic: no lymphadenopathy noted Resp: Effort & Inspection: normal respiratory effort and no use of accessory muscles Auscultation: clear to auscultation bilaterally Cardio: Rate: tachycardic Rhythm: regular rhythm Heart sounds: no gallops, no murmurs and no rubs GI: Palpation (GI): Soft to palpation and Other GI palpation findings present ( nontender) Skin: General skin exam: other ( warm) Rashes: no rashes Extrem: General: No clubbing, No cyanosis and Yes edema (1+ bilateral) Results Labs CBC & Chem 7: 12/27/21 09:16 12/27/21 05:53 Labs: Short CBC 12/27/21 12/27/21 Range/Units 05:53 09:16 WBC 6.7 8.8 (4.8-10.8) X10*3/uL Hgb 6.8 L* 7.2 L (12.0-16.0) g/dl Hct 25.4 L 26.8 L (37.0-47.0) % Plt Count 97 L 107 L (160-400) X10*3/uL BMP 12/27/21 05:53 Sodium 141 Potassium 4.0 Chloride 105 Carbon Dioxide 27 BUN 14 Creatinine 1.02 Calcium 8.2 L Microbiology Microbiology Results: Microbiology 12/24/21 Unknown Urine Catheterized - Straight Catheter Urine Culture - Final Strep agalactiae (Grp B) Assessment and Plan (1) Congestive heart failure: Status: Acute (2) Afib: Status: Acute (3) Acute respiratory failure with hypoxia: Status: Acute (4) Anemia: Status: Acute (5) H/O mitral valve replacement with mechanical valve: Status: Acute (6) Acute UTI: Status: Acute Plan Impression: 71-year-old lady admitted with worsening dyspnea secondary to exacerbation of underlying congestive heart failure further complicated by acute anemia and possible GI blood losses. Treated with diuresis, blood transfusions, and is being planned for endoscopy. At this time of this evaluation patient has normal hemodynamics and her respiratory status stable on supplemental oxygen at 2 L. Recommendations: Agree with her current treatment plan including 1 now GI blood losses, PRBC support, diuresis, rate control. Consider addition of albumin for oncotic support. At this time patient does not require intensive care unit level of monitoring, please notify for evaluations if patient's condition changes.
--- NOTE | 2021-12-27 14:38 | PC.NURSE ---
Pt alert and oriented x3 but has expressive aphasia. She understands simple Yes and No questions. This am pt's herat HR was up in the 120s-160s sustaining. notified. Metoprolo IV ordered and given with HR improvement in the 90s-100s. Critical H&H level of 6.8 and 25.4. 1unit PRBC given. Pt was also started on Heparin dripp but run for only 10-15mins before being paused per natural gas inspector. Pt aslo seen and evaluated by GI and kept NPO in the am for Endoscopy.
--- NOTE | 2021-12-27 15:18 | P.PNIM_ITS ---
Subjective Subjective Date of Service: 12/27/21 Interval History: anemia , afib with breif rvr ,mech mitral valve, external hameorriods Review of Systems Patient had brief episode of AFib with RVR this morning, otherwise denies any chest pain or shortness of breath or abdominal pain or fever chills or cough or phlegm. Discussed with the staff overnight no joesph bleeding. Physical Exam Vital Signs: Vital Signs: Last Vital Signs Temp 98.0 F 12/27/21 13:13 Pulse 103 H 12/27/21 13:13 Resp 20 12/27/21 13:13 BP 96/43 L 12/27/21 13:29 Pulse Ox 96 12/27/21 13:18 O2 Del Method 12/27/21 13:18 O2 Flow Rate 3 12/27/21 13:18 BMI result Body Mass Index 30.4 Appearance: Alert.?awake -at baseline cvs:irregular rythem, [id number]. res: air entry fair ,diminshed at bases. abd: no rebound or guarding ,nt, bs present. ext pulses present , no cyanosis . neuro: nonfocal. Objective Data Active Medications Atorvastatin Calcium (Atorvastatin Calcium 80 Mg Tablet) 80 mg PO BEDTIME [facility] Last Admin: 12/26/21 20:31 Dose: 80 mg Documented By: DINAH Digoxin (Digoxin 0.125 Mg Tablet) 0.125 mg PO Q2D [facility] Ferrous Sulfate (Ferrous Sulfate 324 Mg Tablet.) 324 mg PO BIDWM [facility] Last Admin: 12/27/21 09:18 Dose: 324 mg Documented By: PJ Fluoxetine HCl (Fluoxetine Hcl 20 Mg Capsule) 40 mg PO DAILY [facility] Last Admin: 12/27/21 09:17 Dose: 40 mg Documented By: PJ Furosemide (Furosemide 20 Mg/2 Ml Vial) 40 mg IVPUSH BID@0900,1800 [facility]; Protocol Last Admin: 12/27/21 09:19 Dose: 40 mg Documented By: PJ Heparin Sodium (Porcine) (Heparin Sodium,Porcine 5,000 Unit/Ml Vial) 3,300 unit 40 unit/kg (3300 unit) IVPUSH PROTOCOL BOLUS PRN; Protocol PRN Reason: 40 unit/kg - Heparin Protocol Heparin Sodium (Porcine) (Heparin Sodium,Porcine 5,000 Unit/Ml Vial) 6,600 unit 80 unit/kg (6600 unit) IVPUSH PROTOCOL BOLUS PRN; Protocol PRN Reason: 80 unit/kg - Heparin Protocol Ceftriaxone Sodium 1 gm/ (Sodium Chloride) 50 mls @ 100 mls/hr IV Q24H [facility] Last Infusion: 12/26/21 15:07 Dose: 0 mls/hr Documented By: DIAMOND Heparin Sodium/Sodium Chloride (Heparin Sodium,Porcine/1/2ns) 25,000 unit in 250 mls @ 0 mls/hr IVCONT .Q0M [facility]; Protocol Last Titration: 12/27/21 10:31 Dose: 14 units/kg/hr, 11.62 mls/hr Documented By: PJ Co-signed By: EVETTE Albumin Human (Kedbumin 25 %) 100 mls @ 100 mls/hr IV Q6H [facility] Stop: 12/28/21 09:29 Isosorbide Mononitrate (Isosorbide Mononitrate 30 Mg Tab.Er.24h) 30 mg PO DAILY [facility]; Protocol Last Admin: 12/27/21 09:18 Dose: 30 mg Documented By: PJ Lamotrigine (Lamotrigine 25 Mg Tablet) 50 mg PO BID [facility] Last Admin: 12/27/21 09:17 Dose: 50 mg Documented By: PJ Levothyroxine Sodium (Levothyroxine Sodium 175 Mcg Tablet) 175 mcg PO DAILY@0630 [facility] Last Admin: 12/27/21 04:44 Dose: 175 mcg Documented By: DINAH Memantine (Memantine Hcl 10 Mg Tablet) 10 mg PO DAILY [facility] Last Admin: 12/27/21 09:18 Dose: 10 mg Documented By: PJ Mirtazapine (Mirtazapine 15 Mg Tablet) 15 mg PO BEDTIME [facility] Last Admin: 12/26/21 20:31 Dose: 15 mg Documented By: DINAH Multivitamins/Vitamin C (Multivitamin Tablet) 1 tab PO DAILY [facility] Last Admin: 12/27/21 09:18 Dose: 1 tab Documented By: PJ Nystatin (Nystatin Powder 15 Gm Bottle) 1 appl TOPICAL TID [facility]; Protocol Last Admin: 12/27/21 09:21 Dose: 1 appl Documented By: JP Pantoprazole Sodium (Pantoprazole Sodium 40 Mg/10 Ml Vial) 40 mg IVPUSH BID@3831,9170 [facility] Last Admin: 12/27/21 04:44 Dose: 40 mg Documented By: DINAH Pharmacy Consult (Consult Rx Perform Med Rec) 1 each MISCELLANE ONCE PRN PRN Reason: Consult order Polyethylene Glycol (Polyethylene Glycol 3350 17 Gm Powd.Pack) 17 gm PO BID [facility] Last Admin: 12/27/21 09:17 Dose: 17 gm Documented By: PJ Potassium Chloride (Potassium Chloride Er 10 Meq Capsule.Er) 10 meq PO BID [facility] Last Admin: 12/27/21 09:17 Dose: 10 meq Documented By: PJ Quetiapine Fumarate (Quetiapine Fumarate 25 Mg Tablet) 25 mg PO DAILY [facility] Last Admin: 12/27/21 09:18 Dose: 25 mg Documented By: PJ Quetiapine Fumarate (Quetiapine Fumarate 50 Mg Tablet) 50 mg PO BEDTIME [facility] Last Admin: 12/26/21 20:31 Dose: 50 mg Documented By: DINAH Sodium Chloride (0.9 % Sodium Chloride Flush 3 Ml Syringe) 3 ml IVFLUSH QSHIFT [facility] Last Admin: 12/27/21 09:20 Dose: 3 ml Documented By: PJ Topiramate (Topiramate 100 Mg Tablet) 200 mg PO BID [facility] Last Admin: 12/27/21 09:16 Dose: 200 mg Documented By: PJ Labs CBC & Chem 7: 12/27/21 09:16 12/27/21 05:53 Labs: Laboratory Results - last 24 hr 12/24/21 12/27/21 12/27/21 15:24 05:53 05:53 MCV 86.4 MCH 23.1 L MCHC 26.8 L RDW 19.3 H Plt Count 97 L MPV 12.0 Absolute Nucleated RBC 0.000 Nucleated RBC % (auto) 0.0 PT 21.0 H INR 1.8 H aPTT Heparin Protocol Anion Gap Estim Creat Clear Calc Estimated GFR Random Glucose Calcium Blood Type A Positive Antibody Screen NEGATIVE BARRERA, Polyspecific Positive BARRERA Work-up Crossmatch See Detail 12/27/21 12/27/21 12/27/21 05:53 09:16 09:16 MCV 85.6 MCH 23.0 L MCHC 26.9 L RDW 19.4 H Plt Count 107 L MPV 10.7 Absolute Nucleated RBC 0.000 Nucleated RBC % (auto) 0.0 PT 19.0 H INR 1.6 H aPTT Heparin Protocol 29.4 L Anion Gap 13 Estim Creat Clear Calc 56.6 Estimated GFR 53 Random Glucose 103 Calcium 8.2 L Blood Type Antibody Screen BARRERA, Polyspecific Positive BARRERA Work-up Crossmatch 12/27/21 11:45 MCV MCH MCHC RDW Plt Count MPV Absolute Nucleated RBC Nucleated RBC % (auto) PT INR aPTT Heparin Protocol Anion Gap Estim Creat Clear Calc Estimated GFR Random Glucose Calcium Blood Type Antibody Screen BARRERA, Polyspecific NEGATIVE Positive BARRREA Work-up TNP Crossmatch Assessment and Plan (1) Acute respiratory failure with hypoxia: Status: Acute (2) Afib: Status: Acute (3) Anticoagulant long-term use: Status: Acute (4) Congestive heart failure: Status: Acute (5) Anemia: Status: Acute Plan 70-year-old female with a past medical history of hypertension, hyperlipidemia, dementia, seizures, mitral valve replacement (st eth[facility]) on coumadin, CHF , history of AICD, DVT, hypothyroidism, dementia, history of seizures, depression, asthma, history of CVA with residual right-sided weakness, aphasia admitted for presumed blood loss and acute on chronic CHF. 1. acute blood loss on Iron deficiency anemia- H/H 6.9/26.9 (last H/H 8.5/30.6% 05/11)- ?acute blood loss use vs possible chronic slow bleed r/t external hemorrhoid vs other GI bleed. -Pt. denies active bleeding. Stool occult blood positive. Initial INR was supratherapeutic but today INR is 1.8 elevated trop 17.8 -18.6(flat) anemia workup-seeems iron def retic count seems normal ldh slightly elevated Haptoglobin pending, Sherin test also added Patient had EGD and sigmoidoscopy this afternoon-EGD seems fine, biopsies taken from gastric area as well as duodenal area. Sigmoidoscopy/colonoscopy:internal hemorrhoids, large, probable source of anemia diverticular disease Today also got 1 PRBC, so far 2 PRBC transfusion since admission-last H&H was 7.2/26.8. hematology evaluation. Monitor hb/hct closley. Patient also required brief BiPAP use after the EGD/colonoscopy procedure-did well and off BiPAP, sats are better on 100% on 3 liter,slowly taper down 2. UTI -UA in ED with 3+ leuks, 1+ blood, 4+ bacteria, neg nitrites -Urine culture pending -IV ceftriaxone,urine culture-strep agalacticae,repeat urine? cultures aded. 3. acute on chronic HFrEF- pt reporting sob, though likely from anemia, and increased BLE edema -CXR with trace pleural effusions. BNP elevated from baseline at 301 -IV lasix BID -Pt requires 1 unit PRBC d/t anemia as above. Otherwise fluid restrictions 1L -Purewick placed. Strict I&O- so far 2.5 liter. -Cardiac diet -BP soft. Hold losartan 4. Paroxysmal AFib- briefly elevated -responded well iv metoprolol [id number] added po metoprolol -Hold warfarin for now as above hold losartan . -Continue digoxin -AICD in place 5. mechanical mitral valve- [facility]. Follows with [facility] card outpt - INR 1.8, hold warfarin for now -Cardiology and Gi eval noted -INR is 1.8 today: restart iv heparin , moniter h/h?, tranfuse if h/h <7. possible Gi -EGD/colonoscopy as above-mostly seems fine with possible hemorrhoid might have been the source for losing blood. Hemorrhoid gutierrez: Added on ointment, Sitz baths, avoid straining stool gutierrez, will add stool softener. 6. hypothyroidism - continue LT4 7. dementia - continue memantine 8. mood disorder - continue fluoxetine, mirtazapine, quetiapine 9. partial seizure disorder - continue lamotrigine, topiramate 10. hx CVA - Hold ASA -Continue statin # VTE ppx- mechanical. on IV heparin. need for inpatient: anemia workup-needs H&H monitoring and may need transfusion, mechanical mitral valve on IV heparin-need INR monitoring, CHF on IV Lasix. Quality Stroke Does the patient have a stroke diagnosis?: No VTE Prior VTE?: Yes VTE Risk Level:: Medical - moderate - high VTE Device Contraindication: N/A - Device Ordered VTE Drug Contraindication: Treatment Not Indicated
[2021-12-27] MEDS: cefTRIAXone sodium 1 GM in 0.9 % Sodium Chloride 50 ML IV (17:56)
[2021-12-27] MEDS: Albumin Human 25 % 100 ML IV ×2 (18:41→21:28)
[2021-12-27] MEDS: Pramoxine HCl 1 % Rectal Foam 15 GM 1 APPL PR ×2 (18:46→21:31)
[2021-12-27 19:07] LABS: PTT Heparin Drip 36.6 SEC (53-77.9)
[2021-12-27 19:26] LABS: Hematocrit 28.6 % (37.0-47.0)
--- NOTE | 2021-12-27 20:27 | PM.PNCARD ---
Subjective Subjective Date of Service: 12/27/21 Interval history: Seen and examined. Anemic and Afib with RVR. After d/w GI and anesthesia she underwent EGD/colonoscopy with no cause for anemia found. clinically overloaded. Physical Exam Vital Signs: Last Vital Signs Temp 98.9 F 12/27/21 19:49 Pulse 96 12/27/21 19:49 Resp 17 12/27/21 19:49 BP 125/78 12/27/21 19:49 Pulse Ox 100 12/27/21 19:49 O2 Del Method 12/27/21 19:49 O2 Flow Rate 3 12/27/21 19:49 FiO2 28 12/27/21 15:45 BMI result Body Mass Index 30.4 GENERAL APPEARANCE: in no acute distress, pleasant. NECK: no carotid bruit, + jugular venous distention. SKIN: no suspicious lesions, warm and dry. HEART: no murmurs, irregular rate and rhythm. Mechanical 1st heart sound. LUNGS: clear to auscultation bilaterally. ABDOMEN: soft, nontender. EXTREMITIES: no edema. PERIPHERAL PULSES: equal. NEUROLOGIC: Expressive aphasia. Objective Labs and Meds Result diagrams: 12/27/21 18:50 12/27/21 05:53 Lab results: Laboratory Results - last 24 hr 12/24/21 12/27/21 12/27/21 15:24 05:53 05:53 WBC 6.7 RBC 2.94 L Hgb 6.8 L* Hct 25.4 L MCV 86.4 MCH 23.1 L MCHC 26.8 L RDW 19.3 H Plt Count 97 L MPV 12.0 Absolute Nucleated RBC 0.000 Nucleated RBC % (auto) 0.0 PT 21.0 H INR 1.8 H aPTT Heparin Protocol Sodium Potassium Chloride Carbon Dioxide Anion Gap BUN Creatinine Estim Creat Clear Calc Estimated GFR Random Glucose Calcium Blood Type A Positive Antibody Screen NEGATIVE BARRERA, Polyspecific Positive BARRERA Work-up Crossmatch See Detail 12/27/21 12/27/21 12/27/21 05:53 09:16 09:16 WBC 8.8 RBC 3.13 L Hgb 7.2 L Hct 26.8 L MCV 85.6 MCH 23.0 L MCHC 26.9 L RDW 19.4 H Plt Count 107 L MPV 10.7 Absolute Nucleated RBC 0.000 Nucleated RBC % (auto) 0.0 PT 19.0 H INR 1.6 H aPTT Heparin Protocol 29.4 L Sodium 141 Potassium 4.0 Chloride 105 Carbon Dioxide 27 Anion Gap 13 BUN 14 Creatinine 1.02 Estim Creat Clear Calc 56.6 Estimated GFR 53 Random Glucose 103 Calcium 8.2 L Blood Type Antibody Screen BARRERA, Polyspecific Positive BARRERA Work-up Crossmatch 12/27/21 12/27/21 12/27/21 11:45 18:50 18:50 WBC RBC Hgb 8.0 L Hct 28.6 L MCV MCH MCHC RDW Plt Count MPV Absolute Nucleated RBC Nucleated RBC % (auto) PT INR aPTT Heparin Protocol Sodium Potassium Chloride Carbon Dioxide Anion Gap BUN Creatinine Estim Creat Clear Calc Estimated GFR Random Glucose Calcium Blood Type Antibody Screen BARRERA, Polyspecific NEGATIVE NEGATIVE Positive BARRERA Work-up TNP TNP Crossmatch 12/27/21 18:50 WBC RBC Hgb Hct MCV MCH MCHC RDW Plt Count MPV Absolute Nucleated RBC Nucleated RBC % (auto) PT INR aPTT Heparin Protocol 36.6 L D Sodium Potassium Chloride Carbon Dioxide Anion Gap BUN Creatinine Estim Creat Clear Calc Estimated GFR Random Glucose Calcium Blood Type Antibody Screen BARRERA, Polyspecific Positive BARRERA Work-up Crossmatch Progress Note: A&P Assessment and plan (1) Afib: Status: Acute (2) Congestive heart failure: Status: Acute (3) H/O mitral valve replacement with mechanical valve: Status: Acute Plan 71-year-old female with mechanical mitral valve, on Coumadin, anemia and congestive heart failure. Continues to be anemic despite transfusion. She underwent endoscopy today with no significant cause found. I think heparin should be resumed as INR is 1.8 now. If hemoglobin stays stable than her Coumadin should be resumed. Clinically she is volume overloaded. Advise increasing the furosemide to 80 mg twice a day. Continue digoxin q.48h. Metoprolol 25 mg TID. Thank you for allowing me to participate in the care of your patient. Please feel free to contact me if you have any questions. Is Time Spent With Patient Time: Total time spent is greater than 50% in coordination of care (as documented) at patient's floor/unit and/or counseling patient: Progress Note: Quality Stroke Does the patient have a stroke diagnosis?: No Procedures Date of Service Date of Service: 12/27/21
[2021-12-27] MEDS: Furosemide 20 MG/2 ML VIAL 80 MG IVPUSH (21:19)
[2021-12-27] MEDS: QUEtiapine Fumarate 50 MG TABLET PO (21:26)
[2021-12-27] MEDS: Metoprolol Tartrate 25 MG TABLET PO (21:27)
[2021-12-27] MEDS: Atorvastatin Calcium 80 MG TABLET PO (21:27)
[2021-12-27] MEDS: Mirtazapine 15 MG TABLET PO (21:27)
--- NOTE | 2021-12-27 23:56 | PC.NURSE ---
Heparin drip was noted to be stopped due to scheduled colonoscopy and endoscopy scheduled for the day. When charted in MAR it says it was still running. Heparin wasn't restarted and increased until around 9:20pm. Due to low PTT HD 36.6, dose was increased to 18u/kg/hr along with a bolus of 6,600u.
[2021-12-28 01:22] LABS: Hematocrit 26.5 % (37.0-47.0); Hemoglobin 7.3 g/dl (12.0-16.0)
[2021-12-28] MEDS: Albumin Human 25 % 100 ML IV (03:35)
[2021-12-28 04:00] VITALS: BP 107/43; PULSE 80; RESP 16; TEMP 36.7; O2SAT 99
[2021-12-28] MEDS: Levothyroxine Sodium 175 MCG TABLET PO (05:42)
[2021-12-28] MEDS: Pantoprazole Sodium 40 MG/10 ML VIAL IVPUSH ×2 (05:42→14:56)
[2021-12-28] MEDS: Heparin Sodium,Porcine/1/2NS 25,000 UNIT/250 ML IV.SOLN 14.94 UNIT IVCONT (05:47)
--- NOTE | 2021-12-28 06:41 | PC.NURSE ---
PTT HD draw was for 03:30 patient a hard stick and was tried multiple times but not enough blood was obtained. Heparin still ran until until around 6am when blood secretions were noticed from patients mouth. Overnight hospitalist notified about both the inability to obtain enough blood to titrate heparin drip and bleeding from mouth. Heparin currently being held.
[2021-12-28 07:18] LABS: INTERNATIONAL NORM RATIO 1.6 (0.9-1.1); Prothrombin Time 18.7 SEC (10.0-13.1)
[2021-12-28 07:22] LABS: Hemoglobin 7.7 g/dl (12.0-16.0); Mean Corpuscular HGB Conc 27.5 g/dl (31.0-35.0); Mean Corpuscular Hemoglobin 23.8 pg (27.0-33.0); Mean Corpuscular Volume 86.7 fL (80.0-98.0); PLT CLUMP 1; Red Blood Count 3.23 X10*6/uL (4.20-5.50); Red Cell Distribution Width 19.5 % (11.0-16.0)
[2021-12-28] MEDS: Isosorbide Mononitrate 30 MG TAB.ER.24H PO (07:41)
[2021-12-28 07:43] LABS: White Blood Count 5.9 X10*3/uL (4.8-10.8)
[2021-12-28] MEDS: lamoTRIgine 25 MG TABLET 50 MG PO ×2 (07:43→20:04)
[2021-12-28] MEDS: Multivitamin TABLET 1 TAB PO (07:43)
[2021-12-28] MEDS: Ferrous Sulfate 324 MG TABLET.DR PO ×2 (07:43→18:42)
[2021-12-28] MEDS: Metoprolol Tartrate 25 MG TABLET PO ×3 (07:43→20:05)
[2021-12-28] MEDS: Topiramate 100 MG TABLET 200 MG PO ×2 (07:43→20:04)
[2021-12-28 07:44] LABS: Platelet Count 76 X10*3/uL (160-400)
[2021-12-28] MEDS: polyethylene glycoL 3350 17 GM POWD.PACK PO ×2 (07:44→20:05)
[2021-12-28] MEDS: QUEtiapine Fumarate 25 MG TABLET PO (07:44)
[2021-12-28] MEDS: Memantine HCl 10 MG TABLET PO (07:44)
[2021-12-28] MEDS: Furosemide 20 MG/2 ML VIAL 80 MG IVPUSH ×2 (07:44→20:01)
[2021-12-28] MEDS: FLUoxetine HCl 20 MG CAPSULE 40 MG PO (07:49)
[2021-12-28] MEDS: Digoxin 0.125 MG TABLET PO (07:49)
[2021-12-28 07:57] LABS: Anion Gap 16 (12-20); Blood Urea Nitrogen 12 mg/dL (9-16); Calcium 8.1 mg/dL (8.4-10.2); Carbon Dioxide 29 mmol/L (22-29); Chloride 102 mmol/L (96-108); Creatinine Clr Calc Pharmacy 51.3; Estimated Glomerular Filt Rate 51; Glucose Random 89 mg/dL (60-115); Potassium 3.8 mmol/L (3.3-5.1); Sodium 143 mmol/L (135-145)
[2021-12-28 07:58] LABS: PTT Heparin Drip > 200.0 SEC (53-77.9)
[2021-12-28] MEDS: 0.9 % Sodium Chloride Flush 3 ML SYRINGE IVFLUSH ×3 (07:58→20:10)
[2021-12-28 08:00] VITALS: BP 129/64; PULSE 80; RESP 22; TEMP 36.7; O2SAT 98
[2021-12-28 10:34] LABS: Partial Thromboplastin Time 54.3 SEC (26.0-36.4)
[2021-12-28] MEDS: Heparin Sodium,Porcine/1/2NS 25,000 UNIT/250 ML IV.SOLN 11.62 UNIT IVCONT (10:44)
[2021-12-28] MEDS: Pramoxine HCl 1 % Rectal Foam 15 GM 1 APPL PR ×4 (10:50→20:06)
[2021-12-28] MEDS: Nystatin Powder 15 GM BOTTLE 1 APPL TOPICAL ×3 (10:51→20:06)
--- NOTE | 2021-12-28 11:20 | HO.POSTANES ---
Post Anesthesia Evaluation Post Anesthesia Evaluation Vital Signs: Vital Signs Temp Pulse Resp BP Pulse Ox O2 Del Method O2 Flow Rate 12/28/21 08:00 98.0 F 80 22 H 129/64 98 Nasal Cannula 3 12/28/21 04:00 98.1 F 80 16 107/43 L 99 Nasal Cannula 3 Anesthesia: Monitored Mental Status: Awake Pain Control: Satisfactory Nausea/Vomiting: None Hydration: Adequate Anesthesia-Related Issues: No Anes. Related Issues
[2021-12-28 12:00] VITALS: BP 123/58; PULSE 77; RESP 22; TEMP 36.8; O2SAT 100
--- NOTE | 2021-12-28 13:51 | PM.PNCARD ---
Subjective Subjective Date of Service: 12/28/21 Interval history: Seen examined at bedside. Feeling better. Physical Exam Vital Signs: Last Vital Signs Temp 98.2 F 12/28/21 12:00 Pulse 77 12/28/21 12:00 Resp 22 H 12/28/21 12:00 BP 123/58 L 12/28/21 12:00 Pulse Ox 100 12/28/21 12:00 O2 Del Method 12/28/21 12:00 O2 Flow Rate 3 12/28/21 12:00 FiO2 28 12/27/21 15:45 BMI result Body Mass Index 30.4 GENERAL APPEARANCE: in no acute distress, pleasant. NECK: no carotid bruit, + jugular venous distention prominent V-waves. SKIN: no suspicious lesions, warm and dry. HEART: no murmurs, irregular rate and rhythm. Mechanical 1st heart sound. Holosystolic murmur left lower sternal border. LUNGS: clear to auscultation bilaterally. ABDOMEN: soft, nontender. EXTREMITIES: no edema. PERIPHERAL PULSES: equal. NEUROLOGIC: Expressive aphasia. Objective Labs and Meds Result diagrams: 12/28/21 05:57 12/28/21 05:57 Lab results: Laboratory Results - last 24 hr 12/27/21 12/27/21 12/27/21 18:50 18:50 18:50 WBC RBC Hgb 8.0 L Hct 28.6 L MCV MCH MCHC RDW Plt Count MPV Absolute Nucleated RBC Nucleated RBC % (auto) PT INR APTT aPTT Heparin Protocol 36.6 L D Sodium Potassium Chloride Carbon Dioxide Anion Gap BUN Creatinine Estim Creat Clear Calc Estimated GFR Random Glucose Calcium BARRERA, Polyspecific NEGATIVE Positive BARRERA Work-up TNP 12/28/21 12/28/21 12/28/21 01:08 05:57 05:57 WBC 5.9 RBC 3.23 L Hgb 7.3 L 7.7 L Hct 26.5 L 28.0 L MCV 86.7 MCH 23.8 L MCHC 27.5 L RDW 19.5 H Plt Count 76 L D MPV Not Reportable Absolute Nucleated RBC 0.000 Nucleated RBC % (auto) 0.0 PT Cancelled INR Cancelled APTT aPTT Heparin Protocol Sodium Potassium Chloride Carbon Dioxide Anion Gap BUN Creatinine Estim Creat Clear Calc Estimated GFR Random Glucose Calcium BARRERA, Polyspecific Positive BARRERA Work-up 12/28/21 12/28/21 12/28/21 05:57 05:57 05:57 WBC Cancelled RBC Cancelled Hgb Cancelled Hct Cancelled MCV Cancelled MCH Cancelled MCHC Cancelled RDW Cancelled Plt Count Cancelled MPV Cancelled Absolute Nucleated RBC Cancelled Nucleated RBC % (auto) Cancelled PT 18.7 H INR 1.6 H APTT aPTT Heparin Protocol > 200.0 H* D Sodium 143 Potassium 3.8 Chloride 102 Carbon Dioxide 29 Anion Gap 16 BUN 12 Creatinine 1.07 Estim Creat Clear Calc 51.3 Estimated GFR 51 Random Glucose 89 Calcium 8.1 L BARRERA, Polyspecific Positive BARRERA Work-up 12/28/21 10:06 WBC RBC Hgb Hct MCV MCH MCHC RDW Plt Count MPV Absolute Nucleated RBC Nucleated RBC % (auto) PT INR APTT 54.3 H aPTT Heparin Protocol Sodium Potassium Chloride Carbon Dioxide Anion Gap BUN Creatinine Estim Creat Clear Calc Estimated GFR Random Glucose Calcium BARRERA, Polyspecific Positive BARRERA Work-up Progress Note: A&P Assessment and plan (1) Afib: Status: Acute (2) Congestive heart failure: Status: Acute (3) H/O mitral valve replacement with mechanical valve: Status: Acute Plan 71-year-old female with mechanical mitral valve, on Coumadin, anemia and congestive heart failure. She underwent endoscopy which did not show any obvious cause for bleeding. She has been started on heparin drip. If hemoglobin stays stable then resume Coumadin. Transfuse 1 unit of blood if hemoglobin is 7 or below. Continue digoxin every other day. Continue the IV diuretics. Still volume overloaded. Monitor electrolytes closely. Thank you for allowing me to participate in the care of your patient. Please feel free to contact me if you have any questions. Time Spent With Patient Time: Total time spent is greater than 50% in coordination of care (as documented) at patient's floor/unit and/or counseling patient: Progress Note: Quality Stroke Does the patient have a stroke diagnosis?: No Procedures Date of Service Date of Service: 12/28/21
--- NOTE | 2021-12-28 14:15 | HO.PM.IMPN ---
Subjective Subjective Date of Service: 12/28/21 Interval History: anemia , afib with breif rvr ,mech mitral valve, external hameorriods Review of Systems brief episode of gum oozing this morning but pttwas>200 that time No bleeding afterwards, denies any new complaints breathing gutierrez seems to be improving No chest pain. Physical Exam Vital Signs: Vital Signs: Last Vital Signs Temp 98.2 F 12/28/21 12:00 Pulse 77 12/28/21 12:00 Resp 22 H 12/28/21 12:00 BP 123/58 L 12/28/21 12:00 Pulse Ox 100 12/28/21 12:00 O2 Del Method 12/28/21 12:00 O2 Flow Rate 3 12/28/21 12:00 FiO2 28 12/27/21 15:45 BMI result Body Mass Index 30.4 Appearance: Alert.?awake -at baseline heent: no bleedin/oozing noted when examined in am. cvs:irregular rythem, [id number]. res: air entry fair ,diminshed at bases. abd: no rebound or guarding ,nt, bs present. ext pulses present , no cyanosis . neuro:? nonfocal. Objective Data Active Medications Atorvastatin Calcium (Atorvastatin Calcium 80 Mg Tablet) 80 mg PO BEDTIME [facility] Last Admin: 12/27/21 21:27 Dose: 80 mg Documented By: KAZ Digoxin (Digoxin 0.125 Mg Tablet) 0.125 mg PO Q2D [facility] Last Admin: 12/28/21 07:49 Dose: 0.125 mg Documented By: HERB Enoxaparin Sodium (Enoxaparin Sodium 80 Mg/0.8 Ml Syringe) 85 mg SUBCUT Q12H [facility] Ferrous Sulfate (Ferrous Sulfate 324 Mg Tablet.) 324 mg PO BIDWM [facility] Last Admin: 12/28/21 07:43 Dose: 324 mg Documented By: HERB Fluoxetine HCl (Fluoxetine Hcl 20 Mg Capsule) 40 mg PO DAILY [facility] Last Admin: 12/28/21 07:49 Dose: 40 mg Documented By: HERB Furosemide (Furosemide 20 Mg/2 Ml Vial) 80 mg IVPUSH BID@0900,1800 [facility]; Protocol Last Admin: 12/28/21 07:44 Dose: 80 mg Documented By: HERB Ceftriaxone Sodium 1 gm/ (Sodium Chloride) 50 mls @ 100 mls/hr IV Q24H [facility] Last Infusion: 12/27/21 19:35 Dose: 0 mls/hr Documented By: KAZ Isosorbide Mononitrate (Isosorbide Mononitrate 30 Mg Tab.Er.24h) 30 mg PO DAILY [facility]; Protocol Last Admin: 12/28/21 07:41 Dose: 30 mg Documented By: HERB Lamotrigine (Lamotrigine 25 Mg Tablet) 50 mg PO BID [facility] Last Admin: 12/28/21 07:43 Dose: 50 mg Documented By: HERB Levothyroxine Sodium (Levothyroxine Sodium 175 Mcg Tablet) 175 mcg PO DAILY@0630 [facility] Last Admin: 12/28/21 05:42 Dose: 175 mcg Documented By: KAZ Memantine (Memantine Hcl 10 Mg Tablet) 10 mg PO DAILY [facility] Last Admin: 12/28/21 07:44 Dose: 10 mg Documented By: HERB Metoprolol Tartrate (Metoprolol Tartrate 25 Mg Tablet) 25 mg PO TID [facility]; Protocol Last Admin: 12/28/21 07:43 Dose: 25 mg Documented By: HERB Mirtazapine (Mirtazapine 15 Mg Tablet) 15 mg PO BEDTIME [facility] Last Admin: 12/27/21 21:27 Dose: 15 mg Documented By: KAZ Multivitamins/Vitamin C (Multivitamin Tablet) 1 tab PO DAILY [facility] Last Admin: 12/28/21 07:43 Dose: 1 tab Documented By: HERB Nystatin (Nystatin Powder 15 Gm Bottle) 1 appl TOPICAL TID [facility]; Protocol Last Admin: 12/28/21 10:51 Dose: 1 appl Documented By: HERB Pantoprazole Sodium (Pantoprazole Sodium 40 Mg/10 Ml Vial) 40 mg IVPUSH BID@0630,1630 [facility] Last Admin: 12/28/21 05:42 Dose: 40 mg Documented By: KAZ Pharmacy Consult (Consult Rx Perform Med Rec) 1 each MISCELLANE ONCE PRN PRN Reason: Consult order Polyethylene Glycol (Polyethylene Glycol 3350 17 Gm Powd.Pack) 17 gm PO BID [facility] Last Admin: 12/28/21 07:44 Dose: 17 gm Documented By: HERB Potassium Chloride (Potassium Chloride Er 10 Meq Capsule.Er) 10 meq PO BID [facility] Last Admin: 12/28/21 07:43 Dose: 10 meq Documented By: HERB Pramoxine HCl (Pramoxine Hcl 1 % Rectal Foam 15 Gm) 1 appl ID QID [facility] Last Admin: 12/28/21 10:50 Dose: 1 appl Documented By: HERB Quetiapine Fumarate (Quetiapine Fumarate 25 Mg Tablet) 25 mg PO DAILY [facility] Last Admin: 12/28/21 07:44 Dose: 25 mg Documented By: HERB Quetiapine Fumarate (Quetiapine Fumarate 50 Mg Tablet) 50 mg PO BEDTIME [facility] Last Admin: 12/27/21 21:26 Dose: 50 mg Documented By: KAZ Sodium Chloride (0.9 % Sodium Chloride Flush 3 Ml Syringe) 3 ml IVFLUSH QSHIFT [facility] Last Admin: 12/28/21 07:58 Dose: 3 ml Documented By: HERB Topiramate (Topiramate 100 Mg Tablet) 200 mg PO BID [facility] Last Admin: 12/28/21 07:43 Dose: 200 mg Documented By: HERB Labs CBC & Chem 7: 12/28/21 05:57 12/28/21 05:57 Labs: Laboratory Results - last 24 hr 12/27/21 12/27/21 12/28/21 18:50 18:50 05:57 MCV 86.7 MCH 23.8 L MCHC 27.5 L RDW 19.5 H Plt Count 76 L D MPV Not Reportable Absolute Nucleated RBC 0.000 Nucleated RBC % (auto) 0.0 PT INR APTT aPTT Heparin Protocol 36.6 L D Anion Gap Estim Creat Clear Calc Estimated GFR Random Glucose Calcium BARRERA, Polyspecific NEGATIVE Positive BARRERA Work-up TNP 12/28/21 12/28/21 12/28/21 05:57 05:57 05:57 MCV Cancelled MCH Cancelled MCHC Cancelled RDW Cancelled Plt Count Cancelled MPV Cancelled Absolute Nucleated RBC Cancelled Nucleated RBC % (auto) Cancelled PT Cancelled INR Cancelled APTT aPTT Heparin Protocol Anion Gap 16 Estim Creat Clear Calc 51.3 Estimated GFR 51 Random Glucose 89 Calcium 8.1 L BARRERA, Polyspecific Positive BARRERA Work-up 12/28/21 12/28/21 05:57 10:06 MCV MCH MCHC RDW Plt Count MPV Absolute Nucleated RBC Nucleated RBC % (auto) PT 18.7 H INR 1.6 H APTT 54.3 H aPTT Heparin Protocol > 200.0 H* D Anion Gap Estim Creat Clear Calc Estimated GFR Random Glucose Calcium BARRERA, Polyspecific Positive BARRERA Work-up Assessment and Plan (1) Anticoagulant long-term use: Status: Acute (2) Congestive heart failure: Status: Acute (3) H/O mitral valve replacement with mechanical valve: Status: Acute Plan 70-year-old female with a past medical history of hypertension, hyperlipidemia, dementia, seizures, mitral valve replacement ([facility]) on coumadin, CHF , history of AICD, DVT, hypothyroidism, dementia, history of seizures, depression, asthma, history of CVA with residual right-sided weakness, aphasia admitted for presumed blood loss and acute on chronic CHF. 1. acute blood loss on Iron deficiency anemia- H/H 6.9/26.9 (last H/H 8.5/30.6% 05/11)- ?acute blood loss use vs possible chronic slow bleed r/t external hemorrhoid vs other GI bleed. -Pt. denies active bleeding. Stool occult blood positive. Initial INR was supratherapeutic but today INR is 1.8 elevated trop 17.8 -18.6(flat) anemia workup-seeems iron def retic count seems normal ldh slightly elevated Haptoglobin pending, Sherin test neg Patient had EGD and sigmoidoscopy this afternoon-EGD seems fine, biopsies taken from gastric area as well as duodenal area. Sigmoidoscopy/colonoscopy:internal hemorrhoids, large, probable source of anemia diverticular disease Today also got 1 PRBC, so far 2 PRBC transfusion since admission-last H&H was 7.7/,platlets 76. ?hematology evaluationnoted-discussed with the Hematology -heparin stopped, and switch to Lovenox ( considering h/h improving, egd/colonoscopy neg, has thrombocytopenia) Monitor hb/hct closely 2. UTI -UA in ED with 3+ leuks, 1+ blood, 4+ bacteria, neg nitrites -Urine culture pending -IV ceftriaxone,urine culture-strep agalacticae,repeat urine? cultures aded. 3. acute on chronic HFrEF- pt reporting sob, though likely from anemia, and increased BLE edema -CXR with trace pleural effusions. BNP elevated from baseline at 301 -IV lasix BID -Pt requires 1 unit PRBC d/t anemia as above. Otherwise fluid restrictions 1L -Purewick placed. Strict I&O- so far 2.7 liter. -Cardiac diet -BP soft. Hold losartan 4. Paroxysmal AFib- briefly elevated -responded well iv metoprolol? [id number] continue po metoprolol and digoxin. -Hold warfarin for now as above hold? losartan . -AICD in place 5. mechanical mitral valve- [facility]. Follows with [facility] card outpt - INR 1.8, hold warfarin for now -Cardiology and Gi eval and hemtology-switched to s/c lovenox.may need to add warfarin in day or so if h/hstays stable and no further bleeding possible Gi -EGD/colonoscopy as above-mostly seems fine with possible hemorrhoid might have been the source for losing blood. Hemorrhoid gutierrez:? Added on ointment, Sitz baths, avoid straining stool gutierrez, will add stool softener. 6. hypothyroidism - continue LT4 7. dementia - continue memantine 8. mood disorder - continue fluoxetine, mirtazapine, quetiapine 9. partial seizure disorder - continue lamotrigine, topiramate 10. hx CVA - Hold ASA -Continue statin # VTE ppx- mechanical. on IV heparin. need for inpatient: anemia workup-cbc monitering ,prn transfusion, mechanical mitral valve on IV heparin-need INR monitoring, CHF on IV Lasix. Quality Stroke Does the patient have a stroke diagnosis?: No VTE Prior VTE?: Yes VTE Risk Level:: Medical - moderate - high VTE Device Contraindication: N/A - Device Ordered VTE Drug Contraindication: Treatment Not Indicated
[2021-12-28 14:37] LABS: Haptoglobin 22 mg/dL (43-212)
[2021-12-28] MEDS: cefTRIAXone sodium 1 GM in 0.9 % Sodium Chloride 50 ML IV (14:55)
[2021-12-28] MEDS: Enoxaparin Sodium 80 MG/0.8 ML SYRINGE 85 MG SUBCUT (14:56)
--- NOTE | 2021-12-28 15:21 | PM.CNGS ---
History of Present Illness Consult details Consult date: 12/28/21 Narrative: 70-year-old female with a past medical history of hypertension, hyperlipidemia, dementia, seizures, rheumatic heart disease s/p mitral valve replacement [address] ([facility]) on coumadin, CHF , history of AICD, DVT, hypothyroidism, dementia, history of seizures, depression, asthma, history of CVA with residual right-sided weakness, aphasia who is currently admitted to the hospital for worsening shortness of breath and was found to have anemia for which GI has been consulted. Per re EGD & colonoscopy reports reviewed & a prolapsing hemorrhoid is believed to be the anemia source. Review of Systems Review of Systems: Yes all other systems are reviewed and are negative Constitutional: Constitutional: Reports as per [facility] Past Medical History Medical History Acute bronchitis with bronchospasm Acute respiratory failure with hypoxia Anemia Aphasia, post-stroke Congestive heart failure COVID-19 Dementia DVT (deep venous thrombosis) Hypertension On Coumadin for atrial fibrillation Right sided weakness Seizures Functional capacity: wheelchair bound Family History Family History Daughter No problems noted. Surgical History Surgical History (Updated 12/27/21 @ 13:15 by Shereen Johnson MD) Heart valve replaced Social History Social History Household Members: Family and Caregiver Housing: House Do you presently have visiting nurse or other home services: No Patient Tobacco Use Status: Former Tobacco user service: No Current occupational status: retired and disabled Meds Allergies Allergy/AdvReac Type Severity Reaction Status Date / Time codeine [Codeine] Allergy Unknown GENERIC Verified 03/28/21 00:26 Allergy: CODEINE SULFATE levofloxacin [LEVOFLOXACIN] Allergy Unknown ANGIOEDEMA Verified 03/28/21 00:26 Shellfish Allergy Unknown UNKNOWN Verified 03/28/21 00:26 Erythromycin Allergy Unknown Unknown Uncoded 03/28/21 00:26 Active Medications: Current Medications Atorvastatin Calcium (Atorvastatin Calcium 80 Mg Tablet) 80 mg PO BEDTIME [facility] Last Admin: 12/27/21 21:27 Dose: 80 mg Digoxin (Digoxin 0.125 Mg Tablet) 0.125 mg PO Q2D [facility] Last Admin: 12/28/21 07:49 Dose: 0.125 mg Enoxaparin Sodium (Enoxaparin Sodium 80 Mg/0.8 Ml Syringe) 85 mg SUBCUT Q12H [facility] Last Admin: 12/28/21 14:56 Dose: 85 mg Ferrous Sulfate (Ferrous Sulfate 324 Mg Tablet.Dr) 324 mg PO BIDWM [facility] Last Admin: 12/28/21 07:43 Dose: 324 mg Fluoxetine HCl (Fluoxetine Hcl 20 Mg Capsule) 40 mg PO DAILY [facility] Last Admin: 12/28/21 07:49 Dose: 40 mg Furosemide (Furosemide 20 Mg/2 Ml Vial) 80 mg IVPUSH BID@0900,1800 [facility]; Protocol Last Admin: 12/28/21 07:44 Dose: 80 mg Ceftriaxone Sodium 1 gm/ (Sodium Chloride) 50 mls @ 100 mls/hr IV Q24H [facility] Last Admin: 12/28/21 14:55 Dose: 100 mls/hr Isosorbide Mononitrate (Isosorbide Mononitrate 30 Mg Tab.Er.24h) 30 mg PO DAILY [facility]; Protocol Last Admin: 12/28/21 07:41 Dose: 30 mg Lamotrigine (Lamotrigine 25 Mg Tablet) 50 mg PO BID [facility] Last Admin: 12/28/21 07:43 Dose: 50 mg Levothyroxine Sodium (Levothyroxine Sodium 175 Mcg Tablet) 175 mcg PO DAILY@0630 [facility] Last Admin: 12/28/21 05:42 Dose: 175 mcg Memantine (Memantine Hcl 10 Mg Tablet) 10 mg PO DAILY [facility] Last Admin: 12/28/21 07:44 Dose: 10 mg Metoprolol Tartrate (Metoprolol Tartrate 25 Mg Tablet) 25 mg PO TID [facility]; Protocol Last Admin: 12/28/21 14:55 Dose: 25 mg Mirtazapine (Mirtazapine 15 Mg Tablet) 15 mg PO BEDTIME [facility] Last Admin: 12/27/21 21:27 Dose: 15 mg Multivitamins/Vitamin C (Multivitamin Tablet) 1 tab PO DAILY [facility] Last Admin: 12/28/21 07:43 Dose: 1 tab Nystatin (Nystatin Powder 15 Gm Bottle) 1 appl TOPICAL TID [facility]; Protocol Last Admin: 12/28/21 10:51 Dose: 1 appl Pantoprazole Sodium (Pantoprazole Sodium 40 Mg/10 Ml Vial) 40 mg IVPUSH BID@0630,1630 [facility] Last Admin: 12/28/21 14:56 Dose: 40 mg Pharmacy Consult (Consult Rx Perform Med Rec) 1 each MISCELLANE ONCE PRN PRN Reason: Consult order Polyethylene Glycol (Polyethylene Glycol 3350 17 Gm Powd.Pack) 17 gm PO BID [facility] Last Admin: 12/28/21 07:44 Dose: 17 gm Potassium Chloride (Potassium Chloride Er 10 Meq Capsule.Er) 10 meq PO BID [facility] Last Admin: 12/28/21 07:43 Dose: 10 meq Pramoxine HCl (Pramoxine Hcl 1 % Rectal Foam 15 Gm) 1 appl SD QID [facility] Last Admin: 12/28/21 14:26 Dose: 1 appl Quetiapine Fumarate (Quetiapine Fumarate 25 Mg Tablet) 25 mg PO DAILY [facility] Last Admin: 12/28/21 07:44 Dose: 25 mg Quetiapine Fumarate (Quetiapine Fumarate 50 Mg Tablet) 50 mg PO BEDTIME [facility] Last Admin: 12/27/21 21:26 Dose: 50 mg Sodium Chloride (0.9 % Sodium Chloride Flush 3 Ml Syringe) 3 ml IVFLUSH QSHIFT [facility] Last Admin: 12/28/21 15:12 Dose: 3 ml Topiramate (Topiramate 100 Mg Tablet) 200 mg PO BID [facility] Last Admin: 12/28/21 07:43 Dose: 200 mg Home Medications Medication Instructions Recorded Confirmed Last Taken Type aspirin 81 mg tablet,delayed 1 tab PO DAILY 03/01/21 12/24/21 03/27/21 History release atorvastatin 80 mg tablet 1 tab PO BEDTIME 03/01/21 12/24/21 03/26/21 History digoxin 125 mcg (0.125 mg) tablet 1 tab PO DAILY 03/01/21 12/24/21 03/27/21 History fluoxetine 40 mg capsule 1 cap PO DAILY 03/01/21 12/24/21 03/27/21 History furosemide 40 mg tablet 1 tab PO DAILY 03/01/21 12/24/21 03/27/21 History isosorbide mononitrate 30 mg 1 tab PO DAILY 03/01/21 12/24/21 03/27/21 History tablet,extended release 24 hr lamotrigine 25 mg tablet 2 tab PO BID 03/01/21 12/24/21 03/27/21 History levothyroxine 175 mcg tablet 1 tab PO DAILY 03/01/21 12/24/21 03/27/21 History losartan 25 mg tablet 1 tab PO DAILY 03/01/21 12/24/21 03/27/21 History memantine 10 mg tablet 1 tab PO DAILY 03/01/21 12/24/21 03/27/21 History metoprolol tartrate 100 mg tablet 1 tab PO BID 03/01/21 12/24/21 03/27/21 History mirtazapine 15 mg tablet 1 tab PO BEDTIME 03/01/21 12/24/21 03/26/21 History multivitamin 1 tab PO DAILY 03/01/21 12/24/21 03/27/21 History potassium chloride 10 mEq 1 tab PO BID 03/01/21 12/24/21 03/27/21 History tablet,extended release quetiapine 25 mg tablet 25 mg PO DAILY 03/01/21 12/24/21 03/27/21 History quetiapine 25 mg tablet 50 mg PO BEDTIME 03/01/21 12/24/21 03/26/21 History topiramate 200 mg tablet 1 tab PO BID 03/01/21 12/24/21 03/27/21 History warfarin 3 mg tablet 2 tab PO DAILY 03/01/21 12/24/21 03/27/21 History nitrofurantoin 1 cap PO BEDTIME 12/24/21 12/24/21 Unknown History monohydrate/macrocrystals 100 mg capsule nystatin 100,000 unit/gram topical 1 appl topical TID PRN Rash 12/24/21 12/24/21 Unknown History powder ([facility]) Physical Exam Vital Signs: Vital Signs: Last Vital Signs Temp 98.2 F 12/28/21 12:00 Pulse 77 12/28/21 12:00 Resp 22 H 12/28/21 12:00 BP 123/58 L 12/28/21 12:00 Pulse Ox 100 12/28/21 12:00 O2 Del Method 12/28/21 12:00 O2 Flow Rate 3 12/28/21 12:00 FiO2 28 12/27/21 15:45 BMI result Body Mass Index 30.4 The patient is pleasant and was tolerating breakfast Abdomen is obese and soft with no tenderness. Per staff, there has been no active rectal bleeding/hemorrhoidal bleeding Results Labs Result diagrams: 12/29/21 06:05 12/29/21 06:05 Labs: Abnormal lab results 12/26/21 12/27/21 12/27/21 Range/Units 05:57 18:50 18:50 RBC (4.20-5.50) X10*6/uL Hgb 8.0 L (12.0-16.0) g/dl Hct 28.6 L (37.0-47.0) % MCH (27.0-33.0) pg MCHC (31.0-35.0) g/dl RDW (11.0-16.0) % Plt Count (160-400) X10*3/uL Haptoglobin 22 L (43-212) mg/dL PT (10.0-13.1) SEC INR (0.9-1.1) APTT (26.0-36.4) SEC aPTT Heparin Protocol 36.6 L D (53-77.9) SEC Calcium (8.4-10.2) mg/dL 12/28/21 12/28/21 12/28/21 Range/Units 01:08 05:57 05:57 RBC 3.23 L (4.20-5.50) X10*6/uL Hgb 7.3 L 7.7 L (12.0-16.0) g/dl Hct 26.5 L 28.0 L (37.0-47.0) % MCH 23.8 L (27.0-33.0) pg MCHC 27.5 L (31.0-35.0) g/dl RDW 19.5 H (11.0-16.0) % Plt Count 76 L D (160-400) X10*3/uL Haptoglobin (43-212) mg/dL PT (10.0-13.1) SEC INR (0.9-1.1) APTT (26.0-36.4) SEC aPTT Heparin Protocol (53-77.9) SEC Calcium 8.1 L (8.4-10.2) mg/dL 12/28/21 12/28/21 Range/Units 05:57 10:06 RBC (4.20-5.50) X10*6/uL Hgb (12.0-16.0) g/dl Hct (37.0-47.0) % MCH (27.0-33.0) pg MCHC (31.0-35.0) g/dl RDW (11.0-16.0) % Plt Count (160-400) X10*3/uL Haptoglobin (43-212) mg/dL PT 18.7 H (10.0-13.1) SEC INR 1.6 H (0.9-1.1) APTT 54.3 H (26.0-36.4) SEC aPTT Heparin Protocol > 200.0 H* D (53-77.9) SEC Calcium (8.4-10.2) mg/dL Short CBC 12/27/21 12/28/21 12/28/21 Range/Units 18:50 01:08 05:57 WBC 5.9 (4.8-10.8) X10*3/uL Hgb 8.0 L 7.3 L 7.7 L (12.0-16.0) g/dl Hct 28.6 L 26.5 L 28.0 L (37.0-47.0) % Plt Count 76 L D (160-400) X10*3/uL 12/28/21 Range/Units 05:57 WBC Cancelled (4.8-10.8) X10*3/uL Hgb Cancelled (12.0-16.0) g/dl Hct Cancelled (37.0-47.0) % Plt Count Cancelled (160-400) X10*3/uL BMP 12/28/21 05:57 Sodium 143 Potassium 3.8 Chloride 102 Carbon Dioxide 29 BUN 12 Creatinine 1.07 Calcium 8.1 L Urine 12/24/21 Range/Units 11:43 Urine Color Yellow Urine Appearance Turbid Urine pH 5.5 (5.0-9.0) Ur Specific Rousseau 1.020 (1.005-1.025) Urine Protein 30 (1+) H (Neg-Trace) mg/dL Urine Glucose (UA) Negative (Negative) mg/dL All other labs normal. Imaging Additional studies: EGD & Colonoscopy reports reviewed. Prolapsing hemorrhoid believed to be sourse of bleeding while anticoagulated Assessment and Plan (1) Internal hemorrhoids with complication: Status: Acute (2) H/O mitral valve replacement with mechanical valve: Status: Acute (3) Valvular heart disease: Status: Acute (4) Anemia: Status: Acute (5) Anticoagulant long-term use: Status: Acute (6) Afib: Status: Acute (7) Acute UTI: Status: Acute Plan Continue present management. We will discuss with Dr. Mcdaniel, colorectal surgery. Please call me if the patient has acute rectal bleeding while anticoagulated. Procedures Date of Service Date of Service: 12/29/21
[2021-12-28 15:27] LABS: Partial Thromboplastin Time 49.7 SEC (26.0-36.4)
[2021-12-28 16:00] VITALS: BP 116/55; PULSE 86; RESP 17; TEMP 37.2; O2SAT 100
[2021-12-28 19:29] LABS: Hemoglobin 7.6 g/dl (12.0-16.0); Mean Corpuscular Hemoglobin 24.1 pg (27.0-33.0); PLT CLUMP 1; Red Blood Count 3.16 X10*6/uL (4.20-5.50)
[2021-12-28 19:31] LABS: Hematocrit 27.9 % (37.0-47.0); Mean Corpuscular HGB Conc 27.2 g/dl (31.0-35.0); Mean Corpuscular Volume 88.3 fL (80.0-98.0); Mean Platelet Volume 11.5 fL (9.4-12.3); NRBC Pct Auto 0.4 /100WBC (0.0-0.2); Red Cell Distribution Width 19.5 % (11.0-16.0)
[2021-12-28 19:32] LABS: Platelet Count 96 X10*3/uL (160-400); White Blood Count 6.9 X10*3/uL (4.8-10.8)
[2021-12-28 19:58] VITALS: BP 106/62; PULSE 80; RESP 20; TEMP 37.3; O2SAT 99
[2021-12-28] MEDS: Atorvastatin Calcium 80 MG TABLET PO (20:04)
[2021-12-28] MEDS: QUEtiapine Fumarate 50 MG TABLET PO (20:04)
[2021-12-28] MEDS: Mirtazapine 15 MG TABLET PO (20:05)
[2021-12-28 23:27] VITALS: BP 130/60; PULSE 59; RESP 18; TEMP 36.8; O2SAT 94
[2021-12-29 03:38] VITALS: BP 149/70; PULSE 84; RESP 20; TEMP 36.9; O2SAT 99
[2021-12-29] MEDS: Enoxaparin Sodium 80 MG/0.8 ML SYRINGE 85 MG SUBCUT (03:52)
[2021-12-29] MEDS: Levothyroxine Sodium 175 MCG TABLET PO (05:59)
[2021-12-29] MEDS: Pantoprazole Sodium 40 MG/10 ML VIAL IVPUSH ×2 (05:59→17:23)
[2021-12-29 06:54] LABS: Hematocrit 27.3 % (37.0-47.0); Hemoglobin 7.5 g/dl (12.0-16.0); Mean Corpuscular HGB Conc 27.5 g/dl (31.0-35.0); Mean Corpuscular Hemoglobin 24.3 pg (27.0-33.0); Mean Corpuscular Volume 88.3 fL (80.0-98.0); Mean Platelet Volume 12.5 fL (9.4-12.3); Red Blood Count 3.09 X10*6/uL (4.20-5.50); Red Cell Distribution Width 19.9 % (11.0-16.0); White Blood Count 7.5 X10*3/uL (4.8-10.8)
[2021-12-29 06:56] LABS: Platelet Count 96 X10*3/uL (160-400)
[2021-12-29 07:19] LABS: Anion Gap 13 (12-20); Blood Urea Nitrogen 14 mg/dL (9-16); Calcium 8.8 mg/dL (8.4-10.2); Carbon Dioxide 35 mmol/L (22-29); Chloride 99 mmol/L (96-108); Creatinine Clr Calc Pharmacy 46.5; Estimated Glomerular Filt Rate 45; Glucose Random 88 mg/dL (60-115); Potassium 3.5 mmol/L (3.3-5.1); Sodium 143 mmol/L (135-145)
[2021-12-29 07:50] VITALS: BP 126/76; PULSE 89; RESP 22; TEMP 36.3; O2SAT 99
[2021-12-29] MEDS: Memantine HCl 10 MG TABLET PO (09:48)
[2021-12-29] MEDS: 0.9 % Sodium Chloride Flush 3 ML SYRINGE IVFLUSH ×3 (09:48→21:07)
[2021-12-29] MEDS: FLUoxetine HCl 20 MG CAPSULE 40 MG PO (09:48)
[2021-12-29] MEDS: lamoTRIgine 25 MG TABLET 50 MG PO ×3 (09:48→20:59)
[2021-12-29] MEDS: Isosorbide Mononitrate 30 MG TAB.ER.24H PO (09:48)
[2021-12-29] MEDS: Ferrous Sulfate 324 MG TABLET.DR PO ×2 (09:48→17:23)
[2021-12-29] MEDS: Multivitamin TABLET 1 TAB PO (09:48)
[2021-12-29] MEDS: Topiramate 100 MG TABLET 200 MG PO ×2 (09:48→20:59)
[2021-12-29] MEDS: Metoprolol Tartrate 25 MG TABLET PO ×3 (09:48→20:59)
[2021-12-29] MEDS: Furosemide 20 MG/2 ML VIAL 80 MG IVPUSH (09:49)
[2021-12-29] MEDS: QUEtiapine Fumarate 25 MG TABLET PO (09:49)
[2021-12-29] MEDS: polyethylene glycoL 3350 17 GM POWD.PACK PO ×2 (09:49→21:00)
[2021-12-29] MEDS: Pramoxine HCl 1 % Rectal Foam 15 GM 1 APPL PR ×3 (10:00→21:00)
[2021-12-29] MEDS: Nystatin Powder 15 GM BOTTLE 1 APPL TOPICAL ×3 (10:00→21:00)
--- NOTE | 2021-12-29 10:27 | PM.PNCARD ---
Subjective Subjective Date of Service: 12/29/21 Interval history: Seen and examined at bedside. Telemetry reviewed. Physical Exam Vital Signs: Last Vital Signs Temp 97.3 F 12/29/21 07:50 Pulse 89 12/29/21 07:50 Resp 22 H 12/29/21 07:50 BP 126/76 12/29/21 07:50 Pulse Ox 99 12/29/21 07:50 O2 Del Method 12/29/21 07:50 O2 Flow Rate 3 12/29/21 07:50 FiO2 28 12/27/21 15:45 BMI result Body Mass Index 30.4 GENERAL APPEARANCE: in no acute distress, pleasant. NECK: no carotid bruit, + jugular venous distention prominent V-waves. SKIN: no suspicious lesions, warm and dry. HEART: no murmurs, irregular rate and rhythm. Mechanical 1st heart sound. Holosystolic murmur left lower sternal border. LUNGS: clear to auscultation bilaterally. ABDOMEN: soft, nontender. EXTREMITIES: no edema. PERIPHERAL PULSES: equal. NEUROLOGIC: Expressive aphasia. Objective Labs and Meds Result diagrams: 12/29/21 06:05 12/29/21 06:05 Lab results: Laboratory Results - last 24 hr 12/26/21 12/28/21 12/28/21 05:57 10:06 14:45 WBC RBC Hgb Hct MCV MCH MCHC RDW Plt Count MPV Absolute Nucleated RBC Nucleated RBC % (auto) Haptoglobin 22 L APTT 54.3 H 49.7 H Sodium Potassium Chloride Carbon Dioxide Anion Gap BUN Creatinine Estim Creat Clear Calc Estimated GFR Random Glucose Calcium 12/28/21 12/29/21 12/29/21 19:11 06:05 06:05 WBC 6.9 Cancelled 7.5 RBC 3.16 L Cancelled 3.09 L Hgb 7.6 L Cancelled 7.5 L Hct 27.9 L Cancelled 27.3 L MCV 88.3 Cancelled 88.3 MCH 24.1 L Cancelled 24.3 L MCHC 27.2 L Cancelled 27.5 L RDW 19.5 H Cancelled 19.9 H Plt Count 96 L D Cancelled 96 L MPV 11.5 Cancelled 12.5 H Absolute Nucleated RBC 0.030 H Cancelled 0.000 Nucleated RBC % (auto) 0.4 H Cancelled 0.0 Haptoglobin APTT Sodium Potassium Chloride Carbon Dioxide Anion Gap BUN Creatinine Estim Creat Clear Calc Estimated GFR Random Glucose Calcium 12/29/21 06:05 WBC RBC Hgb Hct MCV MCH MCHC RDW Plt Count MPV Absolute Nucleated RBC Nucleated RBC % (auto) Haptoglobin APTT Sodium 143 Potassium 3.5 Chloride 99 Carbon Dioxide 35 H Anion Gap 13 BUN 14 Creatinine 1.18 Estim Creat Clear Calc 46.5 Estimated GFR 45 Random Glucose 88 Calcium 8.8 D Progress Note: A&P Assessment and plan (1) Afib: Status: Acute (2) Congestive heart failure: Status: Acute (3) H/O mitral valve replacement with mechanical valve: Status: Acute Plan 71-year-old female with mechanical mitral valve, on Coumadin, anemia and congestive heart failure. She underwent endoscopy which did not show any obvious cause for bleeding. Prolasing hemorrhoids were noted and surgery consulted. She has been started on heparin drip. If hemoglobin stays stable then resume Coumadin. Transfuse 1 unit of blood if hemoglobin is 7 or below. Continue digoxin every other day. Continue the IV diuretics. Still volume overloaded. Monitor electrolytes closely. Check echo tomorrow. Thank you for allowing me to participate in the care of your patient. Please feel free to contact me if you have any questions. Time Spent With Patient Time: Total time spent is greater than 50% in coordination of care (as documented) at patient's floor/unit and/or counseling patient: Progress Note: Quality Stroke Does the patient have a stroke diagnosis?: No Procedures Date of Service Date of Service: 12/29/21
--- NOTE | 2021-12-29 11:23 | HO.PM.IMPN ---
Subjective Subjective Date of Service: 12/29/21 Interval History: anemia , afib with breif rvr ,mech mitral valve, external hameorriods Review of Systems no overnight gum oozing or any bleed sob seems slightly better than yesterday no abd pain or chest pain hr in mostly 100 Physical Exam Vital Signs: Vital Signs: Last Vital Signs Temp 97.3 F 12/29/21 07:50 Pulse 89 12/29/21 07:50 Resp 22 H 12/29/21 07:50 BP 126/76 12/29/21 07:50 Pulse Ox 99 12/29/21 07:50 O2 Del Method 12/29/21 07:50 O2 Flow Rate 3 12/29/21 07:50 FiO2 28 12/27/21 15:45 BMI result Body Mass Index 30.4 ?Appearance: Alert.?awake -at baseline heent: no new gumoozin cvs:irregular rythem, [id number]. res: air entry fair ,diminshed at bases. abd: no rebound or guarding ,nt, bs present. ext pulses present , no cyanosis . neuro:? nonfocal. Objective Data Active Medications Atorvastatin Calcium (Atorvastatin Calcium 80 Mg Tablet) 80 mg PO BEDTIME [facility] Last Admin: 12/28/21 20:04 Dose: 80 mg Documented By: KAZ Digoxin (Digoxin 0.125 Mg Tablet) 0.125 mg PO Q2D [facility] Last Admin: 12/28/21 07:49 Dose: 0.125 mg Documented By: HERB Enoxaparin Sodium (Enoxaparin Sodium 80 Mg/0.8 Ml Syringe) 85 mg SUBCUT Q12H [facility] Last Admin: 12/29/21 03:52 Dose: 85 mg Documented By: KAZ Ferrous Sulfate (Ferrous Sulfate 324 Mg Tablet.) 324 mg PO BIDWM [facility] Last Admin: 12/29/21 09:48 Dose: 324 mg Documented By: JÚNIOR Fluoxetine HCl (Fluoxetine Hcl 20 Mg Capsule) 40 mg PO DAILY [facility] Last Admin: 12/29/21 09:48 Dose: 40 mg Documented By: JÚNIOR Furosemide (Furosemide 20 Mg/2 Ml Vial) 40 mg IVPUSH BID@0900,1800 [facility]; Protocol Ceftriaxone Sodium 1 gm/ (Sodium Chloride) 50 mls @ 100 mls/hr IV Q24H [facility] Last Infusion: 12/28/21 16:44 Dose: 0 mls/hr Documented By: HERB Isosorbide Mononitrate (Isosorbide Mononitrate 30 Mg Tab.Er.24h) 30 mg PO DAILY [facility]; Protocol Last Admin: 12/29/21 09:48 Dose: 30 mg Documented By: JÚNIOR Lamotrigine (Lamotrigine 25 Mg Tablet) 50 mg PO BID [facility] Last Admin: 12/29/21 09:48 Dose: 50 mg Documented By: JÚNIOR Levothyroxine Sodium (Levothyroxine Sodium 175 Mcg Tablet) 175 mcg PO DAILY@0630 [facility] Last Admin: 12/29/21 05:59 Dose: 175 mcg Documented By: KAZ Memantine (Memantine Hcl 10 Mg Tablet) 10 mg PO DAILY [facility] Last Admin: 12/29/21 09:48 Dose: 10 mg Documented By: JÚNIOR Metoprolol Tartrate (Metoprolol Tartrate 25 Mg Tablet) 25 mg PO TID [facility]; Protocol Last Admin: 12/29/21 09:48 Dose: 25 mg Documented By: JÚNIOR Mirtazapine (Mirtazapine 15 Mg Tablet) 15 mg PO BEDTIME [facility] Last Admin: 12/28/21 20:05 Dose: 15 mg Documented By: KAZ Multivitamins/Vitamin C (Multivitamin Tablet) 1 tab PO DAILY [facility] Last Admin: 12/29/21 09:48 Dose: 1 tab Documented By: JÚNIOR Nystatin (Nystatin Powder 15 Gm Bottle) 1 appl TOPICAL TID [facility]; Protocol Last Admin: 12/29/21 10:00 Dose: 1 appl Documented By: JÚNIOR Pantoprazole Sodium (Pantoprazole Sodium 40 Mg/10 Ml Vial) 40 mg IVPUSH BID@0630,1630 [facility] Last Admin: 12/29/21 05:59 Dose: 40 mg Documented By: KAZ Pharmacy Consult (Consult Rx Perform Med Rec) 1 each MISCELLANE ONCE PRN PRN Reason: Consult order Polyethylene Glycol (Polyethylene Glycol 3350 17 Gm Powd.Pack) 17 gm PO BID [facility] Last Admin: 12/29/21 09:49 Dose: 17 gm Documented By: JÚNIOR Potassium Chloride (Potassium Chloride Er 10 Meq Capsule.Er) 10 meq PO BID [facility] Last Admin: 12/29/21 09:48 Dose: 10 meq Documented By: JÚNIOR Pramoxine HCl (Pramoxine Hcl 1 % Rectal Foam 15 Gm) 1 appl [place] QID [facility] Last Admin: 12/29/21 10:00 Dose: 1 appl Documented By: JÚNIOR Quetiapine Fumarate (Quetiapine Fumarate 25 Mg Tablet) 25 mg PO DAILY [facility] Last Admin: 12/29/21 09:49 Dose: 25 mg Documented By: JÚNIOR Quetiapine Fumarate (Quetiapine Fumarate 50 Mg Tablet) 50 mg PO BEDTIME [facility] Last Admin: 12/28/21 20:04 Dose: 50 mg Documented By: KAZ Sodium Chloride (0.9 % Sodium Chloride Flush 3 Ml Syringe) 3 ml IVFLUSH QSHIFT [facility] Last Admin: 12/29/21 09:48 Dose: 3 ml Documented By: JÚNIOR Topiramate (Topiramate 100 Mg Tablet) 200 mg PO BID [facility] Last Admin: 12/29/21 09:48 Dose: 200 mg Documented By: JÚNIOR Labs CBC & Chem 7: 12/29/21 06:05 12/29/21 06:05 Labs: Laboratory Results - last 24 hr 12/26/21 12/28/21 12/28/21 05:57 14:45 19:11 MCV 88.3 MCH 24.1 L MCHC 27.2 L RDW 19.5 H Plt Count 96 L D MPV 11.5 Absolute Nucleated RBC 0.030 H Nucleated RBC % (auto) 0.4 H Haptoglobin 22 L APTT 49.7 H Anion Gap Estim Creat Clear Calc Estimated GFR Random Glucose Calcium 12/29/21 12/29/21 12/29/21 06:05 06:05 06:05 MCV Cancelled 88.3 MCH Cancelled 24.3 L MCHC Cancelled 27.5 L RDW Cancelled 19.9 H Plt Count Cancelled 96 L MPV Cancelled 12.5 H Absolute Nucleated RBC Cancelled 0.000 Nucleated RBC % (auto) Cancelled 0.0 Haptoglobin APTT Anion Gap 13 Estim Creat Clear Calc 46.5 Estimated GFR 45 Random Glucose 88 Calcium 8.8 D Assessment and Plan (1) Anticoagulant long-term use: Status: Acute (2) Congestive heart failure: Status: Acute (3) H/O mitral valve replacement with mechanical valve: Status: Acute Plan 70-year-old female with a past medical history of hypertension, hyperlipidemia, dementia, seizures, mitral valve replacement ([facility]) on coumadin, CHF , history of AICD, DVT, hypothyroidism, dementia, history of seizures, depression, asthma, history of CVA with residual right-sided weakness, aphasia admitted for presumed blood loss and acute on chronic CHF. 1. acute blood loss on ch Iron deficiency anemia- H/H 6.9/26.9 (last H/H 8.5/30.6% 05/11)- ?acute blood loss use vs possible chronic slow bleed r/t external hemorrhoid vs other GI bleed. -Pt. denies active bleeding. Stool occult blood positive. no new gum oozing Initial INR was supratherapeutic but inr 1.6 (12/28) elevated trop 17.8 -18.6(flat) anemia workup-seeems iron def retic count seems normal ldh slightly elevated Haptoglobin pending, Sherin test neg Patient had EGD and sigmoidoscopy this afternoon-EGD seems fine, biopsies taken from gastric area as well as duodenal area. Sigmoidoscopy/colonoscopy:internal hemorrhoids, large, probable source of anemia diverticular disease Today also got 1 PRBC, so far 2 PRBC transfusion since admission-last H&H was 7.7/,platlets 76. ?hematology evaluationnoted-discussed with the Hematology -heparin stopped, and switch to Lovenox ( considering h/h improving, egd/colonoscopy neg, has thrombocytopenia) Monitor hb/hct closely 2. UTI -UA in ED with 3+ leuks, 1+ blood, 4+ bacteria, neg nitrites -Urine culture pending -IV ceftriaxone,urine culture-strep agalacticae,repeat urine? cultures aded. 3. acute on chronic HFrEF- pt reporting sob, though likely from anemia, and increased BLE edema -CXR with trace pleural effusions. BNP elevated from baseline at 301 -IV lasix adjusted 40 mgiv -Pt requires 1 unit PRBC d/t anemia as above. Otherwise fluid restrictions 1L -Purewick placed. Strict I&O- so far 3.5 liter. -Cardiac diet -BP soft. Hold losartan 4. Paroxysmal AFib-ventricular rate around 100 range continue po metoprolol and digoxin. -Hold warfarin for now as above hold? losartan . -AICD in place 5. mechanical mitral valve- [facility]. Follows with [facility] card outpt - INR 1.6 yesterday, hold warfarin for now switched to s/c lovenox.if h/hstays stable and no further bleeding-will add warfarin in am possible Gi -EGD/colonoscopy as above-mostly seems fine with possible hemorrhoid might have been the source for losing blood. Hemorrhoid gutierrez:? Added on ointment, Sitz baths, avoid straining stool gutierrez, will add stool softener. surgery eval for haemorroiods 6. hypothyroidism - continue LT4 7. dementia - continue memantine 8. mood disorder - continue fluoxetine, mirtazapine, quetiapine 9. partial seizure disorder - continue lamotrigine, topiramate 10. hx CVA - Hold ASA -Continue statin # VTE ppx- mechanical. on IV heparin. need for inpatient: anemia workup-cbc monitering ,prn transfusion, mechanical mitral valve on IV heparin-need INR monitoring, CHF on IV Lasix. Quality Stroke Does the patient have a stroke diagnosis?: No VTE Prior VTE?: Yes VTE Risk Level:: Medical - moderate - high VTE Device Contraindication: N/A - Device Ordered VTE Drug Contraindication: Treatment Not Indicated
[2021-12-29 11:47] VITALS: BP 119/56; PULSE 92; RESP 20; TEMP 36.9; O2SAT 99
[2021-12-29] MEDS: cefTRIAXone sodium 1 GM in 0.9 % Sodium Chloride 50 ML IV (15:04)
--- NOTE | 2021-12-29 15:27 | PC.NURSE ---
this nurse noticed pt having right shoulder twitch, unsure if normal for pt. at report no mention of twitching. MD notified.
[2021-12-29 16:00] VITALS: BP 120/58; PULSE 82; RESP 18; TEMP 36.1; O2SAT 92
[2021-12-29] MEDS: Furosemide 20 MG/2 ML VIAL 40 MG IVPUSH (18:26)
[2021-12-29] MEDS: Enoxaparin Sodium 100 MG/ML SYRINGE 85 MG SUBCUT (18:33)
[2021-12-29 19:35] VITALS: BP 136/60; PULSE 76; RESP 19; TEMP 37.2; O2SAT 95
[2021-12-29] MEDS: QUEtiapine Fumarate 50 MG TABLET PO (20:59)
[2021-12-29] MEDS: Mirtazapine 15 MG TABLET PO (20:59)
[2021-12-29] MEDS: Atorvastatin Calcium 80 MG TABLET PO (21:00)
[2021-12-29 23:32] VITALS: BP 132/65; PULSE 68; RESP 18; TEMP 36.4; O2SAT 98
[2021-12-30] VITALS (8 sets, daily range): BP systolic 113–143; BP diastolic 55–65; PULSE 61–86; RESP 18–20; TEMP 36.6–37.4; O2SAT 96–98
--- NOTE | 2021-12-30 | EEG_ITS ---
This is a 16-channel EEG with an EKG lead. The patient is reported awake during the tracing. Background EEG rhythm is somewhat asymmetrical with almost continuous theta to delta range activity in left frontocentral area with some muscle and lead artifacts. Rest of the EEG was mostly medium amplitude mixed theta beta. At times, left hemispheric discharges were sharply controlled. No definite spike was noted. Photic stimulation does not produce any significant abnormality and hyperventilation was not performed. Cardiac lead revealed bradycardia. IMPRESSION: Abnormal EEG suggestive of left frontocentral structural abnormality with possible underlying tendency for seizure disorder. MD JEROME Edwards/KIARRA / [id number]
[2021-12-30] MEDS: Enoxaparin Sodium 100 MG/ML SYRINGE 85 MG SUBCUT ×2 (05:50→17:59)
[2021-12-30] MEDS: Levothyroxine Sodium 175 MCG TABLET PO (05:50)
[2021-12-30] MEDS: Pantoprazole Sodium 40 MG/10 ML VIAL IVPUSH (05:50)
[2021-12-30 06:12] LABS: PLT CLUMP 1; Red Blood Count 2.99 X10*6/uL (4.20-5.50)
[2021-12-30 06:14] LABS: Hematocrit 26.4 % (37.0-47.0); Hemoglobin 7.2 g/dl (12.0-16.0); Mean Corpuscular HGB Conc 27.3 g/dl (31.0-35.0); Mean Corpuscular Hemoglobin 24.1 pg (27.0-33.0); Mean Corpuscular Volume 88.3 fL (80.0-98.0); Mean Platelet Volume 11.6 fL (9.4-12.3); NRBC Pct Auto 0.3 /100WBC (0.0-0.2); Red Cell Distribution Width 20.6 % (11.0-16.0)
[2021-12-30 06:16] LABS: Platelet Count 93 X10*3/uL (160-400); White Blood Count 6.3 X10*3/uL (4.8-10.8)
[2021-12-30 06:35] LABS: Anion Gap 13 (12-20); Blood Urea Nitrogen 15 mg/dL (9-16); Calcium 8.8 mg/dL (8.4-10.2); Carbon Dioxide 33 mmol/L (22-29); Chloride 99 mmol/L (96-108); Creatinine Clr Calc Pharmacy 52.3; Estimated Glomerular Filt Rate 52; Glucose Random 92 mg/dL (60-115); Potassium 3.4 mmol/L (3.3-5.1); Sodium 142 mmol/L (135-145)
[2021-12-30 06:36] LABS: B Type Natriuretic Peptide 306 pg/mL (<100)
--- NOTE | 2021-12-30 07:00 | CA_ITS ---
Transthoracic Echocardiogram Patient (Last, First, Middle): Lucie Hunter, Gender: Female Date of : 1950 Age: 71 Procedure Date: 12/30/2021 Procedure Type: Transthoracic Echocardiogram Location: [facility] [place] Height: 165.1 cm Weight: 82.56 kg BSA: 1.90 m2 Heart Rate: bpm BP: 143 / 63 mmHg Retirement Specialist: SB Referring MD: Bryan Beal MD Second Operator: Prakash Bryan MD Symptoms: CHF, TR Study Quality: Adequate ECG Rhythm: Atrial Fibrillation Conclusions: - 1. Mildly reduced LV systolic function with LVEF of 45-50% 2. Severe biatrial enlargement 3. Mechanical mitral valve mean gradient of 8 mm Hg, not significantly changed compared to before 4. Mild to moderately elevated right ventricular systolic pressure with significantly elevated right atrial pressures 5. No pericardial effusion Findings Left Ventricle Normal left ventricular cavity size. There is normal left ventricular wall thickness. The left ventricular systolic function is mildly decreased. The visually estimated ejection fraction is between 45-50%. There is paradoxical septal motion consistent with post-operative status. Diastolic function is indeterminate on the basis of available data. Right Ventricle Mildly increased right ventricular cavity size. There is low normal right ventricular systolic function. Atria The left atrium is severely dilated. There is no evidence of interatrial shunt. The right atrium is severely dilated. Aortic Valve The aortic valve was not well visualized. There is mild calcification of the aortic valve. There is mild aortic valve stenosis. The mean gradient is 10 mmHg. There is no aortic valve regurgitation. Mitral Valve A mechanical prosthetic mitral valve is present. the mechanical valve is well seated without abnormal rocking motion. The mean gradient is slightly elevated 8 mmHg. Pulmonic Valve The pulmonic valve is likely normal. There is trace to mild pulmonic valve regurgitation. Tricuspid Valve Normal tricuspid valve structure. There is mild tricuspid valve regurgitation. Significantly elevated right atrial pressure. Mild to moderate pulmonary hypertension is present. Great Vessels All visible segments of the aorta are normal in size. The pulmonary artery was not well visualized. Venous The inferior vena cava is severely dilated and does not collapse with inspiration. Pericardium/Pleural There is no evidence of pericardial effusion. Prior Study Comparison Changes noted compared to prior study dated: 07/06/2018. LV systolic function appears to have improved. Measurements 2D Linear Measurements IVSd: 0.90 0.6-0.9/0.6-1.0 cm LVIDd: 4.07 3.9-5.3/4.2-5.9 cm LVIDd Index: 2.14 2.4-3.2/2.2-3.1 cm/m2 LVIDs: 3.05 2.0-3.6 cm LVPWd: 1.21 0.7-1.1 cm LA Diam: 5.40 2.7-3.8/3.0-4.0 cm LAIDs Index: 2.84 1.5-2.3 cm/m2 LV Mass: 174.88 67-162/88-224 g LV Mass Index: 92.04 43-95/49-115 g/m2 LVOT Diam: 1.60 3.0+(-)1.3 cm 2D Systolic Function EF 4C: 40.00 >55% EF 2C: 55.90 >55% EF BiP: 48.40 >55% Mitral Valve MV VTI: 0.38 MV Pk Anthony: 2.09 MV Mn Anthony: 1.25 MV Pk Grad: 17.00 MV Mn Grad: 8.00 MV Pk E: 1.90 MVA Continuity: 1.05 Aortic Valve AoV Pk Anthony: 1.97 AoV Mn Anthony: 1.45 AoV VTI: 0.40 AoV Pk Grad: 16.00 Aov Mn Grad: 10.00 DEBORAH Cont.VTI: 1.00 LVOT LVOT Pk Anthony: 1.03 LVOT Mn Anthony: 0.70 LVOT VTI: 0.20 LVOT Pk Grad: 4.00 LVOT Mn Grad: 2.00 LVOT Diam: 1.60 LVOT Area: 2.01 Diastolic Function MV Pk E: 1.90 Right Ventricle TAPSE (mm): 8.00 TVS' Anthony: 5.10 Tricuspid Valve TR Pk Anthony: 2.84 TR Pk Grad: 32.00 RA Press: 15.00 RVSP: 47.00 Great Vessels Aorta Sinus of Valsalva: 2.60 2.0-3.5 cm Ao Asc: 3.20 2.1-3.4 cm Pulmonary Valve PV Pk Anthony: 1.51 Peak PV Grad: 9.00 Updated in Other Vendor System with Status of Final Prakash Bryan MD electronically signed on 12/30/2021 12:32:24 PM with status of Final
[2021-12-30] MEDS: Multivitamin TABLET 1 TAB PO (07:36)
[2021-12-30] MEDS: Topiramate 100 MG TABLET 200 MG PO (07:36)
[2021-12-30] MEDS: Ferrous Sulfate 324 MG TABLET.DR PO ×2 (07:37→16:09)
[2021-12-30] MEDS: Metoprolol Tartrate 25 MG TABLET PO ×3 (07:37→22:39)
[2021-12-30] MEDS: Furosemide 20 MG/2 ML VIAL 40 MG IVPUSH ×2 (07:37→17:59)
[2021-12-30] MEDS: lamoTRIgine 25 MG TABLET 50 MG PO (07:37)
[2021-12-30] MEDS: QUEtiapine Fumarate 25 MG TABLET PO (07:37)
[2021-12-30] MEDS: Isosorbide Mononitrate 30 MG TAB.ER.24H PO (07:37)
[2021-12-30] MEDS: FLUoxetine HCl 20 MG CAPSULE 40 MG PO (07:37)
[2021-12-30] MEDS: Memantine HCl 10 MG TABLET PO (07:37)
[2021-12-30] MEDS: polyethylene glycoL 3350 17 GM POWD.PACK PO ×2 (07:38→22:39)
[2021-12-30] MEDS: Pramoxine HCl 1 % Rectal Foam 15 GM 1 APPL PR ×4 (07:41→22:40)
[2021-12-30] MEDS: Nystatin Powder 15 GM BOTTLE 1 APPL TOPICAL ×3 (07:41→22:39)
[2021-12-30] MEDS: Digoxin 0.125 MG TABLET PO (07:43)
[2021-12-30] MEDS: 0.9 % Sodium Chloride Flush 3 ML SYRINGE IVFLUSH ×2 (08:01→22:40)
--- NOTE | 2021-12-30 09:21 | PC.NURSE ---
Patient resting in NAD, breathing unlabored, and lungs clear. Patient's VSS. Repositioned for comfort and no bleeding noted from rectum. Barrier cream applied to buttocks area. Purewick in place draining yellow UA. Significant right arm pitting edema, elevated on pillow. Plan is to monitor h/h, and any bleeding. Restart Coumadin pending INR.
--- NOTE | 2021-12-30 09:34 | PM.PNGS ---
Subjective Subjective Date of Service: 12/30/21 Interval history: I have reviewed her history Patient currently does not offer much with regards to history Not very communicative Appears frail looking Physical Exam Vital Signs: Vital Signs: Last Vital Signs Temp 98.9 F 12/30/21 07:55 Pulse 86 12/30/21 07:55 Resp 18 12/30/21 07:55 BP 129/62 12/30/21 07:55 Pulse Ox 98 12/30/21 07:55 O2 Del Method 12/30/21 07:55 O2 Flow Rate 2 12/30/21 07:55 FiO2 28 12/27/21 15:45 BMI result Body Mass Index 30.4 Const: Other: Frail looking, not very communicative, answers only simple questions, appears drowsy General: no acute distress Resp: Effort & Inspection: normal respiratory effort Cardio: Rate: regular rate GI: Other: Prolapsed hemorrhoids, internal and external, no bleeding, no thrombosis, no acute swelling inflammation Palpation (GI): Soft to palpation, not firm, nontender and no guarding Objective Data Active Medications Atorvastatin Calcium (Atorvastatin Calcium 80 Mg Tablet) 80 mg PO BEDTIME [facility] Last Admin: 12/29/21 21:00 Dose: 80 mg Documented By: ALEX Digoxin (Digoxin 0.125 Mg Tablet) 0.125 mg PO Q2D [facility] Last Admin: 12/30/21 07:43 Dose: 0.125 mg Documented By: HERB Enoxaparin Sodium (Enoxaparin Sodium 100 Mg/Ml Syringe) 85 mg SUBCUT Q12H [facility] Last Admin: 12/30/21 05:50 Dose: 85 mg Documented By: ALEX Ferrous Sulfate (Ferrous Sulfate 324 Mg Tablet.Dr) 324 mg PO BIDWM [facility] Last Admin: 12/30/21 07:37 Dose: 324 mg Documented By: HERB Fluoxetine HCl (Fluoxetine Hcl 20 Mg Capsule) 40 mg PO DAILY [facility] Last Admin: 12/30/21 07:37 Dose: 40 mg Documented By: HERB Furosemide (Furosemide 20 Mg/2 Ml Vial) 40 mg IVPUSH BID@0900,1800 [facility]; Protocol Last Admin: 12/30/21 07:37 Dose: 40 mg Documented By: HERB Ceftriaxone Sodium 1 gm/ (Sodium Chloride) 50 mls @ 100 mls/hr IV Q24H [facility] Last Infusion: 12/29/21 15:48 Dose: 0 mls/hr Documented By: JÚNIOR Isosorbide Mononitrate (Isosorbide Mononitrate 30 Mg Tab.Er.24h) 30 mg PO DAILY [facility]; Protocol Last Admin: 12/30/21 07:37 Dose: 30 mg Documented By: HERB Lamotrigine (Lamotrigine 25 Mg Tablet) 50 mg PO BID [facility] Last Admin: 12/30/21 07:37 Dose: 50 mg Documented By: HERB Levothyroxine Sodium (Levothyroxine Sodium 175 Mcg Tablet) 175 mcg PO DAILY@0630 [facility] Last Admin: 12/30/21 05:50 Dose: 175 mcg Documented By: ALEX Memantine (Memantine Hcl 10 Mg Tablet) 10 mg PO DAILY [facility] Last Admin: 12/30/21 07:37 Dose: 10 mg Documented By: HERB Metoprolol Tartrate (Metoprolol Tartrate 25 Mg Tablet) 25 mg PO TID [facility]; Protocol Last Admin: 12/30/21 07:37 Dose: 25 mg Documented By: HERB Mirtazapine (Mirtazapine 15 Mg Tablet) 15 mg PO BEDTIME [facility] Last Admin: 12/29/21 20:59 Dose: 15 mg Documented By: ALEX Multivitamins/Vitamin C (Multivitamin Tablet) 1 tab PO DAILY [facility] Last Admin: 12/30/21 07:36 Dose: 1 tab Documented By: HERB Nystatin (Nystatin Powder 15 Gm Bottle) 1 appl TOPICAL TID [facility]; Protocol Last Admin: 12/30/21 07:41 Dose: 1 appl Documented By: HERB Pharmacy Consult (Consult Rx Perform Med Rec) 1 each MISCELLANE ONCE PRN PRN Reason: Consult order Polyethylene Glycol (Polyethylene Glycol 3350 17 Gm Powd.Pack) 17 gm PO BID [facility] Last Admin: 12/30/21 07:38 Dose: 17 gm Documented By: HERB Potassium Chloride (Potassium Chloride Er 10 Meq Capsule.Er) 10 meq PO BID [facility] Last Admin: 12/30/21 07:37 Dose: 10 meq Documented By: HERB Pramoxine HCl (Pramoxine Hcl 1 % Rectal Foam 15 Gm) 1 appl DC QID [facility] Last Admin: 12/30/21 07:41 Dose: 1 appl Documented By: HERB Quetiapine Fumarate (Quetiapine Fumarate 25 Mg Tablet) 25 mg PO DAILY [facility] Last Admin: 12/30/21 07:37 Dose: 25 mg Documented By: HERB Quetiapine Fumarate (Quetiapine Fumarate 50 Mg Tablet) 50 mg PO BEDTIME [facility] Last Admin: 12/29/21 20:59 Dose: 50 mg Documented By: ALEX Sodium Chloride (0.9 % Sodium Chloride Flush 3 Ml Syringe) 3 ml IVFLUSH QSHIFT [facility] Last Admin: 12/30/21 08:01 Dose: 3 ml Documented By: HERB Topiramate (Topiramate 100 Mg Tablet) 200 mg PO BID [facility] Last Admin: 12/30/21 07:36 Dose: 200 mg Documented By: HERB Warfarin Sodium (Warfarin Sodium 2 Mg Tablet) 2 mg PO DAILY@1800 [facility] Labs CBC & Chem 7: 12/30/21 05:50 12/30/21 05:50 Labs: Laboratory Results - last 24 hr 12/30/21 12/30/21 12/30/21 05:50 05:50 05:50 MCV 88.3 MCH 24.1 L MCHC 27.3 L RDW 20.6 H Plt Count 93 L MPV 11.6 Absolute Nucleated RBC 0.020 H Nucleated RBC % (auto) 0.3 H Anion Gap 13 Estim Creat Clear Calc 52.3 Estimated GFR 52 Random Glucose 92 Calcium 8.8 B-Natriuretic Peptide 306 H Procedures Date of Service Date of Service: 12/30/21 Progress Note: A&P Assessment and plan (1) Prolapsed hemorrhoids: Status: Acute Assessment and Plan: Current exam shows prolapsed hemorrhoids, not bleeding, not thrombosed According to staff, they really have not seen significant bleeding from her hemorrhoids Uncertain if this is source of anemia Would hold off on hemorrhoidectomy at this time especially in view of patient's comorbid condition Follow H&H I will follow along while she is in the hospital Would hold off on anticoagulation for now Time Spent With Patient Time: Total time spent is greater than 50% in coordination of care (as documented) at patient's floor/unit and/or counseling patient: Quality Stroke Does the patient have a stroke diagnosis?: No VTE Prior VTE?: Yes VTE Risk Level:: Medical - moderate - high VTE Device Contraindication: N/A - Device Ordered VTE Drug Contraindication: Treatment Not Indicated
[2021-12-30 09:52] LABS: INTERNATIONAL NORM RATIO 1.5 (0.9-1.1); Prothrombin Time 17.5 SEC (10.0-13.1)
--- NOTE | 2021-12-30 12:02 | P.PNCA_ITS ---
Subjective Subjective Date of Service: 12/30/21 Principal diagnosis: CHF, anemia Interval history: Patient seen at bedtime. Patient's daughter also is at bedside. Patient denies any shortness of breath although BNP has increased. She remains significantly anemic still. Denies any worsening shortness of breath. No palpitations or irregular heartbeat. Echocardiogram shows significantly elevated right atrial pressures. Review of Systems Review of Systems Yes Unobtainable due to mental condition Physical Exam Vital Signs: Last Vital Signs Temp 98.5 F 12/30/21 11:06 Pulse 76 12/30/21 11:06 Resp 18 12/30/21 11:06 BP 113/65 12/30/21 11:06 Pulse Ox 98 12/30/21 11:06 O2 Del Method 12/30/21 11:06 O2 Flow Rate 3 12/30/21 11:06 FiO2 28 12/27/21 15:45 BMI result Body Mass Index 30.4 Const General: cooperative, comfortable, no acute distress, alert, awake, ill appearing and tired appearing Nutritional Appearance: overweight Orientation/consciousness: patient oriented x3 Neck Neck: Yes trachea midline, Yes supple and Yes JVD Resp Effort & Inspection: decreased respiratory effort Auscultation: no wheezes and diminished lung sounds Cardio Jugular venous distension: JVD Rhythm: abnormal rhythm irregularly irregular Heart sounds: S2 normal heart sound present, no click, no gallops, Murmur heart sound present systolic early and Other heart sounds present (Fidel opening and closing click of [facility] mitral valve) GI Auscultation: normal bowel sounds Skin General skin exam: no rashes or lesions noted Neuro General: patient oriented x3 and no focal motor deficits Extrem General: No clubbing, No cyanosis and Yes edema Objective Labs and Meds Result diagrams: 12/30/21 05:50 12/30/21 05:50 Lab results: Laboratory Results - last 24 hr 12/30/21 12/30/21 12/30/21 05:50 05:50 05:50 WBC 6.3 RBC 2.99 L Hgb 7.2 L Hct 26.4 L MCV 88.3 MCH 24.1 L MCHC 27.3 L RDW 20.6 H Plt Count 93 L MPV 11.6 Absolute Nucleated RBC 0.020 H Nucleated RBC % (auto) 0.3 H PT INR Sodium 142 Potassium 3.4 Chloride 99 Carbon Dioxide 33 H Anion Gap 13 BUN 15 Creatinine 1.05 Estim Creat Clear Calc 52.3 Estimated GFR 52 Random Glucose 92 Calcium 8.8 B-Natriuretic Peptide 306 H 12/30/21 09:38 WBC RBC Hgb Hct MCV MCH MCHC RDW Plt Count MPV Absolute Nucleated RBC Nucleated RBC % (auto) PT 17.5 H INR 1.5 H Sodium Potassium Chloride Carbon Dioxide Anion Gap BUN Creatinine Estim Creat Clear Calc Estimated GFR Random Glucose Calcium B-Natriuretic Peptide Progress Note: A&P Assessment and plan (1) Congestive heart failure: Status: Acute Assessment and Plan: Congestive heart failure with predominant right heart failure syndrome. Has sig nificantly elevated right atrial pressures on echocardiogram. Continue diuresis with Lasix 40 mg IV push b.i.d.. Strict intake and output chart needs to be pursued. Need to also transfuse 1 unit of packed RBC to improve hematocrit above 30 given decompensated congestive heart failure. Lasix 40 mg IV push after your transfusion. Continue to trend renal function and electrolytes as well as BNP. (2) Afib: Status: Acute Assessment and Plan: Atrial fibrillation, rate controlled. Continue rate control strategy. Currently on IV heparin drip being planned to be switched over to p.o. warfarin therapy. Maintain target INR between 2.5 and 3.5. (3) H/O mitral valve replacement with mechanical valve: Status: Acute Assessment and Plan: Mechanical mitral valve in place with recent GI bleed. This presence a very difficult clinical situation given her GI bleed and significant anemia requirement for Coumadin due to presence of mechanical mitral valve which is at high risk for thrombosis especially with prior history of CVA in 2004 on under therapeutic INR. Therefore currently on IV heparin drip but should continue to switch to warfarin therapy. Target INR between 2.5 and 3.5. Need to aggressively source the GI bleed for further treatment options. Patient's daughter understands a difficult situation. Will continue to follow with you Time Spent With Patient Time: Total time spent is greater than 50% in coordination of care (as documented) at patient's floor/unit and/or counseling patient: Progress Note: Quality Stroke Does the patient have a stroke diagnosis?: No Procedures Date of Service Date of Service: 12/30/21
--- NOTE | 2021-12-30 13:36 | P.PNIM_ITS ---
Subjective Subjective Date of Service: 12/30/21 Interval History: anemia ,mech mitral valve, external hameorriods,episodes of partial complex seizures Review of Systems no overnight gum oozing or any bleed sob seems slightly better than yesterday no abd pain or chest pain has twiching of arm/foot right side. Physical Exam Vital Signs: Vital Signs: Last Vital Signs Temp 98.5 F 12/30/21 11:06 Pulse 76 12/30/21 11:06 Resp 18 12/30/21 11:06 BP 113/65 12/30/21 11:06 Pulse Ox 98 12/30/21 11:06 O2 Del Method 12/30/21 11:06 O2 Flow Rate 3 12/30/21 11:06 FiO2 28 12/27/21 15:45 BMI result Body Mass Index 30.4 Appearance: Alert.?awake -at baseline heent: no new gumoozin cvs:irregular rythem, [id number]. res: air entry fair ,diminshed at bases. abd: no rebound or guarding ,nt, bs present. ext pulses present , no cyanosis . neuro:? nonfocal Objective Data Active Medications Atorvastatin Calcium (Atorvastatin Calcium 80 Mg Tablet) 80 mg PO BEDTIME [facility] Last Admin: 12/29/21 21:00 Dose: 80 mg Documented By: ALEX Digoxin (Digoxin 0.125 Mg Tablet) 0.125 mg PO Q2D [facility] Last Admin: 12/30/21 07:43 Dose: 0.125 mg Documented By: HERB Enoxaparin Sodium (Enoxaparin Sodium 100 Mg/Ml Syringe) 85 mg SUBCUT Q12H [facility] Last Admin: 12/30/21 05:50 Dose: 85 mg Documented By: ALEX Ferrous Sulfate (Ferrous Sulfate 324 Mg Tablet.) 324 mg PO BIDWM [facility] Last Admin: 12/30/21 07:37 Dose: 324 mg Documented By: HERB Fluoxetine HCl (Fluoxetine Hcl 20 Mg Capsule) 40 mg PO DAILY [facility] Last Admin: 12/30/21 07:37 Dose: 40 mg Documented By: HERB Furosemide (Furosemide 20 Mg/2 Ml Vial) 40 mg IVPUSH BID@0900,1800 [facility]; Protocol Last Admin: 12/30/21 07:37 Dose: 40 mg Documented By: HERB Ceftriaxone Sodium 1 gm/ (Sodium Chloride) 50 mls @ 100 mls/hr IV Q24H [facility] Last Infusion: 12/29/21 15:48 Dose: 0 mls/hr Documented By: JÚNIOR Isosorbide Mononitrate (Isosorbide Mononitrate 30 Mg Tab.Er.24h) 30 mg PO DAILY [facility]; Protocol Last Admin: 12/30/21 07:37 Dose: 30 mg Documented By: HERB Lamotrigine (Lamotrigine 100 Mg Tablet) 100 mg PO BID [facility] Levothyroxine Sodium (Levothyroxine Sodium 175 Mcg Tablet) 175 mcg PO DAILY@0630 [facility] Last Admin: 12/30/21 05:50 Dose: 175 mcg Documented By: ALEX Memantine (Memantine Hcl 10 Mg Tablet) 10 mg PO DAILY [facility] Last Admin: 12/30/21 07:37 Dose: 10 mg Documented By: HERB Metoprolol Tartrate (Metoprolol Tartrate 25 Mg Tablet) 25 mg PO TID [facility]; Protocol Last Admin: 12/30/21 07:37 Dose: 25 mg Documented By: HERB Mirtazapine (Mirtazapine 15 Mg Tablet) 15 mg PO BEDTIME [facility] Last Admin: 12/29/21 20:59 Dose: 15 mg Documented By: ALEX Multivitamins/Vitamin C (Multivitamin Tablet) 1 tab PO DAILY [facility] Last Admin: 12/30/21 07:36 Dose: 1 tab Documented By: HERB Nystatin (Nystatin Powder 15 Gm Bottle) 1 appl TOPICAL TID [facility]; Protocol Last Admin: 12/30/21 07:41 Dose: 1 appl Documented By: HERB Pharmacy Consult (Consult Rx Perform Med Rec) 1 each MISCELLANE ONCE PRN PRN Reason: Consult order Polyethylene Glycol (Polyethylene Glycol 3350 17 Gm Powd.Pack) 17 gm PO BID [facility] Last Admin: 12/30/21 07:38 Dose: 17 gm Documented By: HERB Potassium Chloride (Potassium Chloride Er 10 Meq Capsule.Er) 10 meq PO BID [facility] Last Admin: 12/30/21 07:37 Dose: 10 meq Documented By: HERB Pramoxine HCl (Pramoxine Hcl 1 % Rectal Foam 15 Gm) 1 appl AL QID [facility] Last Admin: 12/30/21 07:41 Dose: 1 appl Documented By: HERB Quetiapine Fumarate (Quetiapine Fumarate 25 Mg Tablet) 25 mg PO DAILY [facility] Last Admin: 12/30/21 07:37 Dose: 25 mg Documented By: HERB Quetiapine Fumarate (Quetiapine Fumarate 50 Mg Tablet) 50 mg PO BEDTIME [facility] Last Admin: 12/29/21 20:59 Dose: 50 mg Documented By: SKYLERUMOC Sodium Chloride (0.9 % Sodium Chloride Flush 3 Ml Syringe) 3 ml IVFLUSH QSHIFT [facility] Last Admin: 12/30/21 08:01 Dose: 3 ml Documented By: HERB Topiramate (Topiramate 100 Mg Tablet) 100 mg PO BID [facility] Warfarin Sodium (Warfarin Sodium 2 Mg Tablet) 2 mg PO DAILY@1800 [facility] Labs CBC & Chem 7: 12/30/21 05:50 12/30/21 05:50 Labs: Laboratory Results - last 24 hr 12/30/21 12/30/21 12/30/21 05:50 05:50 05:50 MCV 88.3 MCH 24.1 L MCHC 27.3 L RDW 20.6 H Plt Count 93 L MPV 11.6 Absolute Nucleated RBC 0.020 H Nucleated RBC % (auto) 0.3 H PT INR Anion Gap 13 Estim Creat Clear Calc 52.3 Estimated GFR 52 Random Glucose 92 Calcium 8.8 B-Natriuretic Peptide 306 H Blood Type Antibody Screen Crossmatch 12/30/21 12/30/21 09:38 12:53 MCV MCH MCHC RDW Plt Count MPV Absolute Nucleated RBC Nucleated RBC % (auto) PT 17.5 H INR 1.5 H Anion Gap Estim Creat Clear Calc Estimated GFR Random Glucose Calcium B-Natriuretic Peptide Blood Type A Positive Antibody Screen NEGATIVE Crossmatch See Detail Assessment and Plan (1) Prolapsed hemorrhoids: Status: Acute (2) Internal hemorrhoids with complication: Status: Acute (3) Anticoagulant long-term use: Status: Acute (4) Congestive heart failure: Status: Acute (5) Anemia: Status: Acute Plan 70-year-old female with a past medical history of hypertension, hyperlipidemia, dementia, seizures, mitral valve replacement ([facility]) on coumadin, CHF , history of AICD, DVT, hypothyroidism, dementia, history of seizures, depression, asthma, history of CVA with residual right-sided weakness, aphasia admitted for presumed blood loss and acute on chronic CHF. 1. acute blood loss on ch Iron deficiency anemia- H/H 6.9/26.9 (last H/H 8.5/30.6% 05/11)- ?acute blood loss use vs possible chronic slow bleed r/t external hemorrhoid vs other GI bleed. -Pt. denies active bleeding. Stool occult blood positive. no new gum oozing Initial INR was supratherapeutic but inr 1.6 (12/28) elevated trop 17.8 -18.6(flat) anemia workup-seeems iron def retic count seems normal ldh slightly elevated Haptoglobin 22, Sherin test neg Patient had EGD and sigmoidoscopy this afternoon-EGD seems fine, biopsies taken from gastric area as well as duodenal area. Sigmoidoscopy/colonoscopy:internal hemorrhoids, large, probable source of anemia diverticular disease Today also got 1 PRBC, so far 2 PRBC transfusion since admission-last H&H was 7.2/26.4,platlets 93. ?hematology evaluationnoted-discussed with the Hematology -heparin stopped, and switch to Lovenox ( considering h/h improving, egd/colonoscopy neg, has thrombocytopenia) d/w hematology -labs reviewed and h/h stable ,lft's fine -less likely hemolysis added 1prbc Monitor hb/hct closely 2. UTI -UA in ED with 3+ leuks, 1+ blood, 4+ bacteria, neg nitrites -Urine culture pending -IV ceftriaxone,urine culture-strep agalacticae,repeat urine? cultures aded. 3. acute on chronic HFrEF- pt reporting sob, though likely from anemia, and increased BLE edema -CXR with trace pleural effusions. BNP elevated from baseline at 301 -IV lasix adjusted 40 mgiv -Pt requires 1 unit PRBC d/t anemia as above. Otherwise fluid restrictions 1L -Purewick placed. Strict I&O- so far 3.5 liter. -Cardiac diet -BP soft. Hold losartan 4. Paroxysmal AFib-ventricular rate around 100 range continue po metoprolol and digoxin. -Hold warfarin for now as above hold? losartan . -AICD in place 5. mechanical mitral valve- [facility]. Follows with [facility] card outpt - INR 1.6 yesterday, hold warfarin for now switched to s/c lovenox.if h/hstays stable and no further bleeding-will add warfarin in am possible Gi -EGD/colonoscopy as above-mostly seems fine with possible hemorrhoid might have been the source for losing blood. Hemorrhoid gutierrez:? Added on ointment, Sitz baths, avoid straining stool gutierrez, will add stool softener. surgery eval for haemorroiods 6. hypothyroidism - continue LT4 7. dementia - continue memantine 8. mood disorder - continue fluoxetine, mirtazapine, quetiapine 9. partial seizure disorder: intermittent episodes adjusted lamotrigine, topiramate,added eeg neurology eval 10. hx CVA - Hold ASA -Continue statin # VTE ppx- mechanical. on IV heparin. need for inpatient: anemia workup-cbc monitering ,prn transfusion, mechanical mitral valve on lovenox/warfarin-need inr monitering, CHF on IV Lasix,patirla complex seizures -workup and neurology eval pending Quality Stroke Does the patient have a stroke diagnosis?: No VTE Prior VTE?: Yes VTE Risk Level:: Medical - moderate - high VTE Device Contraindication: N/A - Device Ordered VTE Drug Contraindication: Treatment Not Indicated
[2021-12-30] MEDS: cefTRIAXone sodium 1 GM in 0.9 % Sodium Chloride 50 ML IV (13:59)
[2021-12-30] MEDS: Acetaminophen 325 MG TABLET 650 MG PO (14:00)
--- NOTE | 2021-12-30 14:03 | PM.NEUROCN ---
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 She was initially in a rehab but then her daughter took over her care. At 1 point she also developed seizure disorder. She was in hospital for medical reasons but also noted to have seizure-like symptoms and this consultation was requested. Review of Systems Review of Systems: Could not be done [facility] Past Medical History Medical History (Updated 12/30/21 @ 14:07 by Aidee Astudillo MD) Acute bronchitis with bronchospasm Acute respiratory failure with hypoxia Anemia Aphasia, post-stroke Congestive heart failure COVID-19 Dementia DVT (deep venous thrombosis) Hypertension On Coumadin for atrial fibrillation Prolapsed hemorrhoids Right sided weakness Seizures Functional capacity: wheelchair bound Family History Family History Daughter No problems noted. Surgical History Surgical History (Updated 12/27/21 @ 13:15 by Shereen Johnson MD) Heart valve replaced Social History Social History Household Members: Family and Caregiver Housing: House Do you presently have visiting nurse or other home services: No Patient Tobacco Use Status: Former Tobacco user service: No Current occupational status: retired and disabled Meds Allergies Allergy/AdvReac Type Severity Reaction Status Date / Time codeine [Codeine] Allergy Unknown GENERIC Verified 03/28/21 00:26 Allergy: CODEINE SULFATE levofloxacin [LEVOFLOXACIN] Allergy Unknown ANGIOEDEMA Verified 03/28/21 00:26 Shellfish Allergy Unknown UNKNOWN Verified 03/28/21 00:26 Erythromycin Allergy Unknown Unknown Uncoded 03/28/21 00:26 Active Medications: Current Medications Atorvastatin Calcium (Atorvastatin Calcium 80 Mg Tablet) 80 mg PO BEDTIME [facility] Last Admin: 12/29/21 21:00 Dose: 80 mg Digoxin (Digoxin 0.125 Mg Tablet) 0.125 mg PO Q2D [facility] Last Admin: 12/30/21 07:43 Dose: 0.125 mg Enoxaparin Sodium (Enoxaparin Sodium 100 Mg/Ml Syringe) 85 mg SUBCUT Q12H [facility] Last Admin: 12/30/21 05:50 Dose: 85 mg Ferrous Sulfate (Ferrous Sulfate 324 Mg Tablet.Dr) 324 mg PO BIDWM [facility] Last Admin: 12/30/21 07:37 Dose: 324 mg Fluoxetine HCl (Fluoxetine Hcl 20 Mg Capsule) 40 mg PO DAILY [facility] Last Admin: 12/30/21 07:37 Dose: 40 mg Furosemide (Furosemide 20 Mg/2 Ml Vial) 40 mg IVPUSH BID@0900,1800 [facility]; Protocol Last Admin: 12/30/21 07:37 Dose: 40 mg Ceftriaxone Sodium 1 gm/ (Sodium Chloride) 50 mls @ 100 mls/hr IV Q24H [facility] Last Admin: 12/30/21 13:59 Dose: 100 mls/hr Isosorbide Mononitrate (Isosorbide Mononitrate 30 Mg Tab.Er.24h) 30 mg PO DAILY [facility]; Protocol Last Admin: 12/30/21 07:37 Dose: 30 mg Lamotrigine (Lamotrigine 100 Mg Tablet) 100 mg PO BID [facility] Levothyroxine Sodium (Levothyroxine Sodium 175 Mcg Tablet) 175 mcg PO DAILY@0630 [facility] Last Admin: 12/30/21 05:50 Dose: 175 mcg Memantine (Memantine Hcl 10 Mg Tablet) 10 mg PO DAILY [facility] Last Admin: 12/30/21 07:37 Dose: 10 mg Metoprolol Tartrate (Metoprolol Tartrate 25 Mg Tablet) 25 mg PO TID [facility]; Protocol Last Admin: 12/30/21 07:37 Dose: 25 mg Mirtazapine (Mirtazapine 15 Mg Tablet) 15 mg PO BEDTIME [facility] Last Admin: 12/29/21 20:59 Dose: 15 mg Multivitamins/Vitamin C (Multivitamin Tablet) 1 tab PO DAILY [facility] Last Admin: 12/30/21 07:36 Dose: 1 tab Nystatin (Nystatin Powder 15 Gm Bottle) 1 appl TOPICAL TID [facility]; Protocol Last Admin: 12/30/21 07:41 Dose: 1 appl Pharmacy Consult (Consult Rx Perform Med Rec) 1 each MISCELLANE ONCE PRN PRN Reason: Consult order Polyethylene Glycol (Polyethylene Glycol 3350 17 Gm Powd.Pack) 17 gm PO BID [facility] Last Admin: 12/30/21 07:38 Dose: 17 gm Potassium Chloride (Potassium Chloride Er 10 Meq Capsule.Er) 10 meq PO BID [facility] Last Admin: 12/30/21 07:37 Dose: 10 meq Pramoxine HCl (Pramoxine Hcl 1 % Rectal Foam 15 Gm) 1 appl MN QID [facility] Last Admin: 12/30/21 07:41 Dose: 1 appl Quetiapine Fumarate (Quetiapine Fumarate 25 Mg Tablet) 25 mg PO DAILY [facility] Last Admin: 12/30/21 07:37 Dose: 25 mg Quetiapine Fumarate (Quetiapine Fumarate 50 Mg Tablet) 50 mg PO BEDTIME [facility] Last Admin: 12/29/21 20:59 Dose: 50 mg Sodium Chloride (0.9 % Sodium Chloride Flush 3 Ml Syringe) 3 ml IVFLUSH QSHIFT [facility] Last Admin: 12/30/21 08:01 Dose: 3 ml Topiramate (Topiramate 100 Mg Tablet) 100 mg PO BID [facility] Warfarin Sodium (Warfarin Sodium 2 Mg Tablet) 2 mg PO DAILY@1800 [facility] Home Medications Medication Instructions Recorded Confirmed Last Taken Type aspirin 81 mg tablet,delayed 1 tab PO DAILY 03/01/21 12/24/21 03/27/21 History release atorvastatin 80 mg tablet 1 tab PO BEDTIME 03/01/21 12/24/21 03/26/21 History digoxin 125 mcg (0.125 mg) tablet 1 tab PO DAILY 03/01/21 12/24/21 03/27/21 History fluoxetine 40 mg capsule 1 cap PO DAILY 03/01/21 12/24/21 03/27/21 History furosemide 40 mg tablet 1 tab PO DAILY 03/01/21 12/24/21 03/27/21 History isosorbide mononitrate 30 mg 1 tab PO DAILY 03/01/21 12/24/21 03/27/21 History tablet,extended release 24 hr lamotrigine 25 mg tablet 2 tab PO BID 03/01/21 12/24/21 03/27/21 History levothyroxine 175 mcg tablet 1 tab PO DAILY 03/01/21 12/24/21 03/27/21 History losartan 25 mg tablet 1 tab PO DAILY 03/01/21 12/24/21 03/27/21 History memantine 10 mg tablet 1 tab PO DAILY 03/01/21 12/24/21 03/27/21 History metoprolol tartrate 100 mg tablet 1 tab PO BID 03/01/21 12/24/21 03/27/21 History mirtazapine 15 mg tablet 1 tab PO BEDTIME 03/01/21 12/24/21 03/26/21 History multivitamin 1 tab PO DAILY 03/01/21 12/24/21 03/27/21 History potassium chloride 10 mEq 1 tab PO BID 03/01/21 12/24/21 03/27/21 History tablet,extended release quetiapine 25 mg tablet 25 mg PO DAILY 03/01/21 12/24/21 03/27/21 History quetiapine 25 mg tablet 50 mg PO BEDTIME 03/01/21 12/24/21 03/26/21 History topiramate 200 mg tablet 1 tab PO BID 03/01/21 12/24/21 03/27/21 History warfarin 3 mg tablet 2 tab PO DAILY 03/01/21 12/24/21 03/27/21 History nitrofurantoin 1 cap PO BEDTIME 12/24/21 12/24/21 Unknown History monohydrate/macrocrystals 100 mg capsule nystatin 100,000 unit/gram topical 1 appl topical TID PRN Rash 12/24/21 12/24/21 Unknown History powder ([facility]) Physical Exam Vital Signs: Vital Signs: Last Vital Signs Temp 98.5 F 12/30/21 11:06 Pulse 76 12/30/21 11:06 Resp 18 12/30/21 11:06 BP 113/65 12/30/21 11:06 Pulse Ox 98 12/30/21 11:06 O2 Del Method 12/30/21 11:06 O2 Flow Rate 3 12/30/21 11:06 FiO2 28 12/27/21 15:45 BMI result Body Mass Index 30.4 Neuro: Other: I went to her room couple of time this morning and she was in deep sleep. Ultimately she woke up, she made eye contact and smiled recognizing me. She did not speak and it was difficult to say if she was following commands. Otherwise she was in not in any distress and there was no any abnormal movement. Face was symmetrical. She was moving her left arm better than right arm. Results Labs CBC & Chem 7: 12/30/21 05:50 12/30/21 05:50 Labs: Short CBC 12/30/21 Range/Units 05:50 WBC 6.3 (4.8-10.8) X10*3/uL Hgb 7.2 L (12.0-16.0) g/dl Hct 26.4 L (37.0-47.0) % Plt Count 93 L (160-400) X10*3/uL BMP 12/30/21 05:50 Sodium 142 Potassium 3.4 Chloride 99 Carbon Dioxide 33 H BUN 15 Creatinine 1.05 [address]cium [address] revealed a large chronic left middle cerebral artery infarct and moderate atrophy most the and fronto temporal area Microbiology Microbiology Results: Microbiology 12/24/21 Unknown Urine Catheterized - Straight Catheter Urine Culture - Final Strep agalactiae (Grp B) Assessment and Plan (1) Multifactorial dementia: Status: Acute (2) Global aphasia: Status: Acute (3) Seizure disorder: Status: Acute 71 years old woman with chronic large left middle cerebral artery infarct resulting in global aphasia and right-sided weakness, also 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 With this type of patient who is unable to communicate and not able to provide full consent, we should be careful and be conservative. Her daughter has been taking care of her for many years. As far as seizure disorder is concerned, my suggestion is to decrease the Topamax dose to 100 mg twice a day and increase lamotrigine dose to 100 mg twice a day and obtain an EEG. If I remember correctly, this dose of Topamax was partly due to obesity but it has obviously not helped her and she has not lost significant weight. Topamax is not a very good antiepileptic drug. It could work as a mood stabilizer and to prevent headaches. Lamotrigine on the other hand was a better choice for seizure control. (4) Fronto-temporal dementia: Status: Acute Procedures Date of Service Date of Service: 12/30/21
--- NOTE | 2021-12-30 15:36 | MHC.CM.PN ---
DP Home with resumption of [employer] services thru [employer]. Discharge anticipated 2-3 days. A Neuro consult has been ordered. Echo complete report pending. She has a Mech Valve. Coumadin is being restarted today. Patient will dc when INR therapeutic. Patient may need assist with transportation to home.
[2021-12-30] MEDS: Warfarin Sodium 2 MG TABLET PO (17:58)
[2021-12-30 19:39] LABS: Hematocrit 30.6 % (37.0-47.0); Hemoglobin 8.5 g/dl (12.0-16.0); Mean Corpuscular HGB Conc 27.8 g/dl (31.0-35.0); Mean Corpuscular Hemoglobin 24.5 pg (27.0-33.0); Mean Corpuscular Volume 88.2 fL (80.0-98.0); Mean Platelet Volume 11.9 fL (9.4-12.3); Red Blood Count 3.47 X10*6/uL (4.20-5.50); Red Cell Distribution Width 19.9 % (11.0-16.0); White Blood Count 6.2 X10*3/uL (4.8-10.8)
[2021-12-30 19:46] LABS: PLT ABN DIST 1; Platelet Count 96 X10*3/uL (160-400)
[2021-12-30] MEDS: lamoTRIgine 100 MG TABLET PO (22:39)
[2021-12-30] MEDS: Atorvastatin Calcium 80 MG TABLET PO (22:39)
[2021-12-30] MEDS: Mirtazapine 15 MG TABLET PO (22:39)
[2021-12-30] MEDS: Topiramate 100 MG TABLET PO (22:39)
[2021-12-31] VITALS (7 sets, daily range): BP systolic 112–135; BP diastolic 44–71; PULSE 63–80; RESP 15–18; TEMP 36.7–37.3; O2SAT 93–98
[2021-12-31] MEDS: Enoxaparin Sodium 100 MG/ML SYRINGE 85 MG SUBCUT ×2 (06:40→18:00)
[2021-12-31] MEDS: Levothyroxine Sodium 175 MCG TABLET PO (06:40)
[2021-12-31 07:24] LABS: PLT CLUMP 1
[2021-12-31 07:26] LABS: Hematocrit 31.2 % (37.0-47.0); Hemoglobin 8.7 g/dl (12.0-16.0); Mean Corpuscular HGB Conc 27.9 g/dl (31.0-35.0); Mean Corpuscular Hemoglobin 24.7 pg (27.0-33.0); Mean Corpuscular Volume 88.6 fL (80.0-98.0); Mean Platelet Volume 11.1 fL (9.4-12.3); Red Blood Count 3.52 X10*6/uL (4.20-5.50); Red Cell Distribution Width 20.3 % (11.0-16.0)
[2021-12-31 07:31] LABS: INTERNATIONAL NORM RATIO 1.4 (0.9-1.1)
[2021-12-31 07:43] LABS: Anion Gap 10 (12-20); Blood Urea Nitrogen 18 mg/dL (9-16); Calcium 9.4 mg/dL (8.4-10.2); Carbon Dioxide 39 mmol/L (22-29); Chloride 99 mmol/L (96-108); Creatinine Clr Calc Pharmacy 48.1; Estimated Glomerular Filt Rate 47; Glucose Random 119 mg/dL (60-115); Potassium 3.4 mmol/L (3.3-5.1); Sodium 145 mmol/L (135-145)
[2021-12-31 07:44] LABS: B Type Natriuretic Peptide 292 pg/mL (<100)
[2021-12-31 07:48] LABS: White Blood Count 6.5 X10*3/uL (4.8-10.8)
[2021-12-31 07:49] LABS: Platelet Count 97 X10*3/uL (160-400)
--- NOTE | 2021-12-31 08:55 | P.PNGS_ITS ---
Subjective Subjective Date of Service: 12/31/21 Interval history: answers questions seems more alert than yesterday says she is ok Physical Exam Vital Signs: Vital Signs: Last Vital Signs Temp 98.4 F 12/31/21 07:15 Pulse 63 12/31/21 07:15 Resp 17 12/31/21 07:15 BP 135/67 12/31/21 07:15 Pulse Ox 96 12/31/21 07:15 O2 Del Method 12/31/21 07:15 O2 Flow Rate 2 12/31/21 07:15 FiO2 28 12/27/21 15:45 BMI result Body Mass Index 30.4 Const: General: comfortable and no acute distress Cardio: Rate: regular rate GI: Palpation (GI): Soft to palpation, not firm and nontender Objective Data Active Medications Atorvastatin Calcium (Atorvastatin Calcium 80 Mg Tablet) 80 mg PO BEDTIME [facility] Last Admin: 12/30/21 22:39 Dose: 80 mg Documented By: ALEX Digoxin (Digoxin 0.125 Mg Tablet) 0.125 mg PO Q2D [facility] Last Admin: 12/30/21 07:43 Dose: 0.125 mg Documented By: HREB Enoxaparin Sodium (Enoxaparin Sodium 100 Mg/Ml Syringe) 85 mg SUBCUT Q12H [facility] Last Admin: 12/31/21 06:40 Dose: 85 mg Documented By: ALEX Ferrous Sulfate (Ferrous Sulfate 324 Mg Tablet.Dr) 324 mg PO BIDWM [facility] Last Admin: 12/30/21 16:09 Dose: 324 mg Documented By: HERB Fluoxetine HCl (Fluoxetine Hcl 20 Mg Capsule) 40 mg PO DAILY [facility] Last Admin: 12/30/21 07:37 Dose: 40 mg Documented By: HERB Furosemide (Furosemide 20 Mg/2 Ml Vial) 40 mg IVPUSH BID@0900,1800 [facility]; Protocol Last Admin: 12/30/21 17:59 Dose: 40 mg Documented By: HERB Ceftriaxone Sodium 1 gm/ (Sodium Chloride) 50 mls @ 100 mls/hr IV Q24H [facility] Last Infusion: 12/30/21 15:13 Dose: 0 mls/hr Documented By: HERB Isosorbide Mononitrate (Isosorbide Mononitrate 30 Mg Tab.Er.24h) 30 mg PO DAILY [facility]; Protocol Last Admin: 12/30/21 07:37 Dose: 30 mg Documented By: HEBR Lamotrigine (Lamotrigine 100 Mg Tablet) 100 mg PO BID [facility] Last Admin: 12/30/21 22:39 Dose: 100 mg Documented By: ALEX Levothyroxine Sodium (Levothyroxine Sodium 175 Mcg Tablet) 175 mcg PO DAILY@ 0630 [facility] Last Admin: 12/31/21 06:40 Dose: 175 mcg Documented By: ALEX Memantine (Memantine Hcl 10 Mg Tablet) 10 mg PO DAILY [facility] Last Admin: 12/30/21 07:37 Dose: 10 mg Documented By: HERB Metoprolol Tartrate (Metoprolol Tartrate 25 Mg Tablet) 25 mg PO TID [facility]; Protocol Last Admin: 12/30/21 22:39 Dose: 25 mg Documented By: ALEX Mirtazapine (Mirtazapine 15 Mg Tablet) 15 mg PO BEDTIME [facility] Last Admin: 12/30/21 22:39 Dose: 15 mg Documented By: ALEX Multivitamins/Vitamin C (Multivitamin Tablet) 1 tab PO DAILY [facility] Last Admin: 12/30/21 07:36 Dose: 1 tab Documented By: HERB Nystatin (Nystatin Powder 15 Gm Bottle) 1 appl TOPICAL TID [facility]; Protocol Last Admin: 12/30/21 22:39 Dose: 1 appl Documented By: ALEX Pharmacy Consult (Consult Rx Perform Med Rec) 1 each MISCELLANE ONCE PRN PRN Reason: Consult order Polyethylene Glycol (Polyethylene Glycol 3350 17 Gm Powd.Pack) 17 gm PO BID [facility] Last Admin: 12/30/21 22:39 Dose: 17 gm Documented By: ALEX Potassium Chloride (Potassium Chloride Er 10 Meq Capsule.Er) 10 meq PO BID [facility] Last Admin: 12/30/21 22:39 Dose: 10 meq Documented By: ALEX Pramoxine HCl (Pramoxine Hcl 1 % Rectal Foam 15 Gm) 1 appl MD QID [facility] Last Admin: 12/30/21 22:40 Dose: 1 appl Documented By: ALEX Quetiapine Fumarate (Quetiapine Fumarate 25 Mg Tablet) 25 mg PO DAILY [facility] Last Admin: 12/30/21 07:37 Dose: 25 mg Documented By: HERB Quetiapine Fumarate (Quetiapine Fumarate 50 Mg Tablet) 50 mg PO BEDTIME [facility] Last Admin: 12/29/21 20:59 Dose: 50 mg Documented By: ALEX Sodium Chloride (0.9 % Sodium Chloride Flush 3 Ml Syringe) 3 ml IVFLUSH QSHIFT [facility] Last Admin: 12/30/21 22:40 Dose: 3 ml Documented By: ALEX Topiramate (Topiramate 100 Mg Tablet) 100 mg PO BID [facility] Last Admin: 12/30/21 22:39 Dose: 100 mg Documented By: ALEX Warfarin Sodium (Warfarin Sodium 2 Mg Tablet) 2 mg PO DAILY@1800 [facility] Last Admin: 12/30/21 17:58 Dose: 2 mg Documented By: HERB Labs CBC & Chem 7: 12/31/21 07:11 12/31/21 07:11 Labs: Laboratory Results - last 24 hr 12/30/21 12/30/21 12/30/21 09:38 12:53 19:20 MCV 88.2 MCH 24.5 L MCHC 27.8 L RDW 19.9 H Plt Count 96 L MPV 11.9 Absolute Nucleated RBC 0.000 Nucleated RBC % (auto) 0.0 PT 17.5 H INR 1.5 H Anion Gap Estim Creat Clear Calc Estimated GFR Random Glucose Calcium B-Natriuretic Peptide Blood Type A Positive Antibody Screen NEGATIVE Crossmatch See Detail 12/31/21 12/31/21 12/31/21 07:11 07:11 07:11 MCV 88.6 MCH 24.7 L MCHC 27.9 L RDW 20.3 H Plt Count 97 L MPV 11.1 Absolute Nucleated RBC 0.000 Nucleated RBC % (auto) 0.0 PT 16.0 H INR 1.4 H Anion Gap 10 L Estim Creat Clear Calc 48.1 Estimated GFR 47 Random Glucose 119 H Calcium 9.4 D B-Natriuretic Peptide Blood Type Antibody Screen Crossmatch 12/31/21 07:11 MCV MCH MCHC RDW Plt Count MPV Absolute Nucleated RBC Nucleated RBC % (auto) PT INR Anion Gap Estim Creat Clear Calc Estimated GFR Random Glucose Calcium B-Natriuretic Peptide 292 H Blood Type Antibody Screen Crossmatch Procedures Date of Service Date of Service: 12/31/21 Progress Note: A&P Assessment and plan (1) Prolapsed hemorrhoids: Status: Acute Assessment and Plan: stools seen - no bright blood doubt anemia secondary to hemorrhoidal bleeding anticoagulation on hold looks comfortable follow Hg Time Spent With Patient Time: Total time spent is greater than 50% in coordination of care (as documented) at patient's floor/unit and/or counseling patient: Quality Stroke Does the patient have a stroke diagnosis?: No VTE Prior VTE?: Yes VTE Risk Level:: Medical - moderate - high VTE Device Contraindication: N/A - Device Ordered VTE Drug Contraindication: Treatment Not Indicated
[2021-12-31] MEDS: QUEtiapine Fumarate 25 MG TABLET PO (09:08)
[2021-12-31] MEDS: Memantine HCl 10 MG TABLET PO (09:08)
[2021-12-31] MEDS: Isosorbide Mononitrate 30 MG TAB.ER.24H PO (09:08)
[2021-12-31] MEDS: FLUoxetine HCl 20 MG CAPSULE 40 MG PO (09:08)
[2021-12-31] MEDS: lamoTRIgine 100 MG TABLET PO ×2 (09:08→20:25)
[2021-12-31] MEDS: Multivitamin TABLET 1 TAB PO (09:08)
[2021-12-31] MEDS: Topiramate 100 MG TABLET PO ×2 (09:09→20:25)
[2021-12-31] MEDS: Metoprolol Tartrate 25 MG TABLET PO ×3 (09:09→20:26)
[2021-12-31] MEDS: Ferrous Sulfate 324 MG TABLET.DR PO ×2 (09:09→15:40)
[2021-12-31] MEDS: 0.9 % Sodium Chloride Flush 3 ML SYRINGE IVFLUSH ×3 (09:09→20:26)
[2021-12-31] MEDS: Pramoxine HCl 1 % Rectal Foam 15 GM 1 APPL PR (09:12)
[2021-12-31] MEDS: Nystatin Powder 15 GM BOTTLE 1 APPL TOPICAL ×2 (09:12→15:38)
[2021-12-31] MEDS: Furosemide 20 MG/2 ML VIAL 40 MG IVPUSH ×2 (09:13→18:00)
--- NOTE | 2021-12-31 10:04 | P.PNCA_ITS ---
Subjective Subjective Date of Service: 12/31/21 Principal diagnosis: CHF, anemia Interval history: Patient was seen at bedside. Daughter was present at bedside. Patient denies any significant shortness of breath. It seems like she was transfused 1 unit of packed RBC and hematocrit has improved to above 30 and has remained stable. There is no reported bleeding issues. Patient complains of discomfort in the right groin. Denies any clear obvious shortness of breath. Echocardiogram shows mildly reduced LV systolic function but significantly elevated right atrial pressures. intake and output chart negative balance of only 200 cc. Not sure if this is accurate Review of Systems Review of Systems Yes Other ( Difficult to obtain due to aphasia) Physical Exam Vital Signs: Last Vital Signs Temp 98.4 F 12/31/21 07:15 Pulse 63 12/31/21 07:15 Resp 17 12/31/21 07:15 BP 135/67 12/31/21 07:15 Pulse Ox 96 12/31/21 07:15 O2 Del Method 12/31/21 07:15 O2 Flow Rate 2 12/31/21 07:15 FiO2 28 12/27/21 15:45 BMI result Body Mass Index 30.4 Const General: cooperative, comfortable, alert, awake and tired appearing Nutritional Appearance: obese Orientation/consciousness: patient oriented x3 Neck Neck: Yes trachea midline and Yes JVD Resp Effort & Inspection: decreased respiratory effort Auscultation: no wheezes and diminished lung sounds Cardio Jugular venous distension: JVD Rate: regular rate Rhythm: abnormal rhythm irregularly irregular Heart sounds: S2 normal heart sound present, no click, no gallops, Murmur heart sound present systolic and Other heart sounds present ( crisp opening and closing click of [facility] mitral valve) GI Auscultation: normal bowel sounds Skin General skin exam: ecchymosis Neuro General: patient oriented x3 Extrem General: No clubbing, No cyanosis and Yes edema Objective Labs and Meds Result diagrams: 12/31/21 07:11 12/31/21 07:11 Lab results: Laboratory Results - last 24 hr 12/30/21 12/30/21 12/31/21 12:53 19:20 07:11 WBC 6.2 6.5 RBC 3.47 L 3.52 L Hgb 8.5 L 8.7 L Hct 30.6 L 31.2 L MCV 88.2 88.6 MCH 24.5 L 24.7 L MCHC 27.8 L 27.9 L RDW 19.9 H 20.3 H Plt Count 96 L 97 L MPV 11.9 11.1 Absolute Nucleated RBC 0.000 0.000 Nucleated RBC % (auto) 0.0 0.0 PT INR Sodium Potassium Chloride Carbon Dioxide Anion Gap BUN Creatinine Estim Creat Clear Calc Estimated GFR Random Glucose Calcium B-Natriuretic Peptide Blood Type A Positive Antibody Screen NEGATIVE Crossmatch See Detail 12/31/21 12/31/21 12/31/21 07:11 07:11 07:11 WBC RBC Hgb Hct MCV MCH MCHC RDW Plt Count MPV Absolute Nucleated RBC Nucleated RBC % (auto) PT 16.0 H INR 1.4 H Sodium 145 Potassium 3.4 Chloride 99 Carbon Dioxide 39 H Anion Gap 10 L BUN 18 H Creatinine 1.14 Estim Creat Clear Calc 48.1 Estimated GFR 47 Random Glucose 119 H Calcium 9.4 D B-Natriuretic Peptide 292 H Blood Type Antibody Screen Crossmatch Progress Note: A&P Assessment and plan (1) Congestive heart failure: Status: Acute Assessment and Plan: congestive heart failure with predominant right heart failure findings with elevated JVD with findings consistent with elevated central venous pressure on echocardiogram with leg edema. Patient will require continuous IV diuresis and charting of adequate intake and output chart to assess for adequate diuresis. Her overall volume status difficult to assess due to her overall medical co ndition but will continue to monitor renal function as well as her BNP on a daily basis to assess for improvement in her central volume status accurately. Heart failure most likely precipitated by her severe anemia related to GI bleed which needs to be corrected. Hematocrit is currently stable. (2) H/O mitral valve replacement with mechanical valve: Status: Acute Assessment and Plan: Mechanical mitral valve in place which has been present for a long time. Continue IV heparin and bridge with Coumadin. Maintain target INR between 2.5 and 3.5. Difficult clinical situation given her GI bleed which needs to be followed up by both the surgical as well as the GI team as outpatient. Discussed with the family. SBE prophylaxis as per ACC / aha guidelines. (3) Afib: Status: Acute Assessment and Plan: Chronic atrial fibrillation with significant biatrial enlargement, unlikely to pursue rhythm control approach at this point time. Continue rate control which is currently well optimized. Continue anticoagulation as above. Will continue to follow with you Time Spent With Patient Time: Total time spent is greater than 50% in coordination of care (as documented) at patient's floor/unit and/or counseling patient: Progress Note: Quality Stroke Does the patient have a stroke diagnosis?: No Procedures Date of Service Date of Service: 12/31/21
--- NOTE | 2021-12-31 13:29 | HO.PM.IMPN ---
Subjective Subjective Date of Service: 12/31/21 Interval History: f/u on heart failure, acute blood loss anemia interval history: no new issues, weak, no sob, no verbal at baseline Review of Systems no sob, Physical Exam Vital Signs: Vital Signs: Last Vital Signs Temp 98.9 F 12/31/21 11:36 Pulse 78 12/31/21 11:36 Resp 17 12/31/21 11:36 BP 130/70 12/31/21 11:36 Pulse Ox 98 12/31/21 11:36 O2 Del Method 12/31/21 11:36 O2 Flow Rate 2 12/31/21 11:36 FiO2 28 12/27/21 15:45 BMI result Body Mass Index 30.4 Const: Other: General: Non verbal Resp: CTA bilateral CVS: S1,S2,RRR. [place] , +leg edema GI: +BS, NT, no distention Skin: No rash Neuro: motor grossly intact Psych: appropriate affect Objective Data Active Medications Atorvastatin Calcium (Atorvastatin Calcium 80 Mg Tablet) 80 mg PO BEDTIME [facility] Last Admin: 12/30/21 22:39 Dose: 80 mg Documented By: ALEX Digoxin (Digoxin 0.125 Mg Tablet) 0.125 mg PO Q2D [facility] Last Admin: 12/30/21 07:43 Dose: 0.125 mg Documented By: HERB Enoxaparin Sodium (Enoxaparin Sodium 100 Mg/Ml Syringe) 85 mg SUBCUT Q12H [facility] Last Admin: 12/31/21 06:40 Dose: 85 mg Documented By: ALEX Ferrous Sulfate (Ferrous Sulfate 324 Mg Tablet.) 324 mg PO BIDWM [facility] Last Admin: 12/31/21 09:09 Dose: 324 mg Documented By: HERB Fluoxetine HCl (Fluoxetine Hcl 20 Mg Capsule) 40 mg PO DAILY [facility] Last Admin: 12/31/21 09:08 Dose: 40 mg Documented By: HERB Furosemide (Furosemide 20 Mg/2 Ml Vial) 40 mg IVPUSH BID@0900,1800 [facility]; Protocol Last Admin: 12/31/21 09:13 Dose: 40 mg Documented By: HERB Ceftriaxone Sodium 1 gm/ (Sodium Chloride) 50 mls @ 100 mls/hr IV Q24H [facility] Last Infusion: 12/30/21 15:13 Dose: 0 mls/hr Documented By: HERB Isosorbide Mononitrate (Isosorbide Mononitrate 30 Mg Tab.Er.24h) 30 mg PO DAILY [facility]; Protocol Last Admin: 12/31/21 09:08 Dose: 30 mg Documented By: HERB Lamotrigine (Lamotrigine 100 Mg Tablet) 100 mg PO BID [facility] Last Admin: 12/31/21 09:08 Dose: 100 mg Documented By: HERB Levothyroxine Sodium (Levothyroxine Sodium 175 Mcg Tablet) 175 mcg PO DAILY@0630 [facility] Last Admin: 12/31/21 06:40 Dose: 175 mcg Documented By: ALEX Memantine (Memantine Hcl 10 Mg Tablet) 10 mg PO DAILY [facility] Last Admin: 12/31/21 09:08 Dose: 10 mg Documented By: HERB Metoprolol Tartrate (Metoprolol Tartrate 25 Mg Tablet) 25 mg PO TID [facility]; Protocol Last Admin: 12/31/21 09:09 Dose: 25 mg Documented By: HERB Mirtazapine (Mirtazapine 15 Mg Tablet) 15 mg PO BEDTIME [facility] Last Admin: 12/30/21 22:39 Dose: 15 mg Documented By: ALEX Multivitamins/Vitamin C (Multivitamin Tablet) 1 tab PO DAILY [facility] Last Admin: 12/31/21 09:08 Dose: 1 tab Documented By: HERB Nystatin (Nystatin Powder 15 Gm Bottle) 1 appl TOPICAL TID [facility]; Protocol Last Admin: 12/31/21 09:12 Dose: 1 appl Documented By: HERB Pharmacy Consult (Consult Rx Perform Med Rec) 1 each MISCELLANE ONCE PRN PRN Reason: Consult order Polyethylene Glycol (Polyethylene Glycol 3350 17 Gm Powd.Pack) 17 gm PO BID [facility] Last Admin: 12/31/21 09:12 Dose: Not Given Documented By: HERB Non-Admin Reason: Multiple BMs Potassium Chloride (Potassium Chloride Er 10 Meq Capsule.Er) 10 meq PO BID [facility] Last Admin: 12/31/21 09:08 Dose: 10 meq Documented By: HERB Pramoxine HCl (Pramoxine Hcl 1 % Rectal Foam 15 Gm) 1 appl [place] QID [facility] Last Admin: 12/31/21 09:12 Dose: 1 appl Documented By: HERB Quetiapine Fumarate (Quetiapine Fumarate 25 Mg Tablet) 25 mg PO DAILY [facility] Last Admin: 12/31/21 09:08 Dose: 25 mg Documented By: HERB Quetiapine Fumarate (Quetiapine Fumarate 50 Mg Tablet) 50 mg PO BEDTIME [facility] Last Admin: 12/29/21 20:59 Dose: 50 mg Documented By: SKYLERUMOC Sodium Chloride (0.9 % Sodium Chloride Flush 3 Ml Syringe) 3 ml IVFLUSH QSHIFT [facility] Last Admin: 12/31/21 09:09 Dose: 3 ml Documented By: HERB Topiramate (Topiramate 100 Mg Tablet) 100 mg PO BID [facility] Last Admin: 12/31/21 09:09 Dose: 100 mg Documented By: HERB Warfarin Sodium (Warfarin Sodium 2 Mg Tablet) 2 mg PO DAILY@1800 [facility] Last Admin: 12/30/21 17:58 Dose: 2 mg Documented By: HERB Labs CBC & Chem 7: 12/31/21 07:11 12/31/21 07:11 Labs: Laboratory Results - last 24 hr 12/30/21 12/30/21 12/31/21 12:53 19:20 07:11 MCV 88.2 88.6 MCH 24.5 L 24.7 L MCHC 27.8 L 27.9 L RDW 19.9 H 20.3 H Plt Count 96 L 97 L MPV 11.9 11.1 Absolute Nucleated RBC 0.000 0.000 Nucleated RBC % (auto) 0.0 0.0 PT INR Anion Gap Estim Creat Clear Calc Estimated GFR Random Glucose Calcium B-Natriuretic Peptide Blood Type A Positive Antibody Screen NEGATIVE Crossmatch See Detail 12/31/21 12/31/21 12/31/21 07:11 07:11 07:11 MCV MCH MCHC RDW Plt Count MPV Absolute Nucleated RBC Nucleated RBC % (auto) PT 16.0 H INR 1.4 H Anion Gap 10 L Estim Creat Clear Calc 48.1 Estimated GFR 47 Random Glucose 119 H Calcium 9.4 D B-Natriuretic Peptide 292 H Blood Type Antibody Screen Crossmatch Assessment and Plan (1) Prolapsed hemorrhoids: Status: Acute (2) Internal hemorrhoids with complication: Status: Acute (3) Anticoagulant long-term use: Status: Acute (4) Congestive heart failure: Status: Acute (5) Anemia: Status: Acute Plan 70-year-old female with a past medical history of hypertension, hyperlipidemia, dementia, seizures, mitral valve replacement ([facility]) on coumadin, CHF , history of AICD, DVT, hypothyroidism, dementia, history of seizures, depression, asthma, history of CVA with residual right-sided weakness, aphasia admitted for presumed blood loss and acute on chronic CHF. 1. acute blood loss on ch Iron deficiency anemia- H/H 6.9/26.9 (last H/H 8.5/30.6% 05/11)- ?acute blood loss use vs possible chronic slow bleed r/t external hemorrhoid vs other GI bleed. -s/p 2 units of RBC with improvement and stable -Patient had EGD and sigmoidoscopy--12/27, EGD -no evidence of hemolysis (neg javi, nl retic count) -no evidence active bleed, H/H has been stable 2. UTI--culture strep agalact, IV ceftriaxone 4. acute on chronic HFrEF--clinically still fluid overloadd -continue diuresis with IV Lasix -monitor i/o, low salt, cardiology following -losartan has been on hold restart tomorrow 4. Paroxysmal AFib-ventricular rate around 100 range continue po metoprolol and digoxin. -warfarin given no active blee -AICD in place 5. mechanical mitral valve- [facility]--need anticoaulation with with targeted inr 2.5 to 3.5, coumadin has been onhold on interim coumadin 6. hypothyroidism - continue LT4 7. dementia - continue memantine 8. mood disorder - continue fluoxetine, mirtazapine, quetiapine 9. partial seizure disorder: intermittent episodes adjusted lamotrigine, topiramate,added eeg neurology eval 10. hx CVA - Hold ASA -Continue statin # VTE ppx-lovenox, coumadin need for inpatient: ongoing treatment with IV Lasix for for heart failure and being closely monitor for anemia that needed transfusion plan of care discussed with daughter at bedside, she wanted pt to be transfered to [facility] by her preference. [facility] is not taking transfers at this time, she will discuss with PCP to see if PCP part of [facility] can facilitate this. Quality Stroke Does the patient have a stroke diagnosis?: No VTE Prior VTE?: Yes VTE Risk Level:: Medical - moderate - high VTE Device Contraindication: N/A - Device Ordered VTE Drug Contraindication: Treatment Not Indicated
[2021-12-31] MEDS: cefTRIAXone sodium 1 GM in 0.9 % Sodium Chloride 50 ML IV (14:43)
[2021-12-31] MEDS: Warfarin Sodium 2 MG TABLET PO (18:00)
--- NOTE | 2021-12-31 18:05 | PC.NURSE ---
Patients daughter expressed concerns about twitch on right side and she usually gives an extra dose of topiramax with good relief. MD shipman
[2021-12-31] MEDS: Atorvastatin Calcium 80 MG TABLET PO (20:25)
[2021-12-31] MEDS: Mirtazapine 15 MG TABLET PO (20:25)
[2021-12-31] MEDS: polyethylene glycoL 3350 17 GM POWD.PACK PO (20:26)
[2022-01-01 03:44] VITALS: BP 103/47; PULSE 75; RESP 18; TEMP 36.6; O2SAT 97
[2022-01-01] MEDS: Enoxaparin Sodium 100 MG/ML SYRINGE 85 MG SUBCUT ×2 (05:26→19:17)
[2022-01-01] MEDS: Levothyroxine Sodium 175 MCG TABLET PO (05:28)
[2022-01-01 05:58] LABS: Hematocrit 29.6 % (37.0-47.0); Hemoglobin 8.4 g/dl (12.0-16.0); Mean Corpuscular HGB Conc 28.4 g/dl (31.0-35.0); Mean Corpuscular Hemoglobin 25.5 pg (27.0-33.0); Mean Platelet Volume 11.8 fL (9.4-12.3); PLT CLUMP 1; Red Blood Count 3.29 X10*6/uL (4.20-5.50); Red Cell Distribution Width 20.9 % (11.0-16.0)
[2022-01-01 06:39] LABS: White Blood Count 5.2 X10*3/uL (4.8-10.8)
[2022-01-01 07:30] VITALS: BP 103/66; PULSE 78; RESP 20; TEMP 37.3; O2SAT 97
--- NOTE | 2022-01-01 08:57 | PC.NURSE ---
On 12/27/21 at 1300, pt received a total 350cc of PRBC. Unit # [id number]
[2022-01-01] MEDS: Furosemide 20 MG/2 ML VIAL 40 MG IVPUSH ×2 (09:09→19:17)
[2022-01-01] MEDS: Ferrous Sulfate 324 MG TABLET.DR PO ×2 (09:10→19:17)
[2022-01-01] MEDS: FLUoxetine HCl 20 MG CAPSULE 40 MG PO (09:10)
[2022-01-01] MEDS: Metoprolol Tartrate 25 MG TABLET PO ×3 (09:10→19:49)
[2022-01-01] MEDS: Multivitamin TABLET 1 TAB PO (09:10)
[2022-01-01] MEDS: 0.9 % Sodium Chloride Flush 3 ML SYRINGE IVFLUSH ×2 (09:10→19:59)
[2022-01-01] MEDS: Topiramate 100 MG TABLET PO ×2 (09:10→19:50)
[2022-01-01] MEDS: Isosorbide Mononitrate 30 MG TAB.ER.24H PO (09:10)
[2022-01-01] MEDS: QUEtiapine Fumarate 25 MG TABLET PO (09:17)
[2022-01-01] MEDS: Digoxin 0.125 MG TABLET PO (09:23)
[2022-01-01 09:37] LABS: INTERNATIONAL NORM RATIO 1.2 (0.9-1.1); Prothrombin Time 14.4 SEC (10.0-13.1)
[2022-01-01 09:47] LABS: Anion Gap 15 (12-20); Blood Urea Nitrogen 17 mg/dL (9-16); Calcium 9.9 mg/dL (8.4-10.2); Carbon Dioxide 36 mmol/L (22-29); Chloride 99 mmol/L (96-108); Creatinine Clr Calc Pharmacy 48.5; Estimated Glomerular Filt Rate 47; Glucose Random 128 mg/dL (60-115); Potassium 3.8 mmol/L (3.3-5.1); Sodium 146 mmol/L (135-145)
[2022-01-01 09:53] LABS: B Type Natriuretic Peptide 221 pg/mL (<100)
--- NOTE | 2022-01-01 10:47 | HO.PM.IMPN ---
Subjective Subjective Date of Service: 01/01/22 Interval History: f/u on heart failure, acute blood loss anemia interval history: no new issues, no sob, not verbal at baseline Physical Exam Vital Signs: Vital Signs: Last Vital Signs Temp 99.2 F 01/01/22 07:30 Pulse 78 01/01/22 07:30 Resp 20 01/01/22 07:30 BP 103/66 01/01/22 07:30 Pulse Ox 97 01/01/22 07:30 O2 Del Method 01/01/22 07:30 O2 Flow Rate 2 01/01/22 07:30 FiO2 28 12/27/21 15:45 BMI result Body Mass Index 30.4 Const: Other: General: Non verbal Resp: CTA bilateral CVS: S1,S2,RRR. heaven , +leg edema GI: +BS, NT, no distention Skin: No rash Neuro: motor grossly intact Psych: appropriate affect Objective Data Active Medications Atorvastatin Calcium (Atorvastatin Calcium 80 Mg Tablet) 80 mg PO BEDTIME [facility] Last Admin: 12/31/21 20:25 Dose: 80 mg Documented By: SANTY Digoxin (Digoxin 0.125 Mg Tablet) 0.125 mg PO Q2D [facility] Last Admin: 01/01/22 09:23 Dose: 0.125 mg Documented By: PJ Enoxaparin Sodium (Enoxaparin Sodium 100 Mg/Ml Syringe) 85 mg SUBCUT Q12H [facility] Last Admin: 01/01/22 05:26 Dose: 85 mg Documented By: ELIAS Ferrous Sulfate (Ferrous Sulfate 324 Mg Tablet.) 324 mg PO BIDWM [facility] Last Admin: 01/01/22 09:10 Dose: 324 mg Documented By: PJ Fluoxetine HCl (Fluoxetine Hcl 20 Mg Capsule) 40 mg PO DAILY [facility] Last Admin: 01/01/22 09:10 Dose: 40 mg Documented By: PJ Furosemide (Furosemide 20 Mg/2 Ml Vial) 40 mg IVPUSH BID@0900,1800 [facility]; Protocol Last Admin: 01/01/22 09:09 Dose: 40 mg Documented By: PJ Ceftriaxone Sodium 1 gm/ (Sodium Chloride) 50 mls @ 100 mls/hr IV Q24H [facility] Last Infusion: 12/31/21 15:42 Dose: 0 mls/hr Documented By: HERB Isosorbide Mononitrate (Isosorbide Mononitrate 30 Mg Tab.Er.24h) 30 mg PO DAILY [facility]; Protocol Last Admin: 01/01/22 09:10 Dose: 30 mg Documented By: PJ Lamotrigine (Lamotrigine 100 Mg Tablet) 100 mg PO BID [facility] Last Admin: 12/31/21 20:25 Dose: 100 mg Documented By: SANTY Levothyroxine Sodium (Levothyroxine Sodium 175 Mcg Tablet) 175 mcg PO DAILY@0630 [facility] Last Admin: 01/01/22 05:28 Dose: 175 mcg Documented By: ELIAS Memantine (Memantine Hcl 10 Mg Tablet) 10 mg PO DAILY [facility] Last Admin: 12/31/21 09:08 Dose: 10 mg Documented By: HERB Metoprolol Tartrate (Metoprolol Tartrate 25 Mg Tablet) 25 mg PO TID [facility]; Protocol Last Admin: 01/01/22 09:10 Dose: 25 mg Documented By: PJ Mirtazapine (Mirtazapine 15 Mg Tablet) 15 mg PO BEDTIME [facility] Last Admin: 12/31/21 20:25 Dose: 15 mg Documented By: SANTY Multivitamins/Vitamin C (Multivitamin Tablet) 1 tab PO DAILY [facility] Last Admin: 01/01/22 09:10 Dose: 1 tab Documented By: PJ Nystatin (Nystatin Powder 15 Gm Bottle) 1 appl TOPICAL TID [facility]; Protocol Last Admin: 12/31/21 20:48 Dose: Not Given Documented By: SANTY Non-Admin Reason: Previously Administered Pharmacy Consult (Consult Rx Perform Med Rec) 1 each MISCELLANE ONCE PRN PRN Reason: Consult order Polyethylene Glycol (Polyethylene Glycol 3350 17 Gm Powd.Pack) 17 gm PO BID [facility] Last Admin: 01/01/22 10:34 Dose: Not Given Documented By: HERB Non-Admin Reason: multiple bms Potassium Chloride (Potassium Chloride Er 10 Meq Capsule.Er) 10 meq PO BID [facility] Last Admin: 01/01/22 09:10 Dose: 10 meq Documented By: PJ Pramoxine HCl (Pramoxine Hcl 1 % Rectal Foam 15 Gm) 1 appl NE QID [facility] Last Admin: 12/31/21 20:47 Dose: Not Given Documented By: SANTY Non-Admin Reason: Patient Refused Quetiapine Fumarate (Quetiapine Fumarate 25 Mg Tablet) 25 mg PO DAILY [facility] Last Admin: 01/01/22 09:17 Dose: 25 mg Documented By: PJ Quetiapine Fumarate (Quetiapine Fumarate 50 Mg Tablet) 50 mg PO BEDTIME [facility] Last Admin: 12/29/21 20:59 Dose: 50 mg Documented By: ALEX Sodium Chloride (0.9 % Sodium Chloride Flush 3 Ml Syringe) 3 ml IVFLUSH QSHIFT [facility] Last Admin: 01/01/22 09:10 Dose: 3 ml Documented By: PJ Topiramate (Topiramate 100 Mg Tablet) 100 mg PO BID [facility] Last Admin: 01/01/22 09:10 Dose: 100 mg Documented By: PJ Warfarin Sodium (Warfarin Sodium 2 Mg Tablet) 2 mg PO DAILY@1800 [facility] Last Admin: 12/31/21 18:00 Dose: 2 mg Documented By: HERB Labs CBC & Chem 7: 01/01/22 05:39 01/01/22 09:11 Labs: Laboratory Results - last 24 hr 12/24/21 01/01/22 01/01/22 15:24 05:39 09:11 MCV 90.0 MCH 25.5 L MCHC 28.4 L RDW 20.9 H Plt Count TNP MPV 11.8 Absolute Nucleated RBC 0.000 Nucleated RBC % (auto) 0.0 PT INR Anion Gap 15 Estim Creat Clear Calc 48.5 Estimated GFR 47 Random Glucose 128 H Calcium 9.9 B-Natriuretic Peptide Crossmatch See Detail 01/01/22 01/01/22 09:11 09:11 MCV MCH MCHC RDW Plt Count MPV Absolute Nucleated RBC Nucleated RBC % (auto) PT 14.4 H INR 1.2 H Anion Gap Estim Creat Clear Calc Estimated GFR Random Glucose Calcium B-Natriuretic Peptide 221 H Crossmatch Assessment and Plan (1) Prolapsed hemorrhoids: Status: Acute (2) Internal hemorrhoids with complication: Status: Acute (3) Anticoagulant long-term use: Status: Acute (4) Congestive heart failure: Status: Acute (5) Anemia: Status: Acute Plan 70-year-old female with a past medical history of hypertension, hyperlipidemia, dementia, seizures, mitral valve replacement ([facility]) on coumadin, CHF , history of AICD, DVT, hypothyroidism, dementia, history of seizures, depression, asthma, history of CVA with residual right-sided weakness, aphasia admitted for presumed blood loss and acute on chronic CHF. 1. acute blood loss on ch Iron deficiency anemia- H/H 6.9/26.9 (last H/H 8.5/30.6% 05/11)- ?acute blood loss use vs possible chronic slow bleed r/t external hemorrhoid vs other GI bleed. -s/p 2 units of RBC with improvement and stable -Patient had EGD and sigmoidoscopy--12/27, EGD -no evidence of hemolysis (neg javi, nl retic count) -no evidence active bleed, H/H has been stable 2. UTI--culture strep agalact, IV ceftriaxone 4. acute on chronic HFrEF--clinically still fluid overloadd -continue diuresis with IV Lasix -monitor i/o, low salt, cardiology following -losartan has been on hold restart tomorrow 4. Paroxysmal AFib-ventricular rate around 100 range continue po metoprolol and digoxin. -warfarin given no active blee -AICD in place 5. mechanical mitral valve- [facility]--need anticoaulation with with targeted inr 2.5 to 3.5, coumadin has been onhold on interim coumadin, adjust 6. hypothyroidism - continue LT4 7. dementia - continue memantine 8. mood disorder - continue fluoxetine, mirtazapine, quetiapine 9. partial seizure disorder: intermittent episodes adjusted lamotrigine, topiramate,added eeg neurology eval 10. hx CVA - Hold ASA -Continue statin 11. Hypernatremia--146, monitor # VTE ppx-lovenox, coumadin need for inpatient: ongoing treatment with IV Lasix for for heart failure and being closely monitor for anemia that needed transfusion Quality Stroke Does the patient have a stroke diagnosis?: No VTE Prior VTE?: Yes VTE Risk Level:: Medical - moderate - high VTE Device Contraindication: N/A - Device Ordered VTE Drug Contraindication: Treatment Not Indicated
[2022-01-01 11:03] VITALS: BP 128/54; PULSE 83; RESP 20; TEMP 37.2; O2SAT 95
[2022-01-01] MEDS: Memantine HCl 10 MG TABLET PO (11:21)
[2022-01-01] MEDS: lamoTRIgine 100 MG TABLET PO ×2 (11:21→19:49)
[2022-01-01] MEDS: cefTRIAXone sodium 1 GM in 0.9 % Sodium Chloride 50 ML IV (14:57)
[2022-01-01] MEDS: Pramoxine HCl 1 % Rectal Foam 15 GM 1 APPL PR (14:58)
[2022-01-01] MEDS: Nystatin Powder 15 GM BOTTLE 1 APPL TOPICAL (14:58)
[2022-01-01 15:35] VITALS: BP 139/71; PULSE 81; RESP 18; TEMP 37.2; O2SAT 98
--- NOTE | 2022-01-01 16:31 | MHC.CM.PN ---
Female 71 DX Anemia No dc today per MD rounds. Patient requires IV Diuretic for HF. She also received 1U PRC today. [employer] resume [employer] services. Family will provide transportation.
--- NOTE | 2022-01-01 16:48 | PM.PNCARD ---
Subjective Subjective Date of Service: 01/01/22 Principal diagnosis: CHF, anemia Interval history: Patient appears more alert today. No more transfusions being given and hematocrit is stable at 27. Patient has diuresed about a L since yesterday. Her BNP is down trending. She does not report any shortness of breath. However history is difficult due to her aphasia Review of Systems Review of Systems Yes Unobtainable due to mental condition Physical Exam Vital Signs: Last Vital Signs Temp 98.9 F 01/01/22 15:35 Pulse 81 01/01/22 15:35 Resp 18 01/01/22 15:35 BP 139/71 01/01/22 15:35 Pulse Ox 98 01/01/22 15:35 O2 Del Method 01/01/22 15:35 O2 Flow Rate 2 01/01/22 15:35 FiO2 28 12/27/21 15:45 BMI result Body Mass Index 30.4 Const General: cooperative, comfortable, alert, awake and tired appearing Nutritional Appearance: obese Orientation/consciousness: patient oriented x3 Neck Neck: Yes trachea midline and Yes JVD Resp Effort & Inspection: decreased respiratory effort Auscultation: no wheezes and diminished lung sounds Cardio Jugular venous distension: JVD Rate: regular rate Rhythm: abnormal rhythm irregularly irregular Heart sounds: S2 normal heart sound present, no click, no gallops, Murmur heart sound present systolic and Other heart sounds present ( crisp opening and closing click of [facility] mitral valve) GI Auscultation: normal bowel sounds Skin General skin exam: ecchymosis Neuro General: patient oriented x3 Extrem General: No clubbing, No cyanosis and Yes edema Objective Labs and Meds Result diagrams: 01/01/22 05:39 01/01/22 09:11 Lab results: Laboratory Results - last 24 hr 12/24/21 01/01/22 01/01/22 15:24 05:39 09:11 WBC 5.2 RBC 3.29 L Hgb 8.4 L Hct 29.6 L MCV 90.0 MCH 25.5 L MCHC 28.4 L RDW 20.9 H Plt Count TNP MPV 11.8 Absolute Nucleated RBC 0.000 Nucleated RBC % (auto) 0.0 PT INR Sodium 146 H Potassium 3.8 Chloride 99 Carbon Dioxide 36 H Anion Gap 15 BUN 17 H Creatinine 1.13 Estim Creat Clear Calc 48.5 Estimated GFR 47 Random Glucose 128 H Calcium 9.9 B-Natriuretic Peptide Crossmatch See Detail 01/01/22 01/01/22 09:11 09:11 WBC RBC Hgb Hct MCV MCH MCHC RDW Plt Count MPV Absolute Nucleated RBC Nucleated RBC % (auto) PT 14.4 H INR 1.2 H Sodium Potassium Chloride Carbon Dioxide Anion Gap BUN Creatinine Estim Creat Clear Calc Estimated GFR Random Glucose Calcium B-Natriuretic Peptide 221 H Crossmatch Progress Note: A&P Assessment and plan (1) Congestive heart failure: Status: Acute Assessment and Plan: Heart failure with preserved ejection fraction setting of atrial fibrillation. Clinically improving as noted by improving BNP. Has diuresed well. Continue diuresis for 1 more day. Trend BMP and BNP tomorrow. Overall difficult to assess the heart failure status due to limited mobility and her body habitus. Eventually starting tomorrow BNP is down trended into the 100s will switch to p.o. Lasix. Continue to prevent anemia and treat anemia aggressively. Would consider 1 more unit of packed RBC to maintain hematocrit over 30. GI workup should be considered. (2) H/O mitral valve replacement with mechanical valve: Status: Acute Assessment and Plan: Mechanical mitral valve replacement in the past with not developing GI bleed which is a difficult clinical situation. Was discussed with the daughter in the past. No obvious significant source of bleeding noted. Consider further workup with a capsule endoscopy. Also surgical consult for possibility of treatment for internal hemorrhoids. Has been restarted on warfarin therapy. Target INR between 2.5 and 3.5. Avoid aspirin therapy concomitantly. (3) Afib: Status: Acute Assessment and Plan: Currently rate is controlled. Continue rate control strategy. Continue warfarin as above. Will sign of the case. 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 Time Spent With Patient Time: Total time spent is greater than 50% in coordination of care (as documented) at patient's floor/unit and/or counseling patient: Progress Note: Quality Stroke Does the patient have a stroke diagnosis?: No Procedures Date of Service Date of Service: 01/01/22
[2022-01-01] MEDS: Warfarin Sodium 4 MG TABLET PO (19:17)
[2022-01-01 19:28] VITALS: BP 134/76; PULSE 81; RESP 18; TEMP 36.9; O2SAT 96
[2022-01-01] MEDS: Atorvastatin Calcium 80 MG TABLET PO (19:49)
[2022-01-01] MEDS: polyethylene glycoL 3350 17 GM POWD.PACK PO (19:49)
[2022-01-01] MEDS: Mirtazapine 15 MG TABLET PO (20:24)
[2022-01-01 23:42] VITALS: BP 100/57; PULSE 85; RESP 16; TEMP 38.2; O2SAT 95
[2022-01-02] VITALS (7 sets, daily range): BP systolic 105–143; BP diastolic 51–74; PULSE 61–85; RESP 18–22; TEMP 36.1–37.2; O2SAT 96–98
[2022-01-02 06:22] LABS: Hematocrit 30.4 % (37.0-47.0); Hemoglobin 8.4 g/dl (12.0-16.0); Mean Corpuscular HGB Conc 27.6 g/dl (31.0-35.0); Mean Corpuscular Hemoglobin 24.9 pg (27.0-33.0); Mean Corpuscular Volume 89.9 fL (80.0-98.0); Mean Platelet Volume 11.4 fL (9.4-12.3); Red Blood Count 3.38 X10*6/uL (4.20-5.50); Red Cell Distribution Width 21.4 % (11.0-16.0)
[2022-01-02 06:23] LABS: Platelet Count 86 X10*3/uL (160-400)
[2022-01-02 06:24] LABS: INTERNATIONAL NORM RATIO 1.3 (0.9-1.1); Prothrombin Time 15.5 SEC (10.0-13.1)
[2022-01-02] MEDS: Enoxaparin Sodium 100 MG/ML SYRINGE 85 MG SUBCUT ×2 (06:35→17:40)
[2022-01-02] MEDS: Levothyroxine Sodium 175 MCG TABLET PO (06:35)
[2022-01-02] MEDS: polyethylene glycoL 3350 17 GM POWD.PACK PO ×2 (08:27→22:33)
[2022-01-02] MEDS: Nystatin Powder 15 GM BOTTLE 1 APPL TOPICAL ×3 (08:27→22:33)
[2022-01-02] MEDS: Multivitamin TABLET 1 TAB PO (08:28)
[2022-01-02] MEDS: QUEtiapine Fumarate 25 MG TABLET PO (08:28)
[2022-01-02] MEDS: Isosorbide Mononitrate 30 MG TAB.ER.24H PO (08:28)
[2022-01-02] MEDS: lamoTRIgine 100 MG TABLET PO ×2 (08:28→22:32)
[2022-01-02] MEDS: Ferrous Sulfate 324 MG TABLET.DR PO ×2 (08:28→16:13)
[2022-01-02] MEDS: FLUoxetine HCl 20 MG CAPSULE 40 MG PO (08:28)
[2022-01-02] MEDS: Metoprolol Tartrate 25 MG TABLET PO ×3 (08:28→22:32)
[2022-01-02] MEDS: Memantine HCl 10 MG TABLET PO (08:28)
[2022-01-02] MEDS: Topiramate 100 MG TABLET PO ×2 (08:28→22:32)
[2022-01-02] MEDS: Furosemide 20 MG/2 ML VIAL 40 MG IVPUSH ×2 (08:28→17:39)
[2022-01-02] MEDS: 0.9 % Sodium Chloride Flush 3 ML SYRINGE IVFLUSH ×3 (08:33→22:34)
--- NOTE | 2022-01-02 13:20 | P.PNIM_ITS ---
Subjective Subjective Date of Service: 01/02/22 Interval History: f/u on heart failure, acute blood loss anemia interval history: no new issues, no sob, not verbal at baseline, sitting eating breakfast Review of Systems no sob, Physical Exam Vital Signs: Vital Signs: Last Vital Signs Temp 97.1 F 01/02/22 11:03 Pulse 69 01/02/22 11:03 Resp 22 H 01/02/22 11:03 BP 135/56 L 01/02/22 11:03 Pulse Ox 97 01/02/22 11:03 O2 Del Method 01/02/22 11:03 O2 Flow Rate 2 01/02/22 11:03 FiO2 28 12/27/21 15:45 BMI result Body Mass Index 30.4 Const: Other: General: Non verbal Resp: CTA bilateral CVS: S1,S2,RRR. heaven , +leg edema GI: +BS, NT, no distention Skin: No rash Neuro: motor grossly intact Psych: appropriate affect Objective Data Active Medications Atorvastatin Calcium (Atorvastatin Calcium 80 Mg Tablet) 80 mg PO BEDTIME [facility] Last Admin: 01/01/22 19:49 Dose: 80 mg Documented By: SANTY Digoxin (Digoxin 0.125 Mg Tablet) 0.125 mg PO Q2D [facility] Last Admin: 01/01/22 09:23 Dose: 0.125 mg Documented By: PJ Enoxaparin Sodium (Enoxaparin Sodium 100 Mg/Ml Syringe) 85 mg SUBCUT Q12H [facility] Last Admin: 01/02/22 06:35 Dose: 85 mg Documented By: SANTY Ferrous Sulfate (Ferrous Sulfate 324 Mg Tablet.) 324 mg PO BIDWM [facility] Last Admin: 01/02/22 08:28 Dose: 324 mg Documented By: EMMANUEL Fluoxetine HCl (Fluoxetine Hcl 20 Mg Capsule) 40 mg PO DAILY [facility] Last Admin: 01/02/22 08:28 Dose: 40 mg Documented By: EMMANUEL Furosemide (Furosemide 20 Mg/2 Ml Vial) 40 mg IVPUSH BID@0900,1800 [facility]; Protocol Last Admin: 01/02/22 08:28 Dose: 40 mg Documented By: EMMANUEL Ceftriaxone Sodium 1 gm/ (Sodium Chloride) 50 mls @ 100 mls/hr IV Q24H [facility] Last Infusion: 01/01/22 17:25 Dose: 0 mls/hr Documented By: HERB Isosorbide Mononitrate (Isosorbide Mononitrate 30 Mg Tab.Er.24h) 30 mg PO DAILY [facility]; Protocol Last Admin: 01/02/22 08:28 Dose: 30 mg Documented By: EMMANUEL Lamotrigine (Lamotrigine 100 Mg Tablet) 100 mg PO BID [facility] Last Admin: 01/02/22 08:28 Dose: 100 mg Documented By: EMMANUEL Levothyroxine Sodium (Levothyroxine Sodium 175 Mcg Tablet) 175 mcg PO DAILY@0630 [facility] Last Admin: 01/02/22 06:35 Dose: 175 mcg Documented By: SANTY Memantine (Memantine Hcl 10 Mg Tablet) 10 mg PO DAILY [facility] Last Admin: 01/02/22 08:28 Dose: 10 mg Documented By: EMMANUEL Metoprolol Tartrate (Metoprolol Tartrate 25 Mg Tablet) 25 mg PO TID [facility]; Protocol Last Admin: 01/02/22 08:28 Dose: 25 mg Documented By: EMMANUEL Mirtazapine (Mirtazapine 15 Mg Tablet) 15 mg PO BEDTIME [facility] Last Admin: 01/01/22 20:24 Dose: 15 mg Documented By: SANTY Multivitamins/Vitamin C (Multivitamin Tablet) 1 tab PO DAILY [facility] Last Admin: 01/02/22 08:28 Dose: 1 tab Documented By: EMMANUEL Nystatin (Nystatin Powder 15 Gm Bottle) 1 appl TOPICAL TID [facility]; Protocol Last Admin: 01/02/22 08:27 Dose: 1 appl Documented By: EMMANUEL Pharmacy Consult (Consult Rx Perform Med Rec) 1 each MISCELLANE ONCE PRN PRN Reason: Consult order Polyethylene Glycol (Polyethylene Glycol 3350 17 Gm Powd.Pack) 17 gm PO BID [facility] Last Admin: 01/02/22 08:27 Dose: 17 gm Documented By: EMMANUEL Potassium Chloride (Potassium Chloride Er 10 Meq Capsule.Er) 10 meq PO BID [facility] Last Admin: 01/02/22 08:28 Dose: 10 meq Documented By: EMMANUEL Pramoxine HCl (Pramoxine Hcl 1 % Rectal Foam 15 Gm) 1 appl LA QID [facility] Last Admin: 01/02/22 13:06 Dose: Not Given Documented By: EMMANUEL Non-Admin Reason: Patient Refused Quetiapine Fumarate (Quetiapine Fumarate 25 Mg Tablet) 25 mg PO DAILY [facility] Last Admin: 01/02/22 08:28 Dose: 25 mg Documented By: EMMANUEL Quetiapine Fumarate (Quetiapine Fumarate 50 Mg Tablet) 50 mg PO BEDTIME [facility] Last Admin: 12/29/21 20:59 Dose: 50 mg Documented By: ALEX Sodium Chloride (0.9 % Sodium Chloride Flush 3 Ml Syringe) 3 ml IVFLUSH QSHIFT [facility] Last Admin: 01/02/22 08:33 Dose: 3 ml Documented By: EMMANUEL Topiramate (Topiramate 100 Mg Tablet) 100 mg PO BID [facility] Last Admin: 01/02/22 08:28 Dose: 100 mg Documented By: EMMANUEL Warfarin Sodium (Warfarin Sodium 4 Mg Tablet) 4 mg PO DAILY@1800 [facility] Last Admin: 01/01/22 19:17 Dose: 4 mg Documented By: HERB Labs CBC & Chem 7: 01/02/22 05:53 01/01/22 09:11 Labs: Laboratory Results - last 24 hr 01/02/22 01/02/22 05:53 05:53 MCV 89.9 MCH 24.9 L MCHC 27.6 L RDW 21.4 H Plt Count 86 L MPV 11.4 Absolute Nucleated RBC 0.000 Nucleated RBC % (auto) 0.0 PT 15.5 H INR 1.3 H Assessment and Plan (1) Prolapsed hemorrhoids: Status: Acute (2) Internal hemorrhoids with complication: Status: Acute (3) Anticoagulant long-term use: Status: Acute (4) Congestive heart failure: Status: Acute (5) Anemia: Status: Acute Plan 70-year-old female with a past medical history of hypertension, hyperlipidemia, dementia, seizures, mitral valve replacement ([facility]) on coumadin, CHF , history of AICD, DVT, hypothyroidism, dementia, history of seizures, depression, asthma, history of CVA with residual right-sided weakness, aphasia admitted for presumed blood loss and acute on chronic CHF. 1. acute blood loss on Iron deficiency anemia- H/H 6.9/26.9 (last H/H 8.5/30.6% 05/11)- ?acute blood loss use vs possible chronic slow bleed r/t external hemorrhoid vs other GI bleed. -s/p 2 units of RBC with improvement and stable--Hct 30 now -Patient had EGD and sigmoidoscopy--12/27, EGD -no evidence of hemolysis (neg javi, nl retic count) -no evidence active bleed, H/H has been stable 2. UTI--culture strep agalact, IV ceftriaxone, oral ceftin at dc 4. acute on chronic HFrEF--clinically still fluid overloadd -continue diuresis with IV Lasix--> PO today -monitor i/o, low salt, cardiology following -losartan has been on restart tomorrow 4. Paroxysmal AFib-ventricular rate around 100 range continue po metoprolol and digoxin. -warfarin given no active blee -AICD in place 5. mechanical mitral valve- [facility]--need anticoaulation with with targeted inr 2.5 to 3.5, coumadin was on hold and now lovenox bridging, increase coumadin 6. hypothyroidism - continue LT4 7. dementia - continue memantine 8. mood disorder - continue fluoxetine, mirtazapine, quetiapine 9. partial seizure disorder: intermittent episodes adjusted lamotrigine, topiramate,added eeg neurology eval 10. hx CVA - Hold ASA -Continue statin 11. Hypernatremia--146, monitor # VTE ppx-lovenox, coumadin need for inpatient: ongoing treatment with IV Lasix for for heart failure and being closely monitor for anemia that needed transfusion Quality Stroke Does the patient have a stroke diagnosis?: No VTE Prior VTE?: Yes VTE Risk Level:: Medical - moderate - high VTE Device Contraindication: N/A - Device Ordered VTE Drug Contraindication: Treatment Not Indicated
[2022-01-02] MEDS: cefTRIAXone sodium 1 GM in 0.9 % Sodium Chloride 50 ML IV (16:19)
[2022-01-02] MEDS: Warfarin Sodium 0.5 MG HALFTAB PO (17:39)
[2022-01-02] MEDS: Warfarin Sodium 5 MG TABLET PO (17:40)
[2022-01-02] MEDS: Mirtazapine 15 MG TABLET PO (22:32)
[2022-01-02] MEDS: Atorvastatin Calcium 80 MG TABLET PO (22:32)
[2022-01-02] MEDS: Pramoxine HCl 1 % Rectal Foam 15 GM 1 APPL PR (22:33)
[2022-01-03 03:29] VITALS: BP 111/51; PULSE 66; RESP 16; TEMP 37.4; O2SAT 96
[2022-01-03] MEDS: Enoxaparin Sodium 100 MG/ML SYRINGE 85 MG SUBCUT ×2 (06:16→17:00)
[2022-01-03] MEDS: Levothyroxine Sodium 175 MCG TABLET PO (06:16)
[2022-01-03 08:00] VITALS: BP 98/49; PULSE 68; RESP 16; TEMP 37.2; O2SAT 98
[2022-01-03] MEDS: Furosemide 20 MG/2 ML VIAL 40 MG IVPUSH (08:30)
[2022-01-03] MEDS: polyethylene glycoL 3350 17 GM POWD.PACK PO ×2 (08:30→22:33)
[2022-01-03] MEDS: FLUoxetine HCl 20 MG CAPSULE 40 MG PO (08:30)
[2022-01-03] MEDS: Topiramate 100 MG TABLET PO ×2 (08:31→22:33)
[2022-01-03] MEDS: Isosorbide Mononitrate 30 MG TAB.ER.24H PO (08:31)
[2022-01-03] MEDS: QUEtiapine Fumarate 25 MG TABLET PO (08:31)
[2022-01-03] MEDS: Multivitamin TABLET 1 TAB PO (08:31)
[2022-01-03] MEDS: Memantine HCl 10 MG TABLET PO (08:31)
[2022-01-03] MEDS: Metoprolol Tartrate 25 MG TABLET PO ×3 (08:31→22:32)
[2022-01-03] MEDS: lamoTRIgine 100 MG TABLET PO ×2 (08:31→22:33)
[2022-01-03] MEDS: Nystatin Powder 15 GM BOTTLE 1 APPL TOPICAL ×3 (08:31→22:33)
[2022-01-03] MEDS: Ferrous Sulfate 324 MG TABLET.DR PO ×2 (08:31→17:02)
[2022-01-03] MEDS: 0.9 % Sodium Chloride Flush 3 ML SYRINGE IVFLUSH ×3 (08:32→22:34)
[2022-01-03] MEDS: Digoxin 0.125 MG TABLET PO (08:36)
[2022-01-03 08:43] LABS: INTERNATIONAL NORM RATIO 1.5 (0.9-1.1); Prothrombin Time 17.1 SEC (10.0-13.1)
--- NOTE | 2022-01-03 11:04 | HO.PM.IMPN ---
Subjective Subjective Date of Service: 01/03/22 Interval History: f/u on heart failure, acute blood loss anemia interval history: no new issues Review of Systems no sob, Physical Exam Vital Signs: Vital Signs: Last Vital Signs Temp 99.0 F 01/03/22 08:00 Pulse 68 01/03/22 08:00 Resp 16 01/03/22 08:00 BP 98/49 L 01/03/22 08:00 Pulse Ox 98 01/03/22 08:00 O2 Del Method 01/03/22 08:00 O2 Flow Rate 2 01/03/22 08:00 FiO2 95 01/02/22 19:12 BMI result Body Mass Index 30.4 Const: Other: General: Non verbal Resp: CTA bilateral CVS: S1,S2,RRR. heaven , +leg edema GI: +BS, NT, no distention Skin: No rash Neuro: motor grossly intact Psych: appropriate affect Objective Data Active Medications Atorvastatin Calcium (Atorvastatin Calcium 80 Mg Tablet) 80 mg PO BEDTIME [facility] Last Admin: 01/02/22 22:32 Dose: 80 mg Documented By: SANTY Digoxin (Digoxin 0.125 Mg Tablet) 0.125 mg PO Q2D [facility] Last Admin: 01/03/22 08:36 Dose: 0.125 mg Documented By: EMMANUEL Enoxaparin Sodium (Enoxaparin Sodium 100 Mg/Ml Syringe) 85 mg SUBCUT Q12H [facility] Last Admin: 01/03/22 06:16 Dose: 85 mg Documented By: SANTY Ferrous Sulfate (Ferrous Sulfate 324 Mg Tablet.) 324 mg PO BIDWM [facility] Last Admin: 01/03/22 08:31 Dose: 324 mg Documented By: EMMANUEL Fluoxetine HCl (Fluoxetine Hcl 20 Mg Capsule) 40 mg PO DAILY [facility] Last Admin: 01/03/22 08:30 Dose: 40 mg Documented By: EMMANUEL Furosemide (Furosemide 40 Mg Tablet) 40 mg PO BID@0900,1800 [facility]; Protocol Ceftriaxone Sodium 1 gm/ (Sodium Chloride) 50 mls @ 100 mls/hr IV Q24H [facility] Last Infusion: 01/02/22 17:41 Dose: 0 mls/hr Documented By: EMMANUEL Isosorbide Mononitrate (Isosorbide Mononitrate 30 Mg Tab.Er.24h) 30 mg PO DAILY [facility]; Protocol Last Admin: 01/03/22 08:31 Dose: 30 mg Documented By: EMMANUEL Lamotrigine (Lamotrigine 100 Mg Tablet) 100 mg PO BID [facility] Last Admin: 01/03/22 08:31 Dose: 100 mg Documented By: EMMANUEL Levothyroxine Sodium (Levothyroxine Sodium 175 Mcg Tablet) 175 mcg PO DAILY@0630 [facility] Last Admin: 01/03/22 06:16 Dose: 175 mcg Documented By: SANTY Memantine (Memantine Hcl 10 Mg Tablet) 10 mg PO DAILY [facility] Last Admin: 01/03/22 08:31 Dose: 10 mg Documented By: EMMANUEL Metoprolol Tartrate (Metoprolol Tartrate 25 Mg Tablet) 25 mg PO TID [facility]; Protocol Last Admin: 01/03/22 08:31 Dose: 25 mg Documented By: EMMANUEL Mirtazapine (Mirtazapine 15 Mg Tablet) 15 mg PO BEDTIME [facility] Last Admin: 01/02/22 22:32 Dose: 15 mg Documented By: SANTY Multivitamins/Vitamin C (Multivitamin Tablet) 1 tab PO DAILY [facility] Last Admin: 01/03/22 08:31 Dose: 1 tab Documented By: EMMANUEL Nystatin (Nystatin Powder 15 Gm Bottle) 1 appl TOPICAL TID [facility]; Protocol Last Admin: 01/03/22 08:31 Dose: 1 appl Documented By: EMMANUEL Pharmacy Consult (Consult Rx Perform Med Rec) 1 each MISCELLANE ONCE PRN PRN Reason: Consult order Polyethylene Glycol (Polyethylene Glycol 3350 17 Gm Powd.Pack) 17 gm PO BID [facility] Last Admin: 01/03/22 08:30 Dose: 17 gm Documented By: EMMANUEL Potassium Chloride (Potassium Chloride Er 10 Meq Capsule.Er) 10 meq PO BID [facility] Last Admin: 01/03/22 08:31 Dose: 10 meq Documented By: EMMANUEL Pramoxine HCl (Pramoxine Hcl 1 % Rectal Foam 15 Gm) 1 appl [place] QID [facility] Last Admin: 01/03/22 08:36 Dose: Not Given Documented By: EMMANUEL Non-Admin Reason: Patient Refused Quetiapine Fumarate (Quetiapine Fumarate 25 Mg Tablet) 25 mg PO DAILY [facility] Last Admin: 01/03/22 08:31 Dose: 25 mg Documented By: EMMANUEL Quetiapine Fumarate (Quetiapine Fumarate 50 Mg Tablet) 50 mg PO BEDTIME [facility] Last Admin: 12/29/21 20:59 Dose: 50 mg Documented By: ALEX Sodium Chloride (0.9 % Sodium Chloride Flush 3 Ml Syringe) 3 ml IVFLUSH QSHIFT [facility] Last Admin: 01/03/22 08:32 Dose: 3 ml Documented By: EMMANUEL Topiramate (Topiramate 100 Mg Tablet) 100 mg PO BID [facility] Last Admin: 01/03/22 08:31 Dose: 100 mg Documented By: EMMANUEL Warfarin Sodium (Warfarin Sodium 0.5 Mg Halftab) 0.5 mg PO DAILY@1800 [facility] Last Admin: 01/02/22 17:39 Dose: 0.5 mg Documented By: EMMANUEL Warfarin Sodium (Warfarin Sodium 5 Mg Tablet) 5 mg PO DAILY@1800 [facility] Last Admin: 01/02/22 17:40 Dose: 5 mg Documented By: EMMANUEL Labs CBC & Chem 7: 01/02/22 05:53 01/01/22 09:11 Labs: Laboratory Results - last 24 hr 01/03/22 08:26 PT 17.1 H INR 1.5 H Assessment and Plan (1) Prolapsed hemorrhoids: Status: Acute (2) Internal hemorrhoids with complication: Status: Acute (3) Anticoagulant long-term use: Status: Acute (4) Congestive heart failure: Status: Acute (5) Anemia: Status: Acute Plan 70-year-old female with a past medical history of hypertension, hyperlipidemia, dementia, seizures, mitral valve replacement ([facility]) on coumadin, CHF , history of AICD, DVT, hypothyroidism, dementia, history of seizures, depression, asthma, history of CVA with residual right-sided weakness, aphasia admitted for presumed blood loss and acute on chronic CHF. 1. acute blood loss on Iron deficiency anemia- H/H 6.9/26.9 (last H/H 8.5/30.6% 05/11)- ?acute blood loss use vs possible chronic slow bleed r/t external hemorrhoid vs other GI bleed. -s/p 2 units of RBC with improvement and stable--Hct 30 now -Patient had EGD and sigmoidoscopy--12/27, EGD -no evidence of hemolysis (neg javi, nl retic count) -no evidence active bleed, H/H has been stable 2. UTI--culture strep agalact, IV ceftriaxone, oral ceftin at dc 4. acute on chronic HFrEF--clinically still fluid overloadd -continue diuresis with IV Lasix--> PO today -monitor i/o, low salt, cardiology following -losartan has been on restart tomorrow 4. Paroxysmal AFib-ventricular rate around 100 range continue po metoprolol and digoxin. -warfarin given no active blee -AICD in place 5. mechanical mitral valve- [facility]--need anticoaulation with with targeted inr 2.5 to 3.5, coumadin was on hold and now lovenox bridging, increase coumadin 6. hypothyroidism - continue LT4 7. dementia - continue memantine 8. mood disorder - continue fluoxetine, mirtazapine, quetiapine 9. partial seizure disorder: intermittent episodes adjusted lamotrigine, topiramate,added eeg neurology eval 10. hx CVA - Hold ASA -Continue statin 11. Hypernatremia--146, monitor # VTE ppx-lovenox, coumadin need for inpatient: ongoing treatment with IV Lasix for for heart failure and being closely monitor for anemia that needed transfusion and anticipate dc tomorrow Quality Stroke Does the patient have a stroke diagnosis?: No VTE Prior VTE?: Yes VTE Risk Level:: Medical - moderate - high VTE Device Contraindication: N/A - Device Ordered VTE Drug Contraindication: Treatment Not Indicated
[2022-01-03 11:35] VITALS: BP 121/54; PULSE 89; RESP 16; TEMP 37.1; O2SAT 83
[2022-01-03] MEDS: cefTRIAXone sodium 1 GM in 0.9 % Sodium Chloride 50 ML IV (14:37)
[2022-01-03 14:58] VITALS: BP 141/64; PULSE 80; RESP 18; TEMP 36.6; O2SAT 98
[2022-01-03] MEDS: Furosemide 40 MG TABLET PO (17:01)
[2022-01-03] MEDS: Warfarin Sodium 6 MG TABLET PO (17:02)
[2022-01-03] MEDS: Warfarin Sodium 1 MG TABLET PO (17:02)
[2022-01-03 19:17] VITALS: BP 143/68; PULSE 80; RESP 18; TEMP 36.7; O2SAT 98
[2022-01-03] MEDS: Mirtazapine 15 MG TABLET PO (22:33)
[2022-01-03] MEDS: Atorvastatin Calcium 80 MG TABLET PO (22:33)
[2022-01-03] MEDS: Pramoxine HCl 1 % Rectal Foam 15 GM 1 APPL PR (22:34)
[2022-01-03 23:10] VITALS: BP 150/65; PULSE 78; RESP 18; TEMP 36.7; O2SAT 98
[2022-01-04] VITALS (7 sets, daily range): BP systolic 118–150; BP diastolic 55–74; PULSE 59–77; RESP 12–20; TEMP 36–37.3; O2SAT 94–99
[2022-01-04] MEDS: Levothyroxine Sodium 175 MCG TABLET PO (05:51)
[2022-01-04] MEDS: Enoxaparin Sodium 100 MG/ML SYRINGE 85 MG SUBCUT ×2 (05:51→17:41)
[2022-01-04 08:34] LABS: INTERNATIONAL NORM RATIO 1.4 (0.9-1.1); Prothrombin Time 16.2 SEC (10.0-13.1)
--- NOTE | 2022-01-04 09:32 | HO.PM.IMPN ---
Subjective Subjective Date of Service: 01/04/22 Interval History: f/u on heart failure, acute blood loss anemia interval history: sitting in chair, no new issues Review of Systems no sob, Physical Exam Vital Signs: Vital Signs: Last Vital Signs Temp 98.0 F 01/04/22 07:34 Pulse 77 01/04/22 07:34 Resp 12 01/04/22 07:34 BP 150/74 H 01/04/22 07:34 Pulse Ox 99 01/04/22 07:34 O2 Del Method 01/04/22 07:34 O2 Flow Rate 2 01/04/22 07:34 FiO2 95 01/02/22 19:12 BMI result Body Mass Index 30.4 Const: Other: General: Non verbal Resp: CTA bilateral CVS: S1,S2,RRR. heaven , +leg edema but better GI: +BS, NT, no distention Skin: No rash Neuro: motor grossly intact Psych: appropriate affect Objective Data Active Medications Atorvastatin Calcium (Atorvastatin Calcium 80 Mg Tablet) 80 mg PO BEDTIME [facility] Last Admin: 01/03/22 22:33 Dose: 80 mg Documented By: ALEX Digoxin (Digoxin 0.125 Mg Tablet) 0.125 mg PO Q2D [facility] Last Admin: 01/03/22 08:36 Dose: 0.125 mg Documented By: EMMANUEL Enoxaparin Sodium (Enoxaparin Sodium 100 Mg/Ml Syringe) 85 mg SUBCUT Q12H [facility] Last Admin: 01/04/22 05:51 Dose: 85 mg Documented By: ALEX Ferrous Sulfate (Ferrous Sulfate 324 Mg Tablet.) 324 mg PO BIDWM [facility] Last Admin: 01/03/22 17:02 Dose: 324 mg Documented By: EMMANUEL Fluoxetine HCl (Fluoxetine Hcl 20 Mg Capsule) 40 mg PO DAILY [facility] Last Admin: 01/03/22 08:30 Dose: 40 mg Documented By: EMMANUEL Furosemide (Furosemide 40 Mg Tablet) 40 mg PO BID@0900,1800 [facility]; Protocol Last Admin: 01/03/22 17:01 Dose: 40 mg Documented By: EMMANUEL Isosorbide Mononitrate (Isosorbide Mononitrate 30 Mg Tab.Er.24h) 30 mg PO DAILY [facility]; Protocol Last Admin: 01/03/22 08:31 Dose: 30 mg Documented By: EMMANUEL Lamotrigine (Lamotrigine 100 Mg Tablet) 100 mg PO BID [facility] Last Admin: 01/03/22 22:33 Dose: 100 mg Documented By: ALEX Levothyroxine Sodium (Levothyroxine Sodium 175 Mcg Tablet) 175 mcg PO DAILY@0630 [facility] Last Admin: 01/04/22 05:51 Dose: 175 mcg Documented By: ALEX Memantine (Memantine Hcl 10 Mg Tablet) 10 mg PO DAILY [facility] Last Admin: 01/03/22 08:31 Dose: 10 mg Documented By: EMMANUEL Metoprolol Tartrate (Metoprolol Tartrate 25 Mg Tablet) 25 mg PO TID [facility]; Protocol Last Admin: 01/03/22 22:32 Dose: 25 mg Documented By: ALEX Mirtazapine (Mirtazapine 15 Mg Tablet) 15 mg PO BEDTIME [facility] Last Admin: 01/03/22 22:33 Dose: 15 mg Documented By: ALEX Multivitamins/Vitamin C (Multivitamin Tablet) 1 tab PO DAILY [facility] Last Admin: 01/03/22 08:31 Dose: 1 tab Documented By: EMMANUEL Nystatin (Nystatin Powder 15 Gm Bottle) 1 appl TOPICAL TID [facility]; Protocol Last Admin: 01/03/22 22:33 Dose: 1 appl Documented By: ALEX Pharmacy Consult (Consult Rx Perform Med Rec) 1 each MISCELLANE ONCE PRN PRN Reason: Consult order Polyethylene Glycol (Polyethylene Glycol 3350 17 Gm Powd.Pack) 17 gm PO BID [facility] Last Admin: 01/03/22 22:33 Dose: 17 gm Documented By: ALEX Potassium Chloride (Potassium Chloride Er 10 Meq Capsule.Er) 10 meq PO BID [facility] Last Admin: 01/03/22 22:33 Dose: 10 meq Documented By: ALEX Pramoxine HCl (Pramoxine Hcl 1 % Rectal Foam 15 Gm) 1 appl [place] QID [facility] Last Admin: 01/03/22 22:34 Dose: 1 appl Documented By: ALEX Quetiapine Fumarate (Quetiapine Fumarate 25 Mg Tablet) 25 mg PO DAILY [facility] Last Admin: 01/03/22 08:31 Dose: 25 mg Documented By: EMMANUEL Quetiapine Fumarate (Quetiapine Fumarate 50 Mg Tablet) 50 mg PO BEDTIME [facility] Last Admin: 12/29/21 20:59 Dose: 50 mg Documented By: ALEX Sodium Chloride (0.9 % Sodium Chloride Flush 3 Ml Syringe) 3 ml IVFLUSH QSHIFT [facility] Last Admin: 01/03/22 22:34 Dose: 3 ml Documented By: ALEX Topiramate (Topiramate 100 Mg Tablet) 100 mg PO BID [facility] Last Admin: 01/03/22 22:33 Dose: 100 mg Documented By: ALEX Warfarin Sodium (Warfarin Sodium 6 Mg Tablet) 6 mg PO DAILY@1800 [facility] Last Admin: 01/03/22 17:02 Dose: 6 mg Documented By: EMMANUEL Warfarin Sodium (Warfarin Sodium 1 Mg Tablet) 1 mg PO DAILY@1800 [facility] Last Admin: 01/03/22 17:02 Dose: 1 mg Documented By: EMMANUEL Labs CBC & Chem 7: 01/02/22 05:53 01/01/22 09:11 Labs: Laboratory Results - last 24 hr 01/04/22 08:24 PT 16.2 H INR 1.4 H Assessment and Plan (1) Prolapsed hemorrhoids: Status: Acute (2) Internal hemorrhoids with complication: Status: Acute (3) Anticoagulant long-term use: Status: Acute (4) Congestive heart failure: Status: Acute (5) Anemia: Status: Acute Plan 70-year-old female with a past medical history of hypertension, hyperlipidemia, dementia, seizures, mitral valve replacement (st harinder) on coumadin, CHF , history of AICD, DVT, hypothyroidism, dementia, history of seizures, depression, asthma, history of CVA with residual right-sided weakness, aphasia admitted for presumed blood loss and acute on chronic CHF. 1. acute blood loss on ch Iron deficiency anemia- H/H 6.9/26.9 (last H/H 8.5/30.6% 05/11)- ?acute blood loss use vs possible chronic slow bleed r/t external hemorrhoid vs other GI bleed. -s/p 2 units of RBC with improvement and stable--Hct 30 now -Patient had EGD and sigmoidoscopy--12/27, EGD -no evidence of hemolysis (neg javi, nl retic count) -no evidence active bleed, H/H has been stable 2. UTI--completed Abx, 4. acute on chronic HFrEF--clinically still fluid overloadd -continue diuresis with IV Lasix--> PO today -monitor i/o, low salt, cardiology following -losartan has been on restart tomorrow 4. Paroxysmal AFib-ventricular rate around 100 range continue po metoprolol and digoxin. -warfarin given no active bleed -AICD in place 5. mechanical mitral valve- [facility]--need anticoaulation with with targeted inr 2.5 to 3.5, coumadin was on hold and now lovenox bridging, increase coumadin today dose was increased yesterday but level down 6. hypothyroidism - continue LT4 7. dementia - continue memantine 8. mood disorder - continue fluoxetine, mirtazapine, quetiapine 9. partial seizure disorder: intermittent episodes adjusted lamotrigine, topiramate,added eeg neurology eval 10. hx CVA - Hold ASA -Continue statin 11. Hypernatremia--146, monitor # VTE ppx-lovenox, coumadin need for inpatient: ongoing treatment with IV Lasix for for heart failure and being closely monitor for anemia that needed transfusion and anticipate dc tomorrow Quality Stroke Does the patient have a stroke diagnosis?: No VTE Prior VTE?: Yes VTE Risk Level:: Medical - moderate - high VTE Device Contraindication: N/A - Device Ordered VTE Drug Contraindication: Treatment Not Indicated
[2022-01-04] MEDS: 0.9 % Sodium Chloride Flush 3 ML SYRINGE IVFLUSH ×2 (09:51→17:40)
[2022-01-04] MEDS: Topiramate 100 MG TABLET PO ×2 (09:52→22:28)
[2022-01-04] MEDS: Isosorbide Mononitrate 30 MG TAB.ER.24H PO (09:52)
[2022-01-04] MEDS: Memantine HCl 10 MG TABLET PO (09:52)
[2022-01-04] MEDS: Multivitamin TABLET 1 TAB PO (09:52)
[2022-01-04] MEDS: Furosemide 40 MG TABLET PO ×2 (09:52→17:40)
[2022-01-04] MEDS: FLUoxetine HCl 20 MG CAPSULE 40 MG PO (09:52)
[2022-01-04] MEDS: Metoprolol Tartrate 25 MG TABLET PO ×3 (09:52→22:26)
[2022-01-04] MEDS: lamoTRIgine 100 MG TABLET PO ×2 (09:52→22:27)
[2022-01-04] MEDS: Ferrous Sulfate 324 MG TABLET.DR PO ×2 (09:53→17:40)
[2022-01-04] MEDS: polyethylene glycoL 3350 17 GM POWD.PACK PO ×2 (09:53→22:29)
[2022-01-04] MEDS: QUEtiapine Fumarate 25 MG TABLET PO (09:53)
[2022-01-04] MEDS: Pramoxine HCl 1 % Rectal Foam 15 GM 1 APPL PR ×2 (09:57→22:30)
[2022-01-04] MEDS: Nystatin Powder 15 GM BOTTLE 1 APPL TOPICAL ×2 (15:14→22:30)
[2022-01-04] MEDS: Warfarin Sodium 1 MG TABLET PO (17:40)
[2022-01-04] MEDS: Warfarin Sodium 6 MG TABLET PO (17:40)
[2022-01-04] MEDS: Mirtazapine 15 MG TABLET PO (22:28)
[2022-01-04] MEDS: Atorvastatin Calcium 80 MG TABLET PO (22:28)
[2022-01-05 01:24] LABS: Appearance Urine Clear; Color Urine Yellow; Glucose Urine UA Negative (Negative); Leukocyte Esterase Urine Trace (Negative); Nitrite Urine Negative (Negative); PH 6.5 (5.0-9.0); UMIC TRIGGER UACC YES; Urine Blood Negative (Negative); Urine Ketones Negative (Negative); Urine Protein Negative (Neg-Trace)
[2022-01-05 01:36] LABS: Bacteria Urine None Seen (None Seen); Hyaline Casts Urine 0-2 /LPF (0-2); RBC Urine 0-2 /HPF (0-2); Squamous Epithelial Cell Urine 0-2 /HPF (0-2); WBC Urine 0-5 /HPF (0-5)
[2022-01-05 03:20] VITALS: BP 112/57; PULSE 74; RESP 16; TEMP 36.7; O2SAT 97
[2022-01-05] MEDS: Levothyroxine Sodium 175 MCG TABLET PO (06:51)
[2022-01-05] MEDS: Enoxaparin Sodium 100 MG/ML SYRINGE 85 MG SUBCUT ×2 (06:51→17:47)
[2022-01-05 07:55] LABS: INTERNATIONAL NORM RATIO 1.6 (0.9-1.1); Prothrombin Time 18.8 SEC (10.0-13.1)
[2022-01-05 08:00] VITALS: BP 136/63; PULSE 61; RESP 14; TEMP 36.3; O2SAT 97
[2022-01-05] MEDS: 0.9 % Sodium Chloride Flush 3 ML SYRINGE IVFLUSH ×4 (09:50→22:10)
[2022-01-05] MEDS: polyethylene glycoL 3350 17 GM POWD.PACK PO ×2 (09:50→22:08)
[2022-01-05] MEDS: lamoTRIgine 100 MG TABLET PO ×2 (09:51→22:09)
[2022-01-05] MEDS: FLUoxetine HCl 20 MG CAPSULE 40 MG PO (09:51)
[2022-01-05] MEDS: Topiramate 100 MG TABLET PO ×2 (09:51→22:09)
[2022-01-05] MEDS: QUEtiapine Fumarate 25 MG TABLET PO (09:51)
[2022-01-05] MEDS: Metoprolol Tartrate 25 MG TABLET PO ×3 (09:51→22:08)
[2022-01-05] MEDS: Multivitamin TABLET 1 TAB PO (09:51)
[2022-01-05] MEDS: Ferrous Sulfate 324 MG TABLET.DR PO ×2 (09:51→17:46)
[2022-01-05] MEDS: Isosorbide Mononitrate 30 MG TAB.ER.24H PO (09:51)
[2022-01-05] MEDS: Memantine HCl 10 MG TABLET PO (09:51)
[2022-01-05] MEDS: Furosemide 40 MG TABLET PO ×2 (09:51→17:46)
[2022-01-05] MEDS: Pramoxine HCl 1 % Rectal Foam 15 GM 1 APPL PR ×4 (10:04→22:11)
[2022-01-05] MEDS: Nystatin Powder 15 GM BOTTLE 1 APPL TOPICAL ×3 (10:05→22:09)
--- NOTE | 2022-01-05 11:25 | HO.PM.IMPN ---
Subjective Subjective Date of Service: 01/06/22 Interval History: f/u on heart failure, acute blood loss anemia interval history: sitting in chair, no new issues Review of Systems no sob, Physical Exam Vital Signs: Vital Signs: Last Vital Signs Temp 97.3 F 01/05/22 08:00 Pulse 61 01/05/22 08:00 Resp 14 01/05/22 08:00 BP 136/63 01/05/22 08:00 Pulse Ox 97 01/05/22 08:00 O2 Del Method 01/05/22 08:00 O2 Flow Rate 2 01/05/22 08:00 FiO2 99 01/04/22 19:45 BMI result Body Mass Index 30.4 Const: Other: General: Non verbal Resp: CTA bilateral CVS: S1,S2,RRR. heaven , +leg edema but better GI: +BS, NT, no distention Skin: No rash Neuro: motor grossly intact Psych: appropriate affect Objective Data Active Medications Atorvastatin Calcium (Atorvastatin Calcium 80 Mg Tablet) 80 mg PO BEDTIME [facility] Last Admin: 01/04/22 22:28 Dose: 80 mg Documented By: MIKE Digoxin (Digoxin 0.125 Mg Tablet) 0.125 mg PO Q2D [facility] Last Admin: 01/03/22 08:36 Dose: 0.125 mg Documented By: EMMANUEL Enoxaparin Sodium (Enoxaparin Sodium 100 Mg/Ml Syringe) 85 mg SUBCUT Q12H [facility] Last Admin: 01/05/22 06:51 Dose: 85 mg Documented By: ALEX Ferrous Sulfate (Ferrous Sulfate 324 Mg Tablet.) 324 mg PO BIDWM [facility] Last Admin: 01/05/22 09:51 Dose: 324 mg Documented By: FELICITA Fluoxetine HCl (Fluoxetine Hcl 20 Mg Capsule) 40 mg PO DAILY [facility] Last Admin: 01/05/22 09:51 Dose: 40 mg Documented By: FELICITA Furosemide (Furosemide 40 Mg Tablet) 40 mg PO BID@0900,1800 [facility]; Protocol Last Admin: 01/05/22 09:51 Dose: 40 mg Documented By: FELICITA Isosorbide Mononitrate (Isosorbide Mononitrate 30 Mg Tab.Er.24h) 30 mg PO DAILY [facility]; Protocol Last Admin: 01/05/22 09:51 Dose: 30 mg Documented By: FELICITA Lamotrigine (Lamotrigine 100 Mg Tablet) 100 mg PO BID [facility] Last Admin: 01/05/22 09:51 Dose: 100 mg Documented By: FELICITA Levothyroxine Sodium (Levothyroxine Sodium 175 Mcg Tablet) 175 mcg PO DAILY@0630 [facility] Last Admin: 01/05/22 06:51 Dose: 175 mcg Documented By: ALEX Memantine (Memantine Hcl 10 Mg Tablet) 10 mg PO DAILY [facility] Last Admin: 01/05/22 09:51 Dose: 10 mg Documented By: FELICITA Metoprolol Tartrate (Metoprolol Tartrate 25 Mg Tablet) 25 mg PO TID [facility]; Protocol Last Admin: 01/05/22 09:51 Dose: 25 mg Documented By: FELICITA Mirtazapine (Mirtazapine 15 Mg Tablet) 15 mg PO BEDTIME [facility] Last Admin: 01/04/22 22:28 Dose: 15 mg Documented By: MIKE Multivitamins/Vitamin C (Multivitamin Tablet) 1 tab PO DAILY [facility] Last Admin: 01/05/22 09:51 Dose: 1 tab Documented By: FELICITA Nystatin (Nystatin Powder 15 Gm Bottle) 1 appl TOPICAL TID [facility]; Protocol Last Admin: 01/05/22 10:05 Dose: 1 appl Documented By: FELICITA Pharmacy Consult (Consult Rx Perform Med Rec) 1 each MISCELLANE ONCE PRN PRN Reason: Consult order Polyethylene Glycol (Polyethylene Glycol 3350 17 Gm Powd.Pack) 17 gm PO BID [facility] Last Admin: 01/05/22 09:50 Dose: 17 gm Documented By: FELICITA Potassium Chloride (Potassium Chloride Er 10 Meq Capsule.Er) 10 meq PO BID [facility] Last Admin: 01/05/22 09:51 Dose: 10 meq Documented By: FELICITA Pramoxine HCl (Pramoxine Hcl 1 % Rectal Foam 15 Gm) 1 appl [place] QID [facility] Last Admin: 01/05/22 10:04 Dose: 1 appl Documented By: FELICITA Quetiapine Fumarate (Quetiapine Fumarate 25 Mg Tablet) 25 mg PO DAILY [facility] Last Admin: 01/05/22 09:51 Dose: 25 mg Documented By: FELICITA Quetiapine Fumarate (Quetiapine Fumarate 50 Mg Tablet) 50 mg PO BEDTIME [facility] Last Admin: 12/29/21 20:59 Dose: 50 mg Documented By: ALEX Sodium Chloride (0.9 % Sodium Chloride Flush 3 Ml Syringe) 3 ml IVFLUSH QSHIFT [facility] Last Admin: 01/05/22 09:50 Dose: 3 ml Documented By: FELICITA Topiramate (Topiramate 100 Mg Tablet) 100 mg PO BID [facility] Last Admin: 01/05/22 09:51 Dose: 100 mg Documented By: FELICITA Warfarin Sodium (Warfarin Sodium 6 Mg Tablet) 6 mg PO DAILY@1800 [facility] Last Admin: 01/04/22 17:40 Dose: 6 mg Documented By: JOSE Warfarin Sodium (Warfarin Sodium 1 Mg Tablet) 1 mg PO DAILY@1800 [facility] Last Admin: 01/04/22 17:40 Dose: 1 mg Documented By: JOSE Labs CBC & Chem 7: 01/05/22 13:33 01/01/22 09:11 Labs: Laboratory Results - last 24 hr 01/04/22 01/05/22 23:10 07:29 PT 18.8 H INR 1.6 H Urine Color Yellow Urine Appearance Clear Urine pH 6.5 Ur Specific [place] 1.010 Urine Protein Negative Urine Glucose (UA) Negative Urine Ketones Negative Urine Blood Negative Urine Nitrite Negative Ur Leukocyte Esterase Trace H Urine RBC 0-2 Urine WBC 0-5 Ur Squamous Epith Cells 0-2 Urine Bacteria None Seen Hyaline Casts 0-2 Assessment and Plan (1) Prolapsed hemorrhoids: Status: Acute (2) Internal hemorrhoids with complication: Status: Acute (3) Anticoagulant long-term use: Status: Acute (4) Congestive heart failure: Status: Acute (5) Anemia: Status: Acute Plan 70-year-old female with a past medical history of hypertension, hyperlipidemia, dementia, seizures, mitral valve replacement (st ethan) on coumadin, CHF , history of AICD, DVT, hypothyroidism, dementia, history of seizures, depression, asthma, history of CVA with residual right-sided weakness, aphasia admitted for presumed blood loss and acute on chronic CHF. 1. acute blood loss on Iron deficiency anemia- H/H 6.9/26.9 (last H/H 8.5/30.6% 05/11)- ?acute blood loss use vs possible chronic slow bleed r/t external hemorrhoid vs other GI bleed. -s/p 2 units of RBC with improvement and stable--Hct 30 now -Patient had EGD and sigmoidoscopy--12/27, EGD -no evidence of hemolysis (neg javi, nl retic count) -no evidence active bleed, H/H has been stable, cbc today 2. UTI--completed Abx, 4. acute on chronic HFrEF--clinically still fluid overloadd -continue diuresis with IV Lasix--> PO today -monitor i/o, low salt, cardiology following -losartan has been on restart tomorrow 4. Paroxysmal AFib-ventricular rate around 100 range continue po metoprolol and digoxin. -warfarin given no active bleed -AICD in place 5. mechanical mitral valve- [facility]--need anticoaulation with with targeted inr 2.5 to 3.5, coumadin was on hold and now lovenox bridging, increase coumadin today dose was increased yesterday but level down 6. hypothyroidism - continue LT4 7. dementia - continue memantine 8. mood disorder - continue fluoxetine, mirtazapine, quetiapine 9. partial seizure disorder: intermittent episodes adjusted lamotrigine, topiramate,added eeg neurology eval 10. hx CVA - Hold ASA -Continue statin 11. Hypernatremia--146, monitor # VTE ppx-lovenox, coumadin need for inpatient: ongoing treatment with IV Lasix for for heart failure and being closely monitor for anemia that needed transfusion and anticipate dc tomorrow Quality Stroke Does the patient have a stroke diagnosis?: No VTE Prior VTE?: Yes VTE Risk Level:: Medical - moderate - high VTE Device Contraindication: N/A - Device Ordered VTE Drug Contraindication: Treatment Not Indicated
[2022-01-05 12:00] VITALS: BP 141/61; PULSE 74; RESP 16; TEMP 36.5; O2SAT 2
[2022-01-05 13:43] LABS: Hematocrit 32.8 % (37.0-47.0); Hemoglobin 8.9 g/dl (12.0-16.0); Mean Corpuscular HGB Conc 27.1 g/dl (31.0-35.0); Mean Corpuscular Hemoglobin 25.6 pg (27.0-33.0); Mean Corpuscular Volume 94.5 fL (80.0-98.0); Mean Platelet Volume 11.8 fL (9.4-12.3); Platelet Count 120 X10*3/uL (160-400); Red Blood Count 3.47 X10*6/uL (4.20-5.50); Red Cell Distribution Width 22.8 % (11.0-16.0)
[2022-01-05 15:34] VITALS: BP 129/89; PULSE 61; RESP 20; TEMP 37; O2SAT 92
[2022-01-05] MEDS: Warfarin Sodium 1 MG TABLET PO (17:46)
[2022-01-05] MEDS: Warfarin Sodium 6 MG TABLET PO (17:46)
[2022-01-05 18:57] VITALS: BP 122/58; PULSE 64; RESP 16; TEMP 36.6; O2SAT 95
[2022-01-05] MEDS: Atorvastatin Calcium 80 MG TABLET PO (22:09)
[2022-01-05] MEDS: Mirtazapine 15 MG TABLET PO (22:09)
[2022-01-05 23:36] VITALS: BP 115/54; PULSE 68; RESP 16; TEMP 36.8; O2SAT 98
[2022-01-06 03:16] VITALS: BP 132/61; PULSE 73; RESP 16; TEMP 36.4; O2SAT 95
[2022-01-06] MEDS: Enoxaparin Sodium 100 MG/ML SYRINGE 85 MG SUBCUT ×2 (05:06→17:12)
[2022-01-06] MEDS: Levothyroxine Sodium 175 MCG TABLET PO (05:08)
[2022-01-06 07:48] VITALS: BP 146/68; PULSE 68; RESP 20; TEMP 36.8; O2SAT 100
--- NOTE | 2022-01-06 09:20 | P.PNIM_ITS ---
Subjective Subjective Date of Service: 01/07/22 Interval History: f/u on heart failure, acute blood loss anemia interval history: sitting in chair, no new issues Review of Systems no sob, Physical Exam Vital Signs: Vital Signs: Last Vital Signs Temp 98.2 F 01/06/22 07:48 Pulse 68 01/06/22 07:48 Resp 20 01/06/22 07:48 BP 146/68 H 01/06/22 07:48 Pulse Ox 100 01/06/22 07:48 O2 Del Method 01/06/22 07:48 O2 Flow Rate 2 01/06/22 07:48 FiO2 99 01/04/22 19:45 BMI result Body Mass Index 30.4 Const: Other: General: Non verbal Resp: CTA bilateral CVS: S1,S2,RRR. heaven , +leg edema but better GI: +BS, NT, no distention Skin: No rash Neuro: motor grossly intact Psych: appropriate affect Objective Data Active Medications Atorvastatin Calcium (Atorvastatin Calcium 80 Mg Tablet) 80 mg PO BEDTIME [facility] Last Admin: 01/05/22 22:09 Dose: 80 mg Documented By: MELANIA Digoxin (Digoxin 0.125 Mg Tablet) 0.125 mg PO Q2D [facility] Last Admin: 01/05/22 14:35 Dose: Not Given Documented By: FELICITA Non-Admin Reason: Physician Held Med Enoxaparin Sodium (Enoxaparin Sodium 100 Mg/Ml Syringe) 85 mg SUBCUT Q12H [facility] Last Admin: 01/06/22 05:06 Dose: 85 mg Documented By: MELANIA Ferrous Sulfate (Ferrous Sulfate 324 Mg Tablet.) 324 mg PO BIDWM [facility] Last Admin: 01/05/22 17:46 Dose: 324 mg Documented By: FELICITA Fluoxetine HCl (Fluoxetine Hcl 20 Mg Capsule) 40 mg PO DAILY [facility] Last Admin: 01/05/22 09:51 Dose: 40 mg Documented By: FELICITA Furosemide (Furosemide 40 Mg Tablet) 40 mg PO BID@0900,1800 [facility]; Protocol Last Admin: 01/05/22 17:46 Dose: 40 mg Documented By: FELICITA Isosorbide Mononitrate (Isosorbide Mononitrate 30 Mg Tab.Er.24h) 30 mg PO DAILY [facility]; Protocol Last Admin: 01/05/22 09:51 Dose: 30 mg Documented By: FELICITA Lamotrigine (Lamotrigine 100 Mg Tablet) 100 mg PO BID [facility] Last Admin: 01/05/22 22:09 Dose: 100 mg Documented By: MELANIA Levothyroxine Sodium (Levothyroxine Sodium 175 Mcg Tablet) 175 mcg PO DAILY@0630 [facility] Last Admin: 01/06/22 05:08 Dose: 175 mcg Documented By: MELANIA Memantine (Memantine Hcl 10 Mg Tablet) 10 mg PO DAILY [facility] Last Admin: 01/05/22 09:51 Dose: 10 mg Documented By: FELICITA Metoprolol Tartrate (Metoprolol Tartrate 25 Mg Tablet) 25 mg PO TID [facility]; Protocol Last Admin: 01/05/22 22:08 Dose: 25 mg Documented By: MELANIA Mirtazapine (Mirtazapine 15 Mg Tablet) 15 mg PO BEDTIME [facility] Last Admin: 01/05/22 22:09 Dose: 15 mg Documented By: MELANIA Multivitamins/Vitamin C (Multivitamin Tablet) 1 tab PO DAILY [facility] Last Admin: 01/05/22 09:51 Dose: 1 tab Documented By: FELICITA Nystatin (Nystatin Powder 15 Gm Bottle) 1 appl TOPICAL TID [facility]; Protocol Last Admin: 01/05/22 22:09 Dose: 1 appl Documented By: MELANIA Pharmacy Consult (Consult Rx Perform Med Rec) 1 each MISCELLANE ONCE PRN PRN Reason: Consult order Polyethylene Glycol (Polyethylene Glycol 3350 17 Gm Powd.Pack) 17 gm PO BID [facility] Last Admin: 01/05/22 22:08 Dose: 17 gm Documented By: MELANIA Potassium Chloride (Potassium Chloride Er 10 Meq Capsule.Er) 10 meq PO BID [facility] Last Admin: 01/05/22 22:09 Dose: 10 meq Documented By: MELANIA Pramoxine HCl (Pramoxine Hcl 1 % Rectal Foam 15 Gm) 1 appl MD QID [facility] Last Admin: 01/05/22 22:11 Dose: 1 appl Documented By: MELANIA Quetiapine Fumarate (Quetiapine Fumarate 25 Mg Tablet) 25 mg PO DAILY [facility] Last Admin: 01/05/22 09:51 Dose: 25 mg Documented By: FELICITA Quetiapine Fumarate (Quetiapine Fumarate 50 Mg Tablet) 50 mg PO BEDTIME [facility] Last Admin: 12/29/21 20:59 Dose: 50 mg Documented By: ALEX Sodium Chloride (0.9 % Sodium Chloride Flush 3 Ml Syringe) 3 ml IVFLUSH QSHIFT [facility] Last Admin: 01/05/22 22:10 Dose: 3 ml Documented By: MELANIA Topiramate (Topiramate 100 Mg Tablet) 100 mg PO BID [facility] Last Admin: 01/05/22 22:09 Dose: 100 mg Documented By: MELANIA Warfarin Sodium (Warfarin Sodium 6 Mg Tablet) 6 mg PO DAILY@1800 [facility] Last Admin: 01/05/22 17:46 Dose: 6 mg Documented By: FELICITA Warfarin Sodium (Warfarin Sodium 1 Mg Tablet) 1 mg PO DAILY@1800 [facility] Last Admin: 01/05/22 17:46 Dose: 1 mg Documented By: FELICITA Labs CBC & Chem 7: 01/05/22 13:33 01/01/22 09:11 Labs: Laboratory Results - last 24 hr 01/05/22 01/05/22 01/06/22 13:33 13:33 05:34 MCV 94.5 MCH 25.6 L MCHC 27.1 L RDW 22.8 H Plt Count 120 L D MPV 11.8 Absolute Nucleated RBC 0.000 Nucleated RBC % (auto) 0.0 PT 23.0 H INR 2.0 H Blood Type A Positive Antibody Screen NEGATIVE Assessment and Plan (1) Prolapsed hemorrhoids: Status: Acute (2) Internal hemorrhoids with complication: Status: Acute (3) Anticoagulant long-term use: Status: Acute (4) Congestive heart failure: Status: Acute (5) Anemia: Status: Acute Plan 70-year-old female with a past medical history of hypertension, hyperlipidemia, dementia, seizures, mitral valve replacement (st harinder) on coumadin, CHF , history of AICD, DVT, hypothyroidism, dementia, history of seizures, depression, asthma, history of CVA with residual right-sided weakness, aphasia admitted for presumed blood loss and acute on chronic CHF. 1. acute blood loss on Iron deficiency anemia- H/H 6.9/26.9 (last H/H 8. 5/30.6% 05/11)- ?acute blood loss use vs possible chronic slow bleed r/t external hemorrhoid vs other GI bleed. -s/p 2 units of RBC with improvement and stable--Hct 30 now -Patient had EGD and sigmoidoscopy--12/27, EGD -no evidence of hemolysis (neg javi, nl retic count) -no evidence active bleed, H/H has been stable, cbc has been stable 2. UTI--completed Abx, 4. acute on chronic HFrEF--clinically still fluid overloadd -transitioned to oral Lasix -monitor i/o, low salt, cardiology following -losartan has been on restart tomorrow 4. Paroxysmal AFib-ventricular rate around 100 range continue po metoprolol and digoxin. -warfarin given no active bleed -AICD in place 5. mechanical mitral valve- [facility]. Harinder--need anticoaulation with with targeted inr 2.5 to 3.5, coumadin was on hold and now lovenox bridging, INR is 2 today, bridge for 1 more day 6. hypothyroidism - continue LT4 7. dementia - continue memantine 8. mood disorder - continue fluoxetine, mirtazapine, quetiapine 9. partial seizure disorder: intermittent episodes adjusted lamotrigine, topiramate,added eeg neurology eval 10. hx CVA - Hold ASA -Continue statin 11. Hypernatremia--146, monitor # VTE ppx-lovenox, coumadin need for inpatient: ongoing treatment with IV Lasix for for heart failure and being closely monitor for anemia that needed transfusion and anticipate dc tomorrow Discussed goals of care with daughter and completed MOLS form and is now DNR/DNI Quality Stroke Does the patient have a stroke diagnosis?: No VTE Prior VTE?: Yes VTE Risk Level:: Medical - moderate - high VTE Device Contraindication: N/A - Device Ordered VTE Drug Contraindication: Treatment Not Indicated
--- NOTE | 2022-01-06 09:20 | MHC.CM.PN ---
Female 71 DX Anemia HF SZ Coumadin has been restarted. She is bridged with Lovenox. DP Once INR [facility] Home with resumption of services. May need assist with transport.
[2022-01-06] MEDS: 0.9 % Sodium Chloride Flush 3 ML SYRINGE IVFLUSH ×3 (10:02→21:12)
[2022-01-06] MEDS: polyethylene glycoL 3350 17 GM POWD.PACK PO (10:02)
[2022-01-06] MEDS: Nystatin Powder 15 GM BOTTLE 1 APPL TOPICAL ×2 (10:03→14:16)
[2022-01-06] MEDS: Topiramate 100 MG TABLET PO ×2 (10:03→21:08)
[2022-01-06] MEDS: Furosemide 40 MG TABLET PO ×2 (10:03→17:11)
[2022-01-06] MEDS: FLUoxetine HCl 20 MG CAPSULE 40 MG PO (10:03)
[2022-01-06] MEDS: Metoprolol Tartrate 25 MG TABLET PO ×3 (10:04→21:08)
[2022-01-06] MEDS: QUEtiapine Fumarate 25 MG TABLET PO (10:04)
[2022-01-06] MEDS: Memantine HCl 10 MG TABLET PO (10:04)
[2022-01-06] MEDS: Isosorbide Mononitrate 30 MG TAB.ER.24H PO (10:04)
[2022-01-06] MEDS: Multivitamin TABLET 1 TAB PO (10:04)
[2022-01-06] MEDS: Ferrous Sulfate 324 MG TABLET.DR PO ×2 (10:05→17:02)
[2022-01-06] MEDS: lamoTRIgine 100 MG TABLET PO ×2 (10:05→21:08)
[2022-01-06] MEDS: Pramoxine HCl 1 % Rectal Foam 15 GM 1 APPL PR ×3 (10:05→17:12)
[2022-01-06 11:15] VITALS: BP 124/61; PULSE 66; RESP 20; TEMP 36.9; O2SAT 98
[2022-01-06] MEDS: Losartan Potassium 25 MG TABLET PO (11:40)
[2022-01-06] MEDS: Warfarin Sodium 6 MG TABLET PO (17:02)
[2022-01-06] MEDS: Warfarin Sodium 1 MG TABLET PO (17:12)
[2022-01-06 19:52] VITALS: BP 142/60; PULSE 74; RESP 19; TEMP 37; O2SAT 97
[2022-01-06] MEDS: Atorvastatin Calcium 80 MG TABLET PO (21:08)
[2022-01-06] MEDS: Mirtazapine 15 MG TABLET PO (21:08)
[2022-01-06 23:25] VITALS: BP 140/58; PULSE 66; RESP 18; TEMP 37.2; O2SAT 98
[2022-01-07 04:00] VITALS: BP 111/54; PULSE 69; RESP 20; TEMP 37.1; O2SAT 100
[2022-01-07] MEDS: Enoxaparin Sodium 100 MG/ML SYRINGE 85 MG SUBCUT ×2 (06:19→22:10)
[2022-01-07] MEDS: Levothyroxine Sodium 175 MCG TABLET PO (06:19)
[2022-01-07 07:05] LABS: INTERNATIONAL NORM RATIO 2.3 (0.9-1.1)
[2022-01-07 07:42] VITALS: BP 129/59; PULSE 70; RESP 16; TEMP 36.6; O2SAT 91
[2022-01-07] MEDS: polyethylene glycoL 3350 17 GM POWD.PACK PO ×2 (07:57→22:06)
[2022-01-07] MEDS: FLUoxetine HCl 20 MG CAPSULE 40 MG PO (07:58)
[2022-01-07] MEDS: Metoprolol Tartrate 25 MG TABLET PO ×2 (08:03→22:05)
[2022-01-07] MEDS: Losartan Potassium 25 MG TABLET PO (08:03)
[2022-01-07] MEDS: Isosorbide Mononitrate 30 MG TAB.ER.24H PO (08:03)
[2022-01-07] MEDS: Furosemide 40 MG TABLET PO ×2 (08:03→22:06)
[2022-01-07] MEDS: Topiramate 100 MG TABLET PO ×2 (08:04→22:06)
[2022-01-07] MEDS: Ferrous Sulfate 324 MG TABLET.DR PO (08:04)
[2022-01-07] MEDS: QUEtiapine Fumarate 25 MG TABLET PO (08:04)
[2022-01-07] MEDS: Multivitamin TABLET 1 TAB PO (08:04)
[2022-01-07] MEDS: lamoTRIgine 100 MG TABLET PO ×2 (08:04→22:05)
[2022-01-07] MEDS: Pramoxine HCl 1 % Rectal Foam 15 GM 1 APPL PR ×2 (08:04→22:07)
[2022-01-07] MEDS: Nystatin Powder 15 GM BOTTLE 1 APPL TOPICAL ×2 (08:04→22:07)
[2022-01-07] MEDS: Memantine HCl 10 MG TABLET PO (08:04)
[2022-01-07] MEDS: 0.9 % Sodium Chloride Flush 3 ML SYRINGE IVFLUSH (08:05)
[2022-01-07] MEDS: Digoxin 0.125 MG TABLET PO (08:12)
--- NOTE | 2022-01-07 09:26 | MHC.CM.PN ---
Addendum entered by Virginia Evans 01/07/22 16:25: A call was received from [email or web address]. Transport pushed to tomorrow. T/W called [facility]. They declined the trip; because they did not have a truck available. Original Note: IMM 01/07/22 Female 71 is discharged to [facility] today for STR. A covid test has been ordered. Transportation is booked as a will call. DC info and covid test are still pending.
[2022-01-07 10:32] LABS: COVID-19 Test Negative (Negative)
--- NOTE | 2022-01-07 10:58 | P.DS_ITS ---
DS: Providers Provider Date of Service: 01/07/22 Date of admission: 12/24/21 14:16 Primary care physician: Collin Castro MD Consults: 12/24/21 14:16 Consult to Cardiology Routine Consulting Provider: [facility] Cardiovascular Services Reason for consultation: anemia with EKG change elev trop, CHF, mitral valve replacement on coumadin Has provider been notified: No 12/24/21 14:43 Consult to Gastroenterology Routine Consulting Provider: Noman Pike Reason for consultation: ?blood loss anemia 12/27/21 10:00 Consult to Critical Care Routine Consulting Provider: Albino Rm Reason for consultation: level of care Has provider been notified: No 12/27/21 11:45 Consult to Hematology / Oncology Routine Consulting Provider: [facility] Oncology/Hematology Reason for consultation: anemia worsening-unclear etiology Has provider been notified: No 12/28/21 13:58 Consult to General Surgery Routine Consulting Provider: Vinh Partida Reason for consultation: anemia/possible related to recatl haemrroids Has provider been notified: No 12/29/21 16:47 Consult to Neurology Routine Consulting Provider: [facility] Reason for consultation: partial seizure- please ask Dr Astudillo to call Dr Murphy DS: Diagnosis Discharge Diagnosis (1) Prolapsed hemorrhoids: Status: Acute (2) Internal hemorrhoids with complication: Status: Acute (3) Anticoagulant long-term use: Status: Acute (4) Congestive heart failure: Status: Acute (5) Anemia: Status: Acute DS: Summary Hospital Course Hospital Course: Chief Complaint: sob, anemia 70-year-old female with a past medical history of hypertension, hyperlipidemia, dementia, seizures, mitral valve replacement (st ethan) on coumadin, CHF , history of AICD, DVT, hypothyroidism, dementia, history of seizures, depression, asthma, history of CVA with residual right-sided weakness, aphasia presented to the hospital today with a chief complaint of shortness of breath. She is here with her daughter who is her manager utilities and HCP whom she lives with. Her daughter reports she has had stafford and increased edema ble R>L x 1 day. Has also had foul smelling urine with increased urinary incontinence x several days. Has hx recurrent UTI with incontinence at baseline. Has noted increased rash in groin folds, using goldbond and nystatin power. H/H in ED was 6.9/26.9% last measured 8.5/30.6% in 05/11. Stool occult blood positive. Reports fatigue and weakness and sob. No cp or palpitations. Denies any known melena, hematochezia, hemetemasis. No abd pain. Has never undergone screening colonoscopy. Does have large hemorrhoid. INR supratherapeutic at 3.7. Renal function stable. CXr with cardiomegaly with pulmonary venous congestion and trace pleural effusions. EKG with st-t wave inversions in inferior leads, troponin 17.8, repeat pending. BNP 301. Hospital course: Patient with MVR on coumadin and presented with acute blood loss anemia, GI bleed, leg edema and shortness, elevaged BNP and was admitted for decompensated heart failure, acute blood loss anemia , UTI. Hospital course by problem 1. Acute on chronic blood loss anemia wth chronic Iron deficiency anemia- Hematocrit was 26 on 12/24. Coumadin put on hold and was transfused 2 units of RBC and has been stable with no active bleeding. -Patient had EGD and sigmoidoscopy--12/27...internal hemorrhoids, large, probable source of anemia and diverticular disease. No active bleed. She has been stable since transfusion. Last Hematocrit on 01/05 was 32. She has been on both coumadin and therapeutic INR to protect her valve and this has not caused any further bleed. stoping aspirin to minimize risik of bleed 2. UTI--completed Abx, Culture showed Group B strep 4. acute on chronic HFrEF--with marked leg edema on admission. She was seen by cardiology and was treated with IV Lasix until improved then was transitioned to oral diuretic and is doing well. She is on chronic oxygen at home. Will resume Losartan upon discharge 4. Paroxysmal AFib-ventricular rate around 100 range continue po metoprolol at 50 bid (previously 100 bid) and digoxin at 0.125 mg QOD (previously daily) - continue anticoagulation as above -AICD in place 5. mechanical mitral valve- [facility]--with target INR of 2.5 to 3.5 due to active bleeding, INR was reversed and coumadin was on hold and in the interim was bridged with lovenox and INR today is 2.3, so should continue Levenox for 1 more day 6. hypothyroidism - continue Levothyroxine 7. Dementia - continue memantine 8. Mood disorder - continue fluoxetine, mirtazapine, quetiapine 9. Partial seizure disorder: intermittent episodes--continue Lamotrigine increased to 100 bid from 50 bid, topiramate decreased from 200 bid to 100 bid by neurologist d/t suspected increased seizure activities 10. hx CVA - Hold ASA -Continue statin 11. Hypernatremia--146, monitor Time Spent with Patient Time attestation: Total time spent providing and/or coordinating discharge services: Discharge coordination time: Greater than 30 minutes Quality: Safe Use of Opioids Does Pt have an Active Cancer Diagnosis on the Problem List?: No Quality: Stroke Does the patient have a stroke diagnosis?: No Physical Exam Vital Signs: Vital Signs: Last Vital Signs Temp 97.8 F 01/07/22 07:42 Pulse 70 01/07/22 07:42 Resp 16 01/07/22 07:42 BP 129/59 L 01/07/22 07:42 Pulse Ox 91 L 01/07/22 07:42 O2 Del Method 01/07/22 07:42 O2 Flow Rate 3 01/07/22 07:42 FiO2 99 01/04/22 19:45 BMI result Body Mass Index 30.4 DS: Data Data Completed and Pending Completed studies during hospitalization [Text1]: Pending at discharge 12/27/21 14:45 Surgical [PTH] Routine Labs on day of discharge: Laboratory Results - last 24 hr 01/07/22 01/07/22 06:32 09:59 PT 27.0 H INR 2.3 H COVID-19 (GIGI) Negative COVID-19 Clin Com See Note Discharge Plan Discharge Anticipated Discharge Date/Time: 01/07/22 10:44 Patient Disposition: Xfer SNF Discharge Diagnosis: Acute blood loss anemia, congestive heart failure, acute hypoxic respiratory failure Referrals: Tonja Taylor [Outside] - 1 Week Collin Castro MD [Primary Care Provider] - 1 Week Discharge Medications: New enoxaparin 100 mg/mL Syringe 85 mg subcut Q12H 1 Days Qty: 1.7 0RF topiramate 100 mg Tablet 100 mg PO BID Qty: 60 0RF metoprolol tartrate 50 mg tablet 50 mg PO Q12H Qty: 60 0RF digoxin 125 mcg (0.125 mg) Tablet 0.125 mg PO Q2D Qty: 30 0RF lamotrigine 100 mg Tablet 100 mg PO BID Qty: 60 0RF furosemide 40 mg Tablet 40 mg PO BID@0900,1800 Qty: 60 0RF Protocol: Hold for SBP< HOLD for SBP < : 90 Continued multivitamin Tablet 1 tab PO DAILY quetiapine 25 mg tablet 25 mg PO DAILY quetiapine 25 mg tablet 50 mg PO BEDTIME fluoxetine 40 mg capsule 1 cap PO DAILY levothyroxine 175 mcg tablet 1 tab PO DAILY atorvastatin 80 mg tablet 1 tab PO BEDTIME isosorbide mononitrate 30 mg tablet extended release 24 hr 1 tab PO DAILY potassium chloride 10 mEq tablet extended release 1 tab PO BID warfarin 3 mg tablet 2 tab PO DAILY losartan 25 mg tablet 1 tab PO DAILY mirtazapine 15 mg tablet 1 tab PO BEDTIME memantine 10 mg tablet 1 tab PO DAILY nystatin [Nyamyc] 100,000 unit/gram powder 1 appl topical TID PRN (Reason: Rash) nitrofurantoin monohyd/m-cryst 100 mg capsule 1 cap PO BEDTIME (DME) nebulizer accessories Kit See Rx Instructions .Route Qty: 1 0RF Rx Instructions: As directed Discontinued furosemide 40 mg tablet 1 tab PO DAILY metoprolol tartrate 100 mg tablet 1 tab PO BID aspirin 81 mg tablet,delayed release (DR/EC) 1 tab PO DAILY lamotrigine 25 mg tablet 2 tab PO BID topiramate 200 mg tablet 1 tab PO BID digoxin 125 mcg (0.125 mg) tablet 1 tab PO DAILY Discharge Orders: Discharge Order (Routine); Ordered 01/07/22 Ordered By: Clyde Buck Diet: Advance to usual diet Activity on Discharge: As tolerated Stand Alone Forms: Patient Portal Discharge page Care Plan Goals: revovery from [facility] heart failure, valvular heart disease, acute blood loss anemia Health Concerns: Chronic heart failure, valvular heart disease, acute blood loss anemia Plan of Treatment: To short term rehab continue Lasix for heart failure monitor for any signs of bleeding Should get 1 more dose of Levenox tonight and then stop Assessment: as above
[2022-01-07 11:27] VITALS: BP 117/50; PULSE 55; RESP 16; TEMP 36.6; O2SAT 96
--- NOTE | 2022-01-07 11:43 | HO.PM.IMPN ---
Subjective Subjective Date of Service: 01/07/22 Interval History: f/u on heart failure, acute blood loss anemia interval history: sitting in chair, no new issues, no sobb Review of Systems no sob, Physical Exam Vital Signs: Vital Signs: Last Vital Signs Temp 97.9 F 01/07/22 11:27 Pulse 55 01/07/22 11:27 Resp 16 01/07/22 11:27 BP 117/50 L 01/07/22 11:27 Pulse Ox 96 01/07/22 11:27 O2 Del Method 01/07/22 11:27 O2 Flow Rate 3 01/07/22 11:27 FiO2 99 01/04/22 19:45 BMI result Body Mass Index 30.4 Const: Other: General: Non verbal Resp: CTA bilateral CVS: S1,S2,RRR. heaven , +leg edema but better GI: +BS, NT, no distention Skin: No rash Neuro: motor grossly intact Psych: appropriate affect Objective Data Active Medications Atorvastatin Calcium (Atorvastatin Calcium 80 Mg Tablet) 80 mg PO BEDTIME [facility] Last Admin: 01/06/22 21:08 Dose: 80 mg Documented By: SANTY Digoxin (Digoxin 0.125 Mg Tablet) 0.125 mg PO Q2D [facility] Last Admin: 01/07/22 08:12 Dose: 0.125 mg Documented By: EMMANUEL Enoxaparin Sodium (Enoxaparin Sodium 100 Mg/Ml Syringe) 85 mg SUBCUT Q12H [facility] Last Admin: 01/07/22 06:19 Dose: 85 mg Documented By: SANTY Ferrous Sulfate (Ferrous Sulfate 324 Mg Tablet.) 324 mg PO BIDWM [facility] Last Admin: 01/07/22 08:04 Dose: 324 mg Documented By: EMMANUEL Fluoxetine HCl (Fluoxetine Hcl 20 Mg Capsule) 40 mg PO DAILY [facility] Last Admin: 01/07/22 07:58 Dose: 40 mg Documented By: EMMANUEL Furosemide (Furosemide 40 Mg Tablet) 40 mg PO BID@0900,1800 [facility]; Protocol Last Admin: 01/07/22 08:03 Dose: 40 mg Documented By: EMMANUEL Isosorbide Mononitrate (Isosorbide Mononitrate 30 Mg Tab.Er.24h) 30 mg PO DAILY [facility]; Protocol Last Admin: 01/07/22 08:03 Dose: 30 mg Documented By: EMMANUEL Lamotrigine (Lamotrigine 100 Mg Tablet) 100 mg PO BID [facility] Last Admin: 01/07/22 08:04 Dose: 100 mg Documented By: EMMANUEL Levothyroxine Sodium (Levothyroxine Sodium 175 Mcg Tablet) 175 mcg PO DAILY@0630 [facility] Last Admin: 01/07/22 06:19 Dose: 175 mcg Documented By: SANTY Losartan Potassium (Losartan Potassium 25 Mg Tablet) 25 mg PO DAILY [facility]; Protocol Last Admin: 01/07/22 08:03 Dose: 25 mg Documented By: EMMANUEL Memantine (Memantine Hcl 10 Mg Tablet) 10 mg PO DAILY [facility] Last Admin: 01/07/22 08:04 Dose: 10 mg Documented By: EMMANUEL Metoprolol Tartrate (Metoprolol Tartrate 25 Mg Tablet) 25 mg PO TID [facility]; Protocol Last Admin: 01/07/22 08:03 Dose: 25 mg Documented By: EMMANUEL Mirtazapine (Mirtazapine 15 Mg Tablet) 15 mg PO BEDTIME [facility] Last Admin: 01/06/22 21:08 Dose: 15 mg Documented By: SANTY Multivitamins/Vitamin C (Multivitamin Tablet) 1 tab PO DAILY [facility] Last Admin: 01/07/22 08:04 Dose: 1 tab Documented By: EMMANUEL Nystatin (Nystatin Powder 15 Gm Bottle) 1 appl TOPICAL TID [facility]; Protocol Last Admin: 01/07/22 08:04 Dose: 1 appl Documented By: EMMANUEL Pharmacy Consult (Consult Rx Perform Med Rec) 1 each MISCELLANE ONCE PRN PRN Reason: Consult order Polyethylene Glycol (Polyethylene Glycol 3350 17 Gm Powd.Pack) 17 gm PO BID [facility] Last Admin: 01/07/22 07:57 Dose: 17 gm Documented By: EMMANUEL Potassium Chloride (Potassium Chloride Er 10 Meq Capsule.Er) 10 meq PO BID [facility] Last Admin: 01/07/22 08:04 Dose: 10 meq Documented By: EMMANUEL Pramoxine HCl (Pramoxine Hcl 1 % Rectal Foam 15 Gm) 1 appl LA QID [facility] Last Admin: 01/07/22 08:04 Dose: 1 appl Documented By: EMMANUEL Quetiapine Fumarate (Quetiapine Fumarate 25 Mg Tablet) 25 mg PO DAILY [facility] Last Admin: 01/07/22 08:04 Dose: 25 mg Documented By: EMMANUEL Quetiapine Fumarate (Quetiapine Fumarate 50 Mg Tablet) 50 mg PO BEDTIME [facility] Last Admin: 12/29/21 20:59 Dose: 50 mg Documented By: ALEX Sodium Chloride (0.9 % Sodium Chloride Flush 3 Ml Syringe) 3 ml IVFLUSH QSHIFT [facility] Last Admin: 01/07/22 08:05 Dose: 3 ml Documented By: EMMANUEL Topiramate (Topiramate 100 Mg Tablet) 100 mg PO BID [facility] Last Admin: 01/07/22 08:04 Dose: 100 mg Documented By: EMMANUEL Warfarin Sodium (Warfarin Sodium 6 Mg Tablet) 6 mg PO DAILY@1800 [facility] Last Admin: 01/06/22 17:02 Dose: 6 mg Documented By: EMMANUEL Warfarin Sodium (Warfarin Sodium 1 Mg Tablet) 1 mg PO DAILY@1800 [facility] Last Admin: 01/06/22 17:12 Dose: 1 mg Documented By: EMMANUEL Labs CBC & Chem 7: 01/05/22 13:33 01/01/22 09:11 Labs: Laboratory Results - last 24 hr 01/07/22 01/07/22 06:32 09:59 PT 27.0 H INR 2.3 H COVID-19 (GIGI) Negative COVID-19 Clin Com See Note Assessment and Plan (1) Prolapsed hemorrhoids: Status: Acute (2) Internal hemorrhoids with complication: Status: Acute (3) Anticoagulant long-term use: Status: Acute (4) Congestive heart failure: Status: Acute (5) Anemia: Status: Acute Plan Patient with MVR on coumadin and presented with acute blood loss anemia, GI bleed, leg edema and shortness, elevaged BNP and was admitted for decompensated heart failure, acute blood loss anemia , UTI.? Hospital course by problem 1. Acute on chronic? blood loss anemia wth? chronic Iron deficiency anemia- Hematocrit was 26 on 12/24. Coumadin put on hold and was transfused 2 units of RBC and has been stable with no active bleeding.? -Patient had EGD and sigmoidoscopy--12/27...internal hemorrhoids, large, probable source of anemia and? diverticular disease. No active bleed. She has been stable since transfusion. Last Hematocrit on 01/05 was 32. She has been on both coumadin and therapeutic INR to protect her valve and this has not caused any further bleed. stoping aspirin to minimize risik of bleed 2. UTI--completed Abx, Culture showed Group B strep 4. acute on chronic HFrEF--with marked leg edema on admission. She was seen by cardiology and was treated with IV Lasix until? improved then was transitioned to? oral diuretic and is doing well. She is on chronic oxygen at home.? Will resume Losartan upon discharge 4. Paroxysmal AFib-ventricular rate around 100 range continue po metoprolol at 50 bid (previously 100 bid) and digoxin at 0.125 mg QOD (previously daily) - continue anticoagulation as above -AICD in place 5. mechanical mitral valve- [facility] Har[facility]--with target INR of 2.5 to 3.5 due to active bleeding, INR was reversed? and coumadin was on hold? and in the interim was bridged with lovenox and INR today is 2.3, so should continue Levenox for 1 more day 6. hypothyroidism - continue Levothyroxine 7. Dementia - continue memantine 8. Mood disorder - continue fluoxetine, mirtazapine, quetiapine 9. Partial seizure disorder: intermittent episodes--continue Lamotrigine increased to 100 bid from 50 bid, topiramate decreased from 200 bid to 100 bid by neurologist d/t suspected increased seizure activities 10. hx CVA - Hold ASA -Continue statin 11. Hypernatremia--146, monitor need for inpatient: ongoing treatment with IV Lasix for for heart failure and being closely monitor for anemia that needed transfusion and anticipate dc tomorrow Discussed goals of care with daughter and completed MOLS form and is now DNR/DNI Quality Stroke Does the patient have a stroke diagnosis?: No VTE Prior VTE?: Yes VTE Risk Level:: Medical - moderate - high VTE Device Contraindication: N/A - Device Ordered VTE Drug Contraindication: Treatment Not Indicated
[2022-01-07 15:46] VITALS: BP 118/56; PULSE 69; RESP 18; TEMP 37; O2SAT 97
[2022-01-07 19:26] VITALS: BP 127/89; PULSE 78; RESP 18; TEMP 37.1; O2SAT 97
[2022-01-07] MEDS: Atorvastatin Calcium 80 MG TABLET PO (22:05)
[2022-01-07] MEDS: Mirtazapine 15 MG TABLET PO (22:06)
[2022-01-07] MEDS: Warfarin Sodium 6 MG TABLET PO (22:09)
[2022-01-07] MEDS: Warfarin Sodium 1 MG TABLET PO (22:09)
[2022-01-08] VITALS: BP 138/56; PULSE 66; RESP 20; TEMP 36.9; O2SAT 99
[2022-01-08 04:00] VITALS: BP 147/73; PULSE 67; RESP 20; TEMP 36.9; O2SAT 99
[2022-01-08] MEDS: Levothyroxine Sodium 175 MCG TABLET PO (06:32)
[2022-01-08 06:33] LABS: INTERNATIONAL NORM RATIO 2.1 (0.9-1.1); Prothrombin Time 25.4 SEC (10.0-13.1)
[2022-01-08] MEDS: Enoxaparin Sodium 100 MG/ML SYRINGE 85 MG SUBCUT (06:36)
[2022-01-08 07:30] VITALS: BP 146/72; PULSE 68; RESP 17; TEMP 36.6; O2SAT 100
--- NOTE | 2022-01-08 09:19 | MHC.CM.PN ---
Discharge held due to transportation issues. The referral was cancelled with [facility]. A new referral was sent to [facility] services. 9am pick is scheduled. The facility and family have been notified of the new transfer date and time.
== END 2022-01-08 09:35 | disposition skilled nursing facility (03) | DRG 291 ==
LOC: HO.ED 13:42 → HO.EDOVER 14:32 → HO.IMC 12-25 17:26
PROVIDERS: Internal Medicine; Internal Medicine Gastroenterology; Admitting Provider Physician Assistant; Emergency Provider Emergency Medicine; PCP Orthopaedic Surgery; Visit Provider Internal Medicine
PROC: 0DJ08ZZ Inspection of Upper Intestinal Tract, Via Natural or Artificial Opening Endoscopic (ICD-10-PCS; CPT 43235; principal; 2021-12-27 12:40)
PROC: 0DJD8ZZ Inspection of Lower Intestinal Tract, Via Natural or Artificial Opening Endoscopic (ICD-10-PCS; CPT 45330; 2021-12-27 12:40)
DX: I11.0 Hypertensive heart disease with heart failure (principal); I50.23 Acute on chronic systolic (congestive) heart failure; K29.71 Gastritis, unspecified, with bleeding; K57.31 Diverticulosis of large intestine without perforation or abscess with bleeding; I69.351 Hemiplegia and hemiparesis following cerebral infarction affecting right dominant side; D62 Acute posthemorrhagic anemia; N39.0 Urinary tract infection, site not specified; E87.0 Hyperosmolality and hypernatremia; E03.9 Hypothyroidism, unspecified; I48.0 Paroxysmal atrial fibrillation; F39 Unspecified mood [affective] disorder; I69.320 Aphasia following cerebral infarction; Z20.822 Contact with and (suspected) exposure to COVID-19; Z95.2 Presence of prosthetic heart valve; Z95.810 Presence of automatic (implantable) cardiac defibrillator; B95.1 Streptococcus, group B, as the cause of diseases classified elsewhere; K64.8 Other hemorrhoids; E66.9 Obesity, unspecified; G40.909 Epilepsy, unspecified, not intractable, without status epilepticus; G31.09 Other frontotemporal neurocognitive disorder; F02.80 Dementia in other diseases classified elsewhere, unspecified severity, without behavioral disturbance, psychotic disturbance, mood disturbance, and anxiety; J45.909 Unspecified asthma, uncomplicated; Z68.30 Body mass index [BMI] 30.0-30.9, adult; Z79.1 Long term (current) use of non-steroidal anti-inflammatories (NSAID); Z86.718 Personal history of other venous thrombosis and embolism; Z87.891 Personal history of nicotine dependence; Z91.013 Allergy to seafood; Z88.5 Allergy status to narcotic agent; Z79.01 Long term (current) use of anticoagulants; Z79.890 Hormone replacement therapy; Z79.899 Other long term (current) drug therapy
CPT/HCPCS: 36415; 36430; 71046; 80048; 80053; 80162; 81001; 82247; 82248; 82272; 82607; 82728; 82746; 83010; 83540; 83615; 83880; 84484; 85014; 85018; 85025; 85027; 85045; 85610; 85730; 86850; 86880; 86900; 86901; 86923; 87086; 87147; 87635; 88305; 88342; 93005; 93306; 94660; 95816; 97162; 99285; J0696; J1100; J1650; J1940; J2370; J2405; J3010; P9016; P9047